=== PATIENT | male | born 1990 | race Caucasian/White ===

== ENCOUNTER 2023-03-29 09:07 | Emergency (ER) | payer BC, SELFPAY ==
[2023-03-29] VITALS (15 sets, daily range): BP systolic 94–138; BP diastolic 51–78; PULSE 68–121; RESP 14–16; TEMP 36.3–36.8; O2SAT 97–100
[2023-03-29] MEDS: SODIUM CHLORIDE 0.9% IV 1,000 ML 999 ML IV CONT ×2 (09:20→11:14)
[2023-03-29] MEDS: levETIRAcetam 1000MG/NACL100ML 1,000 MG/100 ML BAG 400 MG IVPB (09:21)
--- NOTE | 2023-03-29 09:23 | ED.SEIZURE ---
HPI - Seizure General Chief Complaint: Seizure Stated Complaint: seizure Source: patient Mode of arrival: EMS Limitations: no limitations History of Present Illness HPI Narrative: Patient is a 32-year-old male who presents to the ED via EMS with report of seizure. 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 Patient states last thing he remembers was talking to one of his coworkers and the next thing he remembers is having a coworker lowered him to the ground. He was caught by a coworker. He did not fall or hit his head. He did not have incontinence or bite his tongue. EMS was called. Patient was initially postictal for EMS and was unsure of the year so they brought him here for evaluation. Patient A&O x4 upon my evaluation. He has history of seizures and takes Keppra 500 mg once daily. He has not missed any doses. He did not take his dose yet today. He is prescribed this to his primary care doctor, but does see a neurologist annually with [facility]. Patient denies any complaints at this time. Denies headache, dizziness, lightheadedness, vision changes, myalgias, chest pain, difficulty breathing, nausea, vomiting, focal weakness, numbness, or any recent illness. Patient notes it was hot in the auto shop today and he only had about 1 hour of sleep last night as he was binge-watching TV. Related Data Allergies Allergy/AdvReac Type Severity Reaction Status Date / Time No Known Allergies Allergy Verified 03/29/23 09:20 Review of Systems Review of Systems: CONSTITUTIONAL: Denies fever, chills, or sweats. EYES: Denies visual changes. CARDIOVASCULAR: Denies chest pain. RESPIRATORY: Denies dyspnea. GASTROINTESTINAL: Denies abdominal pain, nausea, vomiting. MUSCULOSKELETAL: Denies back pain, joint pain, or myalgia. NEUROLOGIC: See HPI. All systems reviewed & are unremarkable except as noted in HPI and below PMFSH Past Medical History Medical History (Updated 03/29/23 @ 15:05 by Anai Carter PA-C) Seizure disorder Surgical History Surgical History (Updated 03/29/23 @ 09:26 by Anai Carter PA-C) No pertinent past surgical history Social History Social History (Updated 03/29/23 @ 09:26 by Anai Carter PA-C) Smoking status: Never smoker Exam Narrative: GENERAL: Well appearing, thin, non-toxic, in no acute distress. HEAD: Normocephalic, atraumatic. EYES: PERRL/EOMI, conjunctivae clear bilaterally. No nystagmus. THROAT: Pharynx clear, no exudate. MMs moist. No bite davis/wounds to tongue/lips. NECK: Supple. No adenopathy, no masses. RESPIRATORY: Airway patent, respirations nonlabored. Clear to auscultation bilaterally, no rales, rhonchi, wheezing. CARDIOVASCULAR: Borderline tachycardic with regular rhythm without murmurs, rubs, or gallops. Radial pulses 2+ and equal bilaterally. ABDOMINAL: Soft, nontender, nondistended, no hepatosplenomegaly. Normoactive BS. MUSCULOSKELETAL: Moves all extremities. Strength/ROM intact without gross deformities. SKIN: Warm, dry, normal color. No rashes. NEURO: A&O X4. Speech clear. Follows commands. CN II-XII intact. Sensation grossly intact. Steady gait. Mildly tremulous throughout extremities, no ataxic movements. Strength 5/5 in upper and lower extremities bilaterally. Qhgo-xe-ljjn and wddxjo-pp-npru testing intact bilaterally. No pronator drift. Equal group care worker strength bilaterally. PSYCHIATRIC: Appropriate mood and affect. Normal interaction. Course Vital Signs Vital signs: Vital Signs Pulse Rate 121 H 03/29/23 09:30 Pulse Oximetry 100 03/29/23 09:30 Temperature 97.3 F L 03/29/23 15:10 Pulse Rate 68 03/29/23 14:46 Respiratory Rate 16 03/29/23 14:46 Blood Pressure 117/71 03/29/23 14:46 Pulse Oximetry 100 03/29/23 14:46 Oxygen Delivery Room Air 03/29/23 09:34 MDM - Seizure MDM Narrative Medical decision making narrative: Patient presented to ED sta
[2023-03-29 09:55] LABS: Basophils Absolute Auto 0.1 K/mm3 (0.0-0.1); Basophils Percent Auto 0.9 % (0.2-1.2); Eosinophils Percent Auto 0.6 % (0-4.4); Hematocrit 43.2 % (42.0-52.0); Immature Granulocyte Absolute 0.02 K/mm3 (0.00-0.031); Immature Granulocyte Percent A 0.3 % (0-0.5); Lymphocytes Absolute Auto 1.44 K/mm3 (0.9-3.2); Lymphocytes Percent Auto 22.1 % (18.3-44.2); Mean Corpuscular HGB Conc 34.7 g/dl (32-36); Mean Corpuscular Hemoglobin 31.7 pg (26-34); Mean Corpuscular Volume 91.3 fl (80-100); Mean Platelet Volume 10.1 fl (7.4-10.4); Monocytes Absolute Auto 0.5 K/mm3 (0.1-0.6); Monocytes Percent Auto 7.2 % (2.6-8.5); Neutrophils Absolute Auto 4.5 K/mm3 (1.3-6.7); Neutrophils Percent Auto 68.9 % (45.5-73.1); Platelet Count Result 246 k/mm3 (150-375); Red Blood Count 4.73 M/mm3 (4.6-6.20); Red Cell Distribution Width 12.2 % (11.5-14.5); White Blood Count 6.5 K/mm3 (4.5-10.0)
[2023-03-29 10:10] LABS: Alanine Aminotransferase 29 U/L (6-50); Albumin Level 4.8 g/dL (3.5-5.1); Alkaline Phosphatase 78 U/L (38-126); Anion Gap 5 mmol/L (8-16); Aspartate Amino Transferase 36 U/L (17-59); Bilirubin,Total 0.7 mg/dL (0.2-1.3); Blood Urea Nitrogen 22 mg/dL (9-20); Carbon Dioxide 30 mmol/L (22-30); Chloride 103 mmol/L (98-107); Estimated CRCL calculation 128 ml/min; Estimated Glomerular Filt Rate > 60; Glucose 129 mg/dL (65-110); Magnesium 1.9 mg/dL (1.6-2.3); Potassium 4.3 mmol/L (3.4-5.0); Sodium 138 mmol/L (137-145)
[2023-03-29 10:53] LABS: Add Urine Microscopic? YES; Appearance Urine Cloudy (Clear); Bacteria Urine None Seen /hpf; Bilirubin Urine Negative (Negative); Blood Urine Negative (Negative); Color Urine Dark Yellow (Yellow); Glucose Urine UA Negative (Negative); Ketones Urine Trace mg/dL (Negative); Leukocyte Esterase Ur Negative LEU/UL (Negative); Need Manual Microscopic Reviewed; Nitrate Urine Negative (Negative); Protein Urine 2+ mg/dL (Negative); RBC Urine 0-2 /hpf (0-2); Specific Grav Ur 1.032 (1.001-1.035); Spermatozoa Urine Present; Squamous Epithelial Cell Urine None seen /hpf (Few); Urobilinogen Urine 0.2 mg/dL (<2.0); WBC Urine 0-5 /hpf
--- NOTE | 2023-03-29 17:48 | ECG_ITS ---
Measurements Intervals [place] Rate: 107 P: 78 OK: 138 QRS: 83 QRSD: 98 T: 26 QT: 305 QTc: 407 Interpretive Statements SINUS TACHYCARDIA OTHERWISE WITHIN NORMAL LIMITS NO PREVIOUS ECG AVAILABLE FOR COMPARISON Electronically Signed On 04-02-2023 15:24:55 CDT by Miguel Royal M.D.
== END 2023-03-29 15:12 | disposition home or self-care (01) ==
PROVIDERS: Emergency Provider Physician Assistant
DX: G40.909 Epilepsy, unspecified, not intractable, without status epilepticus (principal)
CPT/HCPCS: 36415; 80053; 81001; 83735; 85025; 93005; 96361; 96374; 99284; J1953; J7030

== ENCOUNTER 2023-07-10 10:09 | Emergency (ER) | payer OTHER, SELFPAY ==
--- NOTE | ~2023-07-10 | XR_ITS ---
EXAMINATION: XR forearm LT 2V DATE: 07/10/2023 10:43 INDICATION: Left forearm foreign body. TECHNIQUE: 2 views of left forearm were obtained. COMPARISON: None. FINDINGS: Bone alignment is normal. No fracture. Joint spaces are normal. No elbow joint effusion. Th ere is a 12 mm subcutaneous foreign body anterolateral to the distal humerus. IMPRESSION: 1. 12 mm subcutaneous foreign body anterolateral to the distal humerus. Reviewed, dictated and finalized at location A.
[2023-07-10 10:15] VITALS: BP 139/94; PULSE 90; RESP 16; TEMP 36.6; O2SAT 98
--- NOTE | 2023-07-10 10:45 | ED.GENADULT ---
HPI - General Adult General Chief complaint: Wound/Laceration Stated complaint: laceration Time Seen by Provider: 07/10/23 10:16 History of Present Illness HPI narrative: 39-year-old male presented to the emergency department for evaluation of an injury to his left arm. Patient was hammering metal when a shard broke off and hit him in the left forearm. Patient reports his tetanus is up-to-date. Patient denies any other pain or injury Related Data Allergies Allergy/AdvReac Type Severity Reaction Status Date / Time No Known Allergies Allergy Verified 07/10/23 10:18 Review of Systems Review of Systems: All systems reviewed & are unremarkable except as noted in HPI and below PMFSH Past Medical History Medical History (Updated 07/10/23 @ 11:53 by Bryant Augustine MD) Seizure disorder Surgical History Surgical History (Updated 03/29/23 @ 09:26 by Anai Carter PA-C) No pertinent past surgical history Social History Social History (Updated 03/29/23 @ 09:26 by Anai Carter PA-C) Smoking status: Never smoker Exam Narrative: APPEARANCE: Well appearing, no pain, no distress, well-nourished. HEAD: normocephalic, atraumatic. EYES: PERRLA/EOMI, conjunctivae clear. NOSE: Normal no drainage NECK: Supple. No adenopathy, no masses. RESPIRATORY: Airway patent, respirations nonlabored. Clear to auscultation bilaterally, no rales, rhonchi, wheezing. CARDIOVASCULAR: Regular rate and rhythm without murmurs rubs or gallops. ABDOMINAL: Soft, nontender, nondistended, normal bowel sounds MUSCULOSKELETAL: Moves all extremities. Strength/ROM intact, No edema, No calf tenderness. NEURO: Alert. Cranial nerves II through XII intact. Grossly intact SKIN: 3.5 cm laceration to left forearm Course Course Emergency Course: 33-year-old male presented to ED for evaluation of laceration to the left forearm. Foreign body was removed and laceration was repaired. Patient's tetanus up-to-date. Patient was started on Augmentin in the ED and discharged home with Augmentin. Vital Signs Vital signs: Vital Signs Temperature 97.8 F 07/10/23 10:15 Pulse Rate 90 07/10/23 10:15 Respiratory Rate 16 07/10/23 10:15 Blood Pressure 139/94 H 07/10/23 10:15 Pulse Oximetry 98 07/10/23 10:15 Temperature 98.0 F 07/10/23 12:20 Pulse Rate 64 07/10/23 12:20 Respiratory Rate 15 07/10/23 12:20 Blood Pressure 131/89 07/10/23 12:20 Pulse Oximetry 100 07/10/23 12:20 Procedures Foreign Body Removal Foreign Body #1: Time Out Performed: yes Site: left and upper extremity Description of foreign body: other (piece of steel) Technique: manual removal, removal with forceps, irrigation and bedside ultrasound guidance Confirmed by:: direct visualization Complications: none Neurovascular: normal distal pulse Laceration Laceration 1: Time: 11:46 Site: upper extremity Side (If applicable): left Size (cm): 3.5 Description: linear and flap Depth: simple, single layer Local Anesthetic: lidocaine 1% and with epi Amount of anesthesia used (mL): 5 Pre-repair: wound explored, irrigated and irrigated extensively ====== Skin Level ====== Skin layer closed with: prolene Size (cm): 3-0 Number of sutures: 4 Technique: simple, interrupted ====== Subcutaneous Layer ====== ====== Muscle Layer ====== ====== Tendon Layer ====== Medical Decision Making Differential Diagnosis Differential Diagnosis: Laceration, foreign body Vital Signs Vital Signs: Vital Signs Temperature 97.8 F 07/10/23 10:15 Pulse Rate 90 07/10/23 10:15 Respiratory Rate 16 07/10/23 10:15 Blood Pressure 139/94 H 07/10/23 10:15 Pulse Oximetry 98 07/10/23 10:15 Temperature 98.0 F 07/10/23 12:20 Pulse Rate 64 07/10/23 12:20 Respiratory Rate 15 07/10/23 12:20 Blo
[2023-07-10] MEDS: AMOXICILLIN/CLAVULANATE K 875-125 MG TAB 1 TABLET PO (12:14)
[2023-07-10 12:20] VITALS: BP 131/89; PULSE 64; RESP 15; TEMP 36.7; O2SAT 100
== END 2023-07-10 12:22 | disposition home or self-care (01) ==
PROVIDERS: Emergency Provider Emergency Medicine
DX: S51.821A Laceration with foreign body of right forearm, initial encounter (principal); W26.8XXA Contact with other sharp object(s), not elsewhere classified, initial encounter
CPT/HCPCS: 12002; 73090; 99283; A9270

== ENCOUNTER 2024-03-02 18:02 | Emergency (ER) | payer OTHER, SELFPAY ==
--- NOTE | 2024-03-02 18:05 | ED.EAR ---
HPI - Ear Problem General Chief complaint: Ear Stated complaint: Lt Ear Irritation Time Seen by Provider: 03/02/24 18:05 Source: patient Mode of arrival: ambulatory Limitations: no limitations History of Present Illness HPI Narrative: Patient is a 33-year-old male that presents with left ear irritation after having ear wax push further in trying to get it out with a Q-tip. Patient has tried vcjr-bxi-[id number] drops with no relief and scooping it out MD Complaint: ear pain Related Data Home Medications Medication Instructions Recorded Confirmed alprazolam 0.5 mg tablet 0.5 mg PO BID PRN Anxiety 03/02/24 03/02/24 buprenorphine 4 mg-naloxone 1 mg 1 film sublingual BID 03/02/24 03/02/24 sublingual film dextroamphetamine-amphetamine 30 30 mg PO BID 03/02/24 03/02/24 mg tablet Allergies Allergy/AdvReac Type Severity Reaction Status Date / Time No Known Allergies Allergy Verified 03/02/24 18:04 Review of Systems Review of Systems: All systems reviewed & are unremarkable except as noted in HPI and below Constitutional: Constitutional: Denies body ache(s), Denies chills, Denies fever(s), Denies headache(s) and Denies malaise Eyes: Eyes: Denies blurry vision, Denies eye discharge and Denies irritation ENT: Reports otalgia, Denies headache(s), Denies nasal congestion, Denies nasal discharge and Denies sore throat Cardiovascular: Cardiovascular: Denies chest pain, Denies edema, Denies palpitations and Denies dyspnea on exertion Respiratory: Respiratory: Denies cough and Denies dyspnea on exertion Gastrointestinal: Gastrointestinal: Denies abdominal pain, Denies diarrhea, Denies nausea and Denies vomiting Musculoskeletal: Musculoskeletal: Denies back pain, Denies arthralgias and Denies muscle weakness Integumentary/Breasts: Skin/Breast: Denies pruritus and Denies rash Neurologic: Denies headache(s) Psychiatric: Psychiatric: Reports no additional psychiatric complaints Endocrine: Endocrine: Denies palpitations PMFSH Past Medical History Medical History Seizure disorder Surgical History Surgical History No pertinent past surgical history Social History Social History Smoking status: Never smoker Comments At time of signature, agree with nursing past medical, surgical, social and family history. There is no relevant family history pertinent to the presenting complaint? Exam Const: General: cooperative, healthy appearing, no acute distress and well nourished Nutritional Appearance: well nourished Orientation/consciousness: patient oriented x3 Limitations: no limitations HENMT: Head: normal to inspection, normocephalic and atraumatic Ears: hearing grossly normal bilaterally, TM normal on the right, no periauricular adenopathy, Abnormal EAC present cerumen impaction on the left, erythema on the left and other (abrasions from attempting to get wax out at home) and TM abnormal obstructed by cerumen on the left Face/Nose/Sinus: Normal external nose present, Normal nares present, Normal nasal mucous membranes and turbinates present, No nasal discharge present, normal facial exam and sinuses nontender Face and sinus: normal facial exam and sinuses nontender Mouth: Yes Normal oral and palatal mucosa present, Yes lip normal, Yes tongue normal and Yes moist mucous membranes Throat: posterior oropharynx normal, tonsils normal and uvula midline Eyes: General: appearance normal, both eyes and all related structures Alignment and Position: alignment normal and position normal Eyelids: eyelids normal Pupils: Equal, round and reactive pupils present EOM: EOMs intact bilaterally Neck: Neck: normal visual inspection, full ROM, no lymphadenopathy and supple Chest: Chest palpation & inspection: normal inspection of the chest Resp: Effort & Inspection: n
[2024-03-02 18:27] VITALS: BP 116/71; PULSE 83; RESP 16; TEMP 36.6; O2SAT 98
== END 2024-03-02 18:28 | disposition home or self-care (01) ==
PROVIDERS: Emergency Provider Nurse Practitioner Family; PCP Emergency Medicine
DX: H60.92 Unspecified otitis externa, left ear (principal); H61.22 Impacted cerumen, left ear
CPT/HCPCS: 69209; 99213; G0463

== ENCOUNTER 2024-05-27 16:38 | Outpatient (CLI) | payer OTHER, SELFPAY ==
[2024-05-27 17:47] LABS: Basophils Absolute Auto 0.1 K/mm3 (0.0-0.1); Basophils Percent Auto 0.6 % (0.2-1.2); Eosinophils Absolute Auto 0.1 K/mm3 (0-0.3); Eosinophils Percent Auto 1.2 % (0-4.4); Hematocrit 38.9 % (42.0-52.0); Hemoglobin 13.8 g/dL (14.0-18.0); Immature Granulocyte Absolute 0.01 K/mm3 (0.00-0.031); Immature Granulocyte Percent A 0.1 % (0-0.5); Lymphocytes Absolute Auto 1.98 K/mm3 (0.9-3.2); Lymphocytes Percent Auto 25.4 % (18.3-44.2); Mean Corpuscular HGB Conc 35.5 g/dl (32-36); Mean Corpuscular Hemoglobin 32.5 pg (26-34); Mean Corpuscular Volume 91.7 fl (80-100); Mean Platelet Volume 10.6 fl (7.4-10.4); Monocytes Absolute Auto 0.5 K/mm3 (0.1-0.6); Monocytes Percent Auto 6.6 % (2.6-8.5); Neutrophils Absolute Auto 5.1 K/mm3 (1.3-6.7); Neutrophils Percent Auto 66.1 % (45.5-73.1); Platelet Count Result 249 k/mm3 (150-375); Red Blood Count 4.24 M/mm3 (4.6-6.20); White Blood Count 7.8 K/mm3 (4.5-10.0)
[2024-05-27 17:55] LABS: Alanine Aminotransferase 26 U/L (6-50); Albumin Level 4.7 g/dL (3.5-5.1); Alkaline Phosphatase 71 U/L (38-126); Anion Gap 6 mmol/L (4-12); Aspartate Amino Transferase 32 U/L (17-59); Bilirubin,Total 0.6 mg/dL (0.2-1.3); Blood Urea Nitrogen 15 mg/dL (9-20); Calcium 9.6 mg/dL (8.4-10.2); Carbon Dioxide 34 mmol/L (22-30); Chloride 97 mmol/L (98-107); Cholesterol 154 mg/dL (0-200); Estimated Glomerular Filt Rate > 60; Glucose 80 mg/dL (65-110); HDL Direct 84 mg/dL; Phosphorus 3.4 mg/dL (2.5-4.5); Potassium 3.5 mmol/L (3.4-5.0); Sodium 137 mmol/L (137-145); Triglycerides 102 mg/dL (<150)
[2024-05-27 18:00] LABS: LDL Cholesterol Direct 42 mg/dL
[2024-05-27 18:17] LABS: Free T4 Free Thyroxine 1.12 ng/mL (0.78-2.19)
[2024-05-27 18:29] LABS: Thyroid Stimulating Hormone 0.723 uIU/mL (0.465-4.680)
== END 2024-05-27 16:39 | disposition home or self-care (01) ==
PROVIDERS: PCP Emergency Medicine; Visit Provider Emergency Medicine
DX: Z00.01 Encounter for general adult medical examination with abnormal findings (principal); F41.1 Generalized anxiety disorder; G89.4 Chronic pain syndrome; R41.840 Attention and concentration deficit; Z79.899 Other long term (current) drug therapy
CPT/HCPCS: 36415; 80061; 80069; 80076; 82607; 82746; 84439; 84443; 85025

== ENCOUNTER 2024-10-18 10:15 | Emergency (ER) | payer OTHER, SELFPAY ==
[2024-10-18 10:23] VITALS: BP 132/73; PULSE 93; RESP 20; TEMP 36.5; O2SAT 100
--- NOTE | 2024-10-18 11:50 | ED_ITS ---
HPI - Eye Problem General Chief complaint: Eye Problems Stated complaint: metal in eye Time Seen by Provider: 10/18/24 11:36 History of Present Illness HPI Narrative: 34-year-old male with a past medical history of seizure disorder presenting to the emergency room with chief complaint of foreign body sensation in his left eye. 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 He was wearing safety glasses that time. Patient went home did not thinking anything of it this started having some tearing and blurriness to his left eye. Tried retrieving foreign body which he can visualize in the mirror. States that the piece of metal. Was not able to retrieve it and presents the emergency room today for evaluation. He states his last tetanus was within the last year. Denies any fever, chills, headache, vision loss, nausea vomiting. He states he was otherwise in his normal state of health. Is not allergic to any kind antibiotics. Related Data Home Medications ?Medication ?Instructions ?Recorded ?Confirmed ?Last Taken ?Type alprazolam 0.5 mg tablet 0.5 mg PO BID PRN Anxiety 03/02/24 03/02/24 Unknown History buprenorphine 4 mg-naloxone 1 mg 1 film sublingual BID 03/02/24 03/02/24 Unknown History sublingual film dextroamphetamine-amphetamine 30 30 mg PO BID 03/02/24 03/02/24 Unknown History mg tablet Allergies Allergy/AdvReac Type Severity Reaction Status Date / Time No Known Allergies Allergy Verified 10/18/24 11:51 Review of Systems Review of Systems: As reviewed above in HPI PMFSH Past Medical History Medical History Seizure disorder Surgical History Surgical History No pertinent past surgical history Social History Social History Smoking status: Never smoker Exam Narrative: GENERAL: [Well-appearing, well-nourished, and in no acute distress.] HEAD: [Normocephalic, atraumatic.] EYES: Pupils are equal reactive to light, extraocular movements are full, pupils are 3 mm. Left eye is conjunctival injected with some tearing but no obvious laceration, no hypopyon or hyphema. Under slit-lamp examination there is a small area of a rust ring in the inferior medial aspect of his left eye that is not in the visual axis. No overlying abrasions. Appears very superficial, negative Rian sign, no corneal abrasions under fluorescein dye and examination with with lamp. ENT: Nares clear, no rhinorrhea or epistaxis. Mucous membranes moist. NECK: Supple. CHEST: [Clear to auscultation. No respiratory distress.] HEART: [Regular rate and rhythm]. No murmur heard. [Normal peripheral pulses.] ABDOMEN: [Soft, nondistended], [nontender], [No rigidity or guarding] EXTREMITIES: Normal range of motion. [No edema.] SKIN: Warm, dry, no rash. NEURO: [No focal deficits]. Alert and oriented [x3.] PSYCH: [Normal mood and affect.] Course Vital Signs Vital signs: Vital Signs Temperature 36.5 C 10/18/24 10:23 Pulse Rate 93 10/18/24 10:23 Respiratory Rate 20 10/18/24 10:23 Blood Pressure 132/73 10/18/24 10:23 Pulse Oximetry 100 10/18/24 10:23 Temperature 36.5 C 10/18/24 10:23 Pulse Rate 93 10/18/24 10:23 Respiratory Rate 20 10/18/24 10:23 Blood Pressure 132/73 10/18/24 10:23 Pulse Oximetry 100 10/18/24 10:23 Procedures FB Removal Eye Foreign Body #1: Foreign Body Removal Date: 10/18/24 Foreign Body Removal Time: 13:00 Time Out performed: Yes Location: eye (L) Topical anesthetic used: tetracaine Foreign body: metal Evidence of corneal penetration: No Technique: irrigation, cotton tip swab and needle Procedure performed under: slit-lamp Post-procedure medication: ophthalmic antibiotic and topical anesthetic Patient tolerated procedure: well and no complications Complications: residual rust ring Foreign Body Removal Narrative: Slit lamp examination was conducted, there is a small rust ring located in the inferior medial left eye off the visual axis. Removed after several attempts with 27 gauge needle burring. Extensive irrigation with saline conducted afterwards, repeat examination under slit lamp and fluorescein dye shows no penetration or positive Rian sign. Patient tolerated procedure well and had improvement his foreign body sensation. Visual acuity remained normal. Given topical moxifloxacin. MDM - Eye Problem MDM Narrative Medical decision making narrative: 34-year-old male presenting for foreign body sensation is left eye. Patient was grinding metal 2 days ago at work and felt a piece of metal going to his left eye. He states he tried treating it as he is able to visualize it but was not able to. This occurred 2 days ago and presents today for evaluation. He is h aving some tearing and does have some conjunctival injection in his left eye. His tetanus is already up-to-date. Considerations presently are for foreign body retained in left eye, corneal abrasion, less likely corneal ulceration or penetrating globe injury. Visual cue to be checked, patient will be given tetracaine for pain control and fluorescein dye will be used to stain. Under slit-lamp examination there is a small area of a rust ring in the inferior medial aspect of his left eye that is not in the visual axis. No overlying abrasions. Appears very superficial, negative Rian sign, no corneal abrasions under fluorescein dye and examination with with lamp. Foreign body was successfully removed under slit-lamp examination with a needle. Patient tolerated the procedure well. Please see the procedure note above for further details. I contacted the [facility] ophthalmology group and spoke to the on- call doctor Dr. Nascimento to obtain recommendations and appropriate follow-up for the patient. Patient has been made an appointment on Sunday the at 10:00 a.m. at the clinic. Patient will be sent home with moxifloxacin eyedrops and instructions that if he has any worsening or new symptoms or any visual changes or deficits that he should call their clinic line for an emergency visit or return to the ER at that time. Patient verbalized understanding was safe for discharge home at this time with prescription medications. Medical Records Attestation: I reviewed the patient's medical records. Discharge Plan Discharge Clinical Impression: Corneal rust ring of left eye, Rust ring of left cornea due to metallic foreign body Patient Disposition: Home, Self-Care Condition: Stable Instructions: Antibiotic Form Additional Instructions: Follow up in clinic on Sunday 10/22 at 10am. Location: [address] [place] [address]. Call clinic at [phone] for scheduling changes or if any new or worsening symptoms and they will refer you to the [facility] ED to be seen emergently at that time. Continue taking her moxifloxacin eyedrops as directed as well as oral ibuprofen or Tylenol for pain control. Follow-up with the clinic as described above, return with any new or worsening concerns at any time. Patient Language: Nepali Prescriptions: New moxifloxacin 0.5 % drops 1 drp LEFT EYE TID 7 Days Qty: 3 0RF No Action buprenorphine-naloxone 4-1 mg film 1 film sublingual BID dextroamphetamine-amphetamine 30 mg tablet 30 mg PO BID alprazolam 0.5 mg Tablet 0.5 mg PO BID PRN (Reason: Anxiety) ofloxacin 0.3 % drops 5 drp LEFT EAR Q12H 7 Days Qty: 10 0RF Follow-up/Referrals: Hai Edwards MD [Primary Care Provider] - Time of Disposition: 13:35
[2024-10-18] MEDS: MOXIFLOXACIN HCL 0.5% 3 ML OPHTH SOLN 1 DROP LEFT EYE (14:01)
--- OUTSIDE RECORDS SUMMARY | 2024-10-25 13:01 | XMS_ITS | Encounter Summary ---
Author Organization [facility] Address [address] [place] [address]. 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 ([facility]) Procedures MRI BRAIN WWO CON Julián Matthews MD [address] [place] [address] Phone: tel: fax: Referral ID Status Reason Start Date Expiration Date Visits Re quested Visits Authorized [id number] Closed 07/15/2021 08/15/2022 1 1 * Imaging (Routine) - Closed Specialty Diagnoses / Procedures Referred By Alicja bassett Referred To Contact RADIOLOGY Diagnoses 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 ([facility]) Procedures USE ECHOCARDIOGRAM Julián Matthews MD [address] [place] [address] Phone: tel: fax: Referral ID Status Reason Start Date Expiration Date Visits Re quested Visits Authorized [id number] Closed 07/15/2021 08/15/2022 1 1 Reason for Visit * Imaging (Routine) - Closed Specialty Diagnoses / Procedures Referred By Alicja bassett Referred To Contact RADIOLOGY Diagnoses 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 ([facility]/HCC [facility]) Procedures USE ECHOCARDIOGRAM Julián Matthews MD [address] [place] [address] Phone: tel: fax: Referral ID Status Reason Start Date Expiration Date Visits Re quested Visits Authorized [id number] Closed 07/15/2021 08/15/2022 1 1 Encounter Details Date Type Department Care Team (Latest Contact Info) Description 08/19/2021 7:30 AM CDT - 08/19/2021 11:59 PM CDT Hospital Encounter [facility] Non Invasive Cardiology [place], [place] [id number] Julián Matthews MD [address] [place], [place] [id number] Discharge Disposition: Home or Self Care (Routine Discharge) Social History Tobacco Use Types Packs/Day Years Used Date Smoking Tobacco: Never Smokeless Tobacco: Never Alcohol Use Standard Drinks/Week Comments No 0 (1 standard drink = 0.6 oz pur e alcohol) AUDIT-C Answer Date Recorded Frequency of Alcohol Consumption Never 04/14/2019 Average Number of Drinks Not on file 019 Frequency of Binge Drinking Not on file 10/2018 Sex and Gender Information Value Date Recorded Sex Assigned at Not on file Legal Sex Male 9:06 PM CDT Gender Identity Not on file Sexual Orientation Not on file 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 No / Unsure 08/19/2021 7:35 AM CDT documented as of this encounter Medications at Time of Discharge buprenorphine-nalox one 8-2 MG FILM 07/23/2020 amphetamine-dextroa mphetamine 30 MG tabletIndications:A DHD (attention deficit hyperactivity disorder), inattentive type Take 1 tablet (30 mg total) by mouth 2 (two) times daily. 60 tablet 07/26/2021 1 levETIRAcetam (KEPPRA) 500 MG tabletIndications:L ocalization-related focal epilepsy with complex partial seizures (CMS/HCC HHS/HCC) Take 1 tablet (500 mg total) by mouth 2 (two) times daily. 60 tablet 5 07/15/2021 2 levETIRAcetam 500 MG tablet Take 1 tablet (500 mg total) by mouth 2 (two) times daily. 60 tablet 03/07/2021 2 documented as of this encounter Plan of Treatment Not on file documented as of this encounter Procedures Procedure Name Priority Date/Time Associated Diagnosis Comments MRI BRAIN WWO CON Routine 08/19/2021 3:3 0 PM CDT Localization-relate d focal epilepsy with complex partial seizures (CMS/HCC HHS/HCC) USE ECHOCARDIOGRAM Routine 08/19/2021 8: 34 AM CDT Localization-relate d focal epilepsy with complex partial seizures (CMS/HCC HHS/HCC) documented in this encounter Results * MRI BRAIN WWO CON (08/19/2021 3:30 PM CDT) Anatomical Region Laterality Modality Head Magnetic Resonan ce 08/21/2021 9:02 AM MOLD INJECTOR Impressions 08/21/2021 9:12 AM MOLD INJECTOR IMPRESSION:===== ?? 1. ??Unremarkable MRI of the brain; no potential seizure focus identified, or any other acute or significant intracranial MRI finding. Referred By: JULIÁN MATTHEWS Interpreted By: Vini Graves MD, 08/21/2021 9:02 AM Narrative 08/21/2021 9:12 AM MOLD INJECTOR EXAMINATION: MRI brain with/without contrast. EXAM DATE/TIME: 08/19/2021 2:45 PM REASON FOR EXAM: 31-year-old male. ??History of epilepsy. ??2 seizures 5 months prior. ?? COMPARISON: None TECHNIQUE: Planar multisequence MR imaging of the brain performed before and following uneventful intravenous administration of 15 cc Dotarem contrast. ??Coronal of imaging through the of the upper lobes also performed per seizure protocol. FINDINGS: Normal ventricles and sulci. ??No intracranial hemorrhage, mass effect or midline shift. ??No focus of restricted diffusion suggestive of acute ischemia. ??No chronic infarct. ??No other abnormal parenchymal signal in the brain. ??Weiss-white differentiation is normal. There is no imaging through the temporal lobes shows symmetry without any findings of mesial temporal sclerosis. No focus of abnormal gradient susceptibility seen. Patent basilar cisterns. ??Posterior fossa including the brainstem and cerebellum are unremarkable. Sellar and suprasellar region is normal. Orbits and orbital structures are within normal limits. Major intracranial vascular flow voids are present. ??Other major intracranial structures including dural venous sinuses enhance normally within study limits. ??No abnormal or unexpected intracranial enhancement Orbits and orbital structures are within normal limits. Bilateral maxillary sinus minimal inferior mucosal thickening otherwise the sinuses and mastoid air cells are clear. ===== Procedure Note Vini Graves MD - 08/21/2021 EXAMINATION: MRI brain with/without contrast. EXAM DATE/TIME: 08/19/2021 2:45 PM REASON FOR EXAM: 31-year-old male. History of epilepsy. 2 seizures 5months prior. COMPARISON: None TECHNIQUE: Planar multisequence MR imaging of the brain performed beforeand following uneventful intravenous administration of 15 cc Dotaremcontrast. Coronal of imaging through the of the upper lobes alsoperformed per seizure protocol. FINDINGS: Normal ventricles and sulci. No intracranial hemorrhage, mass effect ormidline shift. No focus of restricted diffusion suggestive of acuteischemia. No chronic infarct. No other abnormal parenchymal signal inthe brain. Weiss-white differentiation is normal. There is no imaging through the temporal lobes shows symmetry without anyfindings of mesial temporal sclerosis. No focus of abnormal gradient susceptibility seen. Patent basilar cisterns. Posterior fossa including the brainstem andcerebellum are unremarkable. Sellar and suprasellar region is normal. Orbits and orbital structures are within normal limits. Major intracranial vascular flow voids are present. Other majorintracranial structures including dural venous sinuses enhance normallywithin study limits. No abnormal or unexpected intracranial enhancement Orbits and orbital structures are within normal limits. Bilateral maxillary sinus minimal inferior mucosal thickening otherwisethe sinuses and mastoid air cells are clear. ===== IMPRESSION:===== 1. Unremarkable MRI of the brain; no potential seizure focus identified,or any other acute or significant intracranial MRI finding. Referred By: JULIÁN MATTHEWS Interpreted By: Vini Graves MD, 08/21/2021 9:02 AM us Julián Matthews MD MRI Final Res ult * USE ECHOCARDIOGRAM (08/19/2021 8:34 AM CDT) Anatomical Region Laterality Modality Cardiac Echocardiogram 08/19/2021 7:45 AM CDT Narrative 08/19/2021 9:08 AM CDT ?Echocardiography Report Pat.Name: ??FREDERICK MCDONALD ?Pat.ID: ?[id number] ? St.Date: ?? 08/19/2021 ? Refer.: ??[id number], JULIÁN MATTHEWS Exam Time: 7:45:00 AM ? Study Type:ECHO WITH CARDIAC DOPPLER COMP Height: ?71in ?Weight: ?155.68lb ? BSA: ? 1.9 m2 ?Age: ??1990,31Y ? Sex: ? MALE ?BP: ?124/76 ? HR: ?66 bpm ?Sonogrphr: Kiran Donnelly RDCS ?? Pat. Stat.:Outpatient ? Reason for Study: Seizure ? Procedures: ??2D, M-mode, Doppler, Color Flow, The study quality is technically adequate. Race: ?W ? ++++++++++++++++++++++++++++++++++++ SUMMARY: ++++++++++++++++++++++++++++++++++++ Estimated left ventricular ejection fraction is 60-65%. Left ventricular diastolic function is normal. Normal valves. Inferior vena cava shows >50% collapse with respiration consistent with normal right atrial pressure. ++++++++++++++++++++++++++++++++++++ FINDINGS: ++++++++++++++++++++++++++++++++++++ LV: ? The left ventricular size is normal. The left ventricular ?systolic ??function is normal. Estimated left ventricular ?ejection ??fraction is 60-65%. There is no left ventricular ?hypertrophy. ??Left ventricular diastolic function is normal. RV: ? The right ventricular size is normal. Right ventricular ?systolic ??function is normal. IVS: ?No evidence of ventricular septal defect. IAS: ?Atrial septum appears intact. CHADWICK: ? No evidence of pericardial effusion. AO: ? Normal aortic root. SVn: ?Inferior vena cava shows >50% collapse with respiration ?consistent ??with normal right atrial pressure. AV: ? The aortic valve is trileaflet. No evidence of aortic valve ?stenosis. ??Trace aortic regurgitation. MV: ? Structurally normal mitral valve. No evidence of mitral ?regurgitation. ??No evidence of mitral valve stenosis. PV: ? No evidence of pulmonic valve stenosis. A trace of pulmonic ?regurgitation. TV: ? A trace of tricuspid regurgitation. No evidence of tricuspid ?valve ??stenosis. ++++++++++++++++++++++++++++++++++++ MEASUREMENTS: ++++++++++++++++++++++++++++++++++++ ?DOPPLER LVOT ?? LVOTpkPG ? 3 mmHg ?LVOTmnPG ? 2 mmHg LVOTpkVel ? 91 cm/s (70-110) LVOT SV ? 56 ml ?? LVOT TVI ?17.7 cm ? Pulmonary Veins ?? PVnpkVeld ? 30.7 cm/s ?PVnVs/Vd ? 1.3 ? PVnpkVels ? 38.9 cm/s ? AV Forward Flow AV TVI ?21.3 cm ?AV pkPG ?4 mmHg AV pkVel ? 106 cm/s (100-170) Area (TVI) ?2.61 cm2 ??(3-5)* AV mnPG ?3 mmHg ?Area (Mak) ? 2.7 cm2 ??(3- 5)* MV Forward Flow MV DeTm ?209 ms ?MV pkE ?69.1 cm/s (60-130) MV E/A ? 1.2 ? MV pkA ?58.6 cm/s PV Forward Flow PV pkVel ?70 cm/s (60-90)+ PV AC ?118 ms ?? PV pkPG ?2 mmHg ? TV Regurg Flow TV pkPG ? 14 mmHg ?TV pkVel ? 189 cm/s (30- 70)* TV Forward Flow TV pkE ?55.5 cm/s ? Lat E' ?? Lat e ? 15.9 cm/s ? Lat E/E' ?? Lat E/e ?4.3 ? Med E' ?? Med e ? 14.2 cm/s ? Med E/E' ?? Med E/e ?4.9 ? PV Antegrade Flow Acceleration Sl ?? 505 cm/s2 ? RA VOLUME ?? Atrial Gupta ? 45 mm ? Atrial Gupta ?? 11.8 cm2 Atrial Gupta ? 26 ml ? RV DIM BASAL ?? Distance ?34 mm ? RV DIM LENGTH ?? Distance ?73 mm ? RV DIM MID ?? Distance ?43 mm ? TAPSE ?? Distance ?22 mm ?2D Left Ventricle ?? LVIDd ? 4.59 cm ?? (3.6-5.2) LngAxs ?6.97 cm ?? LVIDs ? 2.97 cm ?? (2.3-3.9) LV ESV ?14 ml ?? LngAxd ?6.18 cm ?LV ESV ?34 ml ?? LngAxd ?7.87 cm ?LV EF ? 67 % ?? LV EDV ?42 ml ?LV EF ? 63 % ?? LV EDV ?92 ml ?LV SV ? 28 ml ?? LngAxs ?5.36 cm ?LV SV ? 58 ml ?? LVPW ?? LVPWd ?0.915 cm ? Right Ventricle ?? RVIDd ? 2.54 cm ?? (2.6-4.3)* Ventricular Septum ?? IVSd ? 0.893 cm ? Left Atrium ?? LA a-p ? 2 cm ?? (2.8-3.4)* LA VOLBP ?31 ml ?? Aorta ?? Ao Rtd ? 3.2 cm ? LVOT ?? LVOT ? 2 cm ?LVOTArea ?3.14 cm2 Ratios ?? IVS LA Biplane LAVol I BP ?16.3 ml/m2 ?MMODE Ratios ?? LA/Ao ?0.688 ?(0.87-1.1)* Aorta ?? Ao Rt ?3.2 cm ?? (zsc 1.1)+ Left Atrium ?? LAIDs ?2.2 cm ? Signed 08/19/2021 09:08 AM Lucretia Tobin M.D. Procedure Note Lucretia Tobin MD - 08/19/2021 Echocardiography Report Pat.Name: FREDERICK MCDONALD Pat.ID: [id number] St.Date: 08/19/2021 Refer.MD: [id number], JULIÁN MATTHEWS Exam Time: 7:45:00 AM Study Type:ECHO WITH CARDIAC DOPPLER COMP Height: 71in Weight: 155.68lb BSA: 1.9 m2 Age: 7 1990,31Y Sex: MALE BP: 124/76 HR: 66 bpm Sonogrphr: Kiran Donnelly [facility] Pat. Stat.:Outpatient Reason for Study: Seizure Procedures: 2D, M-mode, Doppler, Color Flow, The study quality is technically adequate. Race: W ++++++++++++++++++++++++++++++++++++ SUMMARY: ++++++++++++++++++++++++++++++++++++ Estimated left ventricular ejection fraction is 60-65%. Left ventricular diastolic function is normal. Normal valves. Inferior vena cava shows >50% collapse with respiration consistent with normal right atrial pressure. ++++++++++++++++++++++++++++++++++++ FINDINGS: ++++++++++++++++++++++++++++++++++++ LV: The left ventricular size is normal. The left ventricular systolic function is normal. Estimated left ventricular ejection fraction is 60-65%. There is no left ventricular hypertrophy. Left ventricular diastolic function is normal. RV: The right ventricular size is normal. Right ventricular systolic function is normal. IVS: No evidence of ventricular septal defect. IAS: Atrial septum appears intact. CHADWICK: No evidence of pericardial effusion. AO: Normal aortic root. SVn: Inferior vena cava shows >50% collapse with respiration consistent with normal right atrial pressure. AV: The aortic valve is trileaflet. No evidence of aortic valve stenosis. Trace aortic regurgitation. MV: Structurally normal mitral valve. No evidence of mitral regurgitation. No evidence of mitral valve stenosis. PV: No evidence of pulmonic valve stenosis. A trace of pulmonic regurgitation. TV: A trace of tricuspid regurgitation. No evidence of tricuspid valve stenosis. ++++++++++++++++++++++++++++++++++++ MEASUREMENTS: ++++++++++++++++++++++++++++++++++++ DOPPLER LVOT LVOTpkPG 3 mmHg LVOTmnPG 2 mmHg LVOTpkVel 91 cm/s (70-110) LVOT SV 56 ml LVOT TVI 17.7 cm Pulmonary Veins PVnpkVeld 30.7 cm/s PVnVs/Vd 1.3 PVnpkVels 38.9 cm/s AV Forward Flow AV TVI 21.3 cm AV pkPG 4 mmHg AV pkVel 106 cm/s (100-170) Area (TVI) 2.61 cm2 (3-5)* AV mnPG 3 mmHg Area (Mak) 2.7 cm2 (3-5)* MV Forward Flow MV DeTm 209 ms MV pkE 69.1 cm/s (60-130) MV E/A 1.2 MV pkA 58.6 cm/s PV Forward Flow PV pkVel 70 cm/s (60-90)+ PV AC 118 ms PV pkPG 2 mmHg TV Regurg Flow TV pkPG 14 mmHg TV pkVel 189 cm/s (30-70)* TV Forward Flow TV pkE 55.5 cm/s Lat E' Lat e 15.9 cm/s Lat E/E' Lat E/e 4.3 Med E' Med e 14.2 cm/s Med E/E' Med E/e 4.9 PV Antegrade Flow Acceleration Sl 505 cm/s2 RA VOLUME Atrial Gupta 45 mm Atrial Gupta 11.8 cm2 Atrial Gupta 26 ml RV DIM BASAL Distance 34 mm RV DIM LENGTH Distance 73 mm RV DIM MID Distance 43 mm TAPSE Distance 22 mm 2D Left Ventricle LVIDd 4.59 cm (3.6-5.2) LngAxs 6.97 cm LVIDs 2.97 cm (2.3-3.9) LV ESV 14 ml LngAxd 6.18 cm LV ESV 34 ml LngAxd 7.87 cm LV EF 67 % LV EDV 42 ml LV EF 63 % LV EDV 92 ml LV SV 28 ml LngAxs 5.36 cm LV SV 58 ml LVPW LVPWd 0.915 cm Right Ventricle RVIDd 2.54 cm (2.6-4.3)* Ventricular Septum IVSd 0.893 cm Left Atrium LA a-p 2 cm (2.8-3.4)* LA VOLBP 31 ml Aorta Ao Rtd 3.2 cm LVOT LVOT 2 cm LVOTArea 3.14 cm2 Ratios IVS LA Biplane LAVol I BP 16.3 ml/m2 MMODE Ratios LA/Ao 0.688 (0.87-1.1)* Aorta Ao Rt 3.2 cm (zsc 1.1)+ Left Atrium LAIDs 2.2 cm Signed 08/19/2021 09:08 AM Lucretia Tobin M.D. 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 (CMS/HCC HHS/HCC) Localization-related (focal) (partial) epilepsy and epileptic syndromes with complex partial seizures, without mention of intractable epilepsy documented in this encounter Administered Medications Inactive Administered Medications - up to 3 most recent administrations Medication Order MAR Action Action Date Dose Rate Site gadoterate meglumine (DOTAREM) 7.5 MMOL/15ML injection 15 mL 15 mL, Intravenous, IMG once as needed, Contrast, 1 dose, Starting on Sun08/19/21 at 1537, Until Sun08/19/21 at 1518 Given 08/19/2021 3:18 PM CDT 15 mLs Right Arm documented in this encounter Care Teams Knitting Machine Fixer Head Relationship Specialty Start Date End Date Rahul Ledesma MD [address] [id number] PCP - General 02/17/15 Julián Matthews MD [address] [place], [place] [id number] Physician NEUROMUSCULOSKELETAL MEDICINE 07/27/21 documented as of this encounter
--- OUTSIDE RECORDS SUMMARY | 2024-10-25 13:01 | XMS_ITS | Encounter Summary ---
Author Organization [facility] Address [address] [place] [address]. [place], [place] [phone] [place] [address] Care Team Providers Care Program Scheduler Name Role Phone Rahul Villa MD Primary Care Provider [phone] Julián Matthews MD Unavailable [phone] Reason for Visit * Reason Onset Date Comments Medication Problem 03/23/2023 Encounter Details Date Type Department Care Team (Late st Contact Info) Description 03/23/2023 Telephone [facility] [address] [facility] [address] [place] [address] Rahul Villa MD [address] [facility] [address] [place] [address] Medication Problem Social History Tobacco Use Types Packs/Day Years Used Date Smoking Tobacco: Every Day Cigarettes Smokeless Tobacco: Never Alcohol Use Standard Drinks/Week [...] 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 Villa * Kellie Cordon - 03/23/2023 9:15 AM CDT Patient called stating that there is a nationwide shortage of adderall 30 mg. Patient has called multiple places and nobody has it. Pt is asking if we can send in adderall 20 mg for a total of 60 mg?Patient currently take adderall 30 mg bid. [facility] (has Adderall 20 mg) documented in this encounter Plan of Treatment Not on file documented as of this encounter Visit Diagnoses Not on filedocumented in this encounter Care Teams Program Scheduler Relationship Specialty Start Date End Date Rahul Villa MD [address] [address] PCP - General 02/17/15 Julián Matthews MD [address] [place] [address] Physician NEUROMUSCULOSKELETAL MEDICINE 07/27/21 documented as of this encounter
--- OUTSIDE RECORDS SUMMARY | 2024-10-25 13:01 | XMS_ITS | Encounter Summary ---
Author Organization [facility] Address [address] [place] [address]. [place], [place] [phone] [place] [address] Care Team Providers Care Mathematics Professor Name Role Phone Rahul Ledesma MD Primary Care Provider [phone] Reason for Referral * Consultation/Treatment (Routine) - Closed Specialty Diagnoses / Procedures Referred By Alicja t Referred To Contact NEUROLOGY Diagnoses Seizure disorder ([facility]) Rahul Ledesma MD [address] [facility] [address] [place] [address] Phone: tel: fax: [facility] Multispecialty Care - [facility] [address] [facility] [place] [address] Phone: tel: Referral ID Status Reason Start Date Expiration Date V isits Requested Visits Authorized [id number] Closed Specialty Services 03/17/2021 04/17/2022 100 100 Reason for Visit * Reason Onset Date Comments Referral 03/17/2021 Encounter Details Date Type Department Care Team ([facility] Contact Info) Description 03/17/2021 Telephone [facility] [address] 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 No / Unsure 03/17/2021 10:33 AM CDT documented as of this encounter Progress Notes * Kellie Holland - 03/17/2021 2:40 PM CDT Order in [facility] and faxed * Rahul Ledesma MD - 03/17/2021 2:26 PM CDT Please refer to neurologist at [place]. Diagnosis seizure disorder. I will defer the decision for the need of an EEG to the neurologist. * Kellie Holland - 03/17/2021 1:09 PM CDT Pt called about a referral to neurology. Pt states that he was here today and was told to call neurology over in [place]. He called [facility]. Pt also stated he needs an EEG. Ok for referral and EEG? FAX:[phone] documented in this encounter Plan of Treatment Scheduled Referrals Name Type Priority Associated Diagnoses Orde r Schedule Ambulatory referral to Neurology Referral Routine Seizure disorder ([facility]) Ordered: 03/17/2021 documented as of this encounter Visit Diagnoses Diagnosis Seizure disorder (CMS/HCC [facility]/HCC)- Primary Unspecified epilepsy without mention of intractable epilepsy documented in this encounter Care Teams Mathematics Professor Relationship Specialty Start Date End Date Rahul Ledesma MD [address] [phone] PCP - General 02/17/15 documented as of this encounter
--- OUTSIDE RECORDS SUMMARY | 2024-10-25 13:01 | XMS_ITS | Encounter Summary ---
Author Organization [facility] Address [address] [place] [address]. [place] [address] [place] [address] Care Team Providers Care Home Therapy Teacher Name Role Phone Rahul Ledesma MD Primary Care Provider [phone] Julián Matthews MD Unavailable [phone] Reason for Visit * Reason Onset Date Comments Appointment Request 08/26/2021 Encounter Details Date Type Department Care Team (Late st Contact Info) Description 08/26/2021 Telephone [facility] Medical Group Multispecialty Care - 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 No / Unsure 08/26/2021 9:35 AM STAGE HAND documented as of this encounter Progress Notes * Pratibha Hurtado Poultryman - 08/26/2021 2:40 PM CST Contacting patient about follow up appt for Sep.02. No answer and voicemail full, unable to leave message E HAND documented in this encounter Plan of Treatment Not on file documented as of this encounter Visit Diagnoses Not on filedocumented in this encounter Care Teams Home Therapy Teacher Relationship Specialty Start Date End Date Rahul Ledesma MD [address] [address] PCP - General 02/17/15 Julián Matthews MD [address] [place] [address] Physician NEUROMUSCULOSKELETAL MEDICINE 07/27/21 documented as of this encounter
--- OUTSIDE RECORDS SUMMARY | 2024-10-25 13:01 | XMS_ITS | Encounter Summary ---
Author Organization [facility] Address [address] [place] [address]. [place], [place] [address] [place] [address] Care Team Providers Care Team Guide Name Role Phone Rahul Ledesma MD Primary Care Provider [phone] Julián Matthews MD Unavailable [phone] Reason for Visit * Reason Onset Date Comments Question 03/29/2023 Encounter Details Date Type Department Care Team (Late st Contact Info) Description 03/29/[address] [facility] [address] [facility] [address] [place] [address] Rahul Ledesma MD [address] 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 She is asking for you to call her at your convenience regarding this patient. documented in this encounter Plan of Treatment Not on file documented as of this encounter Visit Diagnoses Not on filedocumented in this encounter Care Teams Team Guide Relationship Specialty Start Date End Date Rahul Ledesma MD [address] [address] PCP - General 02/17/15 Julián Matthews MD 3 [place] [address] Physician NEUROMUSCULOSKELETAL MEDICINE 07/27/21 documented as of this encounter
--- OUTSIDE RECORDS SUMMARY | 2024-10-25 13:01 | XMS_ITS | Encounter Summary ---
Author Organization [facility] Address [address] [place] [address]. 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 No / Unsure 08/30/2021 7:51 AM FLIGHT TOWER DISPATCHER documented as of this encounter Plan of Treatment Not on file documented as of this encounter Visit Diagnoses Not on filedocumented in this encounter Care Teams Heel Emery Buffer Relationship Specialty Start Date End Date Rahul Ledesma MD [address] [address] PCP - General 02/17/15 Julián Matthews MD 3 [place] [address] Physician NEUROMUSCULOSKELETAL MEDICINE 07/27/21 documented as of this encounter
--- OUTSIDE RECORDS SUMMARY | 2024-10-25 13:01 | XMS_ITS | Encounter Summary ---
Author Organization [facility] Address [address] [place] [address]. 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 No / Unsure 08/30/2021 7:51 AM PREASSEMBLER AND INSPECTOR documented as of this encounter Plan of Treatment Not on file documented as of this encounter Visit Diagnoses Not on filedocumented in this encounter Care Teams Fighting Vehicle Systems Maintainer Relationship Specialty Start Date End Date Rahul Ledesma MD [address] [address] PCP - General 02/17/15 Julián Matthews MD 3 [place], [place] [id number] Physician NEUROMUSCULOSKELETAL MEDICINE 07/27/21 documented as of this encounter
--- OUTSIDE RECORDS SUMMARY | 2024-10-25 13:01 | XMS_ITS | Encounter Summary ---
Author Organization [facility] Address [address] [place] [address]. [place] [address] [place] [address] Care Team Providers Care Air Compressor Operator Name Role Phone Rahul Ledesma MD Primary Care Provider [phone] Julián Matthews MD Unavailable [phone] Reason for Visit * Reason Onset Date Comments Results 08/29/2021 Encounter Details Date Type Department Care Team (Late st Contact Info) Description 08/29/2021 Telephone 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 No / Unsure 08/26/2021 9:35 AM MUD MIXER HELPER documented as of this encounter Progress Notes * Marcie Ventura RN - 08/29/2021 9:10 AM CST Spoke with patient to discuss EEG results. Patient verbalized understanding and will be in for a follow up tomorrow morning and to sign neurotech papers as well. MIXER HELPER * Marcie Ventura RN - 08/29/2021 9:10 AM CST ----- Message from Julián Matthews MD sent at 08/26/2021 7:45 PM MUD MIXER HELPER ----- Plz let him know his eeg was normal, I would like to do a 72 hour ambulatory eeg monitoring MIXER HELPER documented in this encounter Plan of Treatment Not on file documented as of this encounter Visit Diagnoses Not on filedocumented in this encounter Care Teams Air Compressor Operator Relationship Specialty Start Date End Date Rahul Ledesma MD [address] [address] PCP - General 02/17/15 Julián Matthews MD 3 [place] [address] Physician NEUROMUSCULOSKELETAL MEDICINE 07/27/21 documented as of this encounter
--- OUTSIDE RECORDS SUMMARY | 2024-10-25 13:01 | XMS_ITS | Encounter Summary ---
Author Organization [facility] Address [address] [place] [address]. [place], [place] [address] [place] [address] Care Team Providers Care Control Clerk Food And Beverage Name Role Phone Rhaul Ledesma MD Primary Care Provider [phone] Julián Matthews MD Unavailable [phone] Reason for Visit * Reason Onset Date Comments Follow Up Call 11/21/2021 Encounter Details Date Type Department Care Team (Late st Contact Info) Description 11/21/2021 Telephone [facility] - [address], [address] [place] [address] Julián Matthews MD 3 [place], [place] [phone] Follow Up Call Social History Tobacco Use Types Packs/Day Years [...] 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 No / Unsure 10/25/2021 7:41 AM WATER/WASTEWATER PROJECT MANAGER documented as of this encounter Progress Notes * Marcie Rice MA - 11/21/2021 12:11 PM CST Driving letter was scanned into media. I spoke with patient about 3 weeks ago about getting this picked up. Printed for director of front office and given to patients . R/WASTEWATER PROJECT MANAGER * Meron Diggs - 11/21/2021 10:31 AM CST Pt is asking to speak someone re: some paperwork that he needs He said he left this with us already, needs to pick it up Is It ready R/WASTEWATER PROJECT MANAGER documented in this encounter Plan of Treatment Not on file documented as of this encounter Visit Diagnoses Not on filedocumented in this encounter Care Teams Control Clerk Food And Beverage Relationship Specialty Start Date End Date Rahul Ledesma MD [address] [phone] PCP - General 02/17/15 Julián Matthews MD 3 [place] [address] Physician NEUROMUSCULOSKELETAL MEDICINE 07/27/21 documented as of this encounter
--- OUTSIDE RECORDS SUMMARY | 2024-10-25 13:01 | XMS_ITS | Encounter Summary ---
Author Organization [facility] Address [address] [place] [address]. 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 No / Unsure 07/15/2021 7:45 AM CDT documented as of this encounter Progress Notes * WENDY Padron - 07/25/2021 3:41 PM CDT MB full, unable to leave message on vm for patient to schedule echocardiogram per Dr Matthews. Will send letter to patient to contact our office for appointment. documented in this encounter Plan of Treatment Not on file documented as of this encounter Visit Diagnoses Not on filedocumented in this encounter Care Teams Telephone Quotation Clerk Relationship Specialty Start Date End Date Rahul Ledesma MD [address] [address] PCP - General 02/17/15 documented as of this encounter
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
--- OUTSIDE RECORDS SUMMARY | 2024-10-25 13:01 | XMS_ITS | Encounter Summary ---
Author Organization [facility] Address [address] [place] [address]. 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
--- OUTSIDE RECORDS SUMMARY | 2024-10-25 13:01 | XMS_ITS | Encounter Summary ---
Author Organization [facility] - [facility] Address [address] [place] [address]. [place] [address] [place] [address] Care Team Providers Care Global Coordinator Name Role Phone Rahul Ledesma MD Primary Care Provider [phone] Julián Matthews MD Unavailable [phone] Reason for Visit * Reason Onset Date Comments Results 08/19/2021 Encounter Details Date Type Department Care Team (Late st Contact Info) Description 08/19/2021 Telephone [facility] Medical Group Multispecialty Care - [facility] [address] [facility], [address] [place] [phone] Julián Matthews MD 3 [place] [address] Results Social History Tobacco Use Types Packs/Day [...] 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 No / Unsure 08/19/2021 7:35 AM CDT documented as of this encounter Progress Notes * Ellen Acosta MA - 08/19/2021 1:57 PM CDT Spoke to pt and let him know of results. He voiced understanding and stated that he still needed scheduled for EEG. Pt has been scheduled. * Ellen Acosta MA - 08/19/2021 1:57 PM CDT ----- Message from Lev Schuler MD sent at 08/19/2021 9:10 AM CDT ----- Please let him know that his echo was normal. Dr. Vigil will discuss further in follow-up. documented in this encounter Plan of Treatment Not on file documented as of this encounter Visit Diagnoses Not on filedocumented in this encounter Care Teams Global Coordinator Relationship Specialty Start Date End Date Rahul Ledesma MD [address] [address] PCP - General 02/17/15 Julián Matthews MD 3 [place] [address] Physician NEUROMUSCULOSKELETAL MEDICINE 07/27/21 documented as of this encounter
--- OUTSIDE RECORDS SUMMARY | 2024-10-25 13:01 | XMS_ITS | Encounter Summary ---
Author Organization [facility] Address [address] [place] [address]. [place], [place] [address] [place] [address] Care Team Providers Care French Lecturer Name Role Phone Rahul Hickman MD Primary Care Provider [phone] Julián Matthews MD Unavailable [phone] Reason for Visit * Reason Comments Follow Up 1 month Encounter Details Date Type Department Care Team ([facility] st Contact Info) Description 03/21/2022 4:00 PM CDT [facility] Visit [facility] [address] [facility] [address] [place] [address] Rahul Hickman MD [address] [facility] [place] [address] Follow Up (1 month) Social History Tobacco Use Types Packs/Day Years [...] 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 HENT: Negative for ear pain. Eyes: Negative for pain. Respiratory: Negative for cough and shortness of breath. Cardiovascular: Negative for chest pain, palpitations and leg swelling. Gastrointestinal: Negative for diarrhea, nausea and vomiting. Genitourinary: Negative for dysuria. Musculoskeletal: Negative for myalgias. Neurological: Negative for dizziness. Psychiatric/Behavioral: Negative for depression. Medications: Current Outpatient Medications: ??? amphetamine-dextroamphetamine 30 MG tablet, Take 1 tablet (30 mg total) by mouth 2 (two) times daily., Disp: 60 tablet, Rfl: 0 ??? buprenorphine-naloxone 8-2 MG FILM, , Disp: , Rfl: ??? busPIRone 10 MG tablet, Take 1 tablet (10 mg total) by mouth 2 (two) times daily., Disp: 60 tablet, Rfl: 1 ??? levETIRAcetam (KEPPRA) 500 MG tablet, Take 1 tablet (500 mg total) by mouth 2 (two) times daily., Disp: 180 tablet, Rfl: 4 Immunization History Administered Date(s) Administered ??? Dtp 1991, 1991, 01/13/1992, 02/28/1994, 06/06/1995 ??? Flublok (Quadrivalent) 07/06/2020 ??? Hib 1991, 1991, 01/13/1992, 02/28/1994 ??? Influenza 09/07/2014 ??? Influenza Adult (Generic) 09/19/2018 ??? MMR 02/28/1994, 06/06/1995 ??? Opv 1991, 1991, 02/28/1994, 06/06/1995 ??? Tdap (Generic) 05/12/2012, 10/15/2012 No Known Allergies Past Medical History: Diagnosis Date ??? Back [...] Laterality Date ??? WRIST FRACTURE SURGERY left-orif Social History Tobacco Use ??? Smoking status: Current Every Day Smoker Packs/day: 0.50 Types: Cigarettes ??? Smokeless tobacco: Never Used Substance Use Topics ??? Alcohol use: No Social History Socioeconomic History ??? Marital status: ??? Number of children: 1 Occupational History ??? 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 HENT: Head: Atraumatic. Eyes: Conjunctivae are normal. Neck: Neck supple. Cardiovascular: Normal rate and regular rhythm. Pulmonary/Chest: Breath sounds normal. Abdominal: Soft. There is no tenderness. Neurological: He is alert. Skin: No erythema. Filed Vitals: 03/21/22 1559 BP: 138/74 Weight: 70.3 kg (155 lb) Body mass index is 21.62 kg/m??. Assessment: 1. Anxiety busPIRone 10 MG tablet 2. Insomnia, unspecified type busPIRone 10 MG tablet 3. ADHD, predominantly inattentive type 4. ADHD (attention deficit hyperactivity disorder), inattentive type amphetamine-dextroamphetamine 30 MG tablet Plan: - Comply with suggestions for healthy lifestyle Diagnoses and all orders for this visit: Anxiety - busPIRone 10 MG tablet; Take 1 tablet (10 mg total) by mouth 2 (two) times daily. Insomnia, unspecified type - busPIRone 10 MG tablet; Take 1 tablet (10 mg total) by mouth 2 (two) times daily. 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 He states he is doing pretty well. He believes the BuSpar has helped him decrease the anxiety. He would like to continue his current treatment plan. He was asked to eat properly and exercise daily. Reviewed and updated this visit by provider: No follow-ups on file. RAHUL HICKMAN MD Referring Provider: No ref. provider found PCP: RAHUL HICKMAN MD documented in this encounter Plan of Treatment Not on file documented as of this encounter Visit Diagnoses Diagnosis Anxiety- Primary Anxiety state, unspecified Insomnia, unspecified type ADHD, predominantly inattentive type Attention deficit disorder without mention of hyperactivity ADHD (attention deficit hyperactivity disorder), inattentive type Attention deficit disorder without mention of hyperactivity documented in this encounter Care Teams French Lecturer Relationship Specialty Start Date End Date Rahul Hickman MD [address] [address] PCP - General 02/17/15 Julián Matthews MD 3 [place] [address] Physician NEUROMUSCULOSKELETAL MEDICINE 07/27/21 documented as of this encounter
--- OUTSIDE RECORDS SUMMARY | 2024-10-25 13:01 | XMS_ITS | Encounter Summary ---
Author Organization [facility] - [facility] Address [address] [place] [address]. 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 No / Unsure 08/19/2021 7:35 AM CDT documented as of this encounter Plan of Treatment Not on file documented as of this encounter Visit Diagnoses Not on filedocumented in this encounter Care Teams Operator Engineer Relationship Specialty Start Date End Date Rahul Ledesma MD [address] [address] PCP - General 02/17/15 Julián Matthews MD 3 [place] [address] Physician NEUROMUSCULOSKELETAL MEDICINE 07/27/21 documented as of this encounter
--- OUTSIDE RECORDS SUMMARY | 2024-10-25 13:01 | XMS_ITS | Encounter Summary ---
Author Organization [facility] Address [address] [place] [address]. [place], [place] [address] [place] [address] Care Team Providers Care Liquefied Natural Gas Plant Operator Name Role Phone Rahul Ledesma MD Primary Care Provider [phone] Reason for Visit * Reason Onset Date Comments Information 04/11/2021 Encounter Details Date Type Department Care Team (Late st Contact Info) Description 04/11/2021 Telephone [facility] [address] [facility] [address] [place] [address] Rahul Ledesma MD [address] [facility] [address] [place] [address] Information Social History Tobacco Use Types Packs/Day Years [...] 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 No / Unsure 03/17/2021 10:33 AM CDT documented as of this encounter Progress Notes * Rosanadoroteo Singh RN - 04/11/2021 3:27 PM CDT Pt aware. * Rahul Ledesma MD - 04/11/2021 3:22 PM CDT His neurologist should order the EEG. * Rosana Singh RN - 04/11/2021 2:54 PM CDT Pt calling stating a lady in the epilepsy department at [facility] called him and said that in order toget his drivers license back he has to have an EEG done. Pt is asking if you will order it? Will come in for appt if necessary ncb pt documented in this encounter Plan of Treatment Not on file documented as of this encounter Visit Diagnoses Not on filedocumented in this encounter Care Teams Liquefied Natural Gas Plant Operator Relationship Specialty Start Date End Date Rahul Ledesma MD [address] [address] PCP - General 02/17/15 documented as of this encounter
--- OUTSIDE RECORDS SUMMARY | 2024-10-25 13:01 | XMS_ITS | Encounter Summary ---
Author Organization [facility] Address [address] [place] [address]. [place], [place] [address] [place] [address] Care Team Providers Care Assistant Kitchen Manager Name Role Phone Rahul Ledesma MD Primary Care Provider [phone] Julián Jeffery MD Unavailable [phone] Reason for Referral * Procedure (Routine) - Closed Specialty Diagnoses / Procedures Referred By Contac t Referred To Contact Diagnoses Partial symptomatic epilepsy with complex partial seizures, not intractable, without status epilepticus ([facility]) Procedures Ambulatory EEG Julián Jeffery MD [address] [place] [address] Phone: tel: fax: Julián Jeffrey MD [address] [place] [address] Phone: tel: fax: Referral ID Status Reason Start Date Expiration Date Visits Re quested Visits Authorized [id number] Closed 10/07/2021 11/17/2022 100 100 ING MACHINE OPERATOR Reason for Visit * Reason Comments Follow Up Encounter Details Date Type Department Care Team (Late st Contact Info) Description 08/30/2021 7:40 AM VALVING MACHINE OPERATOR Office Visit 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 No / Unsure 08/30/2021 7:51 AM VALVING MACHINE OPERATOR documented as of this encounter Last Filed Vital Signs Vital Sign Reading Time Taken Comments Blood Pressure 131/90 08/30/2021 8:03 AM VALVING MACHINE OPERATOR Pulse 107 08/30/2021 7:59 AM VALVING MACHINE OPERATOR Temperature - - Respiratory Rate - - Oxygen Saturation - - Inhaled Oxygen Concentration - - Weight 68.3 kg (150 lb 8 oz) 08/30/2021 7:59 AM VALVING MACHINE OPERATOR Height 180.3 cm (5' 11 ) 08/30/2021 7:59 AM VALVING MACHINE OPERATOR Body Mass Index 20.99 08/30/2021 7:59 AM VALVING MACHINE OPERATOR documented in this encounter Progress Notes * Julián Jeffery MD - 08/30/2021 7:40 AM CSTAddended by: JULIÁN JEFFERY on: 10/17/2021 01:29 PM Modules accepted: Orders ING MACHINE OPERATOR * Julián Jeffery MD - 08/30/2021 7:40 AM CST Chief Complaint: seizures HPI: We had the pleasure of seeing Mr. Spivey in the clinic. He is accompanied by his . History isobtained from both of them and from review of records. Since I last saw him, he is continue Keppra 500 mg twice daily. He has not had any seizure-like activity. His notes that when he takes the medication he becomes drowsy and has slurred speech. This especially happens when he does not eat well. So she is making sure that he eats well and on time. Overall he has been doing well. We did MRIof the brain. It did not show any structural lesion to explain the seizure-like activity. Echo was normal. We did extend EEG and that was normal. I plan to do a 48-hour ambulatory EEG [without a video as per patient and his request] to see if there are any epileptiform discharges while on treatment. Current Outpatient Medications Medication Sig Dispense Refill ??? amphetamine-dextroamphetamine 30 MG tablet Take 1 tablet (30 mg total) by mouth 2 (two) times daily. 60 tablet 0 ??? buprenorphine-naloxone 8-2 MG FILM ??? levETIRAcetam 500 MG tablet Take 1 tablet (500 mg total) by mouth 2 (two) times daily. 60 tablet 0 ??? levETIRAcetam (KEPPRA) 500 MG tablet Take 1 tablet (500 mg total) by mouth 2 (two) times daily.60 tablet 5 No current facility-administered medications for this visit. Filed Vitals: 08/30/21 0759 08/30/21 0803 BP: (!) 123/95 (!) 131/90 Pulse: 107 Weight: 68.3 kg (150 lb 8 oz) Height: 5' 11 (1.803 m) PainSc: 3 Mild Pain (0-10 Scale) Past Medical History: Diagnosis Date ??? Back [...] Types: Cigarettes ??? Smokeless tobacco: Never Used Vaping Use ??? Vaping Use: Never used Substance Use Topics ??? Alcohol use: No ??? Drug use: Not Currently Impression and Plan: In summary Mr. Spivey has history of seizures. I will continue Keppra 500 mg twice daily. I have again discussed seizure precautions including driving precautions, fall precautions, fire, sharp instrument precautions and fall precautions. In addition I have discussed compliance with medication. Inoted to him, stress, fatigue, lack of sleep and noncompliance with medication can trigger seizures. I will do 48-hour ambulatory EEG through [facility] without video to look for any epileptiform discharges while on therapy. If he has none, I will continue treatment for another 3 to 5 years after which I will repeat an EEG and if there are no discharges then stop the medication. Time spent: 30 total minutes reviewing records, history that was separately obtained, performing the exam, providing education to the patient/caregiver, ordering medicine and documenting in the medical record. JULIÁN JEFFERY MD ING MACHINE OPERATOR documented in this encounter Plan of Treatment Scheduled Orders Name Type Priority Associated Diagnoses Orde r Schedule Ambulatory EEG Neurology Routine Partial symptomatic epilepsy with complex partial seizures, not intractable, without status epilepticus ([facility]) Expected: 10/17/2021, Expires: 01/15/2022 documented as of this encounter Visit Diagnoses Diagnosis Partial symptomatic epilepsy with complex partial seizures, not intractable, without status epilepticus ([facility])- Primary documented in this encounter Care Teams Assistant Kitchen Manager Relationship Specialty Start Date End Date Rahul Ledesma MD [address] [phone] PCP - General 02/17/15 Julián Jeffery MD [address] [place] [address] Physician NEUROMUSCULOSKELETAL MEDICINE 07/27/21 documented as of this encounter
--- OUTSIDE RECORDS SUMMARY | 2024-10-25 13:01 | XMS_ITS | Encounter Summary ---
Author Organization [facility] - [facility] Address [address] [place] [address]. [place], [place] [address] [place] [address] Care Team Providers Care Tire Spotter Name Role Phone Rahul Ledesma MD Primary Care Provider [phone] Julián Matthews MD Unavailable [phone] Reason for Visit * Reason Onset Date Comments Appointment Request 08/25/2021 Encounter Details Date Type Department Care Team (Late st Contact Info) Description 08/25/2021 Telephone [facility] Medical Group Multispecialty Care - [facility] [address] [facility], [address] [place] [phone] Julián Matthews MD 3 [place], [place] [phone] Appointment Request Social History Tobacco Use Types [...] 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 No / Unsure 08/19/2021 7:35 AM CDT documented as of this encounter Progress Notes * Pratibha Hurtado Tape Deck Installer - 08/25/2021 3:26 PM CST Spoke with patient to reschedule from 09/30/21 to 08/26/21. Patient verbalized understanding GEMENT ENGINEER documented in this encounter Plan of Treatment Not on file documented as of this encounter Visit Diagnoses Not on filedocumented in this encounter Care Teams Tire Spotter Relationship Specialty Start Date End Date Rahul Ledesma MD [address] [address] PCP - General 02/17/15 Julián Matthews MD 3 [place] [address] Physician NEUROMUSCULOSKELETAL MEDICINE 07/27/21 documented as of this encounter
--- OUTSIDE RECORDS SUMMARY | 2024-10-25 13:01 | XMS_ITS | Encounter Summary ---
Author Organization [facility] Address [address] [place] [address]. [place], [place] [address] [place] [address] Care Team Providers Care Balloon Maker Name Role Phone Rahul Ledesma MD Primary Care Provider [phone] Reason for Visit * Reason Onset Date Comments Note From Provider Request 07/06/2021 Encounter Details Date Type Department Care Team (Late st Contact Info) Description 07/06/2021 Telephone [facility] [address] [facility] [address] [place] [address] Rahul Ledesma MD [address] [facility] [place] [address] Note From Provider Request Social History Tobacco Use Types Packs/Day [...] 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 He needs to see neurology. Neurology to decide when he can drive. 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 He would like a note stating he can drive, even if it just says to and from work. Is currently not currently employed because he hasno ride and his family is falling into debt. States he has had no signs of seizure since starting keppra and that you two discussed what the probably cause of the seizures was. He can't get to neurologist for like 6 months per pt. Ncb: pt Will picker tender helper documented in this encounter Plan of Treatment Not on file documented as of this encounter Visit Diagnoses Not on filedocumented in this encounter Care Teams Balloon Maker Relationship Specialty Start Date End Date Rahul Ledesma MD [address] [address] PCP - General 02/17/15 documented as of this encounter
--- OUTSIDE RECORDS SUMMARY | 2024-10-25 13:01 | XMS_ITS | Encounter Summary ---
Author Organization [facility] - [facility] Address [address] [place] [address]. [place], [place] [phone] [place] [address] Care Team Providers Care Settlement Agent Name Role Phone Rahul Ledesma MD Primary Care Provider [phone] Julián Matthews MD Unavailable [phone] Reason for Visit * Reason Onset Date Comments Results 10/17/2021 Encounter Details Date Type Department Care Team (Late st Contact Info) Description 10/17/2021 Telephone [facility] Medical Group Multispecialty Care - [facility] [address] [facility], [address] [place] [address] Julián Matthews MD 3 [place], [place] [phone] Results Social History Tobacco Use Types Packs/Day [...] 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 Will send a letter CAL RESEARCH ASSISTANT * Marcie [place] MA - 10/17/2021 4:22 PM CST Tried to call patient again, no answer CAL RESEARCH ASSISTANT * Marcie [place] MA - 10/17/2021 1:58 PM CST vm is full, will try again later CAL RESEARCH ASSISTANT * Marcie [place] MA - 10/17/2021 1:57 PM CST ----- Message from Julián Matthews MD sent at 10/17/2021 1:27 PM MEDICAL RESEARCH ASSISTANT ----- Plz let him know his ambulatory EEG was normal. Plz ask him to stay on his meds for now. CAL RESEARCH ASSISTANT documented in this encounter Plan of Treatment Not on file documented as of this encounter Visit Diagnoses Not on filedocumented in this encounter Care Teams Settlement Agent Relationship Specialty Start Date End Date Rahul Ledesma MD [address] [address] PCP - General 02/17/15 Julián Matthews MD [address] [place] [address] Physician NEUROMUSCULOSKELETAL MEDICINE 07/27/21 documented as of this encounter
--- OUTSIDE RECORDS SUMMARY | 2024-10-25 13:01 | XMS_ITS | Encounter Summary ---
Author Organization [facility] Address [address] [place] [address]. [place], [place] [address] [place] [address] Care Team Providers Care Bulk Picker Name Role Phone Rahul Hickman MD Primary Care Provider [phone] Julián Matthews MD Unavailable [phone] Reason for Visit * Reason Comments Acute Note discuss meds Encounter Details Date Type Department Care Team ([facility] st Contact Info) Description 01/31/2022 4:30 PM CDT Office Visit [facility] [address] [facility] [address] [place] [address] Rahul Hickman MD [address] [facility] [address] [place] [address] Acute Note (discuss meds) Social History Tobacco Use Types Packs/Day Years [...] 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 HENT: Negative for ear pain. Eyes: Negative for pain. Respiratory: Negative for cough and shortness of breath. Cardiovascular: Negative for chest pain, palpitations and leg swelling. Gastrointestinal: Negative for diarrhea, nausea and vomiting. Genitourinary: Negative for dysuria. Musculoskeletal: Negative for myalgias. Neurological: Negative for dizziness. Psychiatric/Behavioral: Negative for depression. The patient is nervous/anxious and has insomnia. Medications: Current Outpatient Medications: ??? amphetamine-dextroamphetamine 30 MG tablet, Take 1 tablet (30 mg total) by mouth 2 (two) times daily., Disp: 60 tablet, Rfl: 0 ??? buprenorphine-naloxone 8-2 MG FILM, , Disp: , Rfl: ??? levETIRAcetam (KEPPRA) 500 MG tablet, Take [...] Social History Socioeconomic History ??? Marital status: Spouse name: Not on file ??? Number of children: 1 ??? Years of education: Not on file ??? Highest education level: Not on file Occupational History ??? 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 HENT: Head: Atraumatic. Eyes: Conjunctivae are normal. Neck: Neck supple. Cardiovascular: Normal rate and regular rhythm. Pulmonary/Chest: Breath sounds normal. Abdominal: Soft. There is no tenderness. Neurological: He is alert. Skin: No erythema. Filed Vitals: 01/31/22 1639 BP: 128/84 Weight: 71.7 kg (158 lb) Body mass index is 22.04 kg/m??. Assessment: 1. ADHD, predominantly inattentive type 2. ADHD (attention deficit hyperactivity disorder), inattentive type 3. Anxiety 4. 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 After discussion we decided totry BuSpar. I think 10 mg at bedtime would be helpful. He was asked to follow-up in about a month. Reviewed and updated this visit by provider: Return in about 1 month (around 03/02/2022). RAHUL HICKMAN MD Referring Provider: No ref. provider found PCP: RAHUL HICKMAN MD documented in this encounter Plan of Treatment Not on file documented as of this encounter Visit Diagnoses Diagnosis ADHD, predominantly inattentive type- Primary Attention deficit disorder without mention of hyperactivity ADHD (attention deficit hyperactivity disorder), inattentive type Attention deficit disorder without mention of hyperactivity Anxiety Anxiety state, unspecified Insomnia, unspecified type documented in this encounter Care Teams Bulk Picker Relationship Specialty Start Date End Date Rahul Hickman MD [address] [address] PCP - General 02/17/15 Julián Matthews MD 3 [place] [address] Physician NEUROMUSCULOSKELETAL MEDICINE 07/27/21 documented as of this encounter
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
--- OUTSIDE RECORDS SUMMARY | 2024-10-25 13:01 | XMS_ITS | Encounter Summary ---
Author Organization [facility] Address [address] [place] [address]. [place], [place] [address] [place] [address] Care Team Providers Care Manager Integration Name Role Phone Vipul Hickman MD Primary Care Provider [phone] Reason for Visit * Reason Comments Follow Up 2 mo f/u Encounter Details Date Type Department Care Team ([facility] st Contact Info) Description 06/27/2021 1:00 PM CDT Office Visit [facility] [address] [facility] [facility] [address] [place] [address] Vipul Hickman MD [address] [facility] [address] [place] [address] Follow Up (2 mo f/u) Social History Tobacco Use Types Packs/Day Years [...] 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 levETIRAcetam 500 MG tablet, Take 1 tablet (500 mg total) by mouth 2 (two) times daily., Disp: 60 tablet, Rfl: 0 Immunization History Administered Date(s) Administered ??? Dtp [...] Not on file Occupational History ??? 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 HENT: Head: Atraumatic. Eyes: Conjunctivae are normal. Neck: Neck supple. Cardiovascular: Normal rate and regular rhythm. Pulmonary/Chest: Breath sounds normal. Abdominal: Soft. There is no tenderness. Neurological: He is alert. Skin: No erythema. Filed Vitals: 06/27/21 1310 BP: 122/84 Weight: 71.7 kg (158 lb) Body mass index is 22.04 kg/m??. Assessment: 1. ADHD, predominantly inattentive type Plan: - Comply with suggestions for healthy lifestyle Diagnoses and all orders for this visit: ADHD, predominantly inattentive type He states he is doing relatively well. He would like a refill of the stimulant for his ADHD. He wasencouraged to eat properly and exercise. Reviewed and updated this visit by provider: No follow-ups on file. VIPUL HICKMAN MD Referring Provider: No ref. provider found PCP: VIPUL HICKMAN MD documented in this encounter Plan of Treatment Not on file documented as of this encounter Visit Diagnoses Diagnosis ADHD, predominantly inattentive type- Primary Attention deficit disorder without mention of hyperactivity ADHD (attention deficit hyperactivity disorder), inattentive type Attention deficit disorder without mention of hyperactivity documented in this encounter Care Teams Manager Integration Relationship Specialty Start Date End Date Vipul Hickman MD [address] [id number] PCP - General 02/17/15 documented as of this encounter
--- OUTSIDE RECORDS SUMMARY | 2024-10-25 13:01 | XMS_ITS | Encounter Summary ---
Author Organization [facility] Address [address] [place] [address]. 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 ([facility]) Procedures EEG AWAKE OR DROWSY ROUTINE EEG Julián Matthews MD [address] [place] [address] Phone: tel:[phone] fax:[phone] Julián Matthews MD [address] [place] [address] Phone: tel:[phone] fax:[phone] Referral ID Status Reason Start Date Expiration Date Visits Re quested Visits Authorized [id number] Closed 09/30/2021 10/01/2022 1 1 Encounter Details Date Type Department Care Team (Late st Contact Info) Description 08/26/2021 10:00 AM CAREER DEVELOPMENT COORDINATOR Office Visit [facility] Multispecialty Care - [address], [address] [place] [address] Julián Matthews MD [address] [place], [place] [id number] Seizures Social History Tobacco Use Types Packs/Day [...] 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 No / Unsure 08/26/2021 9:35 AM CAREER DEVELOPMENT COORDINATOR documented as of this encounter Progress Notes * Julián Matthews MD - 08/26/2021 10:00 AM CST This is an eeg visit ER DEVELOPMENT COORDINATOR documented in this encounter Procedure Notes * Julián Matthews MD - 08/26/2021 10:00 AM CSTAssociated Order(s): EEG AWAKE OR DROWSY ROUTINE EEG REPORT Type of EEG study: Extended EEG with video (>60min). Requesting Provider: Dr Matthews Date of Study: 08/26/2021 Reason for EEG: seizures Technical Description and EEG Findings This is a 21-channel EEG recording utilizing the standard international 10-20 electrode placement along with additional electrodes to monitor eye movements; a single ECG channel was also utilized to record ECG. Bipolar and referential montages were utilized for analysis. EEG description: Awake: In the waking state, a continuous generalized medium-amplitude mixed- frequency background was noted; a symmetric posterior dominant rhythm of 10-12 Hz was recorded in the occipital regions bilaterally. The posterior dominant rhythm attenuated with eye opening and enhanced with eye closure. Drowsiness: There was waxing and waning of posterior dominant [...] normal EEG does not rule out seizure/epilepsy. ER DEVELOPMENT COORDINATOR documented in this encounter Plan of Treatment Not on file documented as of this encounter Procedures Procedure Name Priority Date/Time Associated Diagnosis Comments EEG SLEEP DEPRIVED Routine 08/26/2021 10 :00 AM CAREER DEVELOPMENT COORDINATOR Localization-relate d focal epilepsy with complex partial seizures (CMS/HCC HHS/HCC) documented in this encounter Results * EEG awake or drowsy routine (08/26/2021 10:00 AM CAREER DEVELOPMENT COORDINATOR) Narrative [facility] - 08/26/2021 10:00 AM CAREER DEVELOPMENT COORDINATOR Julián Matthews MD ? 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
--- OUTSIDE RECORDS SUMMARY | 2024-10-25 13:01 | XMS_ITS | Encounter Summary ---
Author Organization [facility] Address [address] [place] [address]. 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 No / Unsure 08/26/2021 9:35 AM PAINT LINE OPERATOR documented as of this encounter Plan of Treatment Not on file documented as of this encounter Visit Diagnoses Not on filedocumented in this encounter Care Teams Search Advertising Strategist Relationship Specialty Start Date End Date Rahul Ledesma MD [address] [address] PCP - General 5/6/15 Julián Matthews MD 3 [place] [address] Physician NEUROMUSCULOSKELETAL MEDICINE 07/27/21 documented as of this encounter
--- OUTSIDE RECORDS SUMMARY | 2024-10-25 13:01 | XMS_ITS | Encounter Summary ---
Author Organization [facility] Address [address] [place] [address]. 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 No / Unsure 10/25/2021 7:41 AM ARCHITECTURAL MANAGER documented as of this encounter Plan of Treatment Not on file documented as of this encounter Visit Diagnoses Not on filedocumented in this encounter Care Teams Price Checker Relationship Specialty Start Date End Date Rahul Ledesma MD [address] [address] PCP - General 02/17/15 Julián Matthews MD 3 [place] [address] Physician NEUROMUSCULOSKELETAL MEDICINE 07/27/21 documented as of this encounter
--- OUTSIDE RECORDS SUMMARY | 2024-10-25 13:01 | XMS_ITS | Encounter Summary ---
Author Organization [facility] Address [address] [place] [address]. [place], [place] [address] [place] [address] Care Team Providers Care Range Technician Name Role Phone Rahul Ledesma MD Primary Care Provider [phone] Julián Matthews MD Unavailable [phone] Reason for Visit * Reason Onset Date Comments Letter 01/20/2022 Encounter Details Date Type Department Care Team (Late st Contact Info) Description 01/20/2022 Telephone [facility] Multispecialty Care - [facility] [address] [facility], [address] [place] [address] Julián Matthews MD 3 [place], [place] [phone] Letter Social History Tobacco Use Types Packs/Day Years [...] 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 Vigil to put on a letter that the patient had tests done and cleared from . Call patient to discuss further instructions [phone]. documented in this encounter Plan of Treatment Not on file documented as of this encounter Visit Diagnoses Not on filedocumented in this encounter Care Teams Range Technician Relationship Specialty Start Date End Date Rahul Ledesma MD [address] [phone] PCP - General 02/17/15 Julián Matthews MD 3 [place] [address] Physician NEUROMUSCULOSKELETAL MEDICINE 07/27/21 documented as of this encounter
--- OUTSIDE RECORDS SUMMARY | 2024-10-25 13:01 | XMS_ITS | Encounter Summary ---
Author Organization [facility] Address [address] [place] [address]. 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
--- OUTSIDE RECORDS SUMMARY | 2024-10-25 13:01 | XMS_ITS | Encounter Summary ---
Author Organization [facility] Address [address] [place] [address]. 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 No / Unsure 10/25/2021 7:41 AM CARETAKER RESORT documented as of this encounter Plan of Treatment Not on file documented as of this encounter Visit Diagnoses Not on filedocumented in this encounter Care Teams Curtain Supervisor Relationship Specialty Start Date End Date Rahul Ledesma MD [address] [address] PCP - General 02/17/15 Julián Matthews MD 3 [place], [place] [phone] Physician NEUROMUSCULOSKELETAL MEDICINE 07/27/21 documented as of this encounter
--- OUTSIDE RECORDS SUMMARY | 2024-10-25 13:01 | XMS_ITS | Encounter Summary ---
Author Organization [facility] - [facility] Address [address] [place] [address]. 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 Please call to discuss. documented in this encounter Plan of Treatment Not on file documented as of this encounter Visit Diagnoses Not on filedocumented in this encounter Care Teams Sales Professional Relationship Specialty Start Date End Date Rahul Ledesma MD [address] [address] PCP - General 02/17/15 Julián Matthews MD 3 [place] [address] Physician NEUROMUSCULOSKELETAL MEDICINE 07/27/21 documented as of this encounter
--- OUTSIDE RECORDS SUMMARY | 2024-10-25 13:01 | XMS_ITS | Encounter Summary ---
Author Organization [facility] Address [address] [place] [address]. [place], [place] [address] [place] [address] Care Team Providers Care Transportation Equipment Painter Name Role Phone Rahul Ledesma MD Primary Care Provider [phone] Reason for Visit * Reason Onset Date Comments TCM 05/07/2021 Encounter Details Date Type Department Care Team (Late st Contact Info) Description 05/07/2021 Telephone [facility] [address] [facility] [address] [place] [address] Rahul Ledesma MD [address] [facility] [address] [place] [address] TCM Social History Tobacco Use Types Packs/Day Years [...] 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 Did not have much to say. No medication changes while admitted. discharge med list reconciled with our med list. No f/u appts with any other doctors. F/u appt made with Dr Ledesma 05/17. * Rosana Singh RN - 05/09/2021 10:43 AM CDT Per pts , he is currently staying at his mothers house and she does not have contact with him * Krunal Dorsey RN - 05/09/2021 9:28 AM CDT Left message for pt's * Krunal Dorsey RN - 05/09/2021 9:15 AM CDT NO ANSWER, MAILBOX FULL * Krunal Dorsey RN - 05/07/2021 8:49 AM CDT NO ANSWER, MAILBOX FULL Will need TCM and appt DC: 05/06 [facility] DX: accidental overdose documented in this encounter Plan of Treatment Not on file documented as of this encounter Visit Diagnoses Not on filedocumented in this encounter Care Teams Transportation Equipment Painter Relationship Specialty Start Date End Date Rahul Ledesma MD [address] [address] PCP - General 02/17/15 documented as of this encounter
--- OUTSIDE RECORDS SUMMARY | 2024-10-25 13:01 | XMS_ITS | Encounter Summary ---
Author Organization [facility] - [facility] Address [address] [place] [address]. [place] [address] [place] [address] Care Team Providers Care Hedge Fund Manager Name Role Phone Rahul Ledesma MD Primary Care Provider [phone] Julián Matthews MD Unavailable [phone] Reason for Visit * Reason Onset Date Comments Schedule Test 08/01/2021 Encounter Details Date Type Department Care Team (Late st Contact Info) Description 08/01/2021 Telephone [facility] Multispecialty Care - [facility] [address] [facility], [address] [place] [phone] Julián Matthews MD 3 [place] [address] Schedule Test Social History Tobacco Use Types Packs/Day Years [...] 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 No / Unsure 07/15/2021 7:45 AM CDT documented as of this encounter Progress Notes * Marcie Ventura RN - 08/01/2021 12:13 PM CDT Please schedule * Va Morton - 08/01/2021 11:56 AM CDT Patient is calling to get scheduled for his EEG. Have Regional Sales Executive call him with date and time. Patient call back number [phone]. documented in this encounter Plan of Treatment Not on file documented as of this encounter Visit Diagnoses Not on filedocumented in this encounter Care Teams Hedge Fund Manager Relationship Specialty Start Date End Date Rahul Ledesma MD [address] [address] PCP - General 02/17/15 Julián Matthews MD 3 [place] [address] Physician NEUROMUSCULOSKELETAL MEDICINE 07/27/21 documented as of this encounter
--- OUTSIDE RECORDS SUMMARY | 2024-10-25 13:01 | XMS_ITS | Encounter Summary ---
Author Organization [facility] Address [address] [place] [address]. 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
--- OUTSIDE RECORDS SUMMARY | 2024-10-25 13:01 | XMS_ITS | Encounter Summary ---
Author Organization [facility] Address [address] [place] [address]. 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
--- OUTSIDE RECORDS SUMMARY | 2024-10-25 13:01 | XMS_ITS | Encounter Summary ---
Author Organization [facility] Address [address] [place] [address]. [place] [address] [place] [address] Care Team Providers Care Donor Services Team Leader Name Role Phone Rahul Ledesma MD Primary Care Provider [phone] Julián Matthews MD Unavailable [phone] Reason for Visit * Reason Onset Date Comments FYI 07/19/2023 Adderall Encounter Details Date Type Department Care Team (Late st Contact Info) Description 07/19/2023 Telephone [facility] [address] [facility] [address] [place] [address] Rahul Ledesma MD [address] [facility] [address] [place] [address] FYI (Adderall ) Social History Tobacco Use Types Packs/Day Years [...] 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 * Kellie Cordon - 07/19/2023 11:58 AM CDT Patient called wanting his adderall prescription. [facility] [place] [place] Tried to call pt back twice and vm box ful documented in this encounter Plan of Treatment Not on file documented as of this encounter Visit Diagnoses Not on filedocumented in this encounter Care Teams Donor Services Team Leader Relationship Specialty Start Date End Date Rahul Ledesma MD [address] [address] PCP - General 02/17/15 Julián Matthews MD 3 [place] [address] Physician NEUROMUSCULOSKELETAL MEDICINE 07/27/21 documented as of this encounter
--- OUTSIDE RECORDS SUMMARY | 2024-10-25 13:01 | XMS_ITS | Encounter Summary ---
Author Organization [facility] - [facility] Address [address] [place] [address]. [place], [place] [address] [place] [address] Care Team Providers Care Test Worker Name Role Phone Rahul Ledesma MD Primary Care Provider [phone] Julián Matthews MD Unavailable [phone] Reason for Visit * Reason Onset Date Comments Question 01/25/2022 Encounter Details Date Type Department Care Team (Late st Contact Info) Description 01/25/2022 Telephone [facility] Multispecialty Care - [facility] [address] [facility], [address] [place] [address] Julián Matthews MD 3 [place], [place] [id number] Question Social History Tobacco Use Types Packs/Day [...] 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 Pt was very happy and verbalized understanding. Call or visit our??Health??Information??Department??at [phone], ext. [phone]. We are open from 8 a.m. to 4:30 p.m., Sunday through Sunday. LKD * Giuliana Alvarez MA - 01/25/2022 9:57 AM CDT ----- Message from Julián Matthews MD sent at 01/25/2022 9:50 AM CDT ----- He can get all the records from medical records ----- Message ----- From: Giuliana Alvarez MA Sent: 01/25/2022 9:33 AM CDT To: Julián aMtthews MD documented in this encounter Plan of Treatment Not on file documented as of this encounter Visit Diagnoses Not on filedocumented in this encounter Care Teams Test Worker Relationship Specialty Start Date End Date Rahul Ledesma MD [address] [address] PCP - General 02/17/15 Julián Matthews MD 3 [place] [address] Physician NEUROMUSCULOSKELETAL MEDICINE 07/27/21 documented as of this encounter
--- OUTSIDE RECORDS SUMMARY | 2024-10-25 13:01 | XMS_ITS | Encounter Summary ---
Author Organization [facility] - [facility] Address [address] [place] [address]. [place] [address] [place] [address] Care Team Providers Care Quality Audit Representative Name Role Phone Rahul Ledesma MD Primary Care Provider [phone] Julián Matthews MD Unavailable [phone] Reason for Visit * Reason Onset Date Comments Results 08/22/2021 Encounter Details Date Type Department Care Team (Late st Contact Info) Description 08/22/2021 Telephone [facility] Medical Group Multispecialty Care - [facility] [address] [facility], [address] [place] [phone] Julián Matthews MD [address] [place] [address] Results Social History Tobacco Use Types Packs/Day [...] 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 No / Unsure 08/19/2021 7:35 AM CDT documented as of this encounter Progress Notes * Marcie Ventura RN - 08/22/2021 9:59 AM CST Spoke with patient to discuss echo and MRI results. Patient verbalized understanding. TIONSHIP COUNSELOR * Marcie Ventura RN - 08/22/2021 9:59 AM CST ----- Message from Julián Matthews MD sent at 08/21/2021 3:03 PM RELATIONSHIP COUNSELOR ----- Plz let him know the MRI and echo was normal. We will discuss more at the clinic visit. TIONSHIP COUNSELOR documented in this encounter Plan of Treatment Not on file documented as of this encounter Visit Diagnoses Not on filedocumented in this encounter Care Teams Quality Audit Representative Relationship Specialty Start Date End Date Rahul Ledesma MD [address] [address] PCP - General 02/17/15 Julián Matthews MD [address] [place] [address] Physician NEUROMUSCULOSKELETAL MEDICINE 07/27/21 documented as of this encounter
--- OUTSIDE RECORDS SUMMARY | 2024-10-25 13:01 | XMS_ITS | Encounter Summary ---
Author Organization [facility] Address [address] [place] [address]. [place], [place] [address] [place] [address] Care Team Providers Care Cardiovascular Specialist Name Role Phone Rahul Hickman MD Primary Care Provider [phone] Julián Matthews MD Unavailable [phone] Reason for Visit * Reason Comments Physical annual Encounter Details Date Type Department Care Team (Late st Contact Info) Description 12/20/2022 3:30 PM CENTRAL LAB TECHNICIAN Office Visit [facility] [address] [facility] [address] [place] [phone] Rahul Hickman MD [address] [facility] [address] [place] [address] Physical (annual) Social History Tobacco Use Types Packs/Day Years [...] 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 Not on file Not on file documented as of this encounter Last Filed Vital Signs Vital Sign Reading Time Taken Comments Blood Pressure 126/76 12/20/2022 3:25 PM CENTRAL LAB TECHNICIAN Pulse 84 12/20/2022 3:25 PM CENTRAL LAB TECHNICIAN Temperature - - Respiratory Rate - - Oxygen Saturation - - Inhaled Oxygen Concentration - - Weight 68.9 kg (152 lb) 12/20/2022 3:25 PM CENTRAL LAB TECHNICIAN Height 179.1 cm (5' 10.5 ) 12/20/2022 3:25 PM CS T Body Mass Index 21.5 12/20/2022 3:25 PM CENTRAL LAB TECHNICIAN documented in this encounter Progress Notes * Rahul Hickman MD - 12/20/2022 3:30 PM CST Reason for Visit: Physical (annual) History of Present Illness: HEALTH MAINTENANCE The patient is being seen for a health maintenance evaluation. GENERAL HEALTH The patient's health since the last visit is described as good. HPI ROS: Review of Systems Constitutional: Negative [...] depression. Medications: Current Outpatient Medications: ??? amphetamine-dextroamphetamine (ADDERALL) 30 MG tablet, Take 1 tablet (30 mg total) by mouth 2 (two) times daily., Disp: 60 tablet, Rfl: 0 ??? buprenorphine-naloxone 8-2 MG FILM, , Disp: , Rfl: ??? levETIRAcetam (KEPPRA) 500 MG tablet, Take 1 tablet (500 mg total) by mouth 2 (two) times daily., Disp: 180 tablet, Rfl: 4 ??? busPIRone (BUSPAR) 10 MG tablet, Take 1 tablet (10 mg total) by mouth 2 (two) times daily. (Patient not taking: Reported on 12/20/2022), Disp: 60 tablet, Rfl: 0 Immunization History [...] ??? WRIST FRACTURE SURGERY left-orif Social History Socioeconomic History ??? Marital status: ??? Number of children: 1 Occupational History ??? 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 Smoking status: Every Day Packs/day: 0.50 Types: Cigarettes ??? Smokeless tobacco: Never Vaping Use ??? Vaping Use: Never used Substance and Sexual Activity ??? Alcohol use: No ??? Drug use: Not Currently Family History Problem Relation Name Age of Onset ??? Alcohol Abuse Father Family Status Relation Name Status ??? Father (Not Specified) Physical Exam: Physical Exam Constitutional: He appears well-developed. HENT: Head: Atraumatic. Eyes: Conjunctivae are normal. Neck: Neck supple. Cardiovascular: Normal rate and regular rhythm. Pulmonary/Chest: Breath sounds normal. Abdominal: Soft. There is no tenderness. Neurological: He is alert. Skin: No erythema. Filed Vitals: 12/20/22 1525 BP: 126/76 Pulse: 84 Weight: 68.9 kg (152 lb) Height: 5' 10.5 (1.791 m) Body mass index is 21.5 kg/m??. Assessment: 1. History of opioid abuse (CMS/HCC) 2. ADHD, predominantly inattentive type 3. Anxiety 4. Seizure disorder (CMS/HCC) 5. Need for prophylactic vaccination with combined nibjskokfv-tvqqctm-agxktjhup (DTP) vaccine [06434] Tdap, Tetanus, diphtheria toxoids and acellular pertussis vaccine, >7yrs, IM Use 6. ADHD (attention deficit hyperactivity disorder), inattentive type amphetamine-dextroamphetamine (ADDERALL) 30 MG tablet Plan: The primary encounter diagnosis was History of opioid abuse ([facility] Diagnoses of ADHD, predominantly inattentive type, Anxiety, Seizure disorder ([facility]/HCC), Need for prophylactic vaccination with combined audnqliubw-wsespyo-hzsfqckck (DTP) vaccine, and ADHD (attention deficit hyperactivity disorder), inattentive type were also pertinent to this visit. - Comply with suggestions for healthy lifestyle The primary encounter diagnosis was History of opioid abuse ([facility]). Diagnoses of ADHD, predominantly inattentive type, Anxiety, Seizure disorder ([facility]/HCC), Need for prophylactic vaccination with combined orndesrfug-qjiztsj-eemrrvszd (DTP) vaccine, and ADHD (attention deficit hyperactivity disorder), inattentive type were also pertinent to this visit. - All conditions are stable and compensated (except those noted above) Diagnoses and all orders for this visit: History of opioid abuse ([facility]) ADHD, predominantly inattentive type Anxiety Seizure disorder ([facility]) Need for prophylactic vaccination with combined iuanqafstf-qfgppci-xvouvaodq (DTP) vaccine - [60827] Tdap, Tetanus, diphtheria toxoids and acellular pertussis vaccine, >7yrs, IM Use ADHD (attention deficit hyperactivity disorder), inattentive type - amphetamine-dextroamphetamine (ADDERALL) 30 MG tablet; Take 1 tablet (30 mg total) by mouth 2 (two) times daily. He states he is doing relatively well. He believes the Adderall continues to help him. He tells me he rarely uses BuSpar. He was encouraged to eat properly and exercise daily. He continues to see neurology. Reviewed and updated this visit by provider: Return if symptoms worsen or fail to improve. RAHUL HICKMAN MD Referring Provider: No ref. provider found PCP: RAHUL HICKMAN MD RAL LAB TECHNICIAN documented in this encounter Plan of Treatment Not on file documented as of this encounter Visit Diagnoses Diagnosis History of opioid abuse ([facility])- Primary Opioid abuse, in remission ADHD, predominantly inattentive type Attention deficit disorder without mention of hyperactivity Anxiety Anxiety state, unspecified Seizure disorder ([facility]) Unspecified epilepsy without mention of intractable epilepsy Need for prophylactic vaccination with combined pdlmqkibic-yeexlua-mkoooemqu (DTP) vaccine ADHD (attention deficit hyperactivity disorder), inattentive type Attention deficit disorder without mention of hyperactivity documented in this encounter Care Teams Cardiovascular Specialist Relationship Specialty Start Date End Date Rahul Hickman MD [address] [address] PCP - General 02/17/15 Julián Matthews MD 3 [place] [address] Physician NEUROMUSCULOSKELETAL MEDICINE 07/27/21 documented as of this encounter
--- OUTSIDE RECORDS SUMMARY | 2024-10-25 13:01 | XMS_ITS | Encounter Summary ---
Author Organization [facility] Address [facility] [place], [place] [address] [place] [address] Care Team Providers Care Storage Center Manager Name Role Phone Rahul Ledesma MD Primary Care Provider [phone] Julián Matthews MD Unavailable [phone] Reason for Visit * Reason Comments Follow Up * Consultation/Treatment (Routine) - Closed Specialty Diagnoses / Procedures Referred By Contkaur t Referred To Contact NEUROLOGY Diagnoses Seizure disorder ([facility]) Rahul Ledesma MD [address] [address] Phone: tel: fax: [facility] - [address], [address] [place] [address] Phone: tel: Referral ID Status Reason Start Date Expiration Date V isits Requested Visits Authorized [id number] Closed Specialty Services 03/17/2021 04/17/2022 100 100 Encounter Details Date Type Department Care Team (Late st Contact Info) Description 10/25/2021 7:40 AM STROKE PROGRAM COORDINATOR [facility] - [address], [address] [place] [address] Julián Matthews MD [address] [place] [address] Follow Up Social History Tobacco Use Types [...] 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 No / Unsure 10/25/2021 7:41 AM STROKE PROGRAM COORDINATOR documented as of this encounter Last Filed Vital Signs Vital Sign Reading Time Taken Comments Blood Pressure 130/76 10/25/2021 7:48 AM STROKE PROGRAM COORDINATOR Pulse 87 10/25/2021 7:48 AM STROKE PROGRAM COORDINATOR Temperature - - Respiratory Rate - - Oxygen Saturation - - Inhaled Oxygen Concentration - - Weight 70.9 kg (156 lb 6.4 oz) 10/25/2021 7:48 A M STROKE PROGRAM COORDINATOR Height 180.3 cm (5' 11 ) 10/25/2021 7:48 AM STROKE PROGRAM COORDINATOR Body Mass Index 21.81 10/25/2021 7:48 AM STROKE PROGRAM COORDINATOR documented in this encounter Progress Notes * Julián Matthews MD - 10/25/2021 7:40 AM CST Chief Complaint: Seizures HPI: We had the patient of seeing Mr. Spivey in the clinic. Since I last saw him, he has not had any more episodes of seizure. He notes his last major episode of seizure was 10 months ago. He is on Keppra 500 mg twice a day. He has not had any significant side effects with it. He denies any falls or near falls. We did ambulatory 48-hour EEG without video. This was normal. He notes that he has a new job and has been doing well. He is anxious to go back to driving because of his job. I noted to him that since he has had seizures more than 6 months ago, he would be able to go back for driving. I did fill out the paperwork for him to go back to driving. Review of Systems Gen:?denies??recent fever Eyes:?denies?double vision ENT:?denies?epistaxis Pulm:?denies??shortness of breath Cardiac:??denies??Chest pain Musc:??denies?back pain Heme:??denies??easy bruising Neuro: ??See HPI Current Outpatient Medications Medication Sig Dispense Refill ??? amphetamine-dextroamphetamine 30 MG tablet Take 1 tablet (30 mg total) by mouth 2 (two) times daily. 60 tablet 0 ??? buprenorphine-naloxone 8-2 MG FILM ??? levETIRAcetam (KEPPRA) 500 MG tablet Take 1 tablet (500 mg total) by mouth 2 (two) times daily.60 tablet 5 ??? levETIRAcetam (KEPPRA) 500 MG tablet Take 1 tablet (500 mg total) by mouth 2 (two) times daily.180 tablet 4 ??? levETIRAcetam 500 MG tablet Take 1 tablet (500 mg total) by mouth 2 (two) times daily. 60 tablet 0 No current facility-administered medications for this visit. Filed Vitals: 10/25/21 0748 BP: 130/76 Pulse: 87 Weight: 70.9 kg (156 lb 6.4 oz) Height: 5' 11 (1.803 m) PainSc: [...] were equal, round and reactive to light III, IV, : normal extraocular movements, no nystagmus. No eyelid ptosis. V: Normal jaw closure and opening. VII: face was symmetric. IX-X: palate elevates at midline. XI: normal symmetric shoulder shrug. Normal 5/5 sternocleidomastoid strength. XII: tongue was midline and strong. No fasciculations. MOTOR: Normal strength 5/5 on MRC scale in the upper and lower extremities. Normal muscle tone. Fine finger movements were normal bilaterally. No pronator drift GAIT: Normal stride and base. Normal heel, toe and could not do tandem gait. REFLEXES: Normal 2+/4 in upper and lower extremities. Babinski sign was absent. Keller's negative. Impression and Plan: In summary Mr. Spviey has history of seizures. He is stable on Keppra 500 mg twice a day. I have asked him to stay on the medication, remain compliant, avoid any seizure triggers including lack of sleep or medication noncompliance. I discussed seizure precautions including fall precautions, sharpinstrument and fire precautions. Since its been more than 6 months since his last episode, I have okayed him for to drive. I will see him back in 4 months. Time spent: 30 total minutes reviewing records, history that was separately obtained, performing the exam, providing education to the patient/caregiver, ordering medicine and documenting in the medical record. 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
--- OUTSIDE RECORDS SUMMARY | 2024-10-25 13:01 | XMS_ITS | Encounter Summary ---
Author Organization [facility] Address [address] [place] [address]. [place], [place] [address] [place] [address] Care Team Providers Care Director Of Sports Medicine Name Role Phone Rahul Hickman MD Primary Care Provider [phone] Julián Matthews MD Unavailable [phone] Reason for Visit * Reason Comments Physical Annual Encounter Details Date Type Department Care Team (Late st Contact Info) Description 12/05/2021 4:00 PM EXPANDED FUNCTION DENTAL ASSISTANT Office Visit [facility] [address] [facility] [address] [place] [address] Rahul Hickman MD [address] [facility] [address] [place] [address] Physical (Annual) Social History Tobacco Use Types Packs/Day Years [...] 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 Not on file Not on file documented as of this encounter Last Filed Vital Signs Vital Sign Reading Time Taken Comments Blood Pressure 136/80 12/05/2021 4:11 PM EXPANDED FUNCTION DENTAL ASSISTANT Pulse - - Temperature - - Respiratory Rate - - Oxygen Saturation - - Inhaled Oxygen Concentration - - Weight 71.7 kg (158 lb) 12/05/2021 4:02 PM EXPANDED FUNCTION DENTAL ASSISTANT Height 180.3 cm (5' 11 ) 12/05/2021 4:02 PM EXPANDED FUNCTION DENTAL ASSISTANT Body Mass Index 22.04 12/05/2021 4:02 PM EXPANDED FUNCTION DENTAL ASSISTANT documented in this encounter Progress Notes * Rahlu Hickman MD - 12/05/2021 4:00 PM CST Reason for Visit: Physical (Annual) History of Present Illness: HEALTH MAINTENANCE The [...] Not on file Occupational History ??? 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 Smoking status: Current Every Day Smoker Packs/day: 0.50 Types: Cigarettes ??? Smokeless tobacco: Never Used Vaping Use ??? Vaping Use: Never used Substance and Sexual Activity ??? Alcohol use: No ??? Drug use: Not Currently ??? Sexual activity: Not on file Other Topics Concern ??? Not on file Social History Narrative ??? Not on file Social Determinants of Health Financial Resource Strain: Not on file Food Insecurity: Not on file Transportation Needs: Not on file Physical Activity: Not on file Stress: Not on file Social Connections: Not on file Intimate Partner Violence: Not on file Family History Problem Relation Name Age of [...] is alert. Skin: No erythema. Filed Vitals: 12/05/21 1602 12/05/21 1611 BP: (!) 150/84 136/80 Weight: 71.7 kg (158 lb) Height: 5' 11 (1.803 m) Body mass index is 22.04 kg/m??. Assessment: 1. Seizure disorder (CMS/HCC) 2. ADHD, predominantly inattentive type 3. History of opioid abuse ([facility]) 4. Routine general medical examination at a health care facility Plan: The primary encounter diagnosis was Seizure disorder ([facility]). Diagnoses of ADHD, predominantly inattentive type, History of opioid abuse ([facility]), and Routine general medical examination at a health care facility were also pertinent to this visit. - Comply with suggestions for healthy lifestyle The primary encounter diagnosis was Seizure disorder ([facility]). Diagnoses of ADHD, predominantly inattentive type, History of opioid abuse ([facility]), and Routine general medical examination at a health care facility were also pertinent to this visit. - All conditions are stable and compensated (except those noted above) Diagnoses and all orders for this visit: Seizure disorder ([facility]) ADHD, predominantly inattentive type History of opioid abuse ([facility]) Routine general medical examination at a health care facility He states he is doing relatively well. His mood is stable. He has had no seizures. He is in the process of trying to get back to his driving privileges. He was encouraged to eat properly and exercise. As far as his ADHD, he seems to doing well on his current regimen and he would like to continue his medications. Reviewed and updated this visit by provider: No follow-ups on file. RAHUL HICKMAN MD Referring Provider: No ref. provider found PCP: RAHUL HICKMAN MD NDED FUNCTION DENTAL ASSISTANT documented in this encounter Plan of Treatment Not on file documented as of this encounter Visit Diagnoses Diagnosis Seizure disorder ([facility])- Primary Unspecified epilepsy without mention of intractable epilepsy ADHD, predominantly inattentive type Attention deficit disorder without mention of hyperactivity History of opioid abuse ([facility]) Opioid abuse, in remission Routine general medical examination at a health care facility documented in this encounter Care Teams Director Of Sports Medicine Relationship Specialty Start Date End Date Rahul Hickman MD [facility] [address] [id number] PCP - General 02/17/15 Julián Matthews MD [address] [place] [address] Physician NEUROMUSCULOSKELETAL MEDICINE 07/27/21 documented as of this encounter
--- OUTSIDE RECORDS SUMMARY | 2024-10-25 13:01 | XMS_ITS | Encounter Summary ---
Author Organization [facility] Address [address] [place] [address]. [place] [address] [place] [address] Care Team Providers Care Front Desk Specialist Name Role Phone Rahul Ledesma MD Primary Care Provider [phone] Julián Matthews MD Unavailable [phone] Reason for Visit * Reason Onset Date Comments Error 09/23/2021 Encounter Details Date Type Department Care Team (Late st Contact Info) Description 09/23/2021 Telephone [facility] [address] [facility] [address] [place] [address] Rahul Ledesma MD [address] [facility] [address] [place] [address] Error Social History Tobacco Use Types Packs/Day Years [...] 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
--- OUTSIDE RECORDS SUMMARY | 2024-10-25 13:02 | XMS_ITS | Encounter Summary ---
Author Organization [facility] Address [address] [place] [address]. 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
--- OUTSIDE RECORDS SUMMARY | 2024-10-25 13:02 | XMS_ITS | Encounter Summary ---
Author Organization [facility] Address [address] [place] [address]. [place], [place] [address] [place] [address] Care Team Providers Care Food Service Manager Name Role Phone Rahul Ledesma MD Primary Care Provider [phone] Encounter Details Date Type Department Care Team (Latest Contact Info) Description 01/27/2020 Travel Social History Tobacco Use Types Packs/Day Years Used Date Smoking Tobacco: Never Alcohol Use Standard Drinks/Week Comments No 0 (1 standard drink = 0.6 oz pur e alcohol) AUDIT-C Answer Date Recorded Frequency of Alcohol Consumption Never 04/14/2019 Average Number of Drinks Not on file 019 Frequency of Binge Drinking Not on file 0710/2018 Sex and Gender Information Value Date Recorded Sex Assigned at Not on file Legal Sex Male 9:06 PM CDT Gender Identity Not on file Sexual Orientation Not on file 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 No / Unsure 01/27/2020 12:46 PM CDT documented as of this encounter Plan of Treatment Not on file documented as of this encounter Visit Diagnoses Not on filedocumented in this encounter Care Teams Food Service Manager Relationship Specialty Start Date End Date Rahul Ledesma MD [address] [address] PCP - General 02/17/15 documented as of this encounter
--- OUTSIDE RECORDS SUMMARY | 2024-10-25 13:02 | XMS_ITS | Encounter Summary ---
Author Organization [facility] Address [address] [place] [address]. [place], [place] [address] [place] [address] Care Team Providers Care Railway Signal Technician Name Role Phone Rahul Ledesma MD Primary Care Provider [phone] Reason for Visit * Reason Onset Date Comments Medication 02/20/2019 Encounter Details Date Type Department Care Team (Late st Contact Info) Description 02/20/2019 Telephone [facility] [address] [facility] [address] [place] [address] Rahul Ledesma MD [address] [facility] [address] [place] [address] Medication Social History Tobacco Use Types Packs/Day Years Used Date Smoking Tobacco: Never Assessed Sex and Gender Information Value Date Recorded Sex Assigned at Not on file Legal Sex Male 9:06 PM CDT Gender Identity Not on file Sexual Orientation Not on file documented as of this encounter Progress Notes * Ellie Huff RN - 02/20/2019 4:22 PM CDT Pt aware rx ready, will moss picker senior front end developer documented in this encounter Plan of Treatment Not on file documented as of this encounter Visit Diagnoses Not on filedocumented in this encounter Care Teams Railway Signal Technician Relationship Specialty Start Date End Date Rahul Ledesma MD [address] [facility] [address] [place] [address] PCP - General 02/17/15 documented as of this encounter
--- OUTSIDE RECORDS SUMMARY | 2024-10-25 13:02 | XMS_ITS | Encounter Summary ---
Author Organization [facility] Address [address] [place] [address]. [place], [place] [address] [place] [address] Care Team Providers Care Eye Care Professional Name Role Phone Rahul Ledesma MD Primary Care Provider [phone] Encounter Details Date Type Department Care Team (Late st Contact Info) Description 07/06/[address] 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 No / Unsure 07/06/2020 11:11 AM CDT documented as of this encounter Plan of Treatment Not on file documented as of this encounter Visit Diagnoses Not on filedocumented in this encounter Care Teams Eye Care Professional Relationship Specialty Start Date End Date Rahul Ledesma MD [address] [address] PCP - General 02/17/15 documented as of this encounter
--- OUTSIDE RECORDS SUMMARY | 2024-10-25 13:02 | XMS_ITS | Encounter Summary ---
Author Organization [facility] Address [address] [place] [address]. [place], [place] [address] [place] [address] Care Team Providers Care Air Carrier Inspector Name Role Phone Rahul Ledesma MD Primary Care Provider [phone] Reason for Visit * Reason Onset Date Comments Refill Request 02/20/2019 Encounter Details Date Type Department Care Team (Late st Contact Info) Description 02/20/2019 Telephone [facility] [address] [facility] [address] [place] [address] Rahul Ledesma MD [address] [facility] [address] [place] [address] Refill Request Social History Tobacco Use Types Packs/Day Years Used Date Smoking Tobacco: Never Assessed Sex and Gender Information Value Date Recorded Sex Assigned at Not on file Legal Sex Male 9:06 PM CDT Gender Identity Not on file Sexual Orientation Not on file documented as of this encounter Progress Notes * Phyllis Camacho RN - 02/20/2019 3:41 PM CDT Call pt. When rx is ready [phone] documented in this encounter Plan of Treatment Not on file documented as of this encounter Visit Diagnoses Diagnosis ADHD (attention deficit hyperactivity disorder), inattentive type- Primary Attention deficit disorder without mention of hyperactivity documented in this encounter Care Teams Air Carrier Inspector Relationship Specialty Start Date End Date Rahul Ledesma MD [address] [address] PCP - General 02/17/15 documented as of this encounter
--- OUTSIDE RECORDS SUMMARY | 2024-10-25 13:02 | XMS_ITS | Encounter Summary ---
Author Organization [facility] Address [address] [place] [address]. [place], [place] [address] [place] [address] Care Team Providers Care Incinerator Attendant Name Role Phone Rahul Ledesma MD Primary Care Provider [phone] Reason for Visit * Reason Onset Date Comments Medication 05/17/2020 alprazolam Encounter Details Date Type Department Care Team (Late st Contact Info) Description 05/17/2020 Telephone [facility] [address] [facility] [address] [place] [address] Rahul Ledesma MD [address] [facility] [address] [place] [address] Medication (alprazolam ) Social History Tobacco Use Types Packs/Day [...] 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 Only able to fill 2 days early which is tomorrow, and patient is requesting it today. He is out of med, said some times he had to take an extra 0.5 tablet during the day due to anxiety [facility] [phone] [facility] documented in this encounter Plan of Treatment Not on file documented as of this encounter Visit Diagnoses Not on filedocumented in this encounter Care Teams Incinerator Attendant Relationship Specialty Start Date End Date Rahul Ledesma MD [address] [address] PCP - General 02/17/15 documented as of this encounter
--- OUTSIDE RECORDS SUMMARY | 2024-10-25 13:02 | XMS_ITS | Encounter Summary ---
Author Organization [facility] Address [address] [place] [address]. [place], [place] [address] [place] [address] Care Team Providers Care Purification Supervisor Name Role Phone Vipul Hickman MD Primary Care Provider [phone] Reason for Visit * Reason Comments Follow [facility] seizure Encounter Details Date Type Department Care Team (Late st Contact Info) Description 03/17/2021 10:30 AM CDT Office Visit [facility] [address] [facility] [address] [place] [address] Vipul Hickman MD [address] [facility] [address] [place] [address] Follow Up (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 No / Unsure 03/17/2021 10:33 AM CDT documented as of this encounter Last Filed Vital Signs Vital Sign Reading Time Taken Comments Blood Pressure 114/78 03/17/2021 10:40 AM CDT Pulse - - Temperature - - Respiratory Rate - - Oxygen Saturation - - Inhaled Oxygen Concentration - - Weight 72.6 kg (160 lb) 03/17/2021 10:40 AM CDT Height - - Body Mass Index 22.32 03/06/2021 11:09 PM CDT documented in this encounter Progress Notes * Vipul Hickman MD - 03/17/2021 10:30 AM CDT Reason for Visit: Follow Up (. [facility] seizure) HPI ROS: Review of Systems Constitutional: Negative for fever. HENT: Negative for ear pain. Eyes: Negative for pain. Respiratory: Negative for cough and shortness of breath. Cardiovascular: Negative for chest pain, palpitations and leg swelling. Gastrointestinal: Negative for diarrhea, nausea and vomiting. Genitourinary: Negative for dysuria. Musculoskeletal: Negative for myalgias. Neurological: Positive for seizures. Negative for dizziness. Psychiatric/Behavioral: Negative for depression. [...] daily., Disp: 60 tablet, Rfl: 0 ??? QUEtiapine 50 MG tablet, Take 1 tablet by mouth daily., Disp: , Rfl: Immunization History Administered Date(s) Administered ??? Dtp [...] Not on file Occupational History ??? 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 HENT: Head: Atraumatic. Eyes: Conjunctivae are normal. Neck: Neck supple. Cardiovascular: Normal rate and regular rhythm. Pulmonary/Chest: Breath sounds normal. Abdominal: Soft. There is no tenderness. Neurological: He is alert. Skin: No erythema. Filed Vitals: 03/17/21 1040 BP: 114/78 Weight: 72.6 kg (160 lb) Body mass index is 22.32 kg/m??. Assessment: 1. Seizure disorder (CMS/HCC) Plan: - Comply with suggestions for healthy lifestyle Diagnoses and all orders for this visit: Seizure disorder (CMS/HCC) Apparently, he recently had a [place] seizure. He states he has been taking his medicines. Afterdiscussion, I recommend referral to neurology. I told him as far as I am concerned, he should not drive for at least 6 months. Reviewed and updated this visit by provider: No follow-ups on file. VIPUL HICKMAN MD Referring Provider: No ref. provider found PCP: VIPUL HICKMAN MD documented in this encounter Plan of Treatment Not on file documented as of this encounter Visit Diagnoses Diagnosis Seizure disorder ([facility])- Primary Unspecified epilepsy without mention of intractable epilepsy documented in this encounter Care Teams Purification Supervisor Relationship Specialty Start Date End Date Vipul Hickman MD [address] [phone] PCP - General 02/17/15 documented as of this encounter
--- OUTSIDE RECORDS SUMMARY | 2024-10-25 13:02 | XMS_ITS | Encounter Summary ---
Author Organization [facility] Address [address] [place] [address]. [place], [place] [address] [place] [address] Care Team Providers Care Seat Joiner Chainstitch Name Role Phone Rahul Ledesma MD Primary Care Provider [phone] Reason for Visit * Reason Onset Date Comments Medication Question 09/06/2020 adderall Encounter Details Date Type Department Care Team ([facility] st Contact Info) Description 09/06/2020 Telephone [facility] [address] [facility] [address] [place] [address] Rahul Ledesma MD [address] [facility] [address] [place] [address] Medication Question (adderall) Social History Tobacco Use Types Packs/Day Years [...] 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 AL NEEDS SALESPERSON * Rahul Ledesma MD - 09/06/2020 9:24 AM CST yes AL NEEDS SALESPERSON * Marcella Santo, RN - 09/06/2020 9:14 AM CST Pt states he had been on Adderall 60mg for years. He recently decided on his own to decrease to 30mg. Now having difficulty concentrating, and is more tired. Asking if he can go back to 60mg? Will be due for refill next week. [facility] [place] NEEDS SALESPERSON documented in this encounter Plan of Treatment Not on file documented as of this encounter Visit Diagnoses Not on filedocumented in this encounter Care Teams Seat Joiner Chainstitch Relationship Specialty Start Date End Date Rahul Ledesma MD [address] [phone] PCP - General 02/17/15 documented as of this encounter
--- OUTSIDE RECORDS SUMMARY | 2024-10-25 13:02 | XMS_ITS | Encounter Summary ---
Author Organization [facility] Address [address] [place] [address]. 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 No / Unsure 11/18/2020 7:44 AM RISK ASSESSOR documented as of this encounter Plan of Treatment Not on file documented as of this encounter Visit Diagnoses Not on filedocumented in this encounter Care Teams Chemical Laboratory Technician Relationship Specialty Start Date End Date Rahul Ledesma MD [address] [phone] PCP - General 02/17/15 documented as of this encounter
--- OUTSIDE RECORDS SUMMARY | 2024-10-25 13:02 | XMS_ITS | Encounter Summary ---
Author Organization [facility] Address [facility]. [place], [place] [address] [place] [address] Care Team Providers Care Hop Farmer Name Role Phone Rahul Villa MD Primary Care Provider [phone] Encounter Details Date Type Department Care Team (Latest Contact Info) Description 11/04/2018 Abstract [facility] , Generic ConversionMD Social History Tobacco Use Types Packs/Day Years Used Date Smoking Tobacco: Never Assessed Sex and Gender Information Value Date Recorded Sex Assigned at Not on file Legal Sex Male 9:06 PM CDT Gender Identity Not on file Sexual Orientation Not on file documented as of this encounter Progress Notes * Generic Conversion MD Eleazar - 11/04/2018 9:02 AM CST Message Recorded as Task Date: 11/01/2018 01:26 PM, Created By: Marixa Pepper Task Name: [facility] Regarding Patient: Dat Spivey, Status: Complete Comment: Marixa Pepper - 01 Nov 2018 1:26 PM TASK CREATED PATIENT D/C FROM [facility] 10/31 WAITING ON D/C PAPERWORK NEEDS TCM CALL Olya Smalls - 01 Nov 2018 2:00 PM TASK EDITED per patient he was illegally purchasing opioids- did not have prescriptions. no new medication changes patient to begin out patient program at [facility] 3 nights per week, has found an NA meeting near himhe's going to attend 11/02 also Eating well-good appetite, sleep okay-could be better apt for follow up 11/07/18 *please reassign task to the nurses so we can save as tcm call* Rahul Villa - 03 Nov 2018 7:49 PM TASK EDITED noted Olya Smalls - 04 Nov 2018 9:02 AM TASK COMPLETED Signatures Electronically signed by : Olya Smalls, ; Nov 04 2018 9:02AM POLITICAL SCIENCE PROFESSOR (Author) documented in this encounter Plan of Treatment Not on file documented as of this encounter Visit Diagnoses Not on filedocumented in this encounter Care Teams Hop Farmer Relationship Specialty Start Date End Date Rahul Villa MD [address] [phone] PCP - General 02/17/15 documented as of this encounter
--- OUTSIDE RECORDS SUMMARY | 2024-10-25 13:02 | XMS_ITS | Encounter Summary ---
Author Organization [facility] Address [address] [place] [address]. [place], [place] [address] [place] [address] Care Team Providers Care Bar Examiner Name Role Phone Vipul Hickman MD Primary Care Provider [phone] Reason for Visit * Reason Comments Acute Note release for work pt not acting normal sunday Encounter Details Date Type Department Care Team (Late st Contact Info) Description 01/25/2021 1:30 PM CDT Office Visit [facility] [address] [facility] [address] [place] [address] Vipul Hickman MD [address] [facility] [address] [place] [address] Acute Note (release for work pt not acting normal sunday) Social History Tobacco Use Types Packs/Day Years [...] 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 No / Unsure 01/25/2021 11:01 AM CDT documented as of this encounter Last Filed Vital Signs Vital Sign Reading Time Taken Comments Blood Pressure 126/62 01/25/2021 11:06 AM CDT Pulse - - Temperature - - Respiratory Rate - - Oxygen Saturation - - Inhaled Oxygen Concentration - - Weight 70.3 kg (155 lb) 01/25/2021 11:06 AM CDT Height - - Body Mass Index 21.62 11/18/2020 7:58 AM SCHOOL JANITOR documented in this encounter Progress Notes * Vipul Hickman MD - 01/25/2021 1:30 PM CDT Reason for Visit: Acute Note (release for work pt not acting normal sunday) HPI ROS: Review of Systems Constitutional: Negative [...] MG FILM, , Disp: , Rfl: ??? cloNIDine 0.1 MG tablet, , Disp: , Rfl: ??? levETIRAcetam 500 MG tablet, TK 1 T PO Q 12 H FOR 30 DAYS, Disp: , Rfl: Immunization History Administered Date(s) [...] of fracture of the scaphoid bone ??? Wrist fracture closed fracture of navicular bone of right wrist Past Surgical History: Procedure Laterality Date ??? WRIST FRACTURE SURGERY left-orif Social History Tobacco Use ??? Smoking status: Never Smoker Substance Use Topics ??? Alcohol use: No Frequency: Never Social History Socioeconomic History ??? Marital status: Spouse name: Not on file ??? Number of children: 1 ??? Years of education: Not on file ??? Highest education level: Not on file Occupational History ??? 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 HENT: Head: Atraumatic. Eyes: Conjunctivae are normal. Neck: Neck supple. Cardiovascular: Normal rate and regular rhythm. Pulmonary/Chest: Breath sounds normal. Abdominal: Soft. There is no tenderness. Neurological: He is alert. Skin: No erythema. Filed Vitals: 01/25/21 1106 BP: 126/62 Weight: 70.3 kg (155 lb) Body mass index is 21.62 kg/m??. Assessment: 1. Anxiety Plan: - Comply with suggestions for healthy lifestyle Diagnoses and all orders for this visit: Anxiety Patient states he needs a release to return to work tomorrow. Apparently, on Sunday while working his fellow employees and his supervisor cutting department were concerned about his behavior. The patient states that hedoes not know why they had such concern over him. Apparently the night before, he had little sleepbecause of his sons lack of sleep. He tells me he stumbled while at work. The employees and his boss question if he was okay. Apparently they questioned if he had a seizure in the past. He states he has been following up with [facility] and his addiction issue is going quite well. He is rather anxious about this entire affair. After the discussion, I believe he is safe to return to work. I do not think this represents a seizure. Reviewed and updated this visit by provider: No follow-ups on file. VIPUL HICKMAN MD Referring Provider: No ref. provider found PCP: VIPUL HICKMAN MD documented in this encounter Plan of Treatment Not on file documented as of this encounter Visit Diagnoses Diagnosis Anxiety- Primary Anxiety state, unspecified documented in this encounter Care Teams Bar Examiner Relationship Specialty Start Date End Date Vipul Hickman MD [address] [phone] PCP - General 02/17/15 documented as of this encounter
--- OUTSIDE RECORDS SUMMARY | 2024-10-25 13:02 | XMS_ITS | Encounter Summary ---
Author Organization [facility] Address [address] [place] [address]. 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 No / Unsure 04/07/2020 1:46 PM CDT documented as of this encounter Progress Notes * Olya Smalls RN - 04/12/2020 8:48 AM CDT Received, see report * Olya Smalls RN - 04/09/2020 3:40 PM CDT Per patient had done at [facility]. I told him if we do not have by 04/12 then I would call. Office closed tomorrow * Olya Smalls RN - 04/09/2020 3:12 PM CDT Requesting x ray result, I do not see in chart or on dr chan stack [phone] documented in this encounter Plan of Treatment Not on file documented as of this encounter Visit Diagnoses Not on filedocumented in this encounter Care Teams Job Press Feeder Relationship Specialty Start Date End Date Rahul Ledesma MD [address] [phone] PCP - General 02/17/15 documented as of this encounter
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
--- OUTSIDE RECORDS SUMMARY | 2024-10-25 13:02 | XMS_ITS | Encounter Summary ---
Author Organization [facility] Address [address] [place] [address]. 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 No / Unsure 02/25/2020 9:34 AM CDT documented as of this encounter Plan of Treatment Not on file documented as of this encounter Visit Diagnoses Not on filedocumented in this encounter Care Teams Button Facing Machine Operator Relationship Specialty Start Date End Date Rahul Ledesma MD [address] [phone] PCP - General 02/17/15 documented as of this encounter
--- OUTSIDE RECORDS SUMMARY | 2024-10-25 13:02 | XMS_ITS | Encounter Summary ---
Author Organization [facility] Address [address] [place] [address]. [place], [place] [id number] [place] [address] Care Team Providers Care Sanitation Engineer Name Role Phone Rahul Ledesma MD Primary Care Provider [phone] Encounter Details Date Type Department Care Team (Latest Contact Info) Description 08/25/2018 Abstract [facility] Rahul Ledesma MD [address] [phone] Social History Tobacco Use Types Packs/Day Years [...] on filedocumented in this encounter Care Teams Sanitation Engineer Relationship Specialty Start Date End Date Rahul Ledesma MD [address] [phone] PCP - General 02/17/15 documented as of this encounter
--- OUTSIDE RECORDS SUMMARY | 2024-10-25 13:02 | XMS_ITS | Encounter Summary ---
Author Organization [facility] Address [address] [place] [address]. 

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
--- OUTSIDE RECORDS SUMMARY | 2024-10-25 13:02 | XMS_ITS | Encounter Summary ---
Author Organization [facility] Address [address] [place] [address]. [place], [place] [address] [place] [address] Care Team Providers Care Hat Marker Name Role Phone Rahul Ledesma MD Primary Care Provider [phone] Encounter Details Date Type Department Care Team (Latest Contact Info) Description 01/01/2018 Abstract [facility] Rahul Ledesma MD [address] [address] Social History Tobacco Use Types Packs/Day Years Used Date Smoking Tobacco: Never Assessed Sex and Gender Information Value Date Recorded Sex Assigned at Not on file Legal Sex Male 9:06 PM CDT Gender Identity Not on file Sexual Orientation Not on file documented as of this encounter Miscellaneous Notes * Letter - Libby Kirk Md, MD - 01/01/2018 2:00 PM CDT Message Appointment Status: The patient no showed for his/her appointment... Patient Communication: The patient was called regarding the missed appointment.. today. Patients voicemail box was full, unable to leave a message for patient Signatures Electronically signed by : Marixa Pepper, ; Jan 01 2018 2:20PM PREVENTION SPECIALIST (Author) documented in this encounter Plan of Treatment Not on file documented as of this encounter Visit Diagnoses Not on filedocumented in this encounter Care Teams Hat Marker Relationship Specialty Start Date End Date Rahul Ledesma MD [address] [address] PCP - General 02/17/15 documented as of this encounter
--- OUTSIDE RECORDS SUMMARY | 2024-10-25 13:02 | XMS_ITS | Encounter Summary ---
Author Organization [facility] Address [address] [place] [address]. [place], [place] [address] [place] [address] Care Team Providers Care Creative Developer Name Role Phone Rahul Villa MD Primary Care Provider [phone] Encounter Details Date Type Department Care Team (Latest Contact Info) Description 06/05/2018 Abstract [facility] Rahul Villa MD [address] [address] Social History Tobacco Use Types Packs/Day Years Used Date Smoking Tobacco: Never Assessed Sex and Gender Information Value Date Recorded Sex Assigned at Not on file Legal Sex Male 9:06 PM CDT Gender Identity Not on file Sexual Orientation Not on file documented as of this encounter Last Filed Vital Signs Vital Sign Reading Time Taken Comments Blood Pressure 104/82 06/05/2018 8:07 AM CDT Pulse 64 06/05/2018 8:07 AM CDT Temperature - - Respiratory Rate - - Oxygen Saturation - - Inhaled Oxygen Concentration - - Weight 73 kg (161 lb) 06/05/2018 8:07 AM CDT Height 180.3 cm (5' 11 ) 06/05/2018 8:07 AM CDT Body Mass Index 22.45 06/05/2018 8:07 AM CDT documented in this encounter Progress Notes * Rahul Villa MD - 06/05/2018 8:15 AM CDT Reason For Visit Health Dairy Technician Complaint ANNUAL History of Present Illness HM, Adult Male: The patient is being seen for a health maintenance evaluation. General Health: The patient's health since the last visit is described as good. Screening: ADHD (Follow-Up): Target Symptoms: 1. Hyperactive behavior has improved. 2. Impulsive behavior has improved. 3. Difficulty concentrating has improved. Review of Systems Constitutional: no fever. Eyes: no blurred vision. ENT: no white patches in the mouth. Cardiovascular: no chest pain. Respiratory: no shortness of breath. Gastrointestinal: no abdominal pain. Genitourinary: no dysuria. Psychiatric: no depression. Active Problems 1. 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 Anxiety (300.00) (F41.9) Past Medical History ?? History of Closed fracture of navicular bone of right wrist (814.01) (S62.001A) ?? History of Concussion (V15.52) ?? x 2-3 ?? History of Delayed Union Of Fracture Of The Scaphoid Bone (733.81) ?? History of acute pharyngitis (V12.69) (Z87.09) ?? History of back pain (V13.59) (Z87.39) ?? History of chest pain (V13.89) (Z87.898) ?? History of Laceration of finger (883.0) (S61.219A) ?? History of Leg pain (729.5) (M79.606) Surgical History ?? History of Treatment Of Wrist Fracture ?? ORIF, left Family History Father ?? Family history of Recovering Alcoholic Social History ?? Never a smoker ?? Never Drank Alcohol Current Meds 1. Amphetamine-Dextroamphetamine 30 MG Oral Tablet; Take 1 tablet twice daily; Therapy: 59Uka1092 to (Evaluate:60Tee8616); Last Rx:[id number] Ordered Rx By: Rahul Villa; Dispense: 30 Days ; #:60 Tablet; Refill: 0; For: ADHD, predominantly inattentive type; ZEKE = N; Print Rx Allergies 1. No Known Drug Allergies Recorded By: Kiara Elizondo; 06/05/2012 12:38:50 PM Immunizations 1 Influenza 07-Sep-2014 Tdap 2012 Vitals Recorded: 22Ith4307 08:07AM Heart Rate 64 Systolic 104 Diastolic 82 Height 5 ft 11 in Weight 161 lb BMI Calculated 22.46 BSA Calculated 1.92 Physical Exam Constitutional General appearance: No acute distress, well appearing and well nourished. Eyes Conjunctiva and lids: No swelling, erythema, or discharge. Ears, Nose, Mouth, and Throat Oropharynx: Normal with no erythema, edema, exudate or lesions. Pulmonary Auscultation of lungs: Clear to auscultation. Cardiovascular Auscultation of heart: Normal rate and rhythm, normal S1 and S2, without murmurs. Abdomen Abdomen: Non-tender, no masses. Musculoskeletal Gait and station: Normal. Skin Skin and subcutaneous tissue: Normal without rashes or lesions. Psychiatric Mood and affect: Normal. Assessment 1. Encounter for preventive health examination (V70.0) (Z00.00) 2. 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 Amphetamine-Dextroamphetamine 30 MG Oral Tablet; Take 1 tablet twice daily Rx By: Rahul Villa; Dispense: 30 Days ; #:60 Tablet; Refill: 0; For: ADHD, predominantly inattentive type; ZEKE = N; Print Rx ADHD, predominantly inattentive type, Health Maintenance ?? Comply with suggestions for healthy lifestyle; Status:Complete; Done: 15Ybq0454 09:44AM Ordered; For:ADHD, predominantly inattentive type, Health Maintenance; Ordered By:Rahul Villa; ?? Follow-up PRN Outpatient Follow-up Status: Complete Done: 51Mdy3142 09:44AM Ordered; For: ADHD, predominantly inattentive type, Health Maintenance; Ordered By: Rahul Villa Performed: Due: 80Huc1149 Signatures Electronically signed by : Rahul Villa M.D.; Jun 05 2018 9:44AM AXLE TURNER (Author) documented in this encounter Plan of Treatment Not on file documented as of this encounter Visit Diagnoses Not on filedocumented in this encounter Care Teams Creative Developer Relationship Specialty Start Date End Date Rahul Villa MD [address] [address] PCP - General 02/17/15 documented as of this encounter
--- OUTSIDE RECORDS SUMMARY | 2024-10-25 13:02 | XMS_ITS | Encounter Summary ---
Author Organization [facility] Address [address] [place] [address]. [place] [address] [place] [address] Care Team Providers Care Syrup Mixer Assistant Name Role Phone Rahul Ledesma MD Primary Care Provider [phone] Reason for Visit * Reason Onset Date Comments Refill Request 04/13/2020 Encounter Details Date Type Department Care Team (Late st Contact Info) Description 04/13/2020 Telephone [facility] [address] 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
--- OUTSIDE RECORDS SUMMARY | 2024-10-25 13:02 | XMS_ITS | Encounter Summary ---
Author Organization [facility] Address [address] [place] [address]. 

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
--- OUTSIDE RECORDS SUMMARY | 2024-10-25 13:02 | XMS_ITS | Encounter Summary ---
Author Organization [facility] Address [address] [place] [address]. [place], [place] [address] [place] [address] Care Team Providers Care Liaison Engineer Name Role Phone Vipul Ledesma MD Primary Care Provider [phone] Reason for Visit * Reason Comments Acute Note multiple issues Encounter Details Date Type Department Care Team ([facility] st Contact Info) Description 01/27/2020 1:00 PM CDT Office Visit [facility] [address] [facility] [address] [place] [address] Vipul Ledesma MD [address] [facility] [address] [place] [address] Acute Note (multiple issues) Social History Tobacco Use Types Packs/Day Years [...] 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 No / Unsure 01/27/2020 12:46 PM CDT documented as of this encounter Last Filed Vital Signs Vital Sign Reading Time Taken Comments Blood Pressure 134/82 01/27/2020 12:58 PM CDT Pulse - - Temperature - - Respiratory Rate - - Oxygen Saturation - - Inhaled Oxygen Concentration - - Weight 79.8 kg (176 lb) 01/27/2020 12:58 PM CDT Height - - Body Mass Index 24.55 10/09/2019 2:43 PM ADVERTISING DISPATCH CLERKS SUPERVISOR documented in this encounter Progress Notes * Vipul Ledesma MD - 01/27/2020 1:00 PM CDT Reason for Visit: Acute Note (multiple issues) HPI ROS: Review of Systems Constitutional: Negative for fever. HENT: Negative for ear pain. Eyes: Negative for pain. Respiratory: Negative for cough and shortness of breath. Cardiovascular: Negative for chest pain, palpitations and leg swelling. Gastrointestinal: Negative for diarrhea, nausea and vomiting. Genitourinary: Negative for dysuria. Musculoskeletal: Negative for myalgias. Neurological: Negative for dizziness. Psychiatric/Behavioral: Negative for depression. The patient is nervous/anxious. Medications: Current Outpatient Medications: ??? amphetamine-dextroamphetamine 30 [...] Not on file Occupational History ??? 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 HENT: Head: Atraumatic. Eyes: Conjunctivae are normal. Neck: Neck supple. Cardiovascular: Normal rate and regular rhythm. Pulmonary/Chest: Breath sounds normal. Abdominal: Soft. There is no tenderness. Musculoskeletal: He exhibits no edema. Neurological: He is alert. Skin: No erythema. Psychiatric: Anxious and occasionally tearful when talking about his condition Filed Vitals: 01/27/20 1258 BP: 134/82 Weight: 79.8 kg (176 lb) Body mass index is 24.55 kg/m??. Assessment: 1. Anxiety 2. ADHD, predominantly inattentive type 3. Opioid abuse ([facility]) Plan: - Comply with suggestions for healthy lifestyle Diagnoses and all orders for this visit: Anxiety ADHD, predominantly inattentive type Opioid abuse ([facility]) We had a 30-minute conversation regarding his situation. He is newly . He has a child on theway later in the fall. He is still abusing opioids off the street. He has been in numerous addiction clinics. He believes the Adderall is still very helpful. He is fully aware of the potential disaster effects of continuing opioids. We discussed a weaning schedule. He will consider going back to addiction clinic. In the meantime he is finding it very difficult to sleep he would like to try Xanax.Apparently he has bought some Xanax off the street and has been very helpful for him. He tells me that he is very confident that he will be clean when he sees me in a month or so. Return in about 1 month (around 02/26/2020). VIPUL LEDESMA MD Referring Provider: No ref. provider found PCP: VIPUL LEDESMA MD documented in this encounter Plan of Treatment Not on file documented as of this encounter Visit Diagnoses Diagnosis Anxiety- Primary Anxiety state, unspecified ADHD, predominantly inattentive type Attention deficit disorder without mention of hyperactivity Opioid abuse (CMS/HCC [facility]) Opioid abuse, unspecified documented in this encounter Care Teams Liaison Engineer Relationship Specialty Start Date End Date Vipul Ledesma MD [address] [address] PCP - General 02/17/15 documented as of this encounter
--- OUTSIDE RECORDS SUMMARY | 2024-10-25 13:02 | XMS_ITS | Encounter Summary ---
Author Organization [facility] Address [address] [place] [address]. 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 No / Unsure 03/06/2021 11:07 PM CDT documented as of this encounter Plan of Treatment Not on file documented as of this encounter Visit Diagnoses Not on filedocumented in this encounter Care Teams Submarine Cable Equipment Technician Relationship Specialty Start Date End Date Rahul Ledesma MD [address] [phone] PCP - General 02/17/15 documented as of this encounter
--- OUTSIDE RECORDS SUMMARY | 2024-10-25 13:02 | XMS_ITS | Encounter Summary ---
Author Organization [facility] Address [address] [place] [address]. [place], [place] [address] [place] [address] Care Team Providers Care Humidifier Maintenance Worker Name Role Phone Rahul Villa MD Primary Care Provider [phone] Encounter Details Date Type Department Care Team (Latest Contact Info) Description 09/19/2018 Abstract [facility] Rahul Villa MD [address] [address] Social History Tobacco Use Types Packs/Day Years Used Date Smoking Tobacco: Never Assessed Sex and Gender Information Value Date Recorded Sex Assigned at Not on file Legal Sex Male 9:06 PM CDT Gender Identity Not on file Sexual Orientation Not on file documented as of this encounter Last Filed Vital Signs Vital Sign Reading Time Taken Comments Blood Pressure 122/84 09/19/2018 1:06 PM CRM SPECIALIST Pulse - - Temperature - - Respiratory Rate - - Oxygen Saturation - - Inhaled Oxygen Concentration - - Weight 75.8 kg (167 lb) 09/19/2018 1:06 PM CRM SPECIALIST Height 180.3 cm (5' 11 ) 09/19/2018 1:06 PM CRM SPECIALIST Body Mass Index 23.29 09/19/2018 1:06 PM CRM SPECIALIST documented in this encounter Progress Notes * Rahul Villa MD - 09/19/2018 1:15 PM CST Reason For Visit Hospital Follow-Up Chief Complaint [facility] follow-up History of Present Illness Interval symptoms: improved anxiety. Interval symptoms: worsened difficulty falling asleep. Review of Systems Constitutional: no fever. Eyes: no blurred vision. ENT: no white patches in the mouth. Cardiovascular: no chest pain. Respiratory: no shortness of breath. Gastrointestinal: no abdominal pain. Psychiatric: not suicidal. Active Problems 1. 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 Anxiety (300.00) (F41.9) Past Medical History 1. History of Closed fracture of navicular bone of right wrist (814.01) (S62.001A) 2. History of Concussion (V15.52) ?? x 2-3 3. History of Delayed Union Of Fracture Of The Scaphoid Bone (733.81) 4. History of acute pharyngitis (V12.69) (Z87.09) 5. History of back pain (V13.59) (Z87.39) 6. History of chest pain (V13.89) (Z87.898) 7. History of Laceration of finger (883.0) (S61.219A) 8. History of Leg pain (729.5) (M79.606) Surgical History 1. History of Treatment Of Wrist Fracture ?? ORIF, left Family History Father 1. Family history of Recovering Alcoholic Social History ?? Never a smoker ?? Never Drank Alcohol Current Meds 1. Amphetamine-Dextroamphetamine 30 MG Oral Tablet; Take 1 tablet twice daily; Therapy: 22Btv0275 to (Evaluate:54Dni7396); Last Rx:02Sep2018 Ordered Allergies 1. No Known Drug Allergies Vitals Recorded: 19Sep2018 01:06PM Systolic 122 Diastolic 84 Height 5 ft 11 in Weight 167 lb BMI Calculated 23.29 BSA Calculated 1.95 Physical Exam Constitutional General appearance: No acute distress, well appearing and well nourished. Eyes Conjunctiva and lids: No swelling, erythema, or discharge. Ears, Nose, Mouth, and Throat Oropharynx: Normal with no erythema, edema, exudate or lesions. Pulmonary Auscultation of lungs: Clear to auscultation. Cardiovascular Auscultation of heart: Normal rate and rhythm, normal S1 and S2, without murmurs. Abdomen Abdomen: Non-tender, no masses. Psychiatric Mood and affect: Normal. Assessment 1. Anxiety (300.00) (F41.9) 2. Insomnia (780.52) (G47.00) Plan Anxiety, Insomnia 1. Follow-up visit in 1 month Outpatient Follow-up Status: Hold For - Scheduling Requested for: 19Sep2018 Ordered; For: Anxiety, Insomnia; Ordered By: Rahul Villa Performed: Due: 40Smd1610 Health Maintenance, Insomnia 2. Fluzone Quadrivalent 0.5 ML Intramuscular Suspension For: Health Maintenance, Insomnia; Ordered By:Rahul Villa; Effective Date:19Sep2018; Administered by: Linda Lee: 09/19/2018 1:37:00 PM; Last Updated By: Linda Lee; 09/19/2018 1:38:34 PM Insomnia 3. Mirtazapine 15 MG Oral Tablet; TAKE 1 TABLET AT BEDTIME Rx By: Rahul Villa; Dispense: 30 Days ; #:30 Tablet; Refill: 3; For: Insomnia; ZEKE = N; Verified Transmission to [facility] [address]; Last Updated By: [employer]; 09/19/2018 1:38:23 PM Discussion/Summary detailed disc about his recent rehab for opiod abuse. he says he will cont counseling Signatures Electronically signed by : Rahul Villa M.D.; Sep 19 2018 8:40PM CRM SPECIALIST (Author) documented in this encounter Plan of Treatment Not on file documented as of this encounter Visit Diagnoses Not on filedocumented in this encounter Care Teams Humidifier Maintenance Worker Relationship Specialty Start Date End Date Rahul Villa MD [address] [address] PCP - General 02/17/15 documented as of this encounter
--- OUTSIDE RECORDS SUMMARY | 2024-10-25 13:02 | XMS_ITS | Encounter Summary ---
Author Organization [facility] Address [address] [place] [address]. [place], [place] [address] [place] [address] Care Team Providers Care Enrollment Management Manager Name Role Phone Vipul Hickman MD Primary Care Provider [phone] Reason for Visit * Reason Comments Follow Up 3 week f/u: anxiety Encounter Details Date Type Department Care Team (Late st Contact Info) Description 02/17/2020 8:00 AM CDT Office Visit [facility] [address] [facility] [address] [place] [address] Vipul Hickman MD [address] 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 No / Unsure 02/17/2020 8:19 AM CDT documented as of this encounter Last Filed Vital Signs Vital Sign Reading Time Taken Comments Blood Pressure 118/78 02/17/2020 8:22 AM CDT Pulse - - Temperature - - Respiratory Rate - - Oxygen Saturation - - Inhaled Oxygen Concentration - - Weight 77.6 kg (171 lb) 02/17/2020 8:22 AM CDT Height - - Body Mass Index 23.85 10/09/2019 2:43 PM JAILKEEPER documented in this encounter Progress Notes * Vipul Hickman MD - 02/17/2020 8:00 AM CDT Reason for Visit: Follow Up (3 week f/u: anxiety) HPI ROS: Review of Systems Constitutional: Negative [...] by mouth nightly as needed for Sleep., Disp:20 tablet, Rfl: 0 ??? 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 HENT: Head: Atraumatic. Eyes: Conjunctivae are normal. Neck: Neck supple. Cardiovascular: Normal rate and regular rhythm. Pulmonary/Chest: Breath sounds normal. Abdominal: Soft. There is no tenderness. Musculoskeletal: He exhibits no edema. Neurological: He is alert. Skin: No erythema. Psychiatric: He has a normal mood and affect. Filed Vitals: 02/17/20 0822 BP: 118/78 Weight: 77.6 kg (171 lb) Body mass index is 23.85 kg/m??. Assessment: 1. Anxiety ALPRAZolam 1 MG tablet 2. Opioid abuse (CMS/HCC) 3. Acute right-sided low back pain without sciatica Plan: - Comply with suggestions for healthy lifestyle Diagnoses and all orders for this visit: Anxiety - ALPRAZolam 1 MG tablet; Take 1 tablet (1 mg total) by mouth nightly as needed for Sleep. Opioid abuse (CMS/HCC) Acute right-sided low back pain without sciatica He states he is tapering his narcotic dose. He believes the alprazolam has been quite helpful. His and father are pleased with his success. He wishes to try to continue to wean. He believes he is safely taking the alprazolam at night to help him sleep. He states by the next visit in 2 weeks heis hoping to take just 1 narcotic pill daily. He also states he had some right flank pain and grosshematuria yesterday it is completely resolved. He believes it was a kidney stone. He declines any further evaluation or work-up at this time. He would like to just drink plenty of fluids. He realizeshe has a risk of recurrence if in fact this was a kidney stone. He would like to observe and we candiscuss on the with her Return in about 2 weeks (around 03/02/2020). VIPUL HICKMAN MD Referring Provider: No ref. provider found PCP: VIPUL HICKMAN MD documented in this encounter Plan of Treatment Not on file documented as of this encounter Visit Diagnoses Diagnosis Anxiety- Primary Anxiety state, unspecified Opioid abuse ([facility]) Opioid abuse, unspecified Acute right-sided low back pain without sciatica documented in this encounter Care Teams Enrollment Management Manager Relationship Specialty Start Date End Date Vipul Hickman MD [address] [phone] PCP - General 02/17/15 documented as of this encounter
--- OUTSIDE RECORDS SUMMARY | 2024-10-25 13:02 | XMS_ITS | Encounter Summary ---
Author Organization [facility] Address [address] [place] [address]. 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 Not on file Not [...] Procedure Name Priority Date/Time Associated Diagnosis Comments XR SHOULDER LT 3V Routine 04/09/2020 Acute pain of left shoulder documented in this encounter Results * XR SHOULDER LT 3V (04/09/2020) Anatomical Region Laterality Modality Shoulder Radiographic Nadege ging us Rahul Ledesma MD GENERAL IMAGING Final Resul t documented in this encounter Visit Diagnoses Diagnosis Acute pain of left shoulder documented in this encounter Care Teams Top Installer Relationship Specialty Start Date End Date Rahul Ledesma MD [address] [phone] PCP - General 02/17/15 documented as of this encounter
--- OUTSIDE RECORDS SUMMARY | 2024-10-25 13:02 | XMS_ITS | Encounter Summary ---
Author Organization [facility] Address [address] [place] [address]. [place], [place] [address] [place] [address] Care Team Providers Care Construction Contractor Name Role Phone Rahul Ledesma MD Primary Care Provider [phone] Encounter Details Date Type Department Care Team (Latest Contact Info) Description 10/31/2018 Abstract [facility] Rahul Ledesma MD [address] [phone] Social History Tobacco Use Types Packs/Day Years [...] on filedocumented in this encounter Care Teams Construction Contractor Relationship Specialty Start Date End Date Rahul Ledesma MD [address] [phone] PCP - General 02/17/15 documented as of this encounter
--- OUTSIDE RECORDS SUMMARY | 2024-10-25 13:02 | XMS_ITS | Encounter Summary ---
Author Organization [facility] Address [address] [place] [address]. [place], [place] [address] [place] [address] Care Team Providers Care Adjunct Political Science Instructor Name Role Phone Vipul Hickman MD Primary Care Provider [phone] Reason for Visit * Reason Comments Follow Up 1 month check: anxie ty Encounter Details Date Type Department Care Team (Late st Contact Info) Description 03/23/2020 3:00 PM CDT Office Visit [facility] [address] [facility] [address] [place] [address] Vipul Hickman MD [address] [facility] [address] [place] [address] Follow Up (1 month check: anxiety) Social History Tobacco Use Types Packs/Day [...] 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 No / Unsure 03/23/2020 2:41 PM CDT documented as of this encounter Last Filed Vital Signs Vital Sign Reading Time Taken Comments Blood Pressure 120/78 03/23/2020 2:48 PM CDT Pulse - - Temperature - - Respiratory Rate - - Oxygen Saturation - - Inhaled Oxygen Concentration - - Weight 76.7 kg (169 lb) 03/23/2020 2:48 PM CDT Height - - Body Mass Index 23.57 02/25/2020 9:43 AM CDT documented in this encounter Progress Notes * Vipul Hickman MD - 03/23/2020 3:00 PM CDT Reason for Visit: Follow Up (1 month check: anxiety) HPI ROS: Review of Systems Constitutional: [...] Not on file Occupational History ??? 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 HENT: Head: Atraumatic. Eyes: Conjunctivae are normal. Neck: Neck supple. Cardiovascular: Normal rate and regular rhythm. Pulmonary/Chest: Breath sounds normal. Abdominal: Soft. There is no tenderness. Musculoskeletal: He exhibits no edema. Neurological: He is alert. Skin: No erythema. Psychiatric: He has a normal mood and affect. Filed Vitals: 03/23/20 1448 BP: 120/78 Weight: 76.7 kg (169 lb) Body mass index is 23.57 kg/m??. Assessment: 1. Anxiety ALPRAZolam 1 MG tablet 2. Opioid abuse ([facility]) Plan: - Comply with suggestions for healthy lifestyle Diagnoses and all orders for this visit: Anxiety - ALPRAZolam 1 MG tablet; Take 1 tablet (1 mg total) by mouth nightly as needed for Sleep. Opioid abuse ([facility]) Reviewed and updated this visit by provider: He states he is doing well. Unfortunately, he is still using some opioids. He states the dose is much lower than before 4. She strongly wishes to continue to try to wean off of them. He would like tocontinue the alprazolam as needed. And follow-up in 1 month. Return in about 1 month (around 04/22/2020). VIPUL HICKMAN MD Referring Provider: No ref. provider found PCP: VIPUL HICKMAN MD documented in this encounter Plan of Treatment Not on file documented as of this encounter Visit Diagnoses Diagnosis Anxiety- Primary Anxiety state, unspecified Opioid abuse (CMS/[facility]) Opioid abuse, unspecified documented in this encounter Care Teams Adjunct Political Science Instructor Relationship Specialty Start Date End Date Vipul Hickman MD [address] [phone] PCP - General 02/17/15 documented as of this encounter
--- OUTSIDE RECORDS SUMMARY | 2024-10-25 13:02 | XMS_ITS | Encounter Summary ---
Author Organization [facility] Address [address] [place] [address]. [place], [place] [id number] [place] [address] Care Team Providers Care Global Regulatory Lead Name Role Phone Rahul Ledesma MD Primary Care Provider [phone] [phone] Encounter Details Date Type Department Care Team (Late st Contact Info) Description 04/14/2019 Orders Only [facility] [address] [facility] [address] [place] [address] Marixa Pepper, RN Social History Tobacco Use Types Packs/Day Years [...] filedocumented in this encounter Care Teams Global Regulatory Lead Relationship Specialty Start Date End Date Rahul Ledesma MD [address] [facility] [address] [place] [address] PCP - General 02/17/15 documented as of this encounter
--- OUTSIDE RECORDS SUMMARY | 2024-10-25 13:02 | XMS_ITS | Encounter Summary ---
Author Organization [facility] Address [address] [place] [address]. 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
--- OUTSIDE RECORDS SUMMARY | 2024-10-25 13:02 | XMS_ITS | Encounter Summary ---
Author Organization [facility] Address [address] [place] [address]. [place], [place] [address] [place] [address] Care Team Providers Care Roller Mill Tender Name Role Phone Rahul Ledesma MD Primary Care Provider [phone] Reason for Visit * Reason Onset Date Comments Note From Provider Request 10/04/2020 Encounter Details Date Type Department Care Team ([facility] st Contact Info) Description 10/04/2020 Telephone [facility] [address] [facility] [address] [place] [address] Rahul Ledesma MD [address] [facility] [address] [place] [address] Note From Provider Request Social [...] 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 Pt states that it showed amphetamines detected. Pt states he needs a note for work to state that he does take adderall. Ok for note? NCB:pt R WELL DRILLER documented in this encounter Plan of Treatment Not on file documented as of this encounter Visit Diagnoses Not on filedocumented in this encounter Care Teams Roller Mill Tender Relationship Specialty Start Date End Date Rahul Ledesma MD [address] [phone] PCP - General 02/17/15 documented as of this encounter
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
--- OUTSIDE RECORDS SUMMARY | 2024-10-25 13:02 | XMS_ITS | Encounter Summary ---
Author Organization [facility] Address [address] [place] [address]. 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
--- OUTSIDE RECORDS SUMMARY | 2024-10-25 13:02 | XMS_ITS | Encounter Summary ---
Author Organization [facility] Address [address] [place] [address]. [place], [place] [address] [place] [address] Care Team Providers Care Access Liaison Name Role Phone Vipul Ledesma MD Primary Care Provider [phone] Reason for Visit * Reason Comments Follow Up scripts Encounter Details Date Type Department Care Team ([facility] st Contact Info) Description 07/06/2020 11:15 AM CDT Office Visit [facility] [address] [facility] [address] [place] [address] Vipul Ledesma MD [address] [facility] [address] [place] [address] Follow Up (scripts) Social History Tobacco Use Types Packs/Day Years [...] 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 No / Unsure 07/06/2020 11:11 AM CDT documented as of this encounter Last Filed Vital Signs Vital Sign Reading Time Taken Comments Blood Pressure 124/90 07/06/2020 11:21 AM CDT Pulse 72 07/06/2020 11:21 AM CDT Temperature - - Respiratory Rate - - Oxygen Saturation - - Inhaled Oxygen Concentration - - Weight 71.7 kg (158 lb) 07/06/2020 11:21 AM CDT Height - - Body Mass Index 22.04 02/25/2020 9:43 AM CDT documented in this encounter Progress Notes * Vipul Ledesma MD - 07/06/2020 11:15 AM CDT Reason for Visit: Follow Up (scripts) HPI ROS: Review of Systems Constitutional: Negative [...] 1 tablet (30 mg total) by mouth daily for 30 days., Disp: 30 tablet, Rfl: 0 ??? levETIRAcetam 500 MG tablet, TK 1 T PO Q 12 H FOR 30 DAYS, Disp: , Rfl: ??? NARCAN 4 MG/0.1ML nasal spray, , Disp: , Rfl: ??? gabapentin 100 MG capsule, TK 1 C PO QHS, Disp: , Rfl: ??? hydrOXYzine 25 MG tablet, TK 1 T PO QID PRF ANXIETY, Disp: , Rfl: Immunization History Administered Date(s) Administered ??? Dtp 1991, 1991, 01/13/1992, 02/28/1994, 06/06/1995 ??? Hib 1991, 1991, 01/13/1992, 02/28/1994 ??? 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 HENT: Head: Atraumatic. Eyes: Conjunctivae are normal. Neck: Neck supple. Cardiovascular: Normal rate and regular rhythm. Pulmonary/Chest: Breath sounds normal. Abdominal: Soft. There is no tenderness. Musculoskeletal: He exhibits no edema. Neurological: He is alert. Skin: No erythema. Psychiatric: He has a normal mood and affect. Filed Vitals: 07/06/20 1121 BP: 124/90 Pulse: 72 Weight: 71.7 kg (158 lb) Body mass index is 22.04 kg/m??. Assessment: 1. Need for prophylactic vaccination and inoculation against influenza RIV4 VACC RECOMBINANT DNA IM 2. ADHD (attention deficit hyperactivity disorder), inattentive type amphetamine-dextroamphetamine 30 MG tablet 3. ADHD, predominantly inattentive type Plan: - Comply with suggestions for healthy lifestyle Diagnoses and all orders for this visit: Need for prophylactic vaccination and inoculation against influenza - RIV4 VACC RECOMBINANT DNA IM ADHD (attention deficit hyperactivity disorder), inattentive type - amphetamine-dextroamphetamine 30 MG tablet; Take 1 tablet (30 mg total) by mouth daily for 30 days. ADHD, predominantly inattentive type Reviewed and updated this visit by provider: We had a detailed conversation regarding his conditions. We discussed the recent phone call by his . He is now returned to rehab and is on seizure medication. He has a follow-up with his neurologist. I told him I will no longer prescribe any benzodiazepines or narcotics. He would still like to take at least 1 pill of Adderall daily. We had a serious conversation about the risks of his currentlifestyle. Return if symptoms worsen or fail to improve. VIPUL LEDESMA MD Referring Provider: No ref. provider found PCP: VIPUL LEDESMA MD documented in this encounter Plan of Treatment Not on file documented as of this encounter Visit Diagnoses Diagnosis Need for prophylactic vaccination and inoculation against influenza- Primary ADHD (attention deficit hyperactivity disorder), inattentive type Attention deficit disorder without mention of hyperactivity ADHD, predominantly inattentive type Attention deficit disorder without mention of hyperactivity documented in this encounter Care Teams Access Liaison Relationship Specialty Start Date End Date Vipul Ledesma MD [address] [phone] PCP - General 02/17/15 documented as of this encounter
--- OUTSIDE RECORDS SUMMARY | 2024-10-25 13:02 | XMS_ITS | Encounter Summary ---
Author Organization [facility] Address [address] [place] [address]. [place], [place] [address] [place] [address] Care Team Providers Care Ict Managers Name Role Phone Rahul Ledesma MD Primary Care Provider [phone] Julián Matthews MD Unavailable [phone] Encounter Details Date Type Department Care Team (Latest Contact Info) Description 08/20/2018 Abstract [facility] , Libby Kirk MD Social History Tobacco Use Types Packs/Day Years [...] on filedocumented in this encounter Care Teams Ict Managers Relationship Specialty Start Date End Date Rahul Ledesma MD [address] [phone] PCP - General 02/17/15 Julián Matthews MD [address] [place] [address] Physician NEUROMUSCULOSKELETAL MEDICINE 07/27/21 documented as of this encounter
--- OUTSIDE RECORDS SUMMARY | 2024-10-25 13:02 | XMS_ITS | Encounter Summary ---
Author Organization [facility] Address [address] [place] [address]. [place], [place] [address] [place] [address] Care Team Providers Care Arcade Game Technician Name Role Phone Rahul Ledesma MD Primary Care Provider [phone] Encounter Details Date Type Department Care Team (Late st Contact Info) Description 04/14/2019 Orders Only [facility] [address] [facility] [address] [place] [address] Marixa Pepper, RN Social History [...] on filedocumented in this encounter Care Teams Arcade Game Technician Relationship Specialty Start Date End Date Rahul Ledesma MD [address] [facility] [address] [place] [address] PCP - General 02/17/15 documented as of this encounter
--- OUTSIDE RECORDS SUMMARY | 2024-10-25 13:02 | XMS_ITS | Encounter Summary ---
Author Organization [facility] Address [address] [place] [address]. [place], [place] [address] [place] [address] Care Team Providers Care Contact Officer Name Role Phone Vipul Hickman MD Primary Care Provider [phone] Reason for Visit * Reason Comments Anxiety follow up Attention Deficit Hyperactivity Disorder Encounter Details Date Type Department Care Team (Latest Contact Info) Description 02/25/2020 9:15 AM CDT Office Visit 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 No / Unsure 02/25/2020 9:34 AM CDT documented as of this encounter Last Filed Vital Signs Vital Sign Reading Time Taken Comments Blood Pressure 124/72 02/25/2020 9:43 AM CDT Pulse - - Temperature - - Respiratory Rate - - Oxygen Saturation - - Inhaled Oxygen Concentration - - Weight 76.7 kg (169 lb) 02/25/2020 9:43 AM CDT Height 180.3 cm (5' 11 ) 02/25/2020 9:43 AM CDT Body Mass Index 23.57 02/25/2020 9:43 AM CDT documented in this encounter Progress Notes * Vipul Hickman MD - 02/25/2020 9:15 AM CDT Reason for Visit: Anxiety (follow up ) and Attention Deficit Hyperactivity Disorder HPI ROS: Review of Systems Constitutional: Negative for fever. HENT: Negative for ear pain. Eyes: Negative for pain. Respiratory: Negative for cough and shortness of breath. Cardiovascular: Negative for chest pain, palpitations and leg swelling. Gastrointestinal: Negative for diarrhea, nausea and vomiting. Genitourinary: Negative for dysuria. Musculoskeletal: Negative for myalgias. Neurological: Negative for dizziness. Psychiatric/Behavioral: Negative for depression. The patient is nervous/anxious (Improving). Medications: Current Outpatient Medications: ??? ALPRAZolam 1 [...] Not on file Occupational History ??? 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 HENT: Head: Atraumatic. Eyes: Conjunctivae are normal. Neck: Neck supple. Cardiovascular: Normal rate and regular rhythm. Pulmonary/Chest: Breath sounds normal. Abdominal: Soft. There is no tenderness. Musculoskeletal: He exhibits no edema. Neurological: He is alert. Skin: No erythema. Psychiatric: He has a normal mood and affect. Filed Vitals: 02/25/20 0943 BP: 124/72 Weight: 76.7 kg (169 lb) Height: 5' 11 (1.803 m) Body mass index is 23.57 kg/m??. Assessment: 1. Anxiety ALPRAZolam 1 MG tablet Plan: - Comply with suggestions for healthy lifestyle Diagnoses and all orders for this visit: Anxiety - ALPRAZolam 1 MG tablet; Take 1 tablet (1 mg total) by mouth nightly as needed for Sleep. He states he is doing well. He is tapering his opioids. He believes the alprazolam is helping him agreat deal. He would like to continue to be able to take 1 of those daily. He also states that he would like to follow-up in 1 month for reassessment. He states that he believes he will be off all opioids at that visit. Return in about 1 month (around 03/27/2020). VIPUL HICKMAN MD Referring Provider: No ref. provider found PCP: VIPUL HICKMAN MD documented in this encounter Plan of Treatment Not on file documented as of this encounter Visit Diagnoses Diagnosis Anxiety Anxiety state, unspecified documented in this encounter Care Teams Contact Officer Relationship Specialty Start Date End Date Vipul Hickman MD [address] [address] PCP - General 02/17/15 documented as of this encounter
--- OUTSIDE RECORDS SUMMARY | 2024-10-25 13:02 | XMS_ITS | Encounter Summary ---
Author Organization [facility] Address [address] [place] [address]. 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
--- OUTSIDE RECORDS SUMMARY | 2024-10-25 13:02 | XMS_ITS | Encounter Summary ---
Author Organization [facility] Address [address] [place] [address]. 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
--- OUTSIDE RECORDS SUMMARY | 2024-10-25 13:02 | XMS_ITS | Encounter Summary ---
Author Organization [facility] Address [address] [place] [address]. 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
--- OUTSIDE RECORDS SUMMARY | 2024-10-25 13:02 | XMS_ITS | Encounter Summary ---
Author Organization [facility] Address [address] [place] [address]. [place], [place] [address] [place] [address] Care Team Providers Care Spiritual Minister Name Role Phone Rahul Ledesma MD Primary Care Provider [phone] Reason for Visit * Reason Onset Date Comments Refill Request 06/21/2019 Encounter Details Date Type Department Care Team (Late st Contact Info) Description 06/21/2019 Telephone [facility] [address] [facility] [address] [place] [address] Rahul Ledesma MD [address] [facility] [address] [place] [address] Refill Request Social History Tobacco [...] Progress Notes * Phyllis Camacho RN - 06/21/2019 9:56 AM CDT Pt. States that he is completely out of med after today documented in this encounter Plan of Treatment Not on file documented as of this encounter Visit Diagnoses Diagnosis ADHD (attention deficit hyperactivity disorder), inattentive type Attention deficit disorder without mention of hyperactivity documented in this encounter Care Teams Spiritual Minister Relationship Specialty Start Date End Date Rahul Ledesma MD [address] [phone] PCP - General 02/17/15 documented as of this encounter
--- OUTSIDE RECORDS SUMMARY | 2024-10-25 13:02 | XMS_ITS | Encounter Summary ---
Author Organization [facility] Address [address] [place] [address]. [place], [place] [address] [place] [address] Care Team Providers Care Nutritionist Name Role Phone Vipul Hickman MD Primary Care Provider [phone] Reason for Visit * Reason Comments Acute Note SORE THROAT X 4 DAYS Encounter Details Date Type Department Care Team (Late st Contact Info) Description 04/14/2019 2:15 PM CDT Office Visit [facility] [address] [facility] [address] [place] [id number] Louis Mireles, RADAR SIGNAL PROCESSING ENGINEER [address] [place] [address] Acute Note (SORE THROAT X 4 DAYS) Social History Tobacco Use Types Packs/Day Years [...] Sign Reading Time Taken Comments Blood Pressure - - Pulse - - Temperature 36.7 ??C (98.1 ??F) 04/14/2019 2:08 PM CD T Respiratory Rate - - Oxygen Saturation - - Inhaled Oxygen Concentration - - Weight 74.4 kg (164 lb) 04/14/2019 2:08 PM CDT Height 180.3 cm (5' 11 ) 04/14/2019 2:08 PM CDT Body Mass Index 22.87 04/14/2019 2:08 PM CDT documented in this encounter Progress Notes * Reynaldo Pepper RN - 04/14/2019 2:15 PM CDTAddended by: REYNALDO PEPPER on: 04/14/2019 02:40 PM Modules accepted: Orders * Louis Mireles NP - 04/14/2019 2:15 PM CDT Reason for Visit: Acute Note (SORE THROAT X 4 DAYS) History of Present Illness: 4 days sore throat Sore Throat This is a new problem. The current episode started in the past 7 days. The problem has been gradually worsening. There has been no fever. Associated symptoms include trouble swallowing. Pertinent negatives include no abdominal pain, congestion, coughing, ear pain, shortness of breath, swollen glands or vomiting. He has tried cool liquids for the symptoms. The treatment provided no relief. ROS: Review of Systems Constitutional: Negative for chills and fever. HENT: Positive for sore throat and trouble swallowing. Negative for congestion and ear pain. Respiratory: Negative for cough and shortness of breath. Cardiovascular: Negative for chest pain and palpitations. Gastrointestinal: Negative for abdominal pain and vomiting. Neurological: Negative for dizziness. Medications: Current Outpatient Medications: ??? amphetamine-dextroamphetamine 30 MG tablet, Take 1 tablet (30 mg total) by mouth 2 (two) times daily., Disp: 60 tablet, Rfl: 0 ??? MIRTAZAPINE 30 MG tablet, TAKE 1 TABLET BY MOUTH EVERY NIGHT AT BEDTIME, Disp: 90 tablet, Rfl: 0 Not on File Past Medical History: Diagnosis Date ??? Back [...] Social History Socioeconomic History ??? Marital status: Unknown Spouse name: Not on file ??? Number of children: Not on file ??? Years of education: Not on file ??? Highest education level: Not on file Occupational History ??? Not on file Social Needs ??? Financial resource strain: Not on file ??? Food insecurity: Worry: Not on file Inability: Not on file ??? Transportation needs: Medical: Not on file Non-medical: Not on file Tobacco Use ??? Smoking status: Never Smoker Substance and Sexual Activity ??? Alcohol use: No Frequency: Never ??? Drug use: Not on file ??? Sexual activity: Not on file Lifestyle ??? Physical activity: Days per week: Not on file Minutes per session: Not on file ??? Stress: Not on file Relationships ??? Social connections: Talks on phone: Not on file Gets together: Not on file Attends mormonism service: Not on file Active member of club or organization: Not on file Attends meetings of clubs or organizations: Not on file Relationship status: Not on file ??? Intimate partner violence: Fear of current or ex partner: Not on file Emotionally abused: Not on file Physically abused: Not on file Forced sexual activity: Not on file Other Topics Concern ??? Not on file Social History Narrative ??? Not on file Family History Problem Relation Name Age of Onset ??? Alcohol Abuse Father Family Status Relation Name Status ??? Father (Not Specified) Physical Exam Constitutional: He is oriented to person, place, and time. He appears well- developed and well-nourished. HENT: Head: Normocephalic and atraumatic. Right Ear: External ear normal. Left Ear: External ear normal. Mouth/Throat: Mucous membranes are normal. Posterior oropharyngeal erythema present. Eyes: Conjunctivae are normal. Cardiovascular: Normal rate and regular rhythm. Pulmonary/Chest: Effort normal and breath sounds normal. Musculoskeletal: He exhibits no edema. Lymphadenopathy: He has no cervical adenopathy. Neurological: He is alert and oriented to person, place, and time. Skin: Skin is warm and dry. Psychiatric: He has a normal mood and affect. His behavior is normal. Filed Vitals: 04/14/19 1408 Temp: 98.1 ??F (36.7 ??C) Weight: 74.4 kg (164 lb) Height: 5' 11 (1.803 m) Diagnoses/Impression: 1. Acute pharyngitis, unspecified etiology Strep negative Recommendations and Plan: Gargling with warm water will clean and soothe your throat. Tilt your head back to gargle. Spit outthe water. Do not swallow it. Drinking cool liquids or sucking on frozen Popsicles may help ease your pain. Sucking on hard candy lozenges can help moisten your throat and make it easier to swallow. Drink plenty of fluids You need to stop smoking Good hand washing prevents the spread of germs Instructed on how to use a nasal spray Call if symptoms not improved Call if symptoms worse No orders of the defined types were placed in this encounter. LOUIS MIRELES NP Referring Provider: No ref. provider found PCP: VIPUL HICKMAN MD Cosigned by Vipul Hickman MD at 04/14/2019 3:32 PM CDT documented in this encounter Plan of Treatment Not on file documented as of this encounter Procedures Procedure Name Priority Date/Time Associated Diagnosis Comments RAPID STREP A Routine 04/14/2019 Acute pharyngitis, unspecified etiology documented in this encounter Results * RAPID STREP A (04/14/2019) RAPID STREP TEST NEGATIVE NEGATIVE [facility] Internal Control: VALID VALID [facility] STRUCTURE OF ANTERIOR PORTION OF NECK / Unknown 04/14/2019 us Louis Mireles RADAR SIGNAL PROCESSING ENGINEER MICROBIOLOGY - GENERAL ORDERABL ES Final Result [facility] [address] [facility] [address] [place] [address], documented in this encounter Visit Diagnoses Diagnosis Acute pharyngitis, unspecified etiology- Primary documented in this encounter Care Teams Nutritionist Relationship Specialty Start Date End Date Vipul Hickman MD [address] [address] PCP - General 02/17/15 documented as of this encounter
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
--- OUTSIDE RECORDS SUMMARY | 2024-10-25 13:02 | XMS_ITS | Encounter Summary ---
Author Organization [facility] Address [address] [place] [address]. [place], [place] [address] [place] [address] Care Team Providers Care Ticket Seller Name Role Phone Vipul Ledesma MD Primary Care Provider [phone] Reason for Visit * Reason Comments Physical annual Encounter Details Date Type Department Care Team (Late st Contact Info) Description 10/09/2019 2:30 PM RUG INSPECTOR Office Visit [facility] [address] [facility] [address] [place] [address] Vipul Ledesma MD [address] [facility] [place] [address] Physical (annual) Social History Tobacco [...] Sign Reading Time Taken Comments Blood Pressure 116/64 10/09/2019 2:43 PM RUG INSPECTOR Pulse - - Temperature - - Respiratory Rate - - Oxygen Saturation - - Inhaled Oxygen Concentration - - Weight 73.5 kg (162 lb) 10/09/2019 2:43 PM RUG INSPECTOR Height 180.3 cm (5' 11 ) 10/09/2019 2:43 PM RUG INSPECTOR Body Mass Index 22.59 10/09/2019 2:43 PM RUG INSPECTOR documented in this encounter Progress Notes * Vipul Ledesma MD - 10/09/2019 2:30 PM CST Reason for Visit: Physical (annual) HPI ROS: Review of Systems Constitutional: Negative [...] ??? Highest education level: Not on file Physical Exam: Physical Exam Constitutional: He appears well-developed. HENT: Head: Atraumatic. Eyes: Conjunctivae are normal. Neck: Neck supple. Cardiovascular: Normal rate and regular rhythm. Pulmonary/Chest: Breath sounds normal. Abdominal: Soft. There is no tenderness. Musculoskeletal: He exhibits no edema. Neurological: He is alert. Skin: No erythema. Psychiatric: He has a normal mood and affect. Filed Vitals: 10/09/19 1443 BP: 116/64 Weight: 73.5 kg (162 lb) Height: 5' 11 (1.803 m) Body mass index is 22.59 kg/m??. Assessment: 1. ADHD, predominantly inattentive type 2. Anxiety 3. Encounter for preventive health examination 4. Insomnia, unspecified type 5. Chronic pain of left ankle XR ANKLE LT M3V Plan: - Comply with suggestions for healthy lifestyle Diagnoses and all orders for this visit: ADHD, predominantly inattentive type Anxiety Encounter for preventive health examination Insomnia, unspecified type Chronic pain of left ankle - XR ANKLE LT M3V; Future Complains of chronic worsening left ankle pain. He has hardware in his left ankle. He would like anx-ray. He was encouraged to eat properly and exercise. Return in about 6 months (around 04/09/2020). VIPUL LEDESMA MD Referring Provider: No ref. provider found PCP: VIPUL LEDESMA MD INSPECTOR documented in this encounter Plan of Treatment Not on file documented as of this encounter Visit Diagnoses Diagnosis ADHD, predominantly inattentive type- Primary Attention deficit disorder without mention of hyperactivity Anxiety Anxiety state, unspecified Encounter for preventive health examination Routine general medical examination at a health care facility Insomnia, unspecified type Chronic pain of left ankle documented in this encounter Care Teams Ticket Seller Relationship Specialty Start Date End Date Vipul Ledesma MD [address] [phone] PCP - General 02/17/15 documented as of this encounter
--- OUTSIDE RECORDS SUMMARY | 2024-10-25 13:02 | XMS_ITS | Encounter Summary ---
Author Organization [facility] Address [address] [place] [address]. [place], [place] [address] [place] [address] Care Team Providers Care Nodulizer Name Role Phone Vipul Hickman MD Primary Care Provider [phone] Reason for Visit * Reason Comments Physical Annual Encounter Details Date Type Department Care Team (Late st Contact Info) Description 11/18/2020 8:15 AM COVER MAT MACHINE OPERATOR Office Visit [facility] [address] [facility] [address] [place] [address] Vipul Hickman MD [address] [facility] [address] [place] [address] Physical (Annual) Social History Tobacco [...] 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 No / Unsure 11/18/2020 7:44 AM COVER MAT MACHINE OPERATOR documented as of this encounter Last Filed Vital Signs Vital Sign Reading Time Taken Comments Blood Pressure 138/72 11/18/2020 7:58 AM COVER MAT MACHINE OPERATOR Pulse - - Temperature - - Respiratory Rate - - Oxygen Saturation - - Inhaled Oxygen Concentration - - Weight 71.7 kg (158 lb) 11/18/2020 7:58 AM COVER MAT MACHINE OPERATOR Height 180.3 cm (5' 11 ) 11/18/2020 7:58 AM COVER MAT MACHINE OPERATOR Body Mass Index 22.04 11/18/2020 7:58 AM COVER MAT MACHINE OPERATOR documented in this encounter Progress Notes * Vipul Hickman MD - 11/18/2020 8:15 AM CST Reason for Visit: Physical (Annual) History [...] dizziness. Psychiatric/Behavioral: Negative for depression. The patient has insomnia. Medications: Current Outpatient Medications: ??? 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 Financial resource strain: Not on file ??? Food insecurity Worry: Not on file Inability: Not on file ??? Transportation needs Medical: Not on file Non-medical: Not on file Tobacco Use ??? Smoking status: Never Smoker Substance and Sexual Activity ??? Alcohol use: No Frequency: Never ??? Drug use: Not on file ??? Sexual activity: Not on file Lifestyle ??? Physical activity Days per week: Not on file Minutes per session: Not on file ??? Stress: Not on file Relationships ??? Social connections Talks on phone: Not on file Gets together: Not on file Attends shinto service: Not on file Active member of club or organization: Not on file Attends meetings of clubs or organizations: Not on file Relationship status: Not on file ??? Intimate partner violence Fear of current or ex partner: Not [...] is alert. Skin: No erythema. Filed Vitals: 11/18/20 0758 BP: 138/72 Weight: 71.7 kg (158 lb) Height: 5' 11 (1.803 m) Body mass index is 22.04 kg/m??. Assessment: 1. ADHD, predominantly inattentive type 2. Anxiety 3. Routine general medical examination at a health care facility 4. History of opioid abuse ([facility]) Plan: The primary encounter diagnosis was ADHD, predominantly inattentive type. Diagnoses of Anxiety, Routine general medical examination at a health care facility, and History of opioid abuse ([facility]) were also pertinent to this visit. - Comply with suggestions for healthy lifestyle The primary encounter diagnosis was ADHD, predominantly inattentive type. Diagnoses of Anxiety, Routine general medical examination at a health care facility, and History of opioid abuse ([facility]) were also pertinent to this visit. - All conditions are stable and compensated (except those noted above) Diagnoses and all orders for this visit: ADHD, predominantly inattentive type Anxiety Routine general medical examination at a health care facility History of opioid abuse ([facility]) He states he is doing relatively well. He is doing well at [facility] on Suboxone. He complains of insomnia. I declined to give him any medications for that. I believe it is very important for him to discuss that at [facility] and get appropriate medicine through the. He is encouraged to eat properly and exercise. Reviewed and updated this visit by provider: No follow-ups on file. VIPUL HICKMAN MD Referring Provider: No ref. provider found PCP: VIPUL HICKMAN MD R MAT MACHINE OPERATOR documented in this encounter Plan of Treatment Not on file documented as of this encounter Visit Diagnoses Diagnosis ADHD, predominantly inattentive type- Primary Attention deficit disorder without mention of hyperactivity Anxiety Anxiety state, unspecified Routine general medical examination at a health care facility History of opioid abuse ([facility]) Opioid abuse, in remission documented in this encounter Care Teams Nodulizer Relationship Specialty Start Date End Date Vipul Hickman MD [address] [address] PCP - General 02/17/15 documented as of this encounter
--- OUTSIDE RECORDS SUMMARY | 2024-10-25 13:02 | XMS_ITS | Encounter Summary ---
Author Organization [facility] Address [address] [place] [address]. [place], [place] [address] [place] [address] Care Team Providers Care Rn Relief Charge Name Role Phone Rahul Villa MD Primary Care Provider [phone] Encounter Details Date Type Department Care Team (Latest Contact Info) Description 10/21/2018 Abstract [facility] Medical Group Rahul Villa MD [address] [address] Social History Tobacco Use Types Packs/Day Years Used Date Smoking Tobacco: Never Assessed Sex and Gender Information Value Date Recorded Sex Assigned at Not on file Legal Sex Male 9:06 PM CDT Gender Identity Not on file Sexual Orientation Not on file documented as of this encounter Last Filed Vital Signs Vital Sign Reading Time Taken Comments Blood Pressure 124/76 10/21/2018 8:41 AM BLUE LEATHER SORTER Pulse - - Temperature - - Respiratory Rate - - Oxygen Saturation - - Inhaled Oxygen Concentration - - Weight 78.5 kg (173 lb) 10/21/2018 8:41 AM BLUE LEATHER SORTER Height 180.3 cm (5' 11 ) 10/21/2018 8:41 AM BLUE LEATHER SORTER Body Mass Index 24.13 10/21/2018 8:41 AM BLUE LEATHER SORTER documented in this encounter Progress Notes * Rahul Villa MD - 10/21/2018 8:30 AM CST Reason For Visit Med Check, Chronic Recheck Visit Chief Complaint 1 month follow-up History of Present Illness Anxiety Disorder (Follow-Up): Interval symptoms: improved anxiety. Insomnia (Follow-Up): Interval symptoms: improved difficulty falling asleep and improved difficulty staying asleep. Review of Systems Constitutional: no fever. Cardiovascular: no chest pain. Respiratory: no shortness of breath. Gastrointestinal: no abdominal pain. Active Problems 1. 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 Anxiety (300.00) (F41.9) 3. Insomnia (780.52) (G47.00) Past Medical History 1. History of Closed [...] Tablet; Take 1 tablet twice daily; Therapy: 95Mai9676 to (Evaluate:03Nov2018); Last Rx:[id number] Ordered 2. Mirtazapine 30 MG Oral Tablet; TAKE 1 TABLET BY MOUTH EVERY NIGHT AT BEDTIME; Therapy: 45Nss3906 to (Evaluate:07Feb2019) Requested for: 96Yxc7955; Last Rx:[id number] Ordered Allergies 1. No Known Drug Allergies Immunizations Influenza --- Series1: 07-Sep-2014; Series2: 19-Sep-2018 Tdap --- Series1: 2012 Vitals Recorded: 21Oct2018 08:41AM Systolic 124 Diastolic 76 Height 5 ft 11 in Weight 173 lb BMI Calculated 24.13 BSA Calculated 1.98 Physical Exam Constitutional General appearance: No acute [...] Psychiatric Mood and affect: Normal. Assessment 1. Insomnia (780.52) (G47.00) 2. Anxiety (300.00) (F41.9) Plan Anxiety 1. Comply with suggestions for healthy lifestyle; Status:Complete; Done: 21Oct2018 09:51AM Ordered; For:Anxiety; Ordered By:Rahul Villa; Anxiety, Insomnia 2. Follow-up PRN Outpatient Follow-up Status: Complete Done: 21Oct2018 09:51AM Ordered; For: Anxiety, Insomnia; Ordered By: Rahul Villa Performed: Due: 04Nov2018 Signatures Electronically signed by : Rahul Villa M.D.; Oct 21 2018 9:51AM BLUE LEATHER SORTER (Author) documented in this encounter Plan of Treatment Not on file documented as of this encounter Visit Diagnoses Not on filedocumented in this encounter Care Teams Rn Relief Charge Relationship Specialty Start Date End Date Rahul Villa MD [address] [address] PCP - General 02/17/15 documented as of this encounter
--- OUTSIDE RECORDS SUMMARY | 2024-10-25 13:02 | XMS_ITS | Encounter Summary ---
Author Organization [facility] Address [address] [place] [address]. 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
--- OUTSIDE RECORDS SUMMARY | 2024-10-25 13:02 | XMS_ITS | Encounter Summary ---
Author Organization [facility] Address [address] [place] [address]. [place], [place] [address] [place] [address] Care Team Providers Care Controls Design Engineer Name Role Phone Rahul Villa MD Primary Care Provider [phone] [phone] Encounter Details Date Type Department Care Team (Latest Contact Info) Description 04/11/2018 Abstract [facility] Medical Group Rahul Villa MD [address] [address] Social History Tobacco Use Types Packs/Day Years Used Date Smoking Tobacco: Never Assessed Sex and Gender Information Value Date Recorded Sex Assigned at Not on file Legal Sex Male 9:06 PM CDT Gender Identity Not on file Sexual Orientation Not on file documented as of this encounter Last Filed Vital Signs Vital Sign Reading Time Taken Comments Blood Pressure 132/74 04/11/2018 8:05 AM CDT Pulse - - Temperature - - Respiratory Rate - - Oxygen Saturation - - Inhaled Oxygen Concentration - - Weight 73.9 kg (163 lb) 04/11/2018 8:05 AM CDT Height 180.3 cm (5' 11 ) 04/11/2018 8:05 AM CDT Body Mass Index 22.73 04/11/2018 8:05 AM CDT documented in this encounter Progress Notes * Rahul Villa MD - 04/11/2018 8:15 AM CDT Reason For Visit Hospital Follow-Up Chief Complaint [facility] ER follow up suture removal Review of Systems Constitutional: no fever. ENT: no white patches in the mouth. Cardiovascular: no chest pain. Respiratory: no shortness of breath. Gastrointestinal: no abdominal pain. Integumentary and Breasts: healing laceration.r 5 finger. Active Problems 1. Acute pharyngitis (462) (J02.9) 2. 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 Anxiety (300.00) (F41.9) 4. Back pain (724.5) (M54.9) 5. Chest pain (786.50) (R07.9) 6. Closed fracture of navicular bone of right wrist (814.01) (S62.001A) 7. 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 Leg pain (729.5) (M79.606) Past Medical History 1. History of Concussion (V15.52) ?? x 2-3 Surgical History 1. History of Treatment Of Wrist Fracture ?? ORIF, left Family History Father 1. Family history of Recovering Alcoholic Social History ?? Never a smoker ?? Never Drank Alcohol Current Meds 1. Amphetamine-Dextroamphetamine 30 MG Oral Tablet; Take 1 tablet twice daily; Therapy: 72Bom8436 to (Evaluate:75Txa3950); Last Rx:[id number] Ordered 2. DULoxetine HCl - 30 MG Oral Capsule Delayed Release Particles; TAKE 1 CAPSULE BY MOUTH AT BEDTIME; Therapy: 76Zkc9400 to (Evaluate:75Gtv7957) Requested for: 97Rkq1577; Last Rx:[id number] Ordered Allergies 1. No Known Drug Allergies Vitals Recorded: 11Apr2018 08:05AM Systolic 132 Diastolic 74 Height 5 ft 11 in Weight 163 lb BMI Calculated 22.73 BSA Calculated 1.93 Procedure Procedure: suture removal. The wound was located on the right 5 finger(s). Wound Exam: well healed with no sign of infection. Procedure Note: sutures were removed. Dressing: a sterile dressing was placed. Patient Status:. the patient tolerated the procedure well.. Complications:. there were no complications.. Assessment 1. Laceration of finger (883.0) (S61.219A) Plan Anxiety 1. DULoxetine HCl - 30 MG Oral Capsule Delayed Release Particles Rx By: Rahul Villa; Dispense: 0 Days ; #:30 Capsule; Refill: 1; For: Anxiety; ZEKE = N; Sent To: [facility] [id number] 2. QUEtiapine Fumarate ER 150 MG Oral Tablet Extended Release 24 Hour (SEROquel XR); TAKE 1 TABLET DAILY Rx By: Rahul Villa; Dispense: 30 Days ; #:30 Tablet; Refill: 0; For: Anxiety; ZEKE = N; Record Laceration of finger 3. Gently wash the area with soap and warm water. Dry completely.; Status:Complete; Done: 11Apr2018 10:16AM Ordered; For:Laceration of finger; Ordered By:Rahul Villa; 4. Follow-up PRN Outpatient Follow-up Status: Complete Done: 11Apr2018 10:16AM Ordered; For: Laceration of finger; Ordered By: Rahul Villa Performed: Due: 63Mqs1932 Signatures Electronically signed by : Rahul Villa M.D.; Apr 11 2018 10:17AM TOUR LEADER (Author) documented in this encounter Plan of Treatment Not on file documented as of this encounter Visit Diagnoses Not on filedocumented in this encounter Care Teams Controls Design Engineer Relationship Specialty Start Date End Date Rahul Villa MD [address] [phone] PCP - General 02/17/15 documented as of this encounter
--- OUTSIDE RECORDS SUMMARY | 2024-10-25 13:02 | XMS_ITS | Encounter Summary ---
Author Organization [facility] Address [address] [place] [address]. 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
--- OUTSIDE RECORDS SUMMARY | 2024-10-25 13:02 | XMS_ITS | Encounter Summary ---
Author Organization [facility] Address [address] [place] [address]. [place], [place] [address] [place] [address] Care Team Providers Care Extension Worker Name Role Phone Rahul Ledesma MD Primary Care Provider [phone] [phone] Encounter Details Date Type Department Care Team (Latest Contact Info) Description 12/25/2018 Abstract [facility] Medical Group Rahul Ledesma MD [address] [address] Social History Tobacco Use Types Packs/Day Years Used Date Smoking Tobacco: Never Assessed Sex and Gender Information Value Date Recorded Sex Assigned at Not on file Legal Sex Male 9:06 PM CDT Gender Identity Not on file Sexual Orientation Not on file documented as of this encounter Miscellaneous Notes * Letter - Generic Conversion MD Eleazar - 12/25/2018 8:30 AM CDT This legacy [employer] note was not finalized in Allscripts. It had a status of Auto Frozen, Unsigned on 12/30/2018 Message Appointment Status: The patient no showed for his/her appointment... Patient Communication: The patient was called regarding the missed appointment.. today. Reason For Missed Appointment: . Result: The patient will call back to reschedule the appointment. voice mail full unable to leave message documented in this encounter Plan of Treatment Not on file documented as of this encounter Visit Diagnoses Not on filedocumented in this encounter Care Teams Extension Worker Relationship Specialty Start Date End Date Rahul Ledesma MD [address] [phone] PCP - General 02/17/15 documented as of this encounter
--- OUTSIDE RECORDS SUMMARY | 2024-10-25 13:03 | XMS_ITS | Encounter Summary ---
Author Organization [facility] Address [facility]. [place], [place] [address] [place] [address] Care Team Providers Care Clinical Medical Assistant Name Role Phone Rahul Villa MD Primary Care Provider [phone] [phone] Encounter Details Date Type Department Care Team (Latest Contact Info) Description 06/05/2016 Abstract [facility] Medical [facility] Rahul Villa MD [address] [phone] Social History Tobacco Use Types Packs/Day Years Used Date Smoking Tobacco: Never Assessed Sex and Gender Information Value Date Recorded Sex Assigned at Not on file Legal Sex Male 9:06 PM CDT Gender Identity Not on file Sexual Orientation Not on file documented as of this encounter Last Filed Vital Signs Vital Sign Reading Time Taken Comments Blood Pressure 130/80 06/05/2016 8:15 AM CDT Pulse 76 06/05/2016 8:15 AM CDT Temperature - - Respiratory Rate - - Oxygen Saturation - - Inhaled Oxygen Concentration - - Weight 78.5 kg (173 lb) 06/05/2016 8:15 AM CDT Height 180.3 cm (5' 11 ) 06/05/2016 8:15 AM CDT Body Mass Index 24.13 06/05/2016 8:15 AM CDT documented in this encounter Progress Notes * Rahul Villa MD - 06/05/2016 8:30 AM CDT Reason For Visit Acute Follow-Up Visit Chief Complaint SOME BETTER BUT PAIN IS BAD EVERY STEP HE TAKES. History of Present Illness Leg Pain/Limping: The patient presents with complaints of leg pain. Symptoms are improving. Review of Systems Constitutional: no fever. ENT: no hoarseness. Cardiovascular: no chest pain. Respiratory: no shortness of breath. Gastrointestinal: no abdominal pain. Genitourinary: no dysuria. Musculoskeletal: no arthralgias. Neurological: no confusion. Active Problems 1. Acute pharyngitis (462) (J02.9) 2. 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 Back pain (724.5) (M54.9) 4. Chest pain (786.50) (R07.9) 5. Closed fracture of navicular bone of right wrist (814.01) (S62.001A) 6. 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 Leg pain (729.5) (M79.606) Past Medical History 1. History of Concussion (V15.52) ?? x 2-3 Surgical History 1. History of Treatment Of Wrist Fracture ?? ORIF, left Family History Father 1. Family history of Recovering Alcoholic Social History ?? Never a smoker ?? Never Drank Alcohol Current Meds 1. Amphetamine-Dextroamphetamine 30 MG Oral Tablet; Take 1 tablet twice daily; Therapy: 31Kel9937 to (Evaluate:92Ybk0998); Last Rx:[id number] Ordered 2. Fluticasone Propionate 50 MCG/ACT Nasal Suspension; USE 1 TO 2 SPRAYS IN EACH NOSTRIL ONCE DAILY; Therapy: 21Qap0799 to (Last Rx:[id number]) Requested for: 07Atf7344 Ordered 3. Meloxicam 15 MG Oral Tablet; TAKE 1 TABLET DAILY NEEDED; Therapy: 26Qkw1273 to (Evaluate:59Fff4524) Requested for: 82Xbk6706; Last Rx:[id number] Ordered 4. Oxycodone-Acetaminophen 5-325 MG Oral Tablet; TAKE 1 TO 2 TABLETS EVERY 4 HOURS NEEDED FOR PAIN; Therapy: 68Mti4541 to (Evaluate:55Sjf3726); Last Rx:[id number] Ordered Allergies 1. No Known Drug Allergies Immunizations Influenza --- Series1: 07Sep2014 Tdap --- Series1: 2012 Vitals Recorded: 39Rca9669 08:15AM Heart Rate 76 Respiration 16 Systolic 130 Diastolic 80 Height 5 ft 11 in Weight 173 lb BMI Calculated 24.13 BSA Calculated 1.98 Physical Exam Constitutional General appearance: No acute distress, well appearing and well nourished. Eyes Conjunctiva and lids: No swelling, erythema, or discharge. Ears, Nose, Mouth, and Throat Oropharynx: Normal with no erythema, edema, exudate or lesions. Pulmonary Auscultation of lungs: Clear to auscultation. Cardiovascular Palpation of heart: Normal PMI, no thrills. Abdomen Abdomen: Non-tender, no masses. Musculoskeletal Gait and station: Abnormal. Gait evaluation demonstrated limping on the left. enlarged mass bruise l inner thigh, resolving softerneg kim's. Psychiatric Mood and affect: Normal. Results/Data LC-CBC With Differential/Platelet [id number] 10Pfp3872 04:25PM Rahul Villa Test Name Result Flag Reference WBC 9.8 x10E3/uL 3.4-10.8 RBC 4.35 x10E6/uL 4.14-5.80 Hemoglobin 14.0 g/dL 12.6-17.7 Hematocrit 40.0 % 37.5-51.0 MCV 92 fL 79-97 MCH 32.2 pg 26.6-33.0 MCHC 35.0 g/dL 31.5-35.7 RDW 13.1 % 12.3-15.4 Platelets 267 x10E3/uL 150-379 Neutrophils 68 % Lymphs 22 % Monocytes 9 % Eos 1 % Basos 0 % Immature Cells Neutrophils (Absolute) 6.6 x10E3/uL 1.4-7.0 Lymphs (Absolute) 2.1 x10E3/uL 0.7-3.1 Monocytes(Absolute) 0.9 x10E3/uL 0.1-0.9 Eos (Absolute) 0.1 x10E3/uL 0.0-0.4 Baso (Absolute) 0.0 x10E3/uL 0.0-0.2 Immature Granulocytes 0 % Immature Grans (Abs) 0.0 x10E3/uL 0.0-0.1 NRBC Hematology Comments: Assessment 1. Leg pain (729.5) (M79.606) Plan Leg pain 1. Hydrocodone-Acetaminophen 5-300 MG Oral Tablet; TAKE 1 TABLET EVERY 4 TO 6 HOURS NEEDED Rx By: Rahul Villa; Dispense: 5 Days ; #:30 Tablet; Refill: 0; For: Leg pain; ZEKE = N; Print Rx 2. Follow-up PRN Outpatient Follow-up Status: Complete Done: 05Jun2016 08:30AM Ordered; For: Leg pain; Ordered By: Rahul Villa Performed: Due: 12Vfi4033 3. Avoid overuse of area; Status:Complete; Done: 50Act5883 08:31AM Ordered; For:Leg pain; Ordered By:Rahul Villa; 4. Comply with exercise; Status:Complete; Done: 88Qgb3344 08:31AM Ordered; For:Leg pain; Ordered By:Rahul Villa; Signatures Electronically signed by : Rahul Villa M.D.; Jun 05 2016 8:31AM ECOMM[employer] MERCHANDISING MANAGER (Author) documented in this encounter Plan of Treatment Not on file documented as of this encounter Visit Diagnoses Not on filedocumented in this encounter Care Teams Clinical Medical Assistant Relationship Specialty Start Date End Date Rahul Villa MD [address] [phone] PCP - General 02/17/15 documented as of this encounter
--- OUTSIDE RECORDS SUMMARY | 2024-10-25 13:03 | XMS_ITS | Encounter Summary ---
Author Organization [facility] Address [address] [place] [address]. [place], [place] [address] [place] [address] Care Team Providers Care Export Traffic Department Manager Name Role Phone Rahul Ledesma MD Primary Care Provider [phone] Encounter Details Date Type Department Care Team (Latest Contact Info) Description 10/28/2017 Abstract [facility] Medical Group Rahul Ledesma MD [address] [id number] Social History Tobacco Use Types Packs/Day Years [...] on filedocumented in this encounter Care Teams Export Traffic Department Manager Relationship Specialty Start Date End Date Rahul Ledesma MD [address] [phone] PCP - General 02/17/15 documented as of this encounter
--- OUTSIDE RECORDS SUMMARY | 2024-10-25 13:03 | XMS_ITS | Encounter Summary ---
Author Organization [facility] Address [address] [place] [address]. [place], [place] [address] [place] [address] Care Team Providers Care Processor Solid Propellant Name Role Phone Rahul Villa MD Primary Care Provider +10-20 [phone] Encounter Details Date Type Department Care Team (Latest Contact Info) Description 06/25/2017 Abstract [facility] Medical Group Rahul Villa MD [address] [phone] Social History Tobacco Use Types Packs/Day Years Used Date Smoking Tobacco: Never Assessed Sex and Gender Information Value Date Recorded Sex Assigned at Not on file Legal Sex Male 9:06 PM CDT Gender Identity Not on file Sexual Orientation Not on file documented as of this encounter Last Filed Vital Signs Vital Sign Reading Time Taken Comments Blood Pressure 118/64 06/25/2017 10:50 AM CDT Pulse 80 06/25/2017 10:50 AM CDT Temperature - - Respiratory Rate - - Oxygen Saturation - - Inhaled Oxygen Concentration - - Weight - - Height 180.3 cm (5' 11 ) 06/25/2017 10:50 AM CDT Body Mass Index - - documented in this encounter Progress Notes * Rahul Villa MD - 06/25/2017 10:15 AM CDT Reason For Visit Hospital Follow-Up Chief Complaint HOSP FU, BILAT FX ANKLES History of Present Illness The patient is being seen for fx both ankles. cannot wrk. anxiety disorder. Symptoms: racing thoughts, excessive worrying and sleep disturbance. Review of Systems Constitutional: no fever. Eyes: no blurred vision. ENT: no hoarseness. Cardiovascular: no chest pain. Respiratory: no shortness of breath. Gastrointestinal: no abdominal pain. Neurological: no confusion. Psychiatric: irritability. Active Problems 1. Acute pharyngitis (462) (J02.9) [...] Tablet; Take 1 tablet twice daily; Therapy: 70Buc8379 to (Evaluate:34Gex4699); Last Rx:[id number] Ordered 2. Cyclobenzaprine HCl - 10 MG Oral Tablet; 0.5-1 TAB EVERY 8 HOURS PRN; Therapy: 66Ozm7487 to Recorded 3. Hydrocodone-Acetaminophen 7.5-325 MG Oral Tablet; TAKE 1 TABLET Every 4 hours PRN; Therapy: 55Nfs3911 to Recorded 4. HydrOXYzine HCl - 25 MG Oral Tablet; TAKE 1 TABLET Every 8 hours; Therapy: 57Gww7839 to Recorded 5. HydrOXYzine Pamoate 25 MG Oral Capsule; Therapy: 78Vsx4946 to Recorded 6. Lovenox 40 MG/0.4ML Subcutaneous Solution; 40 MG SQ QD; Therapy: 00Cjl3488 to Recorded Allergies 1. No Known Drug Allergies Vitals Recorded: 25Jun2017 10:50AM Heart Rate 80 Respiration 14 Systolic 118 Diastolic 64 Height 5 ft 11 in Unable to obtain weight Patient in wheelchair Patient in wheelchair Physical Exam Constitutional General appearance: No acute distress, well appearing and well nourished. Eyes Conjunctiva and lids: No swelling, erythema, or discharge. Ears, Nose, Mouth, and Throat Oropharynx: Normal with no erythema, edema, exudate or lesions. Pulmonary Auscultation of lungs: Clear to auscultation. Cardiovascular Auscultation of heart: Normal rate and rhythm, normal S1 and S2, without murmurs. Abdomen Abdomen: Non-tender, no masses. Musculoskeletal bilat ankle casts. in wc. Skin Skin and subcutaneous tissue: Normal without rashes or lesions. Neurologic Sensation: No sensory loss. Psychiatric Mood and affect: Normal. Mood and Affect: concerned and irritable. Assessment 1. Anxiety (300.00) (F41.9) Plan Anxiety 1. LORazepam 1 MG Oral Tablet; TAKE 1 TABLET TWICE DAILY NEEDED Rx By: Rahul Villa; Dispense: 10 Days ; #:20 Tablet; Refill: 0; For: Anxiety; ZEKE = N; Print Rx 2. Follow-up if no improvement or if condition worsens; Status:Complete; Done: 95Rmw8945 03:00PM Ordered; For:Anxiety; Ordered By:Rahul Villa; Discussion/Summary he will call ortho for fu. Signatures Electronically signed by : Rahul Villa M.D.; Jun 25 2017 3:01PM DIRECTOR PHYSICAL THERAPY (Author) documented in this encounter Plan of Treatment Not on file documented as of this encounter Visit Diagnoses Not on filedocumented in this encounter Care Teams Processor Solid Propellant Relationship Specialty Start Date End Date Rahul Villa MD [address] [phone] PCP - General 02/17/15 documented as of this encounter
--- OUTSIDE RECORDS SUMMARY | 2024-10-25 13:03 | XMS_ITS | Encounter Summary ---
Author Organization [facility] Address [address] [place] [address]. [place], [place] [address] [place] [address] Care Team Providers Care Ladder Operator Name Role Phone Rahul Villa MD Primary Care Provider [phone] Encounter Details Date Type Department Care Team (Latest Contact Info) Description 11/29/2017 Abstract [facility] Medical Group Rahul Villa MD [address] [phone] Social History Tobacco Use Types Packs/Day Years Used Date Smoking Tobacco: Never Assessed Sex and Gender Information Value Date Recorded Sex Assigned at Not on file Legal Sex Male 9:06 PM CDT Gender Identity Not on file Sexual Orientation Not on file documented as of this encounter Last Filed Vital Signs Vital Sign Reading Time Taken Comments Blood Pressure 150/70 11/29/2017 9:11 AM MANAGEMENT ACCOUNTANT Pulse - - Temperature - - Respiratory Rate - - Oxygen Saturation - - Inhaled Oxygen Concentration - - Weight 76.2 kg (168 lb) 11/29/2017 9:11 AM MANAGEMENT ACCOUNTANT Height 180.3 cm (5' 11 ) 11/29/2017 9:11 AM MANAGEMENT ACCOUNTANT Body Mass Index 23.43 11/29/2017 9:11 AM MANAGEMENT ACCOUNTANT documented in this encounter Progress Notes * Rahul Villa MD - 11/29/2017 9:30 AM CST Reason For Visit Acute Follow-Up Visit Chief Complaint 1 MO FOLLOW UP, REFILL History of Present Illness Anxiety Disorder (Follow-Up): Interval symptoms: stable anxiety. ADHD (Follow-Up): Target Symptoms: 1. Hyperactive behavior has improved. 2. Impulsive behavior has improved. 3. Difficulty concentrating has improved. Leg Pain/Limping: The patient presents with complaints of leg pain. Symptoms are improving... Review of Systems Constitutional: no fever. Cardiovascular: no chest pain. Respiratory: no shortness of breath. Gastrointestinal: no abdominal pain. Genitourinary: no dysuria. Neurological: no confusion. no depression Active Problems 1. Acute pharyngitis (462) (J02.9) [...] Tablet; Take 1 tablet twice daily; Therapy: 28Apr2015 to (Evaluate:02Ybc0115); Last Rx:01Nov2017 Ordered 2. ClonazePAM 0.25 MG Oral Tablet Disintegrating; PLACE 1 TABLET ON TONGUE AND ALLOW TO DISSOLVE TWICE DAILY NEEDED; Therapy: 28Oct2017 to Recorded Allergies 1. No Known Drug Allergies Immunizations Influenza --- Series1: -Aug-2014 Tdap --- Series1: 2012 Vitals Recorded: 95Qih4235 09:11AM Systolic 150 Diastolic 70 Height 5 ft 11 in Weight 168 lb BMI Calculated 23.43 BSA Calculated 1.96 Physical Exam Constitutional General appearance: No acute [...] Gait evaluation demonstrated limping on the left. Psychiatric Mood and affect: Normal. Mood and Affect: concerned. Assessment 1. Anxiety (300.00) (F41.9) 2. 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 Leg pain (729.5) (M79.606) Plan ADHD, predominantly inattentive type 1. Amphetamine-Dextroamphetamine 30 MG Oral Tablet; Take 1 tablet twice daily Rx By: Rahul Villa; Dispense: 30 Days ; #:60 Tablet; Refill: 0; For: ADHD, predominantly inattentive type; ZEKE = N; Print Rx Anxiety 2. DULoxetine HCl - 30 MG Oral Capsule Delayed Release Particles; TAKE 1 CAPSULE BY MOUTH AT BEDTIME Rx By: Rahul Villa; Dispense: 0 Days ; #:30 Capsule; Refill: 1; For: Anxiety; ZEKE = N; Verified Transmission to [facility] [address]21; Last Updated By: Tristar; 11/29/2017 9:47:50 AM Leg pain 3. Follow-up visit in 1 month Outpatient Follow-up Status: Hold For - Scheduling Requested for: [id number] Ordered; For: Leg pain; Ordered By: Rahul Villa Performed: Due: 13Dec2017 Unlinked 4. ClonazePAM 0.25 MG Oral Tablet Disintegrating Rx By: CHAPMAN; Dispense: 0 Days ; #: Sufficient Tablet; Refill: 0; ZEKE = N; Record; Last Updated By: Rahul Villa; 11/29/2017 9:43:27 AM Discussion/Summary long disc. he will cont rehab. advised to wean off all narcotics. Signatures Electronically signed by : Rahul Villa M.D.; Nov 29 2017 12:55PM MANAGEMENT ACCOUNTANT (Author) documented in this encounter Plan of Treatment Not on file documented as of this encounter Visit Diagnoses Not on filedocumented in this encounter Care Teams Ladder Operator Relationship Specialty Start Date End Date Rahul Villa MD [address] [address] PCP - General 02/17/15 documented as of this encounter
--- OUTSIDE RECORDS SUMMARY | 2024-10-25 13:03 | XMS_ITS | Encounter Summary ---
Author Organization [facility] Address [address] [place] [address]. [place], [place] [address] [place] [address] Care Team Providers Care Social Insurance Analyst Name Role Phone Rahul Ledesma MD Primary Care Provider [phone] Encounter Details Date Type Department Care Team (Latest Contact Info) Description 09/14/2017 Abstract [facility] Medical Group Rahul Ledesma MD [address] [phone] Social History Tobacco Use Types Packs/Day Years [...] on filedocumented in this encounter Care Teams Social Insurance Analyst Relationship Specialty Start Date End Date Rahul Ledesma MD [address] [phone] PCP - General 02/17/15 documented as of this encounter
--- OUTSIDE RECORDS SUMMARY | 2024-10-25 13:03 | XMS_ITS | Encounter Summary ---
Author Organization [facility] Address [address] [place] [address]. [place], [place] [address] [place] [address] Care Team Providers Care Physician General Practice Name Role Phone Rahul Ledesma MD Primary Care Provider [phone] Encounter Details Date Type Department Care Team (Latest Contact Info) Description 06/20/2017 Abstract [facility] Rahul Ledesma MD [address] [phone] Social History Tobacco Use Types Packs/Day Years [...] on filedocumented in this encounter Care Teams Physician General Practice Relationship Specialty Start Date End Date Rahul Ledesma MD [address] [phone] PCP - General 02/17/15 documented as of this encounter
--- OUTSIDE RECORDS SUMMARY | 2024-10-25 13:03 | XMS_ITS | Encounter Summary ---
Author Organization [facility] Address [address] [place] [address]. [place], [place] [address] [place] [address] Care Team Providers Care Rn Neonatal Name Role Phone Rahul Villa MD Primary Care Provider [phone] Encounter Details Date Type Department Care Team (Latest Contact Info) Description 05/31/2017 Abstract [facility] Medical Group Rahul Villa MD [address] [phone] Social History Tobacco Use Types Packs/Day Years Used Date Smoking Tobacco: Never Assessed Sex and Gender Information Value Date Recorded Sex Assigned at Not on file Legal Sex Male 9:06 PM CDT Gender Identity Not on file Sexual Orientation Not on file documented as of this encounter Last Filed Vital Signs Vital Sign Reading Time Taken Comments Blood Pressure 120/64 05/31/2017 3:55 PM CDT Pulse - - Temperature - - Respiratory Rate - - Oxygen Saturation - - Inhaled Oxygen Concentration - - Weight 76.2 kg (168 lb) 05/31/2017 3:55 PM CDT Height 180.3 cm (5' 11 ) 05/31/2017 3:55 PM CDT Body Mass Index 23.43 05/31/2017 3:55 PM CDT documented in this encounter Progress Notes * Rahul Villa MD - 05/31/2017 4:15 PM CDT Reason For Visit Health Vibrator Operator Complaint annual exam History of Present Illness HM, Adult Male: The patient is being seen for a health maintenance evaluation. General Health: The patient's health since the last visit is described as good. Screening: ADHD (Follow-Up): Target Symptoms: 1. Hyperactive behavior has improved. 2. Impulsive behavior has improved. 3. Difficulty concentrating has improved. Review of Systems Constitutional: no fever. Eyes: no blurred vision. ENT: no nasal congestion. Cardiovascular: no chest pain. Respiratory: no shortness of breath. Gastrointestinal: no abdominal pain. Genitourinary: no dysuria. Musculoskeletal: no joint swelling. Neurological: no confusion. Psychiatric: no depression. Active Problems 1. Acute pharyngitis (462) (J02.9) 2. 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 Back pain (724.5) (M54.9) 4. Chest pain (786.50) (R07.9) 5. Closed fracture of navicular bone of right wrist (814.01) (S62.001A) 6. 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 Leg pain (729.5) (M79.606) Past Medical History ?? History of Concussion (V15.52) ?? x 2-3 Surgical History ?? History of Treatment Of Wrist Fracture ?? ORIF, left Family History Father ?? Family history of Recovering Alcoholic Social History ?? Never a smoker ?? Never Drank Alcohol Current Meds 1. Amphetamine-Dextroamphetamine 30 MG Oral Tablet; Take 1 tablet twice daily; Therapy: 31Iue8201 to (Evaluate:96Npd2601); Last Rx:[id number] Ordered Rx By: Rahul Villa; Dispense: 30 Days ; #:60 Tablet; Refill: 0; For: ADHD, predominantly inattentive type; ZEKE = N; Print Rx Allergies 1. No Known Drug Allergies Recorded By: Kiara Elizondo; 06/05/2012 12:38:50 PM Immunizations 1 Influenza 07Sep2014 Tdap 2012 Vitals Recorded: 31May2017 03:55PM Systolic 120 Diastolic 64 Height 5 ft 11 in Weight 168 [...] the left. Psychiatric Mood and affect: Normal. Assessment 1. [...] with suggestions for healthy lifestyle; Status:Complete; Done: 31May2017 04:17PM Ordered; For:ADHD, predominantly inattentive type, Health Maintenance; Ordered By:Rahul Villa; ?? Follow-up visit in 6 months Outpatient Follow-up Status: Hold For - Scheduling Requested for: 31May2017 Ordered; For: ADHD, predominantly inattentive type, Health Maintenance; Ordered By: Rahul Villa Performed: Due: [id number] Signatures Electronically signed by : Rahul Villa M.D.; May 31 2017 4:18PM MATCHER OPERATOR (Author) documented in this encounter Plan of Treatment Not on file documented as of this encounter Visit Diagnoses Not on filedocumented in this encounter Care Teams Rn Neonatal Relationship Specialty Start Date End Date Rahul Villa MD [address] [phone] PCP - General 02/17/15 documented as of this encounter
--- OUTSIDE RECORDS SUMMARY | 2024-10-25 13:03 | XMS_ITS | Encounter Summary ---
Author Organization [facility] Address [address] [place] [address]. [place], [place] [address] [place] [address] Care Team Providers Care Glycerine Plant Operator Name Role Phone Rahul Ledesma MD Primary Care Provider [phone] Encounter Details Date Type Department Care Team (Latest Contact Info) Description 05/28/2017 Abstract [facility] Medical Group Rahul Ledesma MD [address] [phone] Social History Tobacco Use Types Packs/Day Years Used Date Smoking Tobacco: Never Assessed Sex and Gender Information Value Date Recorded Sex Assigned at Not on file Legal Sex Male 9:06 PM CDT Gender Identity Not on file Sexual Orientation Not on file documented as of this encounter Miscellaneous Notes * Letter - Rahul Ledesma MD - 05/28/2017 10:30 AM CDT Message Appointment Status: The patient no showed for his/her appointment. Patient Communication: The patient was called regarding the missed appointment. today. Voice mail full Signatures Electronically signed by : Claudia Huff, ; May 28 2017 11:15AM BUSINESS RULES DEVELOPER (Author) documented in this encounter Plan of Treatment Not on file documented as of this encounter Visit Diagnoses Not on filedocumented in this encounter Care Teams Glycerine Plant Operator Relationship Specialty Start Date End Date Rahul Ledesma MD [address] [facility] [address] [place] [address] PCP - General 02/17/15 documented as of this encounter
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
--- OUTSIDE RECORDS SUMMARY | 2024-10-25 13:03 | XMS_ITS | Encounter Summary ---
Author Organization [facility] Address [address] [place] [address]. [place], [place] [address] [place] [address] Care Team Providers Care Seasonal Sales Associate Name Role Phone Rahul Ledesma MD Primary Care Provider [phone] Encounter Details Date Type Department Care Team (Latest Contact Info) Description 08/13/2017 Abstract [facility] Medical Group Rahul Ledesma MD [address] [phone] Social History Tobacco Use Types Packs/Day Years [...] on filedocumented in this encounter Care Teams Seasonal Sales Associate Relationship Specialty Start Date End Date Rahul Ledesma MD [address] [phone] PCP - General 02/17/15 documented as of this encounter
--- OUTSIDE RECORDS SUMMARY | 2024-10-25 13:04 | XMS_ITS | Encounter Summary ---
Author Organization [facility] Address [address] [place] [address]. [place], [place] [address] [place] [address] Care Team Providers Care Staff Submarine Warfare Officer Name Role Phone Rahul Ledesma MD Primary Care Provider [phone] Rahul Ledesma MD Primary Care Provider Rahul Ledesma MD Primary Care Provider Encounter Details Date Type Department Care Team (Late st Contact Info) Description 07/22/2013 Abstract [facility] Medical Group Multispecialty Care - [facility] [address] [facility] [address] [place] [phone] Praful Gutierrez MD [address] [facility] [address] [place] [address] Social History Tobacco Use Types Packs/Day Years Used Date Smoking Tobacco: Never Assessed Sex and Gender Information Value Date Recorded Sex Assigned at Not on file Legal Sex Male 9:06 PM CDT Gender Identity Not on file Sexual Orientation Not on file documented as of this encounter Last Filed Vital Signs Vital Sign Reading Time Taken Comments Blood Pressure 124/80 07/22/2013 10:40 AM CDT Pulse 76 07/22/2013 10:40 AM CDT Temperature - - Respiratory Rate - - Oxygen Saturation - - Inhaled Oxygen Concentration - - Weight 76.7 kg (169 lb) 07/22/2013 10:40 AM CDT Height 181.6 cm (5' 11.5 ) 07/22/2013 10:40 AM C DT Body Mass Index 23.24 07/22/2013 10:40 AM CDT documented in this encounter Progress Notes * Praful Gutierrez MD - 07/22/2013 10:30 AM CDT Reason For Visit Post-Op Visit History of Present Illness He is now postoperative day 6 from 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 He has been henry splint up until now. The pain is controlled with his Vicodin. PHYSICAL EXAMINATION: Splint was removed today. The incision dorsally on the wrist is clean and dry. He has very limited active extension of the fingers due to this discomfort, but his extensor pollicis longus tendon moves pretty well. TREATMENT: He is placed in a short-arm thumb spica cast of fiberglass, wrist in neutral position and the IP joint of the thumb mobile. A prescription was sent for Vicodin tablets 5/500 mg #30. Returnin four weeks for reexam and probable cast change. ELFEGO/YASH/belkis Job [id number] Active Problems 1. Closed Fracture Of The Middle Of The Right Scaphoid Bone 814.01 2. 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 History of Concussion V15.52 Surgical History 1. History of Treatment Of Wrist Fracture Family History 1. Paternal history of Recovering Alcoholic Social History ?? Never A Smoker ?? Never Drank Alcohol Current Meds 1. Meloxicam 15 MG Oral Tablet; TAKE 1 TABLET DAILY NEEDED; Therapy: 19Vca5745 to (Evaluate:24Oct2013) Requested for: 95Pgk0315; Last Rx:[id number] 2. Methylphenidate HCl ER 54 MG Oral Tablet Extended Release; TAKE 1 TABLET ONCE DAILY; Therapy: 38Qrk1041 to (Evaluate:17Aug2013); Last Rx:19Jul2013 Allergies 1. No Known Drug Allergies Vitals 22Jul2013 10:40AM Heart Rate 76 Respiration 16 Systolic 124 Diastolic 80 BMI Calculated 23.14 BSA Calculated 1.98 Height 5 ft 11.5 in Weight 169 lb Assessment 1. Closed Fracture Of The Middle Of The Right Scaphoid Bone 814.01 2. 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 Hydrocodone-Acetaminophen 5-500 MG Oral Tablet; TAKE 1 TO 2 TABLETS EVERY 4 TO 6 HOURS NEEDED FOR PAIN; Therapy: 22Jul2013 to (Evaluate:25Jul2013); Last Rx:22Jul2013 2. Schedule Follow up 4 weeks Outpatient Follow-up Requested for: 22Jul2013 Signatures Electronically signed by : Prfaul Gutierrez M.D.; Jul 22 2013 4:05PM (Author) Electronically signed by : Praful Gutierrez M.D.; Jul 27 2013 10:56PM (Author) T SERVICE MECHANIC documented in this encounter Plan of Treatment Not on file documented as of this encounter Visit Diagnoses Not on filedocumented in this encounter Care Teams Staff Submarine Warfare Officer Relationship Specialty Start Date End Date Rahul Ledesma MD [address] [phone] PCP - General 02/17/15 Rahul Ledesma MD [address] [phone] PCP - General 07/06/14 02/16/15 Rahul Ledesma MD [address] [phone] PCP - General 07/16/13 07/05/14 documented as of this encounter
--- OUTSIDE RECORDS SUMMARY | 2024-10-25 13:04 | XMS_ITS | Encounter Summary ---
Author Organization [facility] Address [address] [place] [address]. [place], [place] [address] [place] [address] Care Team Providers Care Salesperson Handbags Name Role Phone Vipul Hickman MD Primary Care Provider [phone] Vipul Hickman MD Primary Care Provider [phone] Encounter Details Date Type Department Care Team (Latest Contact Info) Description 07/06/2014 Abstract [facility] Vipul Hickman MD [address] [id number] Social History Tobacco Use Types Packs/Day Years Used Date Smoking Tobacco: Never Assessed Sex and Gender Information Value Date Recorded Sex Assigned at Not on file Legal Sex Male 9:06 PM CDT Gender Identity Not on file Sexual Orientation Not on file documented as of this encounter Last Filed Vital Signs Vital Sign Reading Time Taken Comments Blood Pressure 114/62 07/06/2014 1:22 PM CDT Pulse - - Temperature - - Respiratory Rate - - Oxygen Saturation - - Inhaled Oxygen Concentration - - Weight 78.9 kg (174 lb) 07/06/2014 1:22 PM CDT Height - - Body Mass Index 23.93 07/22/2013 10:40 AM CDT documented in this encounter Progress Notes * Vipul Hickman MD - 07/06/2014 1:15 PM CDT Reason For Visit Reason For Visit: Acute Visit Chief Complaint 1. Back Pain History of Present Illness Frederick Mcdonald presents with complaints of sudden onset of constant episodes of moderate right lowerback pain, described as aching, non-radiating. The symptoms resulted from a twisting and deceleration. The injury occurred while playing sports. Episodes started about 2 days ago. Associated symptoms include spasm and stiffness, but no fever, no night sweats, no abdominal pain, no general malaise and no weight loss. Review of Systems Constitutional: Normal. ENT: normal. Cardiovascular: Normal. Respiratory: Normal. Gastrointestinal: Normal. Genitourinary: Normal. Integumentary: Normal. Neurological: Normal. Active Problems 1. 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 Chest pain (786.50) (R07.9) 3. Closed fracture of navicular bone of right wrist (814.01) (S62.001A) 4. 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 History of Concussion (V15.52) ?? x 2-3 Surgical History 1. History of Treatment Of Wrist Fracture ?? ORIF, left Family History Father 1. Family history of Recovering Alcoholic Social History ?? Never a smoker ?? Never Drank Alcohol Current Meds 1. Methylphenidate HCl ER 54 MG Oral Tablet Extended Release ([place]a); TAKE 1 TABLET ONCE DAILY; Therapy: [id number] to (Evaluate:26Jul2014); Last Rx:26Jun2014 Ordered Rx By: Faustino Anders; Dispense: 30 Days ; #:30 Tablet Extended Release; Refill: 0; For: Health Maintenance; ZEKE = N; Print Rx Allergies 1. No Known Drug Allergies Recorded By: Kiara Elizondo; 06/05/2012 12:38:50 PM Vitals Vital Signs [Data Includes: Current Encounter] Recorded by : Bryanna Correa at [id number] 01:22PM Temperature 98 F, Oral Systolic 114, RUE, Sitting Diastolic 62, RUE, Sitting Weight 174 lb Physical Exam Constitutional General appearance: No acute distress, well appearing and well nourished. Eyes Conjunctiva and lids: No swelling, erythema, or discharge. Ears, Nose, Mouth, and Throat Oropharynx: Normal with no erythema, edema, exudate or lesions. Pulmonary Auscultation of lungs: Clear to auscultation. Cardiovascular Auscultation of heart: Normal rate and rhythm, normal S1 and S2, without murmurs. Abdomen Abdomen: Non-tender, no masses. Musculoskeletal Lumbosacral Spine: Appearance: Normal . Palpation/Tenderness: right paraspinal at level (L1, L2 and L3 ). Flexion was restricted. Extensionwas restricted. Left lateral flexion was restricted. Right lateral flexion was restricted. Rotationto the left was restricted. Rotation to the right was restricted. Strength Testing: Normal . Assessment 1. Back pain (724.5) (M54.9) Plan Back pain 1. Start: Cyclobenzaprine HCl - 10 MG Oral Tablet; TAKE 1 TABLET 3 TIMES DAILY Rx By: Vipul Hickman; Dispense: 7 Days ; #:20 Tablet; Refill: 0; For: Back pain; ZEKE = N; Record 2. Start: Hydrocodone-Acetaminophen 5-325 MG Oral Tablet ([place]); TAKE 1 TABLET EVERY 4 TO 6 HOURS NEEDED Rx By: Vipul Hickman; Dispense: 5 Days ; #:30 Tablet; Refill: 0; For: Back pain; ZEKE = N; Record 3. Comply with exercise Status: Complete Done: 06Jul2014 02:41PM Ordered; For: Back pain; Ordered By: Vipul Hickman 4. Follow-up if no improvement or if condition worsens Status: Complete Done: 06Jul2014 02:41PM Ordered; For: Back pain; Ordered By: Vipul Hickman 5. XR L-SPINE 2-3 VIEW ( Routine ) Status: Active Requested for: 06Jul2014 Perform: Other Radiology Due: 05Aug2014; Last Updated By: Bryanna Correa; 07/06/2014 1:44:23 PM; Ordered; For: Back pain; Ordered By: Vipul Hickman Signatures Electronically signed by : Vipul Hickman M.D.; Jul 06 2014 2:44PM AREA DIRECTOR OF HOME HEALTH SALES (Author) documented in this encounter Plan of Treatment Not on file documented as of this encounter Procedures Procedure Name Priority Date/Time Associated Diagnosis Comments IMAGE GENERIC Routine 07/06/2014 2:13 PM CDT documented in this encounter Results * IMAGE GENERIC (07/06/2014 2:13 PM CDT) Anatomical Region Laterality Modality Other 07/06/2014 2:13 PM CDT 07/06/2014 2:13 PM CDT Narrative 07/06/2014 3:22 PM CDT FREDERICK MCDONALD MD: VIPUL HICKMAN MD ?? ACCT: [id number] ?? ADMIT/SERVICE DATE: 07/06/14 DISCHARGE DATE: ?? : 1990 PT TYPE: REG CLI ?? SEX: M ORD SITE: [facility] ? STUDY DATE REPORT # PROCEDURE CODE PROCEDURE ?? 07/06/14 [id number] LSPN2-3V XR LUMBAR SPINE 2 TO 3 VIEWS ? EXTORDERID ? [id number] ? ACCESSION NUMBER ?? [id number] ?CHART DOCUMENT ? IMPRESSION: ? NEGATIVE. ? HISTORY: ??LOW BACK PAIN. ? RADIOGRAPHS LUMBAR SPINE ? FINDINGS: ??AP, LATERAL AND CONED-DOWN DETAILED LATERAL RADIOGRAPHS OF THE ?? LUMBAR SPINE WERE OBTAINED AND DEMONSTRATE NORMAL HEIGHT AND ALIGNMENT TO ?? THE VERTEBRAL BODIES. ??THERE IS NO FRACTURE. ??THERE IS NO INTERVERTEBRAL ?? DISC SPACE NARROWING. ? ELECTRONICALLY SIGNED BY: ?? WALDO THOMPSON M.D. 07/06/2014 03:20 P ?? WALDO THOMPSON M.D. ? D: ??07/06/2014 02:13 P ??#[id number] ?? T: ??07/06/2014 02:43 P/MA ? CC: ?VIPUL HICKMAN M.D. ? Procedure Note Libby Bush MD - 08/07/2018 FREDERICK MCDONALD ORDERING MD: VIPUL HICKMAN MD ACCT: [id number] ADMIT/SERVICE DATE: 07/06/14 DISCHARGE DATE: : 1990 PT TYPE: REG CLI SEX: M ORD SITE: [facility] OUTPATIENT IMAGING STUDY DATE REPORT # PROCEDURE CODE PROCEDURE 07/06/14 [id number] LSPN2-3V XR LUMBAR SPINE 2 TO 3 VIEWS EXTORDERID [id number] ACCESSION NUMBER [id number] CHART DOCUMENT IMPRESSION: NEGATIVE. HISTORY: LOW BACK PAIN. RADIOGRAPHS LUMBAR SPINE FINDINGS: AP, LATERAL AND CONED-DOWN DETAILED LATERAL RADIOGRAPHS OF THE LUMBAR SPINE WERE OBTAINED AND DEMONSTRATE NORMAL HEIGHT AND ALIGNMENT TO THE VERTEBRAL BODIES. THERE IS NO FRACTURE. THERE IS NO INTERVERTEBRAL DISC SPACE NARROWING. ELECTRONICALLY SIGNED BY: WALDO THOMPSON M.D. 07/06/2014 03:20 P WALDO THOMPSON M.D. P #[id number] P/MA CC: VIPUL HICKMAN M.D. Vipul Hickman MD SCANNING Final Resul t documented in this encounter Visit Diagnoses Not on filedocumented in this encounter Care Teams Salesperson Handbags Relationship Specialty Start Date End Date Vipul Hickman MD [address] [facility] [address] [place] [address] PCP - General 02/17/15 Vipul Hickman MD [address] [facility] [address] [place] [address] PCP - General 07/06/14 02/16/15 documented as of this encounter
--- OUTSIDE RECORDS SUMMARY | 2024-10-25 13:04 | XMS_ITS | Encounter Summary ---
Author Organization [facility] Address [address] [place] [address]. [place], [place] [address] [place] [address] Care Team Providers Care Fashion Buying Internship Name Role Phone Rahul Hickman MD Primary Care Provider [phone] Rahul Hickman MD Primary Care Provider Rahul Hickman MD Primary Care Provider Rahul Hickman MD Primary Care Provider Encounter Details Date Type Department Care Team (Latest Contact Info) Description 07/15/2013 Abstract [facility] Praful Gutierrez MD [address] [place], [place] [address] Social History Tobacco Use Types Packs/Day Years Used Date Smoking Tobacco: Never Assessed Sex and Gender Information Value Date Recorded Sex Assigned at Not on file Legal Sex Male 9:06 PM CDT Gender Identity Not on file Sexual Orientation Not on file documented as of this encounter H&P Notes * Praful Gutierrez MD - 07/15/2013 3:17 PM CDT [place] [address] Patient: FREDERICK MCDONALD Med Rec#: [id number] Birthdate: 1990 Admit/Svce Date: Disch Date: CHART DOCUMENT PRIMARY CARE PROVIDER: RAHUL HICKMAN M.D. ATTENDING PROVIDER: PRAFUL GUTIERREZ, M.D. 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 CHIEF COMPLAINT: Right scaphoid nonunion. HISTORY OF PRESENT ILLNESS: This 23-year-old male injured his right wrist around the beginning of October 2012 when he landed on his outstretched arm. This was diagnosed as a nondisplaced scaphoid fracture, and after about 6 weeks from the injury I saw him and he was placed in a short-arm thumb spica cast. He had this in place for about 11 weeks total and was taken out of it. He had some pain afterwards at has persisted, and more recent evaluation showed he had a nonunion of the scaphoid by MRI scan and he is brought at this time for internal fixation of it. ALLERGIES: None. PAST HOSPITALIZATIONS AND SURGERIES: He had his left wrist operated on when he had a fracture of the radius and ulna on that side. He did have a pneumothorax in his right lung and had endoscopic thoracic surgery to scar up the pleura, and he was hospitalized over this period of time for about a month at [facility] last year for that, but that is all resolved now. MEDICATIONS: Meloxicam 15 mg daily. OTHER CHRONIC ILLNESSES: None. FAMILY HISTORY: Negative. SOCIAL HISTORY: He is a nonsmoker, nondrinker. REVIEW OF SYSTEMS: He gives a negative review of systems. Good general health. PHYSICAL EXAMINATION: Pleasant 23-year-old in no distress. Vital signs: Pulse 58 and regular. HEENT: Pupils equally round and reactive to light. Extraocular movements intact. Oropharynx is clear. Neck: Negative. Chest: Clear to auscultation bilaterally. Heart: Regular rate and rhythm without murmurs. Abdomen: Soft without masses, tenderness, organomegaly. : Normal male. Rectal: Deferred, not indicated. Extremity exam: There is no obvious swelling about his right wrist. Dorsiflexion to 60 degrees, palmar flexion 80. He has full pronation and supination. There is tenderness over the snuffbox area. Neurologic: Cranial nerves II through XII intact. Motor and sensory exams are intact. DIAGNOSTIC STUDIES: MRI scan of the right wrist from [facility] done on June 18, 2013, shows an unhealed scaphoid waist fracture with mild displacement. 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 They did raise the possibility of early avascular necrosis of the proximal fragment, but the shading of that proximal distal fragment appears the same to me. DIAGNOSIS: Nonunion right scaphoid fracture. PLAN: He is brought at this time for internal fixation of his scaphoid on the right. The risks and possible complications including any anesthetic risk, infection, stiffness of the wrist, incomplete healing of the bone, prolonged casting, and possible further surgery being needed were discussed with him and he wishes to proceed. He understands the expected benefits and the alternatives. Electronically Signed By: PRAFUL GUTIERREZ M.D. 07/16/2013 10:45 PRAFUL GUTIERREZ M.D. P #[id number] P/ma cc: Mague CANTRELL M.D. ENSATION/BENEFITS SPECIALIST documented in this encounter Plan of Treatment Not on file documented as of this encounter Visit Diagnoses Not on filedocumented in this encounter Care Teams Fashion Buying Internship Relationship Specialty Start Date End Date Rhaul Hickman MD [address] [place] [phone] PCP - General 02/17/15 Rahul Hickman MD [address] [place] [phone] PCP - General 07/06/14 02/16/15 Rahul Hickman MD [address] [place] [phone] PCP - General 07/16/13 07/05/14 Rahul Hickman MD [address] [place] [phone] PCP - General 01/09/13 07/15/13 documented as of this encounter
--- OUTSIDE RECORDS SUMMARY | 2024-10-25 13:04 | XMS_ITS | Encounter Summary ---
Author Organization [facility] Address [address] [place] [address]. [place], [place] [address] [place] [address] Care Team Providers Care Family And Consumer Sciences Professor Name Role Phone Rahul Villa MD Primary Care Provider [phone] Rahul Villa MD Primary Care Provider Rahul Villa MD Primary Care Provider Encounter Details Date Type Department Care Team (Latest Contact Info) Description 06/08/[address] [facility] , Generic ConversionMD Social History Tobacco Use Types Packs/Day Years Used Date Smoking Tobacco: Never Assessed Sex and Gender Information Value Date Recorded Sex Assigned at Not on file Legal Sex Male 9:06 PM CDT Gender Identity Not on file Sexual Orientation Not on file documented as of this encounter Progress Notes * Generic Reagan Bush MD - 06/08/2014 2:35 PM CDT Message Recorded as Task Date: 06/08/2014 01:47 PM, Created By: Salomon Rivera Task Name: Results Inquiry Assigned [facility]: [facility] Regarding Patient: Dat Spivey, Status: Active Comment: Salomon Rivera - 08 Jun 2014 1:47 PM TASK CREATED YOU ORDERED CHEST XRAY FOR CHEST PAIN ON 03/19 SPOKE WITH PT TODAY HE HAS NOT HAD TEST DONE. STATES THAT CP COMPLETELY RESOLVED WITHIN A FEW DAYS AFTER BEING SEEN. WANTS TO KNOW IF YOU STILL WANT HIM TO HAVE XRAY GIVEN HISTORY OR JUST FOLLOW UP IF PAIN RETURNS? Rahul Villa - 08 Jun 2014 1:48 PM TASK EDITED Gretta Power - 08 Jun 2014 2:35 PM TASK EDITED pt informed Signatures Electronically signed by : Gretta Samson, ; Jun 08 2014 2:35PM NAVAL ARCHITECT (Author) documented in this encounter Plan of Treatment Not on file documented as of this encounter Visit Diagnoses Not on filedocumented in this encounter Care Teams Family And Consumer Sciences Professor Relationship Specialty Start Date End Date Rahul Villa MD [address] [phone] PCP - General 02/17/15 Rahul Villa MD [address] [phone] PCP - General 07/06/14 02/16/15 Rahul Villa MD [address] [phone] PCP - General 07/16/13 07/05/14 documented as of this encounter
--- OUTSIDE RECORDS SUMMARY | 2024-10-25 13:04 | XMS_ITS | Encounter Summary ---
Author Organization [facility] Address [address] [place] [address]. [place], [place] [address] [place] [address] Care Team Providers Care Custom Shoemaker Name Role Phone Rahul Villa MD Primary Care Provider [phone] Encounter Details Date Type Department Care Team (Latest Contact Info) Description 03/25/2015 Abstract [facility] Medical Group Rahul Villa MD [address] [phone] Social History Tobacco Use Types Packs/Day Years Used Date Smoking Tobacco: Never Assessed Sex and Gender Information Value Date Recorded Sex Assigned at Not on file Legal Sex Male 9:06 PM CDT Gender Identity Not on file Sexual Orientation Not on file documented as of this encounter Last Filed Vital Signs Vital Sign Reading Time Taken Comments Blood Pressure 136/90 03/25/2015 2:22 PM CDT Pulse - - Temperature - - Respiratory Rate - - Oxygen Saturation - - Inhaled Oxygen Concentration - - Weight 76.7 kg (169 lb) 03/25/2015 2:22 PM CDT Height - - Body Mass Index 23.24 07/22/2013 10:40 AM CDT documented in this encounter Progress Notes * Rahul Villa MD - 03/25/2015 2:30 PM CDT Reason For Visit Reason For Visit: Acute Follow-Up Visit Chief Complaint follow up meds History of Present Illness His ADHD has been stable since the last visit. Target Symptoms: 1. Hyperactive behavior has improved. 2. Impulsive behavior has improved. 3. Difficulty concentrating has improved. Interval symptoms: improved lower back pain, improved back stiffness, improved buttock pain and denies lower extremity pain. Review of Systems Constitutional: no fever. Cardiovascular: no chest pain. Respiratory: no shortness of breath. Gastrointestinal: no abdominal pain, no constipation, no heartburn, no vomiting and no diarrhea. Genitourinary: no dysuria and no urinary hesitancy. Neurological: difficulty walking, but no confusion, no dizziness, no convulsions and no fainting. Psychiatric: no anxiety. Active Problems 1. 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 Back pain (724.5) (M54.9) 3. Chest pain (786.50) (R07.9) 4. Closed fracture of navicular bone of right wrist (814.01) (S62.001A) 5. 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 Open wound (879.8) (T14.8) 7. Pelvic pain (R10.2) Past Medical History 1. History of Concussion (V15.52) ?? x 2-3 Surgical History 1. History of Treatment Of Wrist Fracture ?? ORIF, left Family History Father 1. Family history of Recovering Alcoholic Social History ?? Never a smoker ?? Never Drank Alcohol Immunizations Influenza --- Series1: 07Sep2014 Tdap --- Series1: 2013 Current Meds 1. Methylphenidate HCl ER 54 MG Oral Tablet Extended Release; TAKE 1 TABLET DAILY; Therapy: 34Tcw2565 to (Evaluate:19Mar2015); Last Rx:17Feb2015 Ordered Rx By: Rahul Villa; Dispense: 30 Days ; #:30 Tablet Extended Release; Refill: 0; For: ADHD, predominantly inattentive type; ZEKE = N; Print Rx Allergies 1. No Known Drug Allergies Recorded By: Kiara Elizondo; 06/05/2012 12:38:50 PM Vitals Recorded: 25Mar2015 02:22PM Systolic 136 Diastolic 90 Weight 169 lb Physical Exam Constitutional General appearance: No acute distress, well appearing and well nourished. Eyes Conjunctiva and lids: No swelling, erythema, or discharge. Ears, Nose, Mouth, and Throat Oropharynx: Normal with no erythema, edema, exudate or lesions. Cardiovascular Auscultation of heart: Normal rate and rhythm, normal S1 and S2, without murmurs. Abdomen Abdomen: Non-tender, no masses. Musculoskeletal Gait and station: Normal. Psychiatric Mood and affect: Normal. Assessment 1. 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 Back pain (724.5) (M54.9) Plan ADHD, predominantly inattentive type 1. From Methylphenidate HCl ER 54 MG Oral Tablet Extended Release TAKE 1 TABLET DAILY To Methylphenidate HCl ER (CD) 60 MG Oral Capsule Extended Release TAKE 1 TABLET DAILY Rx By: Rahul Vlila; Dispense: 30 Days ; #:30 Capsule Extended Release; Refill: 0; For: ADHD, predominantly inattentive type; ZEKE = N; Print Rx Formulary Override Reason: Drug is unfamiliar, will consider in future Back pain 2. Comply with exercise; Status:Active; Requested for:25Mar2015; Ordered; For:Back pain; Ordered By:Rahul Villa; 3. Follow-up PRN Outpatient Follow-up Status: Complete Done: 25Mar2015 02:51PM Ordered; For: Back pain; Ordered By: Rahul Villa Performed: Due: 08Apr2015 Signatures Electronically signed by : Rahul Villa M.D.; Mar 25 2015 2:51PM LINE RUNNER (Author) documented in this encounter Plan of Treatment Not on file documented as of this encounter Visit Diagnoses Not on filedocumented in this encounter Care Teams Custom Shoemaker Relationship Specialty Start Date End Date Rahul Villa MD [address] [phone] PCP - General 02/17/15 documented as of this encounter
--- OUTSIDE RECORDS SUMMARY | 2024-10-25 13:04 | XMS_ITS | Encounter Summary ---
Author Organization [facility] Address [address] [place] [address]. [place], [place] [address] [place] [address] Care Team Providers Care Buncher Operator Name Role Phone Rahul Ledesma MD Primary Care Provider Rahul Ledesma MD Primary Care Provider [phone] Rahul Ledesma MD Primary Care Provider Encounter Details Date Type Department Care Team (Late st Contact Info) Description 07/16/2013 Abstract [facility] [place] [address] Libby Bush MD Social History Tobacco Use Types Packs/Day Years Used Date Smoking Tobacco: Never Assessed Sex and Gender Information Value Date Recorded Sex Assigned at Not on file Legal Sex Male 9:06 PM CDT Gender Identity Not on file Sexual Orientation Not on file documented as of this encounter Plan of Treatment Not on file documented as of this encounter Visit Diagnoses Diagnosis Nonunion of fracture documented in this encounter Care Teams Buncher Operator Relationship Specialty Start Date End Date Rahul Ledesma MD [address] [phone] PCP - General 02/17/15 Rahul Ledesma MD [address] [phone] PCP - General 07/06/14 02/16/15 Rahul Ledesma MD [address] [phone] PCP - General 07/16/13 07/05/14 documented as of this encounter
--- OUTSIDE RECORDS SUMMARY | 2024-10-25 13:04 | XMS_ITS | Encounter Summary ---
Author Organization [facility] Address [address] [place] [address]. [place], [place] [address] [place] [address] Care Team Providers Care Pattern Ruler Name Role Phone Rahul Villa MD Primary Care Provider [phone] Encounter Details Date Type Department Care Team (Latest Contact Info) Description 01/20/2016 Abstract [facility] Rahul Villa MD [address] [address] Social History Tobacco Use Types Packs/Day Years Used Date Smoking Tobacco: Never Assessed Sex and Gender Information Value Date Recorded Sex Assigned at Not on file Legal Sex Male 9:06 PM CDT Gender Identity Not on file Sexual Orientation Not on file documented as of this encounter Last Filed Vital Signs Vital Sign Reading Time Taken Comments Blood Pressure 132/74 01/20/2016 1:55 PM CDT Pulse - - Temperature - - Respiratory Rate - - Oxygen Saturation - - Inhaled Oxygen Concentration - - Weight 75.3 kg (166 lb) 01/20/2016 1:55 PM CDT Height 181.6 cm (5' 11.5 ) 01/20/2016 1:55 PM CD T Body Mass Index 22.83 01/20/2016 1:55 PM CDT documented in this encounter Progress Notes * Rahul Villa MD - 01/20/2016 2:00 PM CDT Reason For Visit Chronic Recheck Visit Chief Complaint discuss joint pain History of Present Illness ADHD (Follow-Up): Target Symptoms: 1. Hyperactive behavior has improved. 2. Impulsive behavior has improved. 3. Difficulty concentrating has improved. Back Pain (Follow-Up): Interval symptoms: improved lower back pain, improved back stiffness, improved buttock pain and denies lower extremity pain. Review of Systems Constitutional: no fever. ENT: no nosebleeds. Cardiovascular: no chest pain. Respiratory: no shortness of breath. Gastrointestinal: no abdominal pain. Genitourinary: no dysuria. Musculoskeletal: joint pain. Neurological: no confusion. Active Problems 1. Acute [...] Tablet; Take 1 tablet twice daily; Therapy: 30Fmk8630 to (Evaluate:10Wzb2818); Last Rx:[id number] Ordered 2. Fluticasone Propionate 50 MCG/ACT Nasal Suspension; USE 1 TO 2 SPRAYS IN EACH NOSTRIL ONCE DAILY; Therapy: 76Qak1648 to (Last Rx:[id number]) Requested for: 95Ftd4266 Ordered Allergies 1. No Known Drug Allergies Immunizations Influenza --- Series1: 07Sep2014 Tdap --- Series1: 2012 Vitals Recorded: 20Jan2016 01:55PM Systolic 132 Diastolic 74 Height 5 ft 11.5 in Weight 166 lb BMI Calculated 22.83 BSA Calculated 1.96 Physical Exam Constitutional General [...] no masses. Musculoskeletal Gait and station: Normal. nml rom diffuse tender both wrists and bilat lumbar area. Psychiatric Mood and affect: Normal. Assessment 1. Back pain (724.5) (M54.9) 2. 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 Avoid overuse of area; Status:Complete; Done: 23Yep0908 02:58PM Ordered; For:ADHD, predominantly inattentive type; Ordered By:Rahul Villa; 2. Comply with suggestions for healthy lifestyle; Status:Complete; Done: 84Net6926 02:58PM Ordered; For:ADHD, predominantly inattentive type; Ordered By:Rahul Villa; 3. Follow-up if no improvement or if condition worsens; Status:Complete; Done: 46Pjg5234 02:58PM Ordered; For:ADHD, predominantly inattentive type; Ordered By:Rahul Villa; Back pain 4. Meloxicam 15 MG Oral Tablet; TAKE 1 TABLET DAILY NEEDED Rx By: Rahul Villa; Dispense: 30 Days ; #:30 Tablet; Refill: 3; For: Back pain; ZEKE = N; Verified Transmission to [facility]; Last Updated By: Josephine Knight; 01/20/2016 2:22:25 PM Signatures Electronically signed by : Rahul Villa M.D.; Jan 20 2016 2:58PM CELL OPERATOR (Author) documented in this encounter Plan of Treatment Not on file documented as of this encounter Visit Diagnoses Not on filedocumented in this encounter Care Teams Pattern Ruler Relationship Specialty Start Date End Date Rahul Villa MD [address] [phone] PCP - General 02/17/15 documented as of this encounter
--- OUTSIDE RECORDS SUMMARY | 2024-10-25 13:04 | XMS_ITS | Encounter Summary ---
Author Organization [facility] Address [address] [place] [address]. [place], [place] [address] [place] [address] Care Team Providers Care Continuity Writer Name Role Phone Rahul Ledesma MD Primary Care Provider [phone] Rahul Ledesma MD Primary Care Provider [phone] Rahul Ledesma MD Primary Care Provider Rahul Ledesma MD Primary Care Provider Encounter Details Date Type Department Care Team (Latest Contact Info) Description 06/18/2013 Abstract [facility] Rahul Ledesma MD [address] [address] Social History Tobacco Use Types [...] on filedocumented in this encounter Care Teams Continuity Writer Relationship Specialty Start Date End Date Rahul Ledesma MD [address] [phone] PCP - General 02/17/15 Rahul Ledesma MD [address] [phone] PCP - General 07/06/14 02/16/15 Rahul Ledesma MD [address] [address] PCP - General 07/16/13 07/05/14 Rahul Ledesma MD [address] [address] PCP - General 01/09/13 07/15/13 documented as of this encounter
--- OUTSIDE RECORDS SUMMARY | 2024-10-25 13:04 | XMS_ITS | Encounter Summary ---
Author Organization [facility] Address [address] [place] [address]. [place], [place] [address] [place] [address] Care Team Providers Care Building Consultant Name Role Phone Rahul Ledesma MD Primary Care Provider [phone] Encounter Details Date Type Department Care Team (Late st Contact Info) Description 02/17/2015 Abstract [facility] [address] [place] [address] Rahul Ledesma MD [address] [phone] Social History Tobacco Use Types Packs/Day Years Used Date Smoking Tobacco: Never Assessed Sex and Gender Information Value Date Recorded Sex Assigned at Not on file Legal Sex Male 9:06 PM CDT Gender Identity Not on file Sexual Orientation Not on file documented as of this encounter Plan of Treatment Not on file documented as of this encounter Visit Diagnoses Diagnosis Backache Backache, unspecified documented in this encounter Care Teams Building Consultant Relationship Specialty Start Date End Date Rahul Ledesma MD [address] [phone] PCP - General 02/17/15 documented as of this encounter
--- OUTSIDE RECORDS SUMMARY | 2024-10-25 13:04 | XMS_ITS | Encounter Summary ---
Author Organization [facility] Address [address] [place] [address]. [place], [place] [address] [place] [address] Care Team Providers Care Relay Associate Name Role Phone Rahul Ledesma MD Primary Care Provider [phone] Rahul Ledesma MD Primary Care Provider [phone]- [phone] Encounter Details Date Type Department Care Team (Latest Contact Info) Description 07/22/2014 Abstract [facility] Social History Tobacco Use Types Packs/Day Years [...] on filedocumented in this encounter Care Teams Relay Associate Relationship Specialty Start Date End Date Rahul Ledesma MD [address] [address] PCP - General 02/17/15 Rahul Ledesma MD [address] [phone] PCP - General 07/06/14 02/16/15 documented as of this encounter
--- OUTSIDE RECORDS SUMMARY | 2024-10-25 13:04 | XMS_ITS | Encounter Summary ---
Author Organization [facility] Address [address] [place] [address]. [place], [place] [address] [place] [address] Care Team Providers Care Account Retention Representative Name Role Phone Rahul Ledesma MD Primary Care Provider [phone] Rahul Ledesma MD Primary Care Provider Rahul Ledesma MD Primary Care Provider [phone]- [phone] Encounter Details Date Type Department Care Team (Latest Contact Info) Description 07/23/2013 Abstract [facility] Social History Tobacco Use Types [...] on filedocumented in this encounter Care Teams Account Retention Representative Relationship Specialty Start Date End Date Rahul Ledesma MD [address] [address] PCP - General 02/17/15 Rahul Ledesma MD [address] [phone] PCP - General 07/06/14 02/16/15 Rahul Ledesma MD [address] [phone] PCP - General 07/16/13 07/05/14 documented as of this encounter
--- OUTSIDE RECORDS SUMMARY | 2024-10-25 13:04 | XMS_ITS | Encounter Summary ---
Author Organization [facility] Address [facility]. [place], [place] [address] [place] [address] Care Team Providers Care Bricklayer'S Assistant Name Role Phone Rahul Villa MD Primary Care Provider [phone] Rahul Villa MD Primary Care Provider [phone] Encounter Details Date Type Department Care Team (Latest Contact Info) Description 07/13/2014 Abstract [facility] Social History Tobacco Use Types Packs/Day Years Used Date Smoking Tobacco: Never Assessed Sex and Gender Information Value Date Recorded Sex Assigned at Not on file Legal Sex Male 9:06 PM CDT Gender Identity Not on file Sexual Orientation Not on file documented as of this encounter Progress Notes * Generic Conversion MD Eleazar - 07/13/2014 3:15 PM CDT Message Recorded as Task Date: 07/13/2014 12:13 PM, Created By: Catrina Beltran Task Name: Call Back Assigned To: [facility] Team Regarding Patient: Dat Spivey, Status: Complete Comment: Catrina Beltran - 13 Jul 2014 12:13 PM TASK CREATED Caller: Self; Pt calls-states he was seen last week for back injury. States still having a lot of lower back pain. Was rx'd Hydrocodone 5/325 1 po q6h prn. States that did not touch the pain. States he had to take2 tabls every 6 hours to get any relief and to be able to make it through the work day. Almost out of meds. Asking if needs to be seen again or if needs different rx or referral to pain management? Please Advise. NCB Rahul Villa 13 Jul 2014 1:47 PM TASK EDITED needs reeval Divya Goodwin 13 Jul 2014 2:11 PM TASK EDITED LMOM Zarina13 Jul 2014 2:22 PM TASK EDITED pt aware Zarina13 Jul 2014 2:28 PM TASK EDITED appt scheduled for 07/20/14 wanting to know if he can have refill on Atkins until OV he would like a stronger rx or for more tabs, he was taking 2 tabs Q6hrs PRN. please advise Rahul Villa 13 Jul 2014 3:00 PM TASK EDITED #60 Divya Goodwin 13 Jul 2014 3:15 PM TASK EDITED pt informed, rx called in Divya Goodwin 13 Jul 2014 3:15 PM TASK COMPLETED Signatures Electronically signed by : Divya Goodwin, ; Jul 13 2014 3:16PM TURN SUPERVISOR (Author) documented in this encounter Plan of Treatment Not on file documented as of this encounter Visit Diagnoses Not on filedocumented in this encounter Care Teams Bricklayer'S Assistant Relationship Specialty Start Date End Date Rahul Villa MD [address] [phone] PCP - General 02/17/15 aRhul Villa MD [address] [phone] PCP - General 07/06/14 02/16/15 documented as of this encounter
--- OUTSIDE RECORDS SUMMARY | 2024-10-25 13:04 | XMS_ITS | Encounter Summary ---
Author Organization [facility] Address [address] [place] [address]. [place], [place] [address] [place] [address] Care Team Providers Care Radio Control Crane Operator Name Role Phone Rahul Villa MD Primary Care Provider [phone] Encounter Details Date Type Department Care Team (Latest Contact Info) Description 06/01/2016 Abstract [facility] Rahul Villa MD [address] [phone] Social History Tobacco Use Types Packs/Day Years Used Date Smoking Tobacco: Never Assessed Sex and Gender Information Value Date Recorded Sex Assigned at Not on file Legal Sex Male 9:06 PM CDT Gender Identity Not on file Sexual Orientation Not on file documented as of this encounter Last Filed Vital Signs Vital Sign Reading Time Taken Comments Blood Pressure 150/94 06/01/2016 3:56 PM CDT Pulse - - Temperature - - Respiratory Rate - - Oxygen Saturation - - Inhaled Oxygen Concentration - - Weight 78 kg (172 lb) 06/01/2016 3:56 PM CDT Height 156.2 cm (5' 1.5 ) 06/01/2016 3:56 PM CDT Body Mass Index 31.97 06/01/2016 3:56 PM CDT documented in this encounter Progress Notes * Rahul Villa MD - 06/01/2016 4:00 PM CDT Reason For Visit Reason For Visit: Acute Visit Chief Complaint left thigh pain after falling on saw horse History of Present Illness Leg Pain/Limping: Symptoms: limping, leg pain, localized swelling, localized redness, localized bruising, leg stiffness and fell on saw horse end last night, but no back pain, no leg deformity, no difficulty bearing weight and no difficulty ambulating. Review of Systems Constitutional: no fever. ENT: [...] Never Drank Alcohol Immunizations Influenza --- Series1: [id number] Tdap --- Series1: 2013 Current Meds 1. Amphetamine-Dextroamphetamine 30 MG Oral Tablet; Take 1 tablet twice daily; Therapy: 71Odh2070 to (Evaluate:48Qpk0154); Last Rx:[id number] Ordered Rx By: Rahul Villa; Dispense: 30 Days ; #:60 Tablet; Refill: 0; For: ADHD, predominantly inattentive type; ZEKE = N; Print Rx 2. Fluticasone Propionate 50 MCG/ACT Nasal Suspension; USE 1 TO 2 SPRAYS IN EACH NOSTRIL ONCE DAILY; Therapy: 67Rdx5294 to (Last Rx:48Mci5919) Requested for: 20Xzl5778 Ordered Rx By: Rahul Villa; Dispense: 0 Days ; #:1 X 16 GM Bottle; Refill: 6; For: Acute pharyngitis; ZEKE = N; Verified Transmission to [facility] Last Updated By: Josephine Knight; 10/13/2015 11:55:35 AM 3. Meloxicam 15 MG Oral Tablet; TAKE 1 TABLET DAILY NEEDED; Therapy: 20Jan2016 to (Evaluate:44Ihl1368) Requested for: 20Jan2016; Last Rx:20Jan2016 Ordered Rx By: Rahul Villa; Dispense: 30 Days ; #:30 Tablet; Refill: 3; For: Back pain; ZEKE = N; Verified Transmission to [facility] Last Updated By: Josephine Knight; 01/20/2016 2:22:25 PM Allergies 1. No Known Drug Allergies Recorded By: Kiara Elizondo; 06/05/2012 12:38:50 PM Vitals Recorded: 01Jun2016 03:56PM Systolic 150 Diastolic 94 Height 5 ft 1.5 in Weight 172 lb BMI Calculated 31.97 BSA Calculated 1.78 Physical Exam Constitutional General appearance: No acute [...] left. enlarged mass bruise l inner thigh, neg kim's. Psychiatric Mood and affect: Normal. Assessment 1. Leg pain (729.5) (M79.606) Plan Leg pain 1. Oxycodone-Acetaminophen 5-325 MG Oral Tablet; TAKE 1 TO 2 TABLETS EVERY 4 HOURS NEEDED FOR PAIN Rx By: Rahul Villa; Dispense: 3 Days ; #:20 Tablet; Refill: 0; For: Leg pain; ZEKE = N; Print Rx 2. Follow-up visit in 3 days Outpatient Follow-up Status: Hold For - Scheduling Requested for: 01Jun2016 Ordered; For: Leg pain; Ordered By: Rahul Villa Performed: Due: 15Jun2016 3. Avoid overuse of area; Status:Complete; Done: 60Prk3073 04:53PM Ordered; For:Leg pain; Ordered By:Rahul Villa; 4. Keep your leg elevated whenever you can to decrease swelling and increase circulation.; Status:Complete; Done: 25Bjj1628 04:53PM Ordered; For:Leg pain; Ordered By:Rahul Villa; 5. LC-CBC With Differential/Platelet [id number]; Status:In Progress - Specimen/Data Collected; Done: 84Tiy5339 Perform:[facility] Ronald; Due:20Lqh7657; Last Updated By:Gretta Samson; 06/01/2016 4:25:12 PM;Ordered; For:Leg pain; Ordered By:Rahul Villa; Discussion/Summary disc poss of dvt, doubt cont bleeding, check baseline cbc. Signatures Electronically signed by : Rahul Villa M.D.; Jun 01 2016 4:57PM OPEN HEARTH STOCKYARD SUPERVISOR (Author) documented in this encounter Plan of Treatment Not on file documented as of this encounter Procedures Procedure Name Priority Date/Time Associated Diagnosis Comments CBC W/DIFF AUTOMATED Routine 06/01/2016 4:25 PM CDT documented in this encounter Results * CBC W/DIFF AUTOMATED (06/01/2016 4:25 PM CDT) WBC 9.8 3.4 - 10.8 x10E3/uL [facility] CONVERSION RBC 4.35 4.14 - 5.80 x10E6/uL [facility] TO EPIC CONVERSION HEMOGLOBIN MIXED VENOUS 14.0 12.6 - 17.7 g/dL [facility] TO EPIC CONVERSION HCT 40.0 37.5 - 51.0 % [facility] TO [facility] CONVERSION MCV 92 79 - 97 fL [facility] TO EPIC CONVERSION MCH 32.2 26.6 - 33.0 pg [facility] TO EPIC CONVERSION MCHC 35.0 31.5 - 35.7 g/dL [facility] TO EPIC CONVERSION RDW 13.1 12.3 - 15.4 % [facility] TO EPIC CONVERSION PLT 267 150 - 379 x10E3/uL [facility] TO EPIC CONVERSION SEG NEUTROPHILS 68 % [facility] ROUP TO EPIC CONVERSION LYMPHOCYTES 22 % [facility] TO EPIC CONVERSION MONOCYTES 9 % [facility] T O EPIC CONVERSION EOSINOPHILS 1 % [facility] TO EPIC CONVERSION BASOPHILS % 0 % [facility] TO EPIC CONVERSION IMMATURE CELLS [facility] OUP TO EPIC CONVERSION ABS. NEUTROPHILS 6.6 1.4 - 7.0 x10E3/uL [facility] TO EPIC CONVERSION ABS. LYMPHOCYTES 2.1 0.7 - 3.1 x10E3/uL [facility] TO EPIC CONVERSION ABS. MONOCYTES 0.9 0.1 - 0.9 x10E3/uL [facility] TO EPIC CONVERSION ABS. EOSINOPHILS 0.1 0.0 - 0.4 x10E3/uL [facility] TO EPIC CONVERSION ABS. BASOPHILS 0.0 0.0 - 0.2 x10E3/uL [facility] TO EPIC CONVERSION IMMATURE CELLS 0 % [facility] OUP TO EPIC CONVERSION ABS. IMMATURE GRANULOCYTES 0.0 0.0 - 0.1 x10E3/uL [facility] TO EPIC CONVERSION NRBC [facility] T O EPIC CONVERSION CBC COMMENT [facility] TO EPIC CONVERSION 06/01/2016 4:25 PM CDT 06/01/2016 4:25 PM CDT Narrative [facility] TO EPIC CONVERSION - 06/02/2016 4:10 AM CDT Result Communication: No patient communication needed at this time us Rahul Villa MD LABORATORY Final Resul t [facility] TO EPIC CONVERSION documented in this encounter Visit Diagnoses Not on filedocumented in this encounter Care Teams Radio Control Crane Operator Relationship Specialty Start Date End Date Rahul Villa MD [address] [phone] PCP - General 02/17/15 documented as of this encounter
--- OUTSIDE RECORDS SUMMARY | 2024-10-25 13:04 | XMS_ITS | Encounter Summary ---
Author Organization [facility] Address [address] [place] [address]. [place], [place] [address] [place] [address] Care Team Providers Care Propulsion Motor And Generator Repairer Name Role Phone Rahul Ledesma MD Primary Care Provider [phone] Rahul Ledesma MD Primary Care Provider [phone]- [phone] Encounter Details Date Type Department Care Team (Latest Contact Info) Description 07/27/2014 Abstract [facility] Social History Tobacco Use [...] on filedocumented in this encounter Care Teams Propulsion Motor And Generator Repairer Relationship Specialty Start Date End Date Rahul Ledesma MD [address] [address] PCP - General 02/17/15 Rahul Ledesma MD [address] [phone] PCP - General 07/06/14 02/16/15 documented as of this encounter
--- OUTSIDE RECORDS SUMMARY | 2024-10-25 13:04 | XMS_ITS | Encounter Summary ---
Author Organization [facility] Address [address] [place] [address]. [place], [place] [address] [place] [address] Care Team Providers Care Wrap Yarn Sorter Name Role Phone Rahul Villa MD Primary Care Provider [phone] Encounter Details Date Type Department Care Team (Latest Contact Info) Description 04/28/2015 Abstract [facility] Rahul Villa MD [address] [address] Social History Tobacco Use Types Packs/Day Years Used Date Smoking Tobacco: Never Assessed Sex and Gender Information Value Date Recorded Sex Assigned at Not on file Legal Sex Male 9:06 PM CDT Gender Identity Not on file Sexual Orientation Not on file documented as of this encounter Last Filed Vital Signs Vital Sign Reading Time Taken Comments Blood Pressure 122/70 04/28/2015 7:55 AM CDT Pulse - - Temperature - - Respiratory Rate - - Oxygen Saturation - - Inhaled Oxygen Concentration - - Weight 79.4 kg (175 lb) 04/28/2015 7:55 AM CDT Height - - Body Mass Index 24.07 07/22/2013 10:40 AM CDT documented in this encounter Progress Notes * Rahlu Villa MD - 04/28/2015 8:00 AM CDT Reason For Visit Acute Follow-Up Visit Chief Complaint DISCUSS MED FOR ADHD, STATES HE DOES NOT LIKE THE WAY NEW DOSE MAKES HIM FEEL History of Present Illness ADHD (Follow-Up): Target Symptoms: 2. Impulsive behavior is worse. 3. Difficulty concentrating is worse. Review of Systems Constitutional: no fever. Cardiovascular: [...] Alcohol Current Meds 1. Methylphenidate HCl ER (CD) 60 MG Oral Capsule Extended Release; TAKE 1 TABLET DAILY; Therapy: 98Qyk8190 to (Evaluate:24Apr2015); Last Rx:25Mar2015 Ordered Allergies 1. No Known Drug Allergies Immunizations Influenza --- Series1: 07Sep2014 Tdap --- Series1: 2012 Vitals Recorded: 48Dwc2695 07:55AM Systolic 122 Diastolic 70 Weight 175 lb Physical Exam Constitutional General appearance: No [...] 1. 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 Methylphenidate HCl ER (CD) 60 MG Oral Capsule Extended Release Rx By: Rahul Villa; Dispense: 30 Days ; #:30 Capsule Extended Release; Refill: 0; For: ADHD, predominantly inattentive type; ZEKE = N; Print Rx Formulary Override Reason: Drug is unfamiliar, will consider in future 2. Amphetamine-Dextroamphetamine 20 MG Oral Tablet; TAKE 1 TABLET TWICE DAILY Rx By: Rahul Villa; Dispense: 30 Days ; #:60 Tablet; Refill: 0; For: ADHD, predominantly inattentive type; ZEKE = N; Print Rx 3. Follow-up visit in 1 month Outpatient Follow-up Status: Hold For - Scheduling Requested for: 68Ypn3406 Ordered; For: ADHD, predominantly inattentive type; Ordered By: Rahul Villa Performed: Due: 62Trp4720 Signatures Electronically signed by : Rahul Villa M.D.; Apr 28 2015 8:19AM RIFFLER TENDER (Author) documented in this encounter Plan of Treatment Not on file documented as of this encounter Visit Diagnoses Not on filedocumented in this encounter Care Teams Wrap Yarn Sorter Relationship Specialty Start Date End Date Rahul Villa MD [address] [phone] PCP - General 02/17/15 documented as of this encounter
--- OUTSIDE RECORDS SUMMARY | 2024-10-25 13:04 | XMS_ITS | Encounter Summary ---
Author Organization [facility] Address [facility] [place], [place] [address] [place] [address] Care Team Providers Care Fire Protection Specialist Name Role Phone Rahul Ledesma MD Primary Care Provider Rahul Ledesma MD Primary Care Provider Rahul Ledesma MD Primary Care Provider Encounter Details Date Type Department Care Team (Latest Contact Info) Description 03/03/2014 Abstract [facility] Group Rahul Ledesma MD [address] [phone] Social History Tobacco Use Types Packs/Day Years Used Date Smoking Tobacco: Never Assessed Sex and Gender Information Value Date Recorded Sex Assigned at Not on file Legal Sex Male 9:06 PM CDT Gender Identity Not on file Sexual Orientation Not on file documented as of this encounter Miscellaneous Notes * Letter - Rahul Ledesma MD - 03/03/2014 2:31 PM CDT Message No Show/Cancellation Note: Appointment Status: The patient no showed for his/her appointment. Patient Communication: The patient was called regarding the missed appointment. Result: Patient could not be reached. Message left to return call. Signatures Electronically signed by : Shanti Gay, ; Mar 03 2014 2:31PM ASPHALT PATCHER (Author) documented in this encounter Plan of Treatment Not on file documented as of this encounter Visit Diagnoses Not on filedocumented in this encounter Care Teams Fire Protection Specialist Relationship Specialty Start Date End Date Rahul Ledesma MD [address] [phone] PCP - General 02/17/15 Rahul Ledesma MD [address] [phone] PCP - General 07/06/14 02/16/15 Rahul Ledesma MD [address] [address] PCP - General 07/16/13 07/05/14 documented as of this encounter
--- OUTSIDE RECORDS SUMMARY | 2024-10-25 13:04 | XMS_ITS | Encounter Summary ---
Author Organization [facility] - [facility] Address [address] [place] [address]. [place], [place] [address] [place] [address] Care Team Providers Care Watershed Program Manager Name Role Phone Rahul Ledesma MD Primary Care Provider [phone] Encounter Details Date Type Department Care Team (Latest Contact Info) Description 02/24/2015 Abstract [facility] Medical Group Rahul Ledesma MD [address] [address] Social History Tobacco Use Types Packs/Day Years Used Date Smoking Tobacco: Never Assessed Sex and Gender Information Value Date Recorded Sex Assigned at Not on file Legal Sex Male 9:06 PM CDT Gender Identity Not on file Sexual Orientation Not on file documented as of this encounter Miscellaneous Notes * Letter - Libby Kirk Md, MD - 02/24/2015 9:48 AM CDT Message Appointment Status: The patient no showed for his/her appointment. Patient Communication: The patient was called regarding the missed appointment. today. Result: Patient could not be reached. Message left to return call. Signatures Electronically signed by : Bryanna Correa, ; Feb 24 2015 9:48AM WHEEL WORKER (Author) documented in this encounter Plan of Treatment Not on file documented as of this encounter Visit Diagnoses Not on filedocumented in this encounter Care Teams Watershed Program Manager Relationship Specialty Start Date End Date Rahul Ledesma MD [address] [address] PCP - General 02/17/15 documented as of this encounter
--- OUTSIDE RECORDS SUMMARY | 2024-10-25 13:04 | XMS_ITS | Encounter Summary ---
Author Organization [facility] Address [address] [place] [address]. [place], [place] [address] [place] [address] Care Team Providers Care Ore Washer Name Role Phone Rahul Villa MD Primary Care Provider [phone] Encounter Details Date Type Department Care Team (Latest Contact Info) Description 08/10/2015 Abstract [facility] Medical [facility] Faith Mire[address]REFUG[address] [place] [address] Social History Tobacco Use Types Packs/Day Years Used Date Smoking Tobacco: Never Assessed Sex and Gender Information Value Date Recorded Sex Assigned at Not on file Legal Sex Male 9:06 PM CDT Gender Identity Not on file Sexual Orientation Not on file documented as of this encounter Last Filed Vital Signs Vital Sign Reading Time Taken Comments Blood Pressure 140/90 08/10/2015 3:23 PM CDT Pulse - - Temperature - - Respiratory Rate - - Oxygen Saturation - - Inhaled Oxygen Concentration - - Weight 76.7 kg (169 lb) 08/10/2015 3:23 PM CDT Height - - Body Mass Index 23.24 07/22/2013 10:40 AM CDT documented in this encounter Progress Notes * Error Aline - 08/10/2015 3:30 PM CDT Reason For Visit Acute Visit Chief Complaint Sore throat, fevers, night sweats History of Present Illness Pharyngitis (Brief): The patient is being seen for an initial evaluation of pharyngitis. Symptoms: fever The patient presents with complaints of sore throat starting 1 day ago. The patient is currently experiencing symptoms. Review of Systems See HPI for pertinent positives. Constitutional: fever, feeling poorly and feeling tired. Cardiovascular: no chest pain and no palpitations. Respiratory: Normal and no shortness of breath. Neurological: no dizziness. Active Problems 1. ADHD, predominantly inattentive type [...] Tablet; Take 1 tablet twice daily; Therapy: [id number] to (Evaluate:21Aug2015); Last Rx:24Jul2015; Status: ACTIVE - Renewal Voided Ordered Rx By: Rahul Villa; Dispense: 30 Days ; #:60 Tablet; Refill: 0; For: ADHD, predominantly inattentive type; ZEKE = N; Print Rx; Last Updated By: Divya Goodwin; 07/26/2015 9:19:27 AM Allergies 1. No Known Drug Allergies Recorded By: Kiara Elizondo; 06/05/2012 12:38:50 PM Vitals Signs [Data Includes: Current Encounter] Temperature: 100 F Systolic: 140 Diastolic: 90 Weight: 169 lb Physical Exam Constitutional General appearance: No acute distress, well appearing and well nourished. Eyes Conjunctiva and lids: No swelling, erythema, or discharge. Pupils and irises: Equal, round and reactive to light. Ears, Nose, Mouth, and Throat External inspection of ears and nose: Normal. Otoscopic examination: Tympanic membrane translucent with normal light reflex. Canals patent without erythema. Oropharynx: Abnormal. There was 3+ enlargement and erythema of both tonsils exudate. The posterior pharynx was erythematous and had an exudate. Pulmonary Respiratory effort: No increased work of breathing or signs of respiratory distress. Auscultation of lungs: Clear to auscultation. Cardiovascular Auscultation of heart: Normal rate and rhythm, normal S1 and S2, without murmurs. Lymphatic Palpation of lymph nodes in neck: Abnormal. Bilateral anterior cervical node enlargement. Musculoskeletal Gait and station: Normal. Digits and nails: Normal without clubbing or cyanosis. Psychiatric Orientation to person, place and time: Normal. Mood and affect: Normal. Assessment 1. Acute pharyngitis (462) (J02.9) Plan Acute pharyngitis 1. Amoxicillin 500 MG Oral Capsule; TAKE 1 CAPSULE 3 TIMES DAILY UNTIL GONE 2. Follow-up PRN Outpatient Follow-up Status: Complete Done: 10Aug2015 3. Drink plenty of fluids.; Status:Active; Requested for:10Aug2015; 4. Follow-up if no improvement or if condition worsens; Status:Active; Requested for:10Aug2015; 5. Gargle with warm salt water for 5 minutes every 4 hours.; Status:Active; Requested for:10Aug2015; 6. Good hand washing is one of the best ways to control the spread of germs.; Status:Active; Requested for:10Aug2015; 7. Take steps to prevent passing germs to others.; Status:Active; Requested for:10Aug2015; 8. Call if: The symptoms are not better in 7 days.; Status:Active; Requested for:10Aug2015; Signatures Electronically signed by : KIERAN Sutton; Aug 10 2015 3:44PM SAP BPC ARCHITECT (Author) Electronically signed by : Rahul Villa M.D.; Aug 10 2015 9:32PM SAP BPC ARCHITECT documented in this encounter Plan of Treatment Not on file documented as of this encounter Visit Diagnoses Not on filedocumented in this encounter Care Teams Ore Washer Relationship Specialty Start Date End Date Rahul Villa MD [address] [address] PCP - General 02/17/15 documented as of this encounter
--- OUTSIDE RECORDS SUMMARY | 2024-10-25 13:04 | XMS_ITS | Encounter Summary ---
Author Organization [facility] Address [address] [place] [address]. [place], [place] [address] [place] [address] Care Team Providers Care Ice Cream Server Name Role Phone Rahul Ledesma MD Primary Care Provider Rahul Ledesma MD Primary Care Provider [phone] Rahul Ledesma MD Primary Care Provider [phone] Rahul Ledesma MD Primary Care Provider [phone] Rahul Ledesma MD Primary Care Provider Encounter Details Date Type Department Care Team (Late st Contact Info) Description 11/25/2012 Abstract [facility] [facility] Diagnostic Imaging [address] [address] Rahul Ledesma MD [address] [address] Social History Tobacco Use Types Packs/Day Years Used Date Smoking Tobacco: Never Assessed Sex and Gender Information Value Date Recorded Sex Assigned at Not on file Legal Sex Male 9:06 PM CDT Gender Identity Not on file Sexual Orientation Not on file documented as of this encounter Plan of Treatment Not on file documented as of this encounter Visit Diagnoses Diagnosis Closed fracture of navicular (scaphoid) bone of wrist documented in this encounter Care Teams Ice Cream Server Relationship Specialty Start Date End Date Rahul Ledesma MD [address] [facility] [address] [place] [address] PCP - General 02/17/15 Rahul Ledesma MD [address] [address] PCP - General 07/06/14 02/16/15 Rahul Ledesma MD [address] [address] PCP - General 07/16/13 07/05/14 Rahul Ledesma MD [address] [address] PCP - General 01/09/13 07/15/13 Rahul Ledesma MD [facility] [address] [phone] PCP - General 11/25/12 01/08/13 documented as of this encounter
--- OUTSIDE RECORDS SUMMARY | 2024-10-25 13:04 | XMS_ITS | Encounter Summary ---
Author Organization [facility] - [facility] Address [address] [place] [address]. [place], [place] [address] [place] [address] Care Team Providers Care Health Services Rn Name Role Phone Rahul Ledesma MD Primary Care Provider Rahul Ledesma MD Primary Care Provider Rahul Ledesma MD Primary Care Provider Rahul Ledesma MD Primary Care Provider Encounter Details Date Type Department Care Team (Late st Contact Info) Description 01/09/2013 Abstract [facility] Medical Group Multispecialty Care - [facility] [address] [facility], [address] [place] [phone] Praful Gutierrez MD [address] [facility] [address] [place] [phone] Social History Tobacco Use Types Packs/Day Years Used Date Smoking Tobacco: Never Assessed Sex and Gender Information Value Date Recorded Sex Assigned at Not on file Legal Sex Male 9:06 PM CDT Gender Identity Not on file Sexual Orientation Not on file documented as of this encounter Last Filed Vital Signs Vital Sign Reading Time Taken Comments Blood Pressure 110/76 01/09/2013 8:16 AM CDT Pulse 84 01/09/2013 8:16 AM CDT Temperature - - Respiratory Rate - - Oxygen Saturation - - Inhaled Oxygen Concentration - - Weight 74.8 kg (165 lb) 01/09/2013 8:16 AM CDT Height 182.9 cm (6') 01/09/2013 8:16 AM CDT Body Mass Index 22.38 01/09/2013 8:16 AM CDT documented in this encounter Progress Notes * Praful Gutierrez MD - 01/09/2013 8:15 AM CDT Chief Complaint 1. Wrist Pain Chief Complaint: The patient presents to the office today with wrist pain. He was seen initially six weeks ago with diagnosis of a nondisplaced fracture of the right scaphoidthat was six weeks old at that time. He was placed in a short arm thumb spica cast, which he had onuntil about one week ago. He cut this off on his own since it was full of metal shavings from his occupation. He has gone to a thumb spica brace. He is still having some moderate pain about the wriston the right. On the same fall, he struck his left wrist supporting himself. He is complaining of some swelling and a little discomfort around the volar side of the distal ulna on the left. He states that in the past, he has had a distal radial fracture that required some operative intervention. PHYSICAL EXAMINATION: There is tenderness over the snuff box on the right wrist. Dorsiflexion is 30degrees, palmar flexion 20. He has full pronation and supination. On the opposite left wrist, thereis some swelling around the distal ulnar. It is more ulnarly and volarly. On the distal portion of the flexor carpi ulnaris tendon, there is a little tenderness. By clinical palpation, he has some shortening of the radius on the left with slight ulnar plus variant now. IMAGING: Films of the right wrist taken today with scaphoid views show the scaphoid fracture appears healed. There is no loose line that could be traced through it now. TREATMENT: I think some of the problems and tenderness in the left wrist are from his ulnar plus variant that is post traumatic. On the right wrist, he no longer needs a cast. He can start working onrange of motion. He may want to use his wrist brace during the day at work just for comfort sake, but he should have it off to work on motion at other times. Return in 2-3 weeks for re-exam. KASHIF/YASH/rosalio Job [id number] . Active Problems 1. Closed Fracture Of The Middle Of The Right Scaphoid Bone 814.01 Social History ?? Never A Smoker ?? Never Drank Alcohol Current Meds 1. Hydrocodone-Acetaminophen 5-500 MG Oral Tablet; TAKE 1 TO 2 TABLETS EVERY 4 TO 6 HOURS NEEDED FOR PAIN; Last Rx:[id number] Allergies 1. No Known Drug Allergies Vitals 09Jan2013 08:16AM Heart Rate 84 Respiration 20 Systolic 110 Diastolic 76 BMI Calculated 22.35 BSA Calculated 1.96 Height 6 ft Weight 165 lb Assessment 1. Closed Fracture Of The Middle Of The Right Scaphoid Bone 814.01 Plan 1. Follow-up visit in 3 weeks Outpatient Follow-up Requested for: 09Jan2013 Signatures Electronically signed by : Praful Gutierrez M.D.; Jan 09 2013 5:06PM (Author) Electronically signed by : Praful Gutierrez M.D.; Jan 15 2013 7:21PM (Author) DATION CONSULTANT documented in this encounter Plan of Treatment Not on file documented as of this encounter Visit Diagnoses Not on filedocumented in this encounter Care Teams Health Services Rn Relationship Specialty Start Date End Date Rahul Ledesma MD [address] [phone] PCP - General 02/17/15 Rahul Ledesma MD [facility] [address] [address] PCP - General 07/06/14 02/16/15 Rahul Ledesma MD [address] [address] PCP - General 07/16/13 07/05/14 Rahul Ledesma MD [facility] [address] [phone] PCP - General 01/09/13 07/15/13 documented as of this encounter
--- OUTSIDE RECORDS SUMMARY | 2024-10-25 13:04 | XMS_ITS | Encounter Summary ---
Author Organization [facility] Address [facility]. [place], [place] [address] [place] [address] Care Team Providers Care Statistical Clerk Advertising Name Role Phone Rahul Villa MD Primary Care Provider [phone] Rahul Villa MD Primary Care Provider [phone] Encounter Details Date Type Department Care Team (Latest Contact Info) Description 07/20/2014 Abstract [facility] Medical Group Rahul Villa MD [address] [phone] Social History Tobacco Use Types Packs/Day Years Used Date Smoking Tobacco: Never Assessed Sex and Gender Information Value Date Recorded Sex Assigned at Not on file Legal Sex Male 9:06 PM CDT Gender Identity Not on file Sexual Orientation Not on file documented as of this encounter Last Filed Vital Signs Vital Sign Reading Time Taken Comments Blood Pressure 124/82 07/20/2014 1:59 PM CDT Pulse - - Temperature - - Respiratory Rate - - Oxygen Saturation - - Inhaled Oxygen Concentration - - Weight - - Height - - Body Mass Index - - documented in this encounter Progress Notes * Rahul Villa MD - 07/20/2014 2:00 PM CDT Reason For Visit Reason For Visit: Acute Visit Chief Complaint still c/o back pain also c/o laceration on forehead History of Present Illness Symptoms: localized pain and butterfly x 2 , but no wound bleeding, no bruising, no localized numbness, no wound redness, no wound drainage and no wound dehiscence. The patient is currently experiencing symptoms. The patient is being seen for follow-up of back pain and a lumbar strain. Interval symptoms: denies upper back pain, denies mid back pain, stable lower back pain, improved back stiffness, stable lower extremity pain, denies lower extremity paresthesias and denies lower extremity weakness. Associated symptoms: no incontinence and no urinary retention. Review of Systems Constitutional: Normal. ENT: normal. Cardiovascular: Normal. Respiratory: Normal. Gastrointestinal: Normal. Genitourinary: Normal. Active Problems 1. 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 Back pain (724.5) (M54.9) 3. [...] ?? Never Drank Alcohol Current Meds 1. Cyclobenzaprine HCl - 10 MG Oral Tablet; TAKE 1 TABLET 3 TIMES DAILY; Therapy: 98Vrr1054 to (Evaluate:30Bgg8490); Last Rx:[id number] Ordered Rx By: Rahul Villa; Dispense: 7 Days ; #:20 Tablet; Refill: 0; For: Back pain; ZEKE = N; Record 2. Hydrocodone-Acetaminophen 5-325 MG Oral Tablet ([place]); TAKE 1 TABLET EVERY 4 TO 6 HOURS NEEDED; Therapy: 97Czh7944 to (Evaluate:29Aos6710); Last Rx:[id number] Ordered Rx By: Rahul Villa; Dispense: 5 Days ; #:30 Tablet; Refill: 0; For: Back pain; ZEKE = N; Record 3. Methylphenidate HCl ER 54 MG Oral Tablet Extended Release ([place]); TAKE 1 TABLET ONCE DAILY; Therapy: 04Scd6627 to (Evaluate:26Jul2014); Last Rx:[id number] Ordered Rx By: Faustino Anders; Dispense: 30 Days ; #:30 Tablet Extended Release; Refill: 0; For: Health Maintenance; ZEKE = N; Print Rx Allergies 1. No Known Drug Allergies Recorded By: Kiara Elizondo; 06/05/2012 12:38:50 PM Vitals Vital Signs [Data Includes: Current Encounter] Recorded by : Linda Lee at 20Jul2014 01:59PM Systolic 124 Diastolic 82 Physical Exam Constitutional General appearance: No acute [...] Gait and station: Abnormal. Gait evaluation demonstrated a normal gait. Inspection/palpation of joints, bones, and muscles: Abnormal. Appearance - normal. Palpation - lower mid-lumbar, right lower lumbar and left lower lumbar tenderness. Skin Skin and subcutaneous tissue: Abnormal. Clinical impression:. 3 cm lacl forehead. Assessment 1. Back pain (724.5) (M54.9) 2. Open wound (879.8) (T14.8) Plan Back pain 1. Renew: Cyclobenzaprine HCl - 10 MG Oral Tablet; TAKE 1 TABLET 3 TIMES DAILY Rx By: Rahul Villa; Dispense: 7 Days ; #:20 Tablet; Refill: 0; For: Back pain; ZEKE = N; Verified Transmission to [facility] Last Updated By: Josephine Knight; 07/20/2014 2:19:25 PM Open wound 2. Comply with exercise Status: Complete Done: 20Jul2014 03:08PM Ordered; For: Open wound; Ordered By: Rahul Villa 3. Follow-up if no improvement or if condition worsens Status: Complete Done: 20Jul2014 03:10PM Ordered; For: Open wound; Ordered By: Rahul Villa 4. Gently wash the area with soap and warm water. Dry completely. Status: Complete Done: 20Jul2014 03:08PM Ordered; For: Open wound; Ordered By: Rahul Villa 5. Follow-up visit in 2 weeks Outpatient Follow-up Status: Hold For - Scheduling Requested for: 20Jul2014 Ordered; For: Open wound; Ordered By: Rahul Villa Performed: Due: 03Aug2014 Discussion/Summary facial lac well approx no bleeding. p disc pt wishes to defer suturres. Signatures Electronically signed by : Rahul Villa M.D.; Jul 20 2014 3:10PM AUTO TUNE UP MECHANIC (Author) documented in this encounter Plan of Treatment Not on file documented as of this encounter Visit Diagnoses Not on filedocumented in this encounter Care Teams Statistical Clerk Advertising Relationship Specialty Start Date End Date Rahul Villa MD [address] [phone] PCP - General 02/17/15 Rahul Villa MD [address] [address] PCP - General 07/06/14 02/16/15 documented as of this encounter
--- OUTSIDE RECORDS SUMMARY | 2024-10-25 13:04 | XMS_ITS | Encounter Summary ---
Author Organization [facility] - [facility] Address [address] [place] [address]. [place], [place] [address] [place] [address] Care Team Providers Care Correctional Guard Name Role Phone Rahul Ledesma MD Primary Care Provider [phone] Rahul Ledesma MD Primary Care Provider [phone] Rahul eLdesma MD Primary Care Provider [phone] Encounter Details Date Type Department Care Team (Late st Contact [facility]) Description 07/16/2013 Abstract [facility] Medical Group Multispecialty Care - [address], [address] [place] [phone] Praful Gutierrez MD [address] [place] [phone] Social History Tobacco Use Types Packs/Day Years Used Date Smoking Tobacco: Never Assessed Sex and Gender Information Value Date Recorded Sex Assigned at Not on file Legal Sex Male 9:06 PM CDT Gender Identity Not on file Sexual Orientation Not on file documented as of this encounter Procedure Notes * Praful Gutierrez MD - 07/16/2013 9:50 AM CDT [facility] [address] [id number] Patient: FREDERICK MCDONALD Med Rec#: [id number] Birthdate: 1990 Admit/Svce Date: Disch Date: CHART DOCUMENT PREOPERATIVE DIAGNOSIS: Nonunion, right scaphoid fracture. POSTOPERATIVE DIAGNOSIS: Nonunion, right scaphoid fracture. SURGERY PERFORMED: Internal fixation of right scaphoid nonunion. DATE: 07/16/2013 SURGEON: PRAFUL GUTIERREZ M.D. FOOD PRODUCTS SALES REPRESENTATIVE: LORENZO RODRIGUEZ ANESTHESIOLOGIST: ELTON MEDEIROS MD ANESTHETIC: Tom block and MAC. INDICATIONS: A 23-year-old male who injured his right wrist around the beginning of October 2012 when he landed on his outstretched arm. He had a nondisplaced scaphoid fracture and he was casted from about 6 through 11 weeks after injury. X-rays at that time looked good and the casting was discontinued. He has had continued pain and trouble with the wrist. Recent checkup with MRI was interpreted as nonunion of the fracture and he is brought at this time for internal fixation. The overall position was good. PROCEDURE: A [place] block was placed in the right upper extremity with tourniquet control, and then the right upper extremity was prepared with ChloraPrep from the fingertips up to the tourniquet area and draped with the arm free. When satisfactory anesthesia was obtained, the transverse incision was made over the middle of the right wrist and this was about 2 cm long. This was dissected down between the 3rd and 4th dorsal compartment tendons and the wrist capsule was opened and went down to the scaphoid, and the wrist was then acutely plantar-flexed over a prop and then a small guidewire pin was introduced from the Acumed headless compression set. This was checked with the FluoroScan and found to be a little bit dorsal and a little bit ulnar to where I wanted it so another pin actually was put in using the parallel pin guide and that was more in line with where I wanted it to be. This was measured to the distal cortex and that was about 26 mm and then we drove it through the dorsal cortex and more toward the trapezium and decided to use a 22 mm screw. The long drill was drilled a little past 22 mm, maybe 24 mm, and then the Acumed-2 mini-compression screw was put in. This was checked on C-arm after it had been just put below the proximal cortex and it looked like we could advance it distally so that was put in several more turns. Then it was centered better in the bone. Fracture line was not really visible after this. It had compressed well. At this point, all the guide pins were removed. Irrigation was done. Closure was done of the synovium and wrist capsule with a running 2-0 Vicryl suture. The retinaculum was closed with 2-0 Vicryl suture and the subcutaneous with the same. Skin was closed with a running 3-0 Vicryl subcuticular stitch and then Steri-Strips. About 10 mL of 0.25% Marcaine with epinephrine was injected in the operative area. Xeroform gauze and 4 x 4's were placed. He was then put in a short-arm thumb spica splint with the thumb apposed to the index finger. Tourniquet had been released just as the splint was being put on. He was then transferred to the recovery area. COMPLICATIONS: None. Condition at the end of the operation good. Electronically Signed By: PRAFUL GUTIERREZ M.D. 07/27/2013 08:40 PRAFUL GUTIERREZ M.D. A #[id number] P/ma cc: Mague CANTRELL M.D. A CLERK documented in this encounter Plan of Treatment Not on file documented as of this encounter Visit Diagnoses Not on filedocumented in this encounter Care Teams Correctional Guard Relationship Specialty Start Date End Date Rahul Ledesma MD [address] [address] PCP - General 02/17/15 Rahul Ledesma MD [address] [phone] PCP - General 07/06/14 02/16/15 Rahul Ledesma MD [address] [phone] PCP - General 07/16/13 07/05/14 documented as of this encounter
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
--- OUTSIDE RECORDS SUMMARY | 2024-10-25 13:04 | XMS_ITS | Encounter Summary ---
Author Organization [facility] Address [address] [place] [address]. [place], [place] [address] [place] [address] Care Team Providers Care Police Officer Name Role Phone Rahul Ledesma MD Primary Care Provider Rahul Ledesma MD Primary Care Provider Rahul Ledesma MD Primary Care Provider Rahul Ledesma MD Primary Care Provider Rahul Ledesma MD Primary Care Provider Rahul Ledesma MD Primary Care Provider Encounter Details Date Type Department Care Team (Late st Contact Info) Description 10/19/[address] [facility] [address] [place] [address] Tamara Grady, PLAYGROUND OFFICIAL [address] [facility] [address] [place] [address] Social History Tobacco Use Types Packs/Day Years Used Date Smoking Tobacco: Never Assessed Sex and Gender Information Value Date Recorded Sex Assigned at Not on file Legal Sex Male 9:06 PM CDT Gender Identity Not on file Sexual Orientation Not on file documented as of this encounter Plan of Treatment Not on file documented as of this encounter Visit Diagnoses Diagnosis Sprain of wrist Sprain of wrist, unspecified site documented in this encounter Care Teams Police Officer Relationship Specialty Start Date End Date Rahul Ledesma MD [address] [phone] PCP - General 02/17/15 Rahul Ledesma MD [address] [address] PCP - General 07/06/14 02/16/15 Rahul Ledesma MD [address] [phone] PCP - General 07/16/13 07/05/14 Rahul Ledesma MD [address] [phone] PCP - General 01/09/13 07/15/13 Rahul Ledesma MD [address] [phone] PCP - General 11/25/12 01/08/13 Rahul Ledesma MD [address] [address] PCP - General 10/19/12 11/24/12 documented as of this encounter
--- OUTSIDE RECORDS SUMMARY | 2024-10-25 13:04 | XMS_ITS | Encounter Summary ---
Author Organization [facility] Address [facility]. [place], [place] [address] [place] [address] Care Team Providers Care Pin Ball Machine Mechanic Name Role Phone Rahul Villa MD Primary Care Provider [phone] Encounter Details Date Type Department Care Team (Latest Contact Info) Description 10/13/2015 Abstract [facility] Medical Group Rahul Villa MD [address] [phone] Social History Tobacco Use Types Packs/Day Years Used Date Smoking Tobacco: Never Assessed Sex and Gender Information Value Date Recorded Sex Assigned at Not on file Legal Sex Male 9:06 PM CDT Gender Identity Not on file Sexual Orientation Not on file documented as of this encounter Last Filed Vital Signs Vital Sign Reading Time Taken Comments Blood Pressure 128/82 10/13/2015 11:18 AM DYNAMICS AX TECHNICAL ARCHITECT Pulse - - Temperature - - Respiratory Rate - - Oxygen Saturation - - Inhaled Oxygen Concentration - - Weight 76.7 kg (169 lb) 10/13/2015 11:18 AM DYNAMICS AX TECHNICAL ARCHITECT Height - - Body Mass Index 23.24 07/22/2013 10:40 AM CDT documented in this encounter Progress Notes * Rahul Villa MD - 10/13/2015 11:15 AM CST Reason For Visit Reason For Visit: Acute Visit Chief Complaint Recurring sore throat History of Present Illness Pharyngitis: Dat Spivey is being seen for pharyngitis Current symptoms: sore throat and dysphagia, no headache, no myalgias, no nausea and no vomiting. Exacerbating factors: not exacerbated by swallowing liquids. Review of Systems Constitutional: no chills. Cardiovascular: no chest pain. Respiratory: no shortness of breath. Gastrointestinal: no abdominal pain. Genitourinary: no dysuria. Integumentary: no skin lesions. Musculoskeletal: no arthralgias. Neurological: no confusion. Psychiatric: no anxiety. Active Problems 1. Acute pharyngitis (462) (J02.9) [...] Never Drank Alcohol Immunizations Influenza --- Series1: [id number] Tdap --- Series1: 2013 Current Meds 1. Amphetamine-Dextroamphetamine 30 MG Oral Tablet; Take 1 tablet twice daily; Therapy: 27Hwn2286 to (Evaluate:52Csn0705); Last Rx:[id number] Ordered Rx By: Rahul Villa; Dispense: 30 Days ; #:60 Tablet; Refill: 0; For: ADHD, predominantly inattentive type; ZEKE = N; Print Rx Allergies 1. No Known Drug Allergies Recorded By: Kiara Elizondo; 06/05/2012 12:38:50 PM Vitals Recorded: 26Cvf2319 11:18AM Temperature 98 F Systolic 128 Diastolic 82 Weight 169 lb Physical Exam Constitutional General appearance: No acute distress, well appearing and well nourished. Eyes Conjunctiva and lids: No swelling, erythema, or discharge. Ears, Nose, Mouth, and Throat Otoscopic examination: Tympanic membrane translucent with normal light reflex. Canals patent without erythema. Oropharynx: Abnormal. There was enlargement of both tonsils. The posterior pharynx was erythematousand had an exudate. Pulmonary Auscultation of lungs: Clear to auscultation. Cardiovascular Auscultation of heart: Normal rate and rhythm, normal S1 and S2, without murmurs. Abdomen Abdomen: Non-tender, no masses. Musculoskeletal Gait and station: Normal. Psychiatric Mood and affect: Normal. Results/Data *BFMA - Rapid Strep In Office 32Sts7179 11:47AM Rahul Villa Test Name Result Flag Reference *BFMA - Rapid Strees In Office Negative Assessment 1. Acute pharyngitis (462) (J02.9) Plan Acute pharyngitis 1. Fluticasone Propionate 50 MCG/ACT Nasal Suspension; USE 1 TO 2 SPRAYS IN EACH NOSTRIL ONCE DAILY Rx By: Rahul Villa; Dispense: 0 Days ; #:1 X 16 GM Bottle; Refill: 6; For: Acute pharyngitis; ZEKE = N; Sent To: [facility] 2. Comply with suggestions for healthy lifestyle; Status:Complete; Done: 28Wcm0862 11:54AM Ordered; For:Acute pharyngitis; Ordered By:Rahul Villa; 3. Over the Counter Symptomatic Relief Medications; Status:Complete; Done: 68Yxc5979 11:54AM Ordered; For:Acute pharyngitis; Ordered By:Rahul Villa; 4. Follow-up visit in 1 month Outpatient Follow-up Status: Hold For - Scheduling Requested for: [id number] Ordered; For: Acute pharyngitis; Ordered By: Rahul Villa Performed: Due: 27Oct2015 5. *BFMA - Rapid Strep In Office; Status:Resulted - Requires Verification; Done: 59Mmq9086 11:47AM Performed:In Office; Due:12Nov2015; Last Updated By:Marixa Pepper; 10/13/2015 11:47:46 AM;Ordered; For:Acute pharyngitis; Ordered By:Rahul Villa; Signatures Electronically signed by : Rahul Villa M.D.; Oct 13 2015 11:54AM DYNAMICS AX TECHNICAL ARCHITECT (Author) documented in this encounter Plan of Treatment Not on file documented as of this encounter Procedures Procedure Name Priority Date/Time Associated Diagnosis Comments STREP A RAPID Routine 10/13/2015 11:47 AM DYNAMICS AX TECHNICAL ARCHITECT documented in this encounter Results * STREP A RAPID (10/13/2015 11:47 AM DYNAMICS AX TECHNICAL ARCHITECT) RAPID STREP TEST Negative [facility] TO EPIC CONVERSION 10/13/2015 11:4 7 AM DYNAMICS AX TECHNICAL ARCHITECT 10/13/2015 11:47 AM DYNAMICS AX TECHNICAL ARCHITECT Narrative [facility] TO EPIC CONVERSION - 10/13/2015 11:47 AM DYNAMICS AX TECHNICAL ARCHITECT Result Communication: No patient communication needed at this time us Rahul Villa MD MICROBIOLOGY - GENERAL RONAN EM Final Result [facility] TO EPIC CONVERSION documented in this encounter Visit Diagnoses Not on filedocumented in this encounter Care Teams Pin Ball Machine Mechanic Relationship Specialty Start Date End Date Rahul Villa MD [address] [facility] [address] [place] [address] PCP - General 02/17/15 documented as of this encounter
--- OUTSIDE RECORDS SUMMARY | 2024-10-25 13:04 | XMS_ITS | Encounter Summary ---
Author Organization [facility] Address [address] [place] [address]. [place], [place] [address] [place] [address] Care Team Providers Care Panelbeater Name Role Phone Rahul Ledesma MD Primary Care Provider Rahul Ledesma MD Primary Care Provider Rahul Ledesma MD Primary Care Provider Rahul Ledesma MD Primary Care Provider [phone] Encounter Details Date Type Department Care Team (Late st Contact Info) Description 01/09/2013 Abstract [facility] Diagnostic Imaging [address] [address] Libby Bush MD Social History Tobacco Use [...] as of this encounter Visit Diagnoses Diagnosis Other orthopedic aftercare(V54.89) Other orthopedic aftercare documented in this encounter Care Teams Panelbeater Relationship Specialty Start Date End Date Rahul Ledesma MD [address] [address] PCP - General 02/17/15 Rahul Ledesma MD [address] [phone] PCP - General 07/06/14 02/16/15 Rahul Ledesma MD [address] [address] PCP - General 07/16/13 07/05/14 Rahul Ledesma MD [address] [address] PCP - General 01/09/13 07/15/13 documented as of this encounter
--- OUTSIDE RECORDS SUMMARY | 2024-10-25 13:04 | XMS_ITS | Encounter Summary ---
Author Organization [facility] Address [address] [place] [address]. [place], [place] [address] [place] [address] Care Team Providers Care Bowl Attendant Name Role Phone Rahul Ledesma MD Primary Care Provider Rahul Ledesma MD Primary Care Provider Rahul Ledesma MD Primary Care Provider Rahul Ledesma MD Primary Care Provider Rahul Ledesma MD Primary Care Provider Rahul Ledesma MD Primary Care Provider Rahul Ledesma MD Primary Care Provider Encounter Details Date Type Department Care Team (Late st Contact Info) Description 09/10/[address] [facility] Bl Diagnostic Imaging [address] [place] [address] Rahul Ledesma MD [address] [phone] Social History Tobacco Use Types Packs/Day Years Used Date Smoking Tobacco: Never Assessed Sex and Gender Information Value Date Recorded Sex Assigned at Not on file Legal Sex Male 9:06 PM CDT Gender Identity Not on file Sexual Orientation Not on file documented as of this encounter Plan of Treatment Not on file documented as of this encounter Visit Diagnoses Diagnosis Chest pain Chest pain, unspecified documented in this encounter Care Teams Bowl Attendant Relationship Specialty Start Date End Date Rahul Ledesma MD [address] [phone] PCP - General 02/17/15 Rahul Ledesma MD [address] [address] PCP - General 07/06/14 02/16/15 Rahul Ledesma MD [address] [address] PCP - General 07/16/13 07/05/14 Rahul Ledesma MD [address] [phone] PCP - General 01/09/13 07/15/13 Rahul Ledesma MD [address] [address] PCP - General 11/25/12 01/08/13 Rahul Ledesma MD [address] [address] PCP - General 10/19/12 11/24/12 Rahul Ledesma MD [address] [address] PCP - General 09/10/12 10/18/12 documented as of this encounter
--- OUTSIDE RECORDS SUMMARY | 2024-10-25 13:04 | XMS_ITS | Encounter Summary ---
Author Organization [facility] Address [address] [place] [address]. [place], [place] [address] [place] [address] Care Team Providers Care Coremaking Supervisor Name Role Phone Rahul Villa MD Primary Care Provider [phone] Rahul Villa MD Primary Care Provider Rahul Villa MD Primary Care Provider Rahul Villa MD Primary Care Provider Encounter Details Date Type Department Care Team (Latest Contact Info) Description 06/11/2013 Abstract [facility] Medical Group Rahul Villa MD [address] [address] Social History Tobacco Use Types Packs/Day Years Used Date Smoking Tobacco: Never Assessed Sex and Gender Information Value Date Recorded Sex Assigned at Not on file Legal Sex Male 9:06 PM CDT Gender Identity Not on file Sexual Orientation Not on file documented as of this encounter Last Filed Vital Signs Vital Sign Reading Time Taken Comments Blood Pressure 118/60 06/11/2013 2:52 PM CDT Pulse - - Temperature - - Respiratory Rate - - Oxygen Saturation - - Inhaled Oxygen Concentration - - Weight 76.7 kg (169 lb) 06/11/2013 2:52 PM CDT Height 181.6 cm (5' 11.5 ) 06/11/2013 2:52 PM CD T Body Mass Index 23.24 06/11/2013 2:52 PM CDT documented in this encounter Progress Notes * Rahul Villa MD - 06/11/2013 2:30 PM CDT Reason For Visit Reason For Visit: Acute Visit, Other: Discuss pain tonhand from past fracture Chief Complaint 1. Hand Problem History of Present Illness Wrist Sprain/Strain (Brief): Symptoms: wrist pain, wrist stiffness, wrist swelling and decreased range of motion at the wrist, but no wrist bruising, no hand numbness and no hand weakness. Pertinent medical history: previous wrist fracture. Review of Systems Focused-Male: Constitutional: Normal. ENT: normal. Cardiovascular: Normal. Respiratory: Normal. Gastrointestinal: Normal. Active Problems 1. Closed Fracture Of The Middle Of The Right Scaphoid Bone 814.01 Past Medical History 1. History of Concussion V15.52 x 2-3 Surgical History 1. History of Treatment Of Wrist Fracture ORIF, left Family History 1. Paternal history of Recovering Alcoholic Social History ?? Never A Smoker ?? Never Drank Alcohol Current Meds 1. Meloxicam 15 MG Oral Tablet; TAKE 1 TABLET DAILY; Therapy: 81Kll0399 to (Evaluate:68Ecm7776) Requested for: [id number]; Last Rx:[id number] Ordered; For: Closed Fracture Of The Middle Of The Right Scaphoid Bone (814.01); Rx By: Rahul Villa; Dispense: 30 Days ; #:30 Tablet; Refill: 0; Verified Transmission to [facility] 2. Methylphenidate HCl ER 54 MG Oral Tablet Extended Release; TAKE 1 TABLET ONCE DAILY; Therapy: 15Igf5939 to (Evaluate:24Ldt1150); Last Rx:[id number] Ordered; For: Health Maintenance (V70.0); Rx By: Rahul Villa; Dispense: 30 Days ; #:30 Tablet Extended Release; Refill: 0; Print Rx Allergies 1. No Known Drug Allergies No Known Drug Allergies Vitals Vital Signs [Data Includes: Current Encounter] 60Crz1433 02:52PM Systolic 118 Diastolic 60 BMI Calculated 23.14 BSA Calculated 1.98 Height 5 ft 11.5 in Weight 169 lb Physical Exam Constitutional General appearance: No acute distress, well appearing and well nourished. Ears, Nose, Mouth, and Throat Oropharynx: Normal with no erythema, edema, exudate or lesions. Pulmonary Auscultation of lungs: Clear to auscultation. Abdomen Abdomen: Non-tender, no masses. Musculoskeletal Gait and station: Normal. Inspection/palpation of joints, bones, and muscles: Abnormal. Appearance - normal. Palpation - right wrist tenderness. Assessment 1. Wrist Sprain 842.00 2. Closed Fracture Of The Middle Of The Right Scaphoid Bone 814.01 Plan 1. MRI Wrist W/O Rt Requested for: [id number] Ordered; For: Closed Fracture Of The Middle Of The Right Scaphoid Bone (814.01); Ordered By: Rahul Villa Perform: Other Radiology Due: [id number] Signatures Electronically signed by : Rahul Villa M.D.; Jun 11 2013 3:12PM (Author) URE ANALYSIS ENGINEER documented in this encounter Plan of Treatment Not on file documented as of this encounter Visit Diagnoses Not on filedocumented in this encounter Care Teams Coremaking Supervisor Relationship Specialty Start Date End Date Rahul Villa MD [address] [place] [phone] PCP - General 02/17/15 Rahul Villa MD [address] [place] [phone] PCP - General 07/06/14 02/16/15 Rahul Villa MD [facility] [address] [address] PCP - General 07/16/13 07/05/14 Rahul Villa MD [facility] [address] [phone] PCP - General 01/09/13 07/15/13 documented as of this encounter
--- OUTSIDE RECORDS SUMMARY | 2024-10-25 13:04 | XMS_ITS | Encounter Summary ---
Author Organization [facility] Address [address] [place] [address]. [place], [place] [address] [place] [address] Care Team Providers Care Basting Puller Name Role Phone Rahul Ledesma MD Primary Care Provider [phone] Rahul Ledesma MD Primary Care Provider [phone] Encounter Details Date Type Department Care Team (Late st Contact Info) Description 07/06/2014 Abstract [facility] [employer] [facility] Bl Diagnostic Imaging [address] [place] [address] Rahul Ledesma MD [address] [address] Social History Tobacco Use Types [...] unspecified documented in this encounter Care Teams Basting Puller Relationship Specialty Start Date End Date Rhaul Ledesma MD [address] [address] PCP - General 02/17/15 Rahul Ledesma MD [address] [phone] PCP - General 07/06/14 02/16/15 documented as of this encounter
--- OUTSIDE RECORDS SUMMARY | 2024-10-25 13:04 | XMS_ITS | Encounter Summary ---
Author Organization [facility] Address [address] [place] [address]. [place], [place] [address] [place] [address] Care Team Providers Care Veneer Slicing Machine Operator Name Role Phone Rahul Villa MD Primary Care Provider [phone] Rahul Villa MD Primary Care Provider [phone] Encounter Details Date Type Department Care Team (Latest Contact Info) Description 09/07/2014 Abstract [facility] Medical Group Rahul Villa MD [address] [phone] Social History Tobacco Use Types Packs/Day Years Used Date Smoking Tobacco: Never Assessed Sex and Gender Information Value Date Recorded Sex Assigned at Not on file Legal Sex Male 9:06 PM CDT Gender Identity Not on file Sexual Orientation Not on file documented as of this encounter Last Filed Vital Signs Vital Sign Reading Time Taken Comments Blood Pressure 116/78 09/07/2014 11:10 AM MARKETING PROGRAM MANAGER Pulse - - Temperature - - Respiratory Rate - - Oxygen Saturation - - Inhaled Oxygen Concentration - - Weight 77.1 kg (170 lb) 09/07/2014 11:10 AM MARKETING PROGRAM MANAGER Height - - Body Mass Index 23.38 07/22/2013 10:40 AM CDT documented in this encounter Progress Notes * Rahul Villa MD - 09/07/2014 11:30 AM CST Reason For Visit Acute Follow-Up Visit Chief Complaint 1. Back Pain MRI RESULTS, STILL HAVING LBP History of Present Illness The patient is being seen for follow-up of back pain and a lumbar strain. Interval symptoms: denies upper back pain, denies mid back pain, improved lower back pain, improvedback stiffness, denies buttock pain, denies lower extremity pain, denies lower extremity paresthesias and denies lower extremity weakness. Associated symptoms: no incontinence and no urinary retention. Review of Systems Constitutional: Normal. Cardiovascular: Normal. Respiratory: Normal. Gastrointestinal: Normal. Genitourinary: Normal. Integumentary: Normal. Active Problems 1. ADHD, predominantly inattentive [...] (Concerta); TAKE 1 TABLET ONCE DAILY; Therapy: 05Gae1338 to (Evaluate:71Bvo1964); Last Rx:24Aug2014 Ordered Allergies 1. No Known Drug Allergies Immunizations Tdap --- Series1: 2012 Vitals Recorded by : Le Santo at 07Sep2014 11:10AM Systolic 116 Diastolic 78 Weight 170 lb Physical Exam Constitutional General appearance: No [...] Musculoskeletal Lumbosacral Spine: Appearance: Normal . Palpation/Tenderness: left paraspinal at level and right paraspinal at level all lumbar. Palpatory Findings include no bilateral muscle spasms. Flexion was restricted. Extension was not restricted. Left lateral flexion was not restricted. Right lateral flexion was not restricted. Rotation to the left was restricted. Rotation to the right was restricted. Strength Testing: Normal . Neurologic Sensation: No sensory loss. Psychiatric Mood and affect: Normal. Assessment 1. Back pain (724.5) (M54.9) Plan Back pain 1. Comply with exercise Status: Complete Done: 07Sep2014 11:51AM Ordered; For: Back pain; Ordered By: Rahul Villa 2. Follow-up if no improvement or if condition worsens Status: Complete Done: 07Sep2014 11:51AM Ordered; For: Back pain; Ordered By: Rahul Villa 3. Over the Counter Symptomatic Relief Medications Status: Complete Done: 07Sep2014 11:51AM Ordered; For: Back pain; Ordered By: Rahul Villa 4. Administered: Fluzone Intramuscular Injectable For: Back pain; Ordered By:Rahul Villa; Effective Date:07Sep2014; Administered by: Le Santo: 09/07/2014 11:33:00 AM; Last Updated By: Le Santo; 09/07/2014 11:33:12 AM defers pt. Signatures Electronically signed by : Rahul Villa M.D.; Sep 07 2014 11:51AM MARKETING PROGRAM MANAGER (Author) documented in this encounter Plan of Treatment Not on file documented as of this encounter Visit Diagnoses Not on filedocumented in this encounter Care Teams Veneer Slicing Machine Operator Relationship Specialty Start Date End Date Rahul Villa MD [address] [address] PCP - General 02/17/15 Rahul Villa MD [address] [address] PCP - General 07/06/14 02/16/15 documented as of this encounter
--- OUTSIDE RECORDS SUMMARY | 2024-10-25 13:04 | XMS_ITS | Encounter Summary ---
Author Organization [facility] - [facility] Address [facility]. [place], [place] [address] [place] [address] Care Team Providers Care Hydroelectric Plant Operator Name Role Phone Rahul Ledesma MD Primary Care Provider Rahul Ledesma MD Primary Care Provider [phone] Rahul Ledesma MD Primary Care Provider Rahul Ledesma MD Primary Care Provider Encounter Details Date Type Department Care Team (Late st Contact Info) Description 07/11/2013 Abstract [facility] Medical Group Multispecialty Care - [facility], [address] [place] [phone] Praful Gutierrez MD [address] [facility] [address] [place] [phone] Social History Tobacco Use Types Packs/Day Years Used Date Smoking Tobacco: Never Assessed Sex and Gender Information Value Date Recorded Sex Assigned at Not on file Legal Sex Male 9:06 PM CDT Gender Identity Not on file Sexual Orientation Not on file documented as of this encounter H&P Notes * Praful Gutierrez MD - 07/11/2013 8:00 AM CDT Chief Complaint 1. Wrist Pain History of Present Illness Pre-Op Visit (Brief): The patient is being seen for He is seen today for preoperative exam for internal fixation of his right scaphoid delayed union. The risks and possible complications including any anesthetic risk, infection, incomplete healing of this fracture, need for prolonged cast were discussed and he wished to proceed. Surgery is scheduled for July 16, 2013 in the morning. He will return the week of July 21, for postoperative visit. ELFEGO/YASH/belkis Job [id number] . Surgical Risk Assessment: Past Medical History 1. History of Concussion V15.52 x 2-3 Surgical History 1. History of Treatment Of Wrist Fracture ORIF, left Family History 1. Paternal history of Recovering Alcoholic Social History ?? Never A Smoker ?? Never Drank Alcohol Allergies 1. No Known Drug Allergies Current Meds 1. Meloxicam 15 MG Oral Tablet; TAKE 1 TABLET DAILY NEEDED; Therapy: 82Xao7890 to (Evaluate:24Oct2013) Requested for: 90Phd6567; Last Rx:[id number] 2. Methylphenidate HCl ER 54 MG Oral Tablet Extended Release; TAKE 1 TABLET ONCE DAILY; Therapy: 48Ajl2246 to (Evaluate:26Jul2013); Last Rx:[id number] Signatures Electronically signed by : Praful Gutierrez M.D.; Jul 24 2013 8:19PM (Author) ROLLER ENGRAVER documented in this encounter Plan of Treatment Not on file documented as of this encounter Visit Diagnoses Not on filedocumented in this encounter Care Teams Hydroelectric Plant Operator Relationship Specialty Start Date End Date Rahul Ledesma MD [address] [address] PCP - General 02/17/15 Rahul Ledesma MD [address] [phone] PCP - General 07/06/14 02/16/15 Rahul Ledesma MD [address] [phone] PCP - General 07/16/13 07/05/14 Rahul Ledesma MD [address] [phone] PCP - General 01/09/13 07/15/13 documented as of this encounter
--- OUTSIDE RECORDS SUMMARY | 2024-10-25 13:04 | XMS_ITS | Encounter Summary ---
Author Organization [facility] - [facility] Address [address] [place] [address]. [place], [place] [address] [place] [address] Care Team Providers Care Global Coordinator Name Role Phone Rahul Ledesma MD Primary Care Provider [phone] Rahul Ledesma MD Primary Care Provider [phone] Rahul Ledesam MD Primary Care Provider [phone] Rahul Ledesma MD Primary Care Provider Encounter Details Date Type Department Care Team (Late st Contact Info) Description 01/30/2013 Abstract [facility] Medical Group Multispecialty Care - [facility] 3 [facility], [address] [place] [phone] Praful Gutierrez MD [address] [facility] [address] [place] [phone] Social History Tobacco Use Types Packs/Day Years Used Date Smoking Tobacco: Never Assessed Sex and Gender Information Value Date Recorded Sex Assigned at Not on file Legal Sex Male 9:06 PM CDT Gender Identity Not on file Sexual Orientation Not on file documented as of this encounter Last Filed Vital Signs Vital Sign Reading Time Taken Comments Blood Pressure 112/64 01/30/2013 8:17 AM CDT Pulse 72 01/30/2013 8:17 AM CDT Temperature - - Respiratory Rate - - Oxygen Saturation - - Inhaled Oxygen Concentration - - Weight 74.8 kg (165 lb) 01/30/2013 8:17 AM CDT Height 182.9 cm (6') 01/30/2013 8:17 AM CDT Body Mass Index 22.38 01/30/2013 8:17 AM CDT documented in this encounter Progress Notes * Praful Gutierrez MD - 01/30/2013 7:45 AM CDT Chief Complaint 1. Wrist Pain Chief Complaint: The patient presents to the office today with wrist pain. He had a nondisplaced scaphoid fracture on the right, and it is about 3-1/2 months old now. He cameout of the cast 3 weeks ago. He is able to use it better but there is definite pain on a daily basis in that wrist. He does not notice much swelling however. Conversely, the tenderness around the distal ulna on the left wrist is decreasing some. PHYSICAL EXAMINATION: There is no swelling about the right wrist. Dorsiflexion is 50 degrees, palmar flexion 65. He has full pronation and supination. There is still some tenderness over the snuffbox, but very little over the volar pole of the scaphoid. He cannot support his weight on his outstretched arms due to right wrist pain. Trailer Mechanic strength is probably about 50% of normal. He was prescribed Mobic 15 mg daily #20 for further motion, will see if the symptoms calm down. Return 3 weeks. ELFEGO/YASH/belkis Job [id number] . Active Problems 1. Closed Fracture Of The Middle Of The Right Scaphoid Bone 814.01 Social History ?? Never A Smoker ?? Never Drank Alcohol Current Meds 1. Hydrocodone-Acetaminophen 5-500 MG Oral Tablet; TAKE 1 TO 2 TABLETS EVERY 4 TO 6 HOURS NEEDED FOR PAIN; Last Rx:[id number] Allergies 1. No Known Drug Allergies Vitals 30Jan2013 08:17AM Heart Rate 72 Respiration 20 Systolic 112 Diastolic 64 BMI Calculated 22.35 BSA Calculated 1.96 Height 6 ft Weight 165 lb Assessment 1. Closed Fracture Of The Middle Of The Right Scaphoid Bone 814.01 Plan 1. Meloxicam 15 MG Oral Tablet; TAKE 1 TABLET DAILY; Therapy: 55Nxz4239 to (Evaluate:54Ddo2659) Requested for: 30Jan2013; Last Rx:30Jan2013; Edited 2. Follow-up visit in 3 weeks Outpatient Follow-up Requested for: 30Jan2013 Signatures Electronically signed by : Praful Gutierrez M.D.; Jan 30 2013 8:33PM (Author) Electronically signed by : Praful Gutierrez M.D.; Feb 04 2013 11:06PM (Author) TENER documented in this encounter Plan of Treatment Not on file documented as of this encounter Visit Diagnoses Not on filedocumented in this encounter Care Teams Global Coordinator Relationship Specialty Start Date End Date Rahul Ledesma MD [address] [phone] PCP - General 02/17/15 Rahul Ledesma MD [address] [phone] PCP - General 07/06/14 02/16/15 Rahul Ledesma MD [address] [phone] PCP - General 07/16/13 07/05/14 Rahul Ledesma MD [address] [phone] PCP - General 01/09/13 07/15/13 documented as of this encounter
--- OUTSIDE RECORDS SUMMARY | 2024-10-25 13:04 | XMS_ITS | Encounter Summary ---
Author Organization [facility] - [facility] Address [address] [place] [address]. [place], [place] [address] [place] [address] Care Team Providers Care Glass Block Bender Name Role Phone Rahul Ledesma MD Primary Care Provider Rahul Ledesma MD Primary Care Provider Rahul Ledesma MD Primary Care Provider Rahul Ledesma MD Primary Care Provider Rahul Ledesma MD Primary Care Provider Encounter Details Date Type Department Care Team (Late st Contact Info) Description 11/28/2012 Abstract [facility] Medical Group Multispecialty Care - [address], [address] [place] [address] Praful Gutierrez MD [address] [facility] [address] [place] [address] Social History Tobacco Use Types Packs/Day Years Used Date Smoking Tobacco: Never Assessed Sex and Gender Information Value Date Recorded Sex Assigned at Not on file Legal Sex Male 9:06 PM CDT Gender Identity Not on file Sexual Orientation Not on file documented as of this encounter Last Filed Vital Signs Vital Sign Reading Time Taken Comments Blood Pressure 112/68 11/28/2012 8:[address] PATROL OFFICER Pulse 68 11/28/2012 8:[address] PATROL OFFICER Temperature - - Respiratory Rate - - Oxygen Saturation - - Inhaled Oxygen Concentration - - Weight 74.8 kg (165 lb) 11/28/2012 8:[address] PATROL OFFICER Height 182.9 cm (6') 11/28/2012 8:[address] PATROL OFFICER Body Mass Index 22.38 11/28/2012 8:[address] PATROL OFFICER documented in this encounter Progress Notes * Praful Gutierrez MD - 11/28/2012 8:00 AM CST Chief Complaint 1. Wrist Pain History of Present Illness This 22-year-old gentleman is sent by about a new problem. About 6 weeks ago he fell landing on his outstretched right arm. He was seen at the urgent care on October 19, 2012. X-rays of theright wrist were negative at that time. He continued to have pain. On reevaluation recently a new x-ray showed a scaphoid fracture on the right through the midportion with no displacement. He is now referred for further care. He is right-hand dominant. This is aching most of the time and does keep him awake sometimes at nighttime. He is using Vicodin. Exam: There is no obvious swelling in the wrist. Dorsiflexion on the right is 25deg. Palmar flexionis 40. He has full pronation and supination. There is tenderness over the anatomic snuffbox. Imaging: X-rays of the right wrist multiple views from [facility] on October 19, 2012 appear normal. Repeat films of the right wrist from the same location on November 25, 2012 show a nondisplaced fracture through the midportion of the right scaphoid. The radiologist suggests a possible aseptic necrosis of the proximal fragment, but this appears normal to my viewing. Diagnosis: Nondisplaced fracture right scaphoid waist, 6 weeks old. Treatment: He is placed in a short arm thumb spica cast. He has Vicodin to use as needed. Return in6 weeks. At that time he'll have cast off, reexam and scaphoid films of the right wrist out of the cast. Active Problems 1. Closed Fracture Of The Middle Of The Right Scaphoid Bone 814.01 Social History ?? Never A Smoker ?? Never Drank Alcohol Current Meds 1. Vicodin 5-500 MG TABS; Therapy: (Recorded:09Pfe0105) to Allergies 1. No Known Drug Allergies Vitals 39Xtc1094 08:10AM Heart Rate 68 Respiration 16 Systolic 112 Diastolic 68 BMI Calculated 22.35 BSA Calculated 1.96 Height 6 ft Weight 165 lb Assessment 1. Closed Fracture Of The Middle Of The Right Scaphoid Bone 814.01 Plan 1. Follow-up visit in 6 weeks Outpatient Follow-up Requested for: [id number] Signatures Electronically signed by : Praful Gutierrez M.D.; Nov 28 2012 9:27AM (Author) WAY PATROL OFFICER documented in this encounter Plan of Treatment Not on file documented as of this encounter Visit Diagnoses Not on filedocumented in this encounter Care Teams Glass Block Bender Relationship Specialty Start Date End Date Rahul Ledesma MD [address] [phone] PCP - General 02/17/15 Rahul Ledesma MD [address] [phone] PCP - General 07/06/14 02/16/15 Rahul Ledesma MD [address] [phone] PCP - General 07/16/13 07/05/14 Rahul Ledesma MD [address] [address] PCP - General 01/09/13 07/15/13 Rahul Ledesma MD [address] [address] PCP - General 11/25/12 01/08/13 documented as of this encounter
--- OUTSIDE RECORDS SUMMARY | 2024-10-25 13:04 | XMS_ITS | Encounter Summary ---
Author Organization [facility] - [facility] Address [address] [place] [address]. [place], [place] [address] [place] [address] Care Team Providers Care Computer Repair Technician Name Role Phone Rahul Ledesma MD Primary Care Provider Rahul Ledesma MD Primary Care Provider Rahul Ledesma MD Primary Care Provider Rahul Ledesma MD Primary Care Provider Encounter Details Date Type Department Care Team (Late st Contact Info) Description 06/20/2013 Abstract [facility] Medical Group Multispecialty Care - [facility] [address] [facility], [address] [place] [phone] Praful Gutierrez MD [address] [facility] [address] [place] [phone] Social History Tobacco Use Types Packs/Day Years Used Date Smoking Tobacco: Never Assessed Sex and Gender Information Value Date Recorded Sex Assigned at Not on file Legal Sex Male 9:06 PM CDT Gender Identity Not on file Sexual Orientation Not on file documented as of this encounter Last Filed Vital Signs Vital Sign Reading Time Taken Comments Blood Pressure 124/80 06/20/2013 12:03 PM CDT Pulse 76 06/20/2013 12:03 PM CDT Temperature - - Respiratory Rate - - Oxygen Saturation - - Inhaled Oxygen Concentration - - Weight - - Height - - Body Mass Index - - documented in this encounter Progress Notes * Praful Gutierrez MD - 06/20/2013 11:30 AM CDT Reason For Visit Acute Follow-Up Visit Chief Complaint 1. Wrist Pain History of Present Illness He was last seen by me in January 2013 about right scaphoid fracture. He came out of the cast at about 11 weeks after injury. Since then, he has had continuous swelling and pain with trying to use it at work for heavy activities. He did see his physician and was placed on prednisone for five days. That settled down some of the swelling. MRI scan was obtained of that wrist, and showed nonunion. He is back here for further evaluation. This does bother him some at nighttime. PHYSICAL EXAMINATION: There is no obvious swelling about the wrist. Dorsiflexion is 60 degrees, palmar flexion 80. He has full pronation and supination. There is tenderness over the snuffbox area. IMAGING: MRI scan of the right wrist from [facility] done on June 18, 2013 shows an unhealed scaphoid waist fracture with mild displacement. Findings suggested delayed healing or chronicnonunion. Raised possibility of early avascular necrosis with proximal pole fragment, but the shading of the proximal and distal fragments on the different scans does not appear to be different to me. DIAGNOSIS: Nonunion right scaphoid fracture. TREATMENT: Discussed the options of electrical or electromagnetic stimulation, versus ultrasound, versus surgical treatment. He seemed to weigh in on going with surgical treatment which would be internal fixation of this. This can be set up. He will continue with his Mobic. He was aware of again a period of prolonged casting. ELFEGO/YASH/belkis Job [id number] Active Problems Closed Fracture Of The Middle Of The Right Scaphoid Bone 814.01 Wrist Sprain 842.00 Past Medical History 1. History of Concussion V15.52 Surgical History 1. History of Treatment Of Wrist Fracture Family History 1. Paternal history of Recovering Alcoholic Social History ?? Never A Smoker ?? Never Drank Alcohol Current Meds 1. Meloxicam 15 MG Oral Tablet; TAKE 1 TABLET DAILY; Therapy: 76Hyy7271 to (Evaluate:41Vju9465) Requested for: 78Fwv6911; Last Rx:[id number] 2. Methylphenidate HCl ER 54 MG Oral Tablet Extended Release; TAKE 1 TABLET ONCE DAILY; Therapy: 46Xvc1034 to (Evaluate:03Was5427); Last Rx:05Mrx0051 3. PredniSONE 20 MG Oral Tablet; TAKE 2 TABLETS DAILY; Therapy: 77Mzi2788 to (Evaluate:17Jun2013) Requested for: 09Pjy4336; Last Rx:96Ovh4200 Allergies 1. No Known Drug Allergies Vitals 20Jun2013 12:03PM Heart Rate 76 Respiration 16 Systolic 124 Diastolic 80 Assessment Closed Fracture Of The Middle Of The Right Scaphoid Bone 814.01 Plan 1. Follow-up visit in 2 weeks Outpatient Follow-up Requested for: 21Jun2013 Closed Fracture Of The Middle Of The Right Scaphoid Bone 814.01 Signatures Electronically signed by : Praful Gutierrez M.D.; Jun 23 2013 10:39PM (Author) Electronically signed by : Praful Gutierrez M.D.; Jun 26 2013 11:24PM (Author) FACTURING SHIFT SUPERVISOR documented in this encounter Plan of Treatment Not on file documented as of this encounter Visit Diagnoses Not on filedocumented in this encounter Care Teams Computer Repair Technician Relationship Specialty Start Date End Date Rahul Ledesma MD [address] [phone] PCP - General 02/17/15 Rahul Ledesma MD [address] [phone] PCP - General 07/06/14 02/16/15 Rahul Ledesma MD [address] [phone] PCP - General 07/16/13 07/05/14 Rahul Ledesma MD [address] [phone] PCP - General 01/09/13 07/15/13 documented as of this encounter
--- OUTSIDE RECORDS SUMMARY | 2024-10-25 13:04 | XMS_ITS | Encounter Summary ---
Author Organization [facility] Address [address] [place] [address]. [place], [place] [address] [place] [address] Care Team Providers Care Ceramic Products Sales Engineer Name Role Phone Rahul Villa MD Primary Care Provider [phone] Encounter Details Date Type Department Care Team (Latest Contact Info) Description 05/25/2015 Abstract [facility] Rahul Villa MD [address] [phone] Social History Tobacco Use Types Packs/Day Years Used Date Smoking Tobacco: Never Assessed Sex and Gender Information Value Date Recorded Sex Assigned at Not on file Legal Sex Male 9:06 PM CDT Gender Identity Not on file Sexual Orientation Not on file documented as of this encounter Last Filed Vital Signs Vital Sign Reading Time Taken Comments Blood Pressure 128/60 05/25/2015 9:38 AM CDT Pulse - - Temperature - - Respiratory Rate - - Oxygen Saturation - - Inhaled Oxygen Concentration - - Weight 77.6 kg (171 lb) 05/25/2015 9:38 AM CDT Height - - Body Mass Index 23.52 07/22/2013 10:40 AM CDT documented in this encounter Progress Notes * Rahul Villa MD - 05/25/2015 9:30 AM CDT Reason For Visit Chronic Recheck Visit Chief Complaint f/u re rect med change History of Present Illness ADHD (Follow-Up): Target Symptoms: 1. Hyperactive behavior has improved. 2. Impulsive behavior has improved. 3. Difficulty concentrating has improved. Review of Systems Constitutional: no fever. ENT: [...] Never Drank Alcohol Current Meds 1. Amphetamine-Dextroamphetamine 20 MG Oral Tablet; TAKE 1 TABLET TWICE DAILY; Therapy: 07Ybk2622 to (Evaluate:52Lok7622); Last Rx:65Blu9140 Ordered Allergies 1. No Known Drug Allergies Immunizations Influenza --- Series1: 07Sep2014 Tdap --- Series1: 2012 Vitals Recorded: 25May2015 09:38AM Systolic 128 Diastolic 60 Weight 171 lb Assessment 1. 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 From Amphetamine-Dextroamphetamine 20 MG Oral Tablet TAKE 1 TABLET TWICE DAILY To Amphetamine-Dextroamphetamine 30 MG Oral Tablet Take 1 tablet twice daily Rx By: Rahul Villa; Dispense: 30 Days ; #:60 Tablet; Refill: 0; For: ADHD, predominantly inattentive type; ZEKE = N; Print Rx 2. Greater than 50% of time (15 min appointment) spent in coordination of care or counseling.; Status:Active; Requested for:25May2015; Ordered; For:ADHD, predominantly inattentive type; Ordered By:Rahul Villa; 3. Follow-up PRN Outpatient Follow-up Status: Complete Done: 25May2015 10:33AM Ordered; For: ADHD, predominantly inattentive type; Ordered By: Rahul Villa Performed: Due: 37Pgz8578 Signatures Electronically signed by : Rahul Villa M.D.; May 25 2015 10:33AM MACHINE CLOTHING REPLACER (Author) documented in this encounter Plan of Treatment Not on file documented as of this encounter Visit Diagnoses Not on filedocumented in this encounter Care Teams Ceramic Products Sales Engineer Relationship Specialty Start Date End Date Rahul Villa MD [address] [phone] PCP - General 02/17/15 documented as of this encounter
--- OUTSIDE RECORDS SUMMARY | 2024-10-25 13:04 | XMS_ITS | Encounter Summary ---
Author Organization [facility] Address [facility] [facility]. [place], [place] [address] [place] [address] Care Team Providers Care Extension Service Agent Name Role Phone Rahul Villa MD Primary Care Provider [phone] Rahul Villa MD Primary Care Provider Rahul Villa MD Primary Care Provider Encounter Details Date Type Department Care Team (Latest Contact Info) Description 03/19/2014 Abstract [facility] Rahul Villa MD [address] [phone] Social History Tobacco Use Types Packs/Day Years Used Date Smoking Tobacco: Never Assessed Sex and Gender Information Value Date Recorded Sex Assigned at Not on file Legal Sex Male 9:06 PM CDT Gender Identity Not on file Sexual Orientation Not on file documented as of this encounter Last Filed Vital Signs Vital Sign Reading Time Taken Comments Blood Pressure 122/68 03/19/2014 3:47 PM CDT Pulse - - Temperature - - Respiratory Rate - - Oxygen Saturation - - Inhaled Oxygen Concentration - - Weight 78.5 kg (173 lb) 03/19/2014 3:47 PM CDT Height - - Body Mass Index 23.79 07/22/2013 10:40 AM CDT documented in this encounter Progress Notes * Rahul Villa MD - 03/19/2014 4:00 PM CDT Reason For Visit Chronic Recheck Visit Chief Complaint follow up ADD, also complains of pain at previous lung surgery site, pain worse with heavy breathing, activity History of Present Illness Symptoms: no shortness of breath, no cough, no fever, no orthopnea, no peripheral edema and no palpitations The patient presents with complaints of gradual onset of constant episodes of mild right lateral chest pain, non-radiating. Episodes started about 2 weeks ago. His ADHD has been stable since the last visit. Target Symptoms: 1. Hyperactive behavior has improved. 2. Impulsive behavior has improved. 3. Difficulty concentrating has improved. Review of Systems Constitutional: Normal. ENT: normal. Cardiovascular: Normal. Respiratory: Normal. Gastrointestinal: Normal. Genitourinary: Normal. Musculoskeletal: Normal. Active Problems 1. Closed fracture of navicular bone of right wrist (814.01) (S62.001A) 2. Delayed Union Of Fracture Of The [...] (Concerta); TAKE 1 TABLET ONCE DAILY; Therapy: 04Mar2013 to (Evaluate:26Mar2014); Last Rx:24Feb2014 Ordered Allergies 1. No Known Drug Allergies Vitals Recorded by : Olivia Cerrato at 19Mar2014 03:47PM Systolic 122 Diastolic 68 Weight 173 lb Physical Exam Constitutional General appearance: No acute distress, well appearing and well nourished. Eyes Conjunctiva and lids: No swelling, erythema, or discharge. Ears, Nose, Mouth, and Throat Oropharynx: Normal with no erythema, edema, exudate or lesions. Pulmonary Auscultation of lungs: Clear to auscultation. Cardiovascular Auscultation of heart: Normal rate and rhythm, normal S1 and S2, without murmurs. Abdomen Abdomen: Non-tender, no masses. Lymphatic Palpation of lymph nodes in neck: No lymphadenopathy. Musculoskeletal Gait and station: Normal. Assessment 1. Chest pain (786.50) (R07.9) 2. 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 XR CHEST 2 VIEW ( Routine ) Status: Active Requested for: 19Mar2014 Perform: Other Radiology Due: 26Mar2014; Ordered; For: Chest pain; Ordered By: Rahul Villa 2. Renew: Methylphenidate HCl ER 54 MG Oral Tablet Extended Release (Concerta 54 MG Oral Tablet Extended Release); TAKE 1 TABLET ONCE DAILY Rx By: Rahul Villa; Dispense: 30 Days ; #:30 Tablet Extended Release; Refill: 0; For: Health Maintenance; ZEKE = N; Print Rx Discussion/Summary prob ms . doubt pnx but get cxr Signatures Electronically signed by : Rahul Villa M.D.; Mar 19 2014 5:34PM MESSAGING ARCHITECT (Author) documented in this encounter Plan of Treatment Not on file documented as of this encounter Visit Diagnoses Not on filedocumented in this encounter Care Teams Extension Service Agent Relationship Specialty Start Date End Date Rahul Villa MD [address] [phone] PCP - General 02/17/15 Rahul Villa MD [address] [address] PCP - General 07/06/14 02/16/15 Rahul Villa MD [address] [address] PCP - General 07/16/13 07/05/14 documented as of this encounter
--- OUTSIDE RECORDS SUMMARY | 2024-10-25 13:04 | XMS_ITS | Encounter Summary ---
Author Organization [facility] - [facility] Address [address] [place] [address]. [place], [place] [address] [place] [address] Care Team Providers Care Supervisor Calibration Name Role Phone Rahul Villa MD Primary Care Provider [phone] Encounter Details Date Type Department Care Team (Latest Contact Info) Description 02/18/2015 Abstract [facility] Medical [facility] Social History Tobacco Use Types Packs/Day Years Used Date Smoking Tobacco: Never Assessed Sex and Gender Information Value Date Recorded Sex Assigned at Not on file Legal Sex Male 9:06 PM CDT Gender Identity Not on file Sexual Orientation Not on file documented as of this encounter Progress Notes * Rahul Villa MD - 02/18/2015 9:22 AM CDT Message Tell Patient that Results are Normal and to follow up next week Verified Results LC-CBC With Differential/Platelet [id number] 10:11AM Rahul Villa Test Name Result Flag Reference WBC 6.2 x10E3/uL 3.4-10.8 RBC 4.26 x10E6/uL 4.14-5.80 Hemoglobin 13.2 g/dL 12.6-17.7 Hematocrit 38.6 % 37.5-51.0 MCV 91 fL 79-97 MCH 31.0 pg 26.6-33.0 MCHC 34.2 g/dL 31.5-35.7 RDW 13.2 % 12.3-15.4 Platelets 224 x10E3/uL 150-379 Neutrophils 71 % Lymphs 18 % Monocytes 8 % Eos 2 % Basos 1 % Immature Cells Neutrophils (Absolute) 4.5 x10E3/uL 1.4-7.0 Lymphs (Absolute) 1.1 x10E3/uL 0.7-3.1 Monocytes(Absolute) 0.5 x10E3/uL 0.1-0.9 Eos (Absolute) 0.1 x10E3/uL 0.0-0.4 Baso (Absolute) 0.0 x10E3/uL 0.0-0.2 Immature Granulocytes 0 % Immature Grans (Abs) 0.0 x10E3/uL 0.0-0.1 NRBC Hematology Comments: LC-Comp. Metabolic Panel ( CMP ) [id number] 10:11AM Rahul Villa Test Name Result Flag Reference Glucose, Serum 93 mg/dL 65-99 BUN 12 mg/dL 6-20 Creatinine, Serum 0.85 mg/dL 0.76-1.27 eGFR If NonAfricn Am 123 mL/min/1.73 >59 eGFR If Africn Am 142 mL/min/1.73 >59 BUN/Creatinine Ratio 14 8-19 Sodium, Serum 140 mmol/L 134-144 Potassium, Serum 4.9 mmol/L 3.5-5.2 Chloride, Serum 99 mmol/L 97-108 Carbon Dioxide, Total 27 mmol/L 18-29 Calcium, Serum 10.0 mg/dL 8.7-10.2 Protein, Total, Serum 6.7 g/dL 6.0-8.5 Albumin, Serum 4.5 g/dL 3.5-5.5 Globulin, Total 2.2 g/dL 1.5-4.5 A/G Ratio 2.0 1.1-2.5 Bilirubin, Total 0.4 mg/dL 0.0-1.2 Alkaline Phosphatase, S 67 IU/L 39-117 AST (SGOT) 37 IU/L 0-40 ALT (SGPT) 32 IU/L 0-44 documented in this encounter Plan of Treatment Not on file documented as of this encounter Visit Diagnoses Not on filedocumented in this encounter Care Teams Supervisor Calibration Relationship Specialty Start Date End Date Rahul Villa MD [address] [phone] PCP - General 02/17/15 documented as of this encounter
--- OUTSIDE RECORDS SUMMARY | 2024-10-25 13:04 | XMS_ITS | Encounter Summary ---
Author Organization [facility] Address [address] [place] [address]. [place], [place] [address] [place] [address] Care Team Providers Care Loft Worker Head Name Role Phone Rahul Hickman MD Primary Care Provider [phone] Rahul Hickman MD Primary Care Provider Rahul Hickman MD Primary Care Provider Encounter Details Date Type Department Care Team (Latest Contact Info) Description 07/16/2013 Abstract [facility] Praful Gutierrez MD [address] [phone] Social History Tobacco Use Types Packs/Day Years [...] Name Priority Date/Time Associated Diagnosis Comments XR WRIST RT MIN 3V Routine 07/16/2013 9: 21 AM CDT documented in this encounter Results * XR WRIST RT MIN 3V (07/16/2013 9:21 AM CDT) Anatomical Region Laterality Modality Wrist Radiographic Nadege ging 07/16/2013 9:21 AM CDT 07/16/2013 9:21 AM CDT Narrative 07/16/2013 9:57 PM CDT FREDERICK MCDONALD ORDERING MD: PRAFUL GUTIERRZE MD ?? ACCT: [id number] ?? : 1990 PT TYPE: DEP SDC ?? SEX: M ORD SITE: [facility] ? STUDY DATE REPORT # PROCEDURE CODE PROCEDURE ?? 07/16/13 [id number] WRST3+VR XR WRIST 3+ VIEW RT ? EXTORDERID ? [id number] ? ACCESSION NUMBER ?? [id number] ?CHART DOCUMENT ? IMPRESSION: ? SURGICAL FIXATION OF SCAPHOID FRACTURE. ? HISTORY: ??RIGHT SCAPHOID FRACTURE. ??POSTOP SURGICAL FIXATION. ? FLUORO TIME 35 SECONDS. ? INTRAOPERATIVE RIGHT WRIST 07/16/13 ? COMPARISON: ??01/09/13, 11/25/12, AND 10/19/12. ? FINDINGS: ??FOUR SPOT FLUOROSCOPIC IMAGES ARE PROVIDED OF THE RIGHT WRIST ?? AFTER INTERNAL SURGICAL FIXATION OF SCAPHOID FRACTURE. ??A THREADED SCREW ?? HAS BEEN PLACED INTO THE SCAPHOID BONE FROM PROXIMAL TO DISTAL, BRIDGING ?? THE SCAPHOID WAIST FRACTURE DEFECT. ? ELECTRONICALLY SIGNED BY: ?? KELLIE PITTMAN M.D. 07/16/2013 21:56 ?? KELLIE PITTMAN M.D. ? D: ??07/16/2013 10:27 A ??#[id number] ?? T: ??07/16/2013 11:20 A/MA ? CC: ?RAHUL HICKMAN M.D. ?PRAFUL GUTIERREZ M.D. ? Radiology image is available. Click on Image Link above. Procedure Note Libby Bush MD - 08/08/2018 FREDERICK MCDONALD MD: PRAFUL GUTIERREZ MD ACCT: [id number] : 1990 PT TYPE: DEP SDC SEX: M ORD SITE: [facility] STUDY DATE REPORT # PROCEDURE CODE PROCEDURE 07/16/13 [id number] WRST3+VR XR WRIST 3+ VIEW RT EXTORDERID [id number] ACCESSION NUMBER [id number] CHART DOCUMENT IMPRESSION: SURGICAL FIXATION OF SCAPHOID FRACTURE. HISTORY: RIGHT SCAPHOID FRACTURE. POSTOP SURGICAL FIXATION. FLUORO TIME 35 SECONDS. INTRAOPERATIVE RIGHT WRIST 07/16/13 COMPARISON: 01/09/13, 11/25/12, AND 10/19/12. FINDINGS: FOUR SPOT FLUOROSCOPIC IMAGES ARE PROVIDED OF THE RIGHT WRIST AFTER INTERNAL SURGICAL FIXATION OF SCAPHOID FRACTURE. A THREADED SCREW HAS BEEN PLACED INTO THE SCAPHOID BONE FROM PROXIMAL TO DISTAL, BRIDGING THE SCAPHOID WAIST FRACTURE DEFECT. ELECTRONICALLY SIGNED BY: KELLIE PITTMAN M.D. 07/16/2013 21:56 KELLIE PITTMAN M.D. A #[id number] Thierry/RADHA CC: RAHUL C MARYLOU, M.D. PRAFUL GUTIERREZ, M.D. Radiology image is available. Click on Image Link above. us Praful Gutierrez MD GENERAL IMAGING Final Resu lt documented in this encounter Visit Diagnoses Not on filedocumented in this encounter Care Teams Loft Worker Head Relationship Specialty Start Date End Date Rahul Hickman MD [address] [facility] [address] [place] [address] PCP - General 02/17/15 Rahul Hickman MD [address] [facility] [address] [place] [address] PCP - General 07/06/14 02/16/15 Rahul Hickman MD [address] [address] PCP - General 07/16/13 07/05/14 documented as of this encounter
--- OUTSIDE RECORDS SUMMARY | 2024-10-25 13:04 | XMS_ITS | Encounter Summary ---
Author Organization [facility] Address [facility]. [place], [place] [address] [place] [address] Care Team Providers Care Chaser Apprentice Name Role Phone Rahul Ledesma MD Primary Care Provider Rahul Ledesma MD Primary Care Provider Rahul Ledesma MD Primary Care Provider Rahul Ledesma MD Primary Care Provider Encounter Details Date Type Department Care Team (Latest Contact Info) Description 03/26/2013 Abstract [facility] Social History Tobacco Use [...] on filedocumented in this encounter Care Teams Chaser Apprentice Relationship Specialty Start Date End Date Rahul Ledesma MD [address] [phone] PCP - General 02/17/15 Rahul Ledesma MD [address] [address] PCP - General 07/06/14 02/16/15 Rahul Ledesma MD [address] [address] PCP - General 07/16/13 07/05/14 Rahul Ledesma MD [address] [address] PCP - General 01/09/13 07/15/13 documented as of this encounter
--- OUTSIDE RECORDS SUMMARY | 2024-10-25 13:04 | XMS_ITS | Encounter Summary ---
Author Organization [facility] Address [facility]. [place], [place] [address] [place] [address] Care Team Providers Care Career Development Manager Name Role Phone Rahul Ledesma MD Primary Care Provider [phone] Rahul Ledesma MD Primary Care Provider [phone]- [phone] Encounter Details Date Type Department Care Team (Latest Contact Info) Description 08/03/2014 Abstract [facility] Group Rahul Ledesma MD [address] [phone] Social History Tobacco Use Types Packs/Day Years Used Date Smoking Tobacco: Never Assessed Sex and Gender Information Value Date Recorded Sex Assigned at Not on file Legal Sex Male 9:06 PM CDT Gender Identity Not on file Sexual Orientation Not on file documented as of this encounter Miscellaneous Notes * Letter - Rahul Ledesma MD - 08/03/2014 8:15 AM CDT Message No Show/Cancellation Note: Appointment Status: The patient no showed for his/her appointment. Patient Communication: The patient was called regarding the missed appointment. Result: Patient could not be reached. Message left to return call. Signatures Electronically signed by : [place], ; Aug 03 2014 8:33AM MEAT SMOKER (Author) documented in this encounter Plan of Treatment Not on file documented as of this encounter Visit Diagnoses Not on filedocumented in this encounter Care Teams Career Development Manager Relationship Specialty Start Date End Date Rahul Ledesma MD [address] [facility] [address] [place] [phone] PCP - General 02/17/15 Rahul Ledesma MD [address] [facility] [address] [place] [phone] PCP - General 07/06/14 02/16/15 documented as of this encounter
--- OUTSIDE RECORDS SUMMARY | 2024-10-25 13:05 | XMS_ITS | Encounter Summary ---
Author Organization [facility] Address [address] [place] [address]. [place], [place] [address] [place] [address] Care Team Providers Care Turn Out Worker Name Role Phone Rahul Ledesma MD [...] Details Date Type Department Care Team (Late [facility]) Description 08/20/2006 Abstract [facility] [place] [address] Libby Bush MD Social History Tobacco Use [...] on filedocumented in this encounter Care Teams Turn Out Worker Relationship Specialty Start Date End Date Rahul Ledesma MD [address] [phone] PCP - General 02/17/15 Rahul Ledesma MD [address] [address] PCP - General 07/06/14 02/16/15 Rahul Ledesma MD [address] [address] PCP - General 07/16/13 07/05/14 Rahul Ledesma MD [address] [address] PCP - General 01/09/13 07/15/13 Rahul Ledesma MD [address] [address] PCP - General 11/25/12 01/08/13 Rahul Ledesma MD [address] [address] PCP - General 10/19/12 11/24/12 Rahul Ledesma MD [address] [address] PCP - General 09/10/12 10/18/12 Rahul Ledesma MD [address] [address] PCP - General 08/06/12 09/09/12 Rahul Ledesma MD [address] [address] PCP - General 05/12/12 08/05/12 documented as of this encounter
--- OUTSIDE RECORDS SUMMARY | 2024-10-25 13:05 | XMS_ITS | Encounter Summary ---
Author Organization [facility] Address [address] [place] [address]. [place], [place] [address] [place] [address] Care Team Providers Care Campus Monitor Name Role Phone Rahul Ledesma MD Primary Care Provider Rahul Ledesma MD Primary Care Provider Rahul Ledesma MD Primary Care Provider Rahul Ledesma MD Primary Care Provider Rahul Ledesma MD Primary Care Provider Rahul Ledesma MD Primary Care Provider Rahul Ledesma MD Primary Care Provider Rahul Ledesma MD Primary Care Provider Encounter Details Date Type Department Care Team (Late st Contact Info) Description 08/06/2012 Abstract [facility] [address] [place] [id number] Rahul Ledesma MD [address] [phone] Social History Tobacco Use Types Packs/Day Years Used Date Smoking Tobacco: Never Assessed Sex and Gender Information Value Date Recorded Sex Assigned at Not on file Legal Sex Male 9:06 PM CDT Gender Identity Not on file Sexual Orientation Not on file documented as of this encounter Plan of Treatment Not on file documented as of this encounter Visit Diagnoses Diagnosis Other pneumothorax documented in this encounter Care Teams Campus Monitor Relationship Specialty Start Date End Date Rahul Ledesma MD [address] [phone] PCP - General 02/17/15 Rahul Ledesma MD [address] [address] PCP - General 07/06/14 02/16/15 Rahul Ledesma MD [address] [phone] PCP - General 07/16/13 07/05/14 Rahul Ledesma MD [address] [phone] PCP - General 01/09/13 07/15/13 Rahul Ledesma MD [facility] [address] [phone] PCP - General 11/25/12 01/08/13 Rahul Ledesma MD [facility] [address] [phone] PCP - General 10/19/12 11/24/12 Rahul Ledesma MD [address] [address] PCP - General 09/10/12 10/18/12 Rauhl Ledesma MD [address] [address] PCP - General 08/06/12 09/09/12 documented as of this encounter
--- OUTSIDE RECORDS SUMMARY | 2024-10-25 13:05 | XMS_ITS | Encounter Summary ---
Author Organization [facility] Address [address] [place] [address]. [place], [place] [address] [place] [address] Care Team Providers Care Mallet Cutter Name Role Phone Rahul Ledesma MD Primary [...] Details Date Type Department Care Team (Late [facility]) Description 08/19/2006 Emergency [facility] [place] [address] Libby Bush MD Social History Tobacco Use [...] on filedocumented in this encounter Care Teams Mallet Cutter Relationship Specialty Start Date End Date Rahul Ledesma MD [address] [phone] PCP - General 02/17/15 Rahul Ledesma MD [address] [address] PCP - General 07/06/14 02/16/15 Rahul Ledesma MD [address] [address] PCP - General 07/16/13 07/05/14 Rahul Ledesma MD [address] [address] PCP - General 01/09/13 07/15/13 Rahul Ledesma MD [address] [address] PCP - General 11/25/12 01/08/13 Rahul Ledesma MD [address] [address] PCP - General 10/19/12 11/24/12 Rahul Ledesma MD [address] [address] PCP - General 09/10/12 10/18/12 Rahul Ledesma MD [address] [address] PCP - General 08/06/12 09/09/12 Rahul Ledesma MD [address] [address] PCP - General 05/12/12 08/05/12 documented as of this encounter
--- OUTSIDE RECORDS SUMMARY | 2024-10-25 13:05 | XMS_ITS | Encounter Summary ---
Author Organization [facility] Address [address] [place] [address]. [place], [place] [address] [place] [address] Care Team Providers Care City Tax Auditor Name Role Phone Rahul Ledesma MD Primary [...] Care Team (Late st Contact Info) Description 05/23/2007 Emergency [facility] Emergency Room [place], [place] [id number] Tabatha Jesus MD [address] [place], [place] [address] Social History Tobacco Use Types Packs/Day Years [...] on filedocumented in this encounter Care Teams City Tax Auditor Relationship Specialty Start Date End Date Rahul Ledesma MD [address] [phone] PCP - General 02/17/15 Rahul Ledesma MD [address] [place] [phone] PCP - General 07/06/14 02/16/15 Rahul Ledesma MD [address] [place] [address] PCP - General 07/16/13 07/05/14 Rahul Ledesma MD [address] [place] [address] PCP - General 01/09/13 07/15/13 Rahul Ledesma MD [address] [place] [phone] PCP - General 11/25/12 01/08/13 Rahul Ledesma MD [address] [place] [phone] PCP - General 10/19/12 11/24/12 Rahul Ledesma MD [address] [place] [phone] PCP - General 09/10/12 10/18/12 Rahul Ledesma MD [address] [facility] [address] [place] [address] PCP - General 08/06/12 09/09/12 Rahul Ledesma MD [address] [facility] [address] [place] [phone] PCP - General 05/12/12 08/05/12 documented as of this encounter
--- OUTSIDE RECORDS SUMMARY | 2024-10-25 13:05 | XMS_ITS | Encounter Summary ---
Author Organization [facility] Address [address] [place] [address]. [place], [place] [address] [place] [address] Care Team Providers Care Supply Chain Coordinator Name Role Phone Rahul Ledesma MD [...] Care Team (Late st Contact Info) Description 05/12/[address] [facility] [address] [place] [address] Jorge Pettit NP [address] [address] Social History Tobacco Use Types Packs/Day Years Used Date Smoking Tobacco: Never Assessed Sex and Gender Information Value Date Recorded Sex Assigned at Not on file Legal Sex Male 9:06 PM CDT Gender Identity Not on file Sexual Orientation Not on file documented as of this encounter Plan of Treatment Not on file documented as of this encounter Visit Diagnoses Diagnosis Open wound of nose Open wound of nose, unspecified site, without mention of complication documented in this encounter Care Teams Supply Chain Coordinator Relationship Specialty Start Date End Date Rahul Ledesma MD [address] [address] PCP - General 02/17/15 Rahul Ledesma MD [address] [address] PCP - General 07/06/14 02/16/15 Rahul Ledesma MD [address] [address] PCP - General 07/16/13 07/05/14 Rahul Ledesma MD [address] [address] PCP - General 01/09/13 07/15/13 Rahul Ledesma MD [address] [address] PCP - General 11/25/12 01/08/13 Rahul Ledesma MD [address] [address] PCP - General 10/19/12 11/24/12 Rahul Ledesma MD [address] [address] PCP - General 09/10/12 10/18/12 Rahul Ledesma MD [address] [facility] [address] [place] [address] PCP - General 08/06/12 09/09/12 Rahul Ledesma MD [address] [facility] [address] [place] [phone] PCP - General 05/12/12 08/05/12 documented as of this encounter
--- OUTSIDE RECORDS SUMMARY | 2024-10-25 13:05 | XMS_ITS | Encounter Summary ---
Author Organization [facility] Address [address] [place] [address]. [place], [place] [address] [place] [address] Care Team Providers Care Wool Hat Forming Machine Tender Name Role Phone Rahul Ledesma MD [...] Care Team (Late st Contact Info) Description 05/27/2012 Abstract [facility] - [address] [place] [phone] Praful Gutierrez MD [address] [place] [address] [address] [place] [address] Social History Tobacco Use Types [...] on filedocumented in this encounter Care Teams Wool Hat Forming Machine Tender Relationship Specialty Start Date End Date Rahul Ledesma MD [address] [address] PCP - General 02/17/15 Rahul Ledesma MD [address] [address] PCP - General 07/06/14 02/16/15 Rahul Ledesma MD [address] [phone] PCP - General 07/16/13 07/05/14 Rahul Ledesma MD [address] [address] PCP - General 01/09/13 07/15/13 Rahul Ledesma MD [address] [phone] PCP - General 11/25/12 01/08/13 Rahul Ledesma MD [address] [address] PCP - General 10/19/12 11/24/12 Rahul Ledesma MD [address] [address] PCP - General 09/10/12 10/18/12 Rahul Ledesma MD [address] [phone] PCP - General 08/06/12 09/09/12 Rahul Ledesma MD [address] [address] PCP - General 05/12/12 08/05/12 documented as of this encounter
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
--- OUTSIDE RECORDS SUMMARY | 2024-10-25 13:13 | XMS_ITS | Continuity of Care Document ---
Author Organization [facility] Address [address] [place] [address] [address] [place] [address] Phone Care Team Providers Care Neurology Professor Name Role Phone Tiara Alcocer DPT Unavailable Unavailable Procedures Procedure Date PT Evaluation Low Complexity Therapeutic Exercise Manual Therapy Hot or Cold Pack Electrical Stimulation Advance Directives Directive Yes / No Effective Date File Name No Information Encounters Encounter Description Practice Location Reason(s) For Visit Diagnoses Date Provider Providers Copied on Encounter [facility], [address] [place], [place] [address], [place], [place], [id number], tel:[phone] Casey No Information Leodan Menjivar. [address] [facility], [facility] [address], [place], [address], [place]. tel: [phone] [facility], [address] [place] [address] [address], [place], [place], [id number], tel:[phone] Casey Pain in right ankle and joints of right footStiffness of right ankle, not elsewhere classifiedMuscle weakness (generalized)Dif ficulty in walking, not elsewhere classifiedDisp fx of neck of left talus, subs for fx w routn healNondisp fx of neck of right talus, subs for fx w routn heal 7 Alcocer Tiara. [address] [facility], [address], [place], [address], [place]. tel: [phone] Referring Provider: David Leon, [facility] [address], [address]. tel:[phone] Family History Family Member Type Diagnosis Age At Onset No Information Payers Payer name Insurance type Covered democrat ID Authoriza tion(s) No Information Social History Type Description Quantity Date Captured Comments Sex Male Smoking Status No Information Chief Complaint And Reason For Visit No Information Reason For Referral Reason For Referral No Information History Of Present Illness Encounter Date Complaint History Of Prese nt Illness No Information Functional Status Date Functional Assessmen t No Information Instructions Date Instruction Additional Infor mation No Information Assessments Type Assessment Date No Information Patient Care Teams Name Effective Dates (start - stop) Status Members No Information
--- OUTSIDE RECORDS SUMMARY | 2024-10-25 18:03 | XMS_ITS | Encounter Summary ---
Author Organization [facility] Address [address] [place] [address]. [place], [place] [address] [place] [address] Care Team Providers Care Director Advanced Name Role Phone Rahul Villa MD Primary Care Provider [phone] Julián Matthews MD Unavailable [phone] Reason for Visit * Reason Onset Date Comments Medication Problem 03/23/2023 Encounter Details Date Type Department Care Team (Late st Contact Info) Description 03/23/2023 Telephone [facility] [address] [facility] [address] [place] [address] Rahul Villa MD [address] [facility] [address] [place] [address] Medication Problem Social History Tobacco [...] 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 [facility] (has Adderall 20 mg) documented in this encounter Plan of Treatment Not on file documented as of this encounter Visit Diagnoses Not on filedocumented in this encounter Care Teams Director Advanced Relationship Specialty Start Date End Date Rahul Villa MD [address] [address] PCP - General 02/17/15 Julián Matthews MD [address] [place] [address] Physician NEUROMUSCULOSKELETAL MEDICINE 07/27/21 documented as of this encounter
--- OUTSIDE RECORDS SUMMARY | 2024-10-25 18:03 | XMS_ITS | Encounter Summary ---
Author Organization [facility] Address [address] [place] [address]. [place], [place] [address] [place] [address] Care Team Providers Care Business Systems Architect Name Role Phone Rahul Ledesma MD Primary Care Provider [phone] Julián Matthews MD Unavailable [phone] Reason for Visit * Reason Onset Date Comments Question 01/25/2022 Encounter Details Date Type Department Care Team (Late st Contact Info) Description 01/25/2022 Telephone [facility] Mult[facility]ial[facility] - [facility] [address] [facility], [address] [place] [address] Julián Matthews MD 3 [place], [place] [id number] Question Social History Tobacco Use Types Packs/Day [...] 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 Pt was very happy and verbalized understanding. Call or visit our??Health??Information??Department??at [phone], ext. [phone]. We are open from 8 a.m. to 4:30 p.m., Sunday through Sunday. LKD * Giuliana Alvarez MA - 01/25/2022 9:57 AM CDT ----- Message from Julián Matthews MD sent at 01/25/2022 9:50 AM CDT ----- He can get all the records from medical records ----- Message ----- From: Giuliana Alvarez MA Sent: 01/25/2022 9:33 AM CDT To: Julián Matthews MD documented in this encounter Plan of Treatment Not on file documented as of this encounter Visit Diagnoses Not on filedocumented in this encounter Care Teams Business Systems Architect Relationship Specialty Start Date End Date Rahul Ledesma MD [address] [address] PCP - General 02/17/15 Julián Matthews MD 3 [place] [address] Physician NEUROMUSCULOSKELETAL MEDICINE 07/27/21 documented as of this encounter
--- OUTSIDE RECORDS SUMMARY | 2024-10-25 18:03 | XMS_ITS | Encounter Summary ---
Author Organization [facility] Address [address] [place] [address]. [place] [address] [place] [address] Care Team Providers Care Product Support Sales Representative Name Role Phone Rahul Ledesma MD Primary Care Provider [phone] Julián Matthews MD Unavailable [phone] Reason for Visit * Reason Onset Date Comments FYI 07/19/2023 Adderall Encounter Details Date Type Department Care Team (Late st Contact Info) Description 07/19/2023 Telephone [facility] [address] [facility] [address] [place] [address] Rahul Ledesma MD [address] [facility] [address] [place] [address] FYI (Adderall ) Social History [...] CDT Ok per pt to send to [facility]. * Kellie Cordon - 07/19/2023 11:58 AM CDT Patient called wanting his adderall prescription. [facility] [place] [place] Tried to call pt back twice and vm box ful documented in this encounter Plan of Treatment Not on file documented as of this encounter Visit Diagnoses Not on filedocumented in this encounter Care Teams Product Support Sales Representative Relationship Specialty Start Date End Date Rahul Ledesma MD [address] [address] PCP - General 02/17/15 Julián Matthews MD 3 [place] [address] Physician NEUROMUSCULOSKELETAL MEDICINE 07/27/21 documented as of this encounter
--- OUTSIDE RECORDS SUMMARY | 2024-10-25 18:03 | XMS_ITS | Encounter Summary ---
Author Organization [facility] Address [address] [place] [address]. [place], [place] [address] [place] [address] Care Team Providers Care Chef Manager Name Role Phone aRhul Hickman MD Primary Care Provider [phone] Julián Matthews MD Unavailable [phone] Reason for Visit * Reason Comments Acute Note discuss meds Encounter Details Date Type Department Care Team ([facility] st Contact Info) Description 01/31/2022 4:30 PM CDT Office Visit [facility] [address] [facility] [address] [place] [address] Rahul Hickman MD [address] [facility] [address] [place] [address] Acute Note (discuss meds) Social [...] 

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
--- OUTSIDE RECORDS SUMMARY | 2024-10-25 18:03 | XMS_ITS | Encounter Summary ---
Author Organization [facility] Address [address] [place] [address]. [place], [place] [address] [place] [address] Care Team Providers Care Aerospace Project Engineer Name Role Phone Rahul Hickman MD Primary Care Provider [phone] Julián Matthews MD Unavailable [phone] Reason for Visit * Reason Comments Physical annual Encounter Details Date Type Department Care Team (Late st Contact Info) Description 12/20/2022 3:30 PM CALL CENTER TEAM LEADER Office Visit [facility] [address] [facility] [address] [place] [address] Rahul Hickman MD [address] [facility] [address] [place] [address] Physical (annual) Social History Tobacco [...] 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 Smoking status: Every [...] 5. Need for prophylactic vaccination with combined vjpwdnehqw-nwpskht-ramyjhjog (DTP) vaccine [10657] Tdap, Tetanus, diphtheria toxoids and acellular pertussis vaccine, >7yrs, IM Use 6. ADHD (attention deficit hyperactivity disorder), inattentive type amphetamine-dextroamphetamine (ADDERALL) 30 MG tablet Plan: The primary encounter diagnosis was History of opioid abuse ([facility]). Diagnoses of ADHD, predominantly inattentive type, Anxiety, Seizure disorder ([facility]), Need for prophylactic vaccination with combined qtmjixexps-qwucxjq-jynihbeca (DTP) vaccine, and ADHD (attention deficit hyperactivity disorder), inattentive type were also pertinent to this visit. - Comply with suggestions for healthy lifestyle The primary encounter diagnosis was History of opioid abuse ([facility]). Diagnoses of ADHD, predominantly inattentive type, Anxiety, Seizure disorder ([facility]), Need for prophylactic vaccination with combined utlccjepca-opzphkn-kprurzxia (DTP) vaccine, and ADHD (attention deficit hyperactivity disorder), inattentive type were also pertinent to this visit. - All conditions are stable and compensated (except those noted above) Diagnoses and all orders for this visit: History of opioid abuse ([facility]) ADHD, predominantly inattentive type Anxiety Seizure disorder ([facility]) Need for prophylactic vaccination with combined eatqslzekz-kabdfdm-fivulpxmp (DTP) vaccine - [93001] Tdap, Tetanus, diphtheria toxoids and acellular pertussis [...] ref. provider found PCP: RAHUL HICKMAN MD CENTER TEAM LEADER documented in this encounter Plan of Treatment Not on file documented as of this encounter Visit Diagnoses Diagnosis History of opioid abuse ([facility])- Primary Opioid abuse, in remission ADHD, predominantly inattentive type Attention deficit disorder without mention of hyperactivity Anxiety Anxiety state, unspecified Seizure disorder ([facility]) Unspecified epilepsy without mention of intractable epilepsy Need for prophylactic vaccination with combined rrpmezevbj-nfhzrys-xtjpujxvv (DTP) vaccine ADHD (attention deficit hyperactivity disorder), inattentive type Attention deficit disorder without mention of hyperactivity documented in this encounter Care Teams Aerospace Project Engineer Relationship Specialty Start Date End Date Rahul Hickman MD [address] [address] PCP - General 02/17/15 Julián Matthews MD 3 [place] [address] Physician NEUROMUSCULOSKELETAL MEDICINE 07/27/21 documented as of this encounter
--- OUTSIDE RECORDS SUMMARY | 2024-10-25 18:03 | XMS_ITS | Encounter Summary ---
Author Organization [facility] Address [address] [place] [address]. [place], [place] [address] [place] [address] Care Team Providers Care Suture Winder Hand Name Role Phone Rahul Ledesma MD Primary Care Provider [phone] Julián Matthews MD Unavailable [phone] Reason for Visit * Reason Onset Date Comments Question 03/29/2023 Encounter Details Date Type Department Care Team (Late st Contact Info) Description 03/29/2023 Telephone [facility] [address] [facility] [address] [place] [address] Rahul Ledesma MD [address] [facility] [address] [place] [address] Question Social History Tobacco Use [...] 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 She is asking for you to call her at your convenience regarding this patient. documented in this encounter Plan of Treatment Not on file documented as of this encounter Visit Diagnoses Not on filedocumented in this encounter Care Teams Suture Winder Hand Relationship Specialty Start Date End Date Rahul Ledesma MD [address] [address] PCP - General 02/17/15 Julián Matthews MD 3 [place] [address] Physician NEUROMUSCULOSKELETAL MEDICINE 07/27/21 documented as of this encounter
--- OUTSIDE RECORDS SUMMARY | 2024-10-25 18:03 | XMS_ITS | Encounter Summary ---
Author Organization [facility] Address [address] [place] [address]. [place], [place] [address] [place] [address] Care Team Providers Care Housekeeper/Laundry Assistant Name Role Phone Rahul Hickman MD Primary Care Provider [phone] Julián Matthews MD Unavailable [phone] Reason for Visit * Reason Comments Follow Up 1 month Encounter Details Date Type Department Care Team ([facility] st Contact Info) Description 03/21/2022 4:00 PM CDT Office Visit [facility] [address] [facility] [address] [place] [address] Rahul Hickman MD [address] [facility] [address] [place] [address] Follow Up (1 month) Social [...] 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
--- OUTSIDE RECORDS SUMMARY | 2024-10-25 18:04 | XMS_ITS | Encounter Summary ---
Author Organization [facility] Address [address] [place] [address]. [place] [address] [place] [address] Care Team Providers Care Plate Stacker Name Role Phone Rahul Ledesma MD Primary Care Provider [phone] Julián Matthews MD Unavailable [phone] Reason for Visit * Reason Onset Date Comments Error 09/23/2021 Encounter Details Date Type Department Care Team (Late st Contact Info) Description 09/23/2021 Telephone [facility] [address] [facility] [address] [place] [address] Rahul Ledesma MD [address] [facility] [address] [place] [address] Error Social History Tobacco Use [...] 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 No / Unsure 08/30/2021 7:51 AM E LEARNING MANAGER documented as of this encounter Plan of Treatment Not on file documented as of this encounter Visit Diagnoses Not on filedocumented in this encounter Care Teams Plate Stacker Relationship Specialty Start Date End Date Rahul Ledesma MD [address] [address] PCP - General 02/17/15 Julián Matthews MD 3 [place] [address] Physician NEUROMUSCULOSKELETAL MEDICINE 07/27/21 documented as of this encounter
--- OUTSIDE RECORDS SUMMARY | 2024-10-25 18:04 | XMS_ITS | Encounter Summary ---
Author Organization [facility] Address [address] [place] [address]. [place] [address] [place] [address] Care Team Providers Care Rolled Seat Trimmer Name Role Phone Rahul Ledesma MD Primary Care Provider [phone] Julián Matthews MD Unavailable [phone] Reason for Visit * Reason Onset Date Comments Results 08/19/2021 Encounter Details Date Type Department Care Team (Late st Contact Info) Description 08/19/[address] 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
--- OUTSIDE RECORDS SUMMARY | 2024-10-25 18:04 | XMS_ITS | Encounter Summary ---
Author Organization [facility] Address [address] [place] [address]. 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
--- OUTSIDE RECORDS SUMMARY | 2024-10-25 18:04 | XMS_ITS | Encounter Summary ---
Author Organization [facility] Address [address] [place] [address]. 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
--- OUTSIDE RECORDS SUMMARY | 2024-10-25 18:04 | XMS_ITS | Encounter Summary ---
Author Organization [facility] Address [address] [place] [address]. 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
--- OUTSIDE RECORDS SUMMARY | 2024-10-25 18:04 | XMS_ITS | Encounter Summary ---
Author Organization [facility] Address [address] [place] [address]. [place], [place] [address] [place] [address] Care Team Providers Care Real Estate Attorney Name Role Phone Rahul Ledesma MD Primary Care Provider [phone] Julián Matthews MD Unavailable [phone] Reason for Visit * Reason Onset Date Comments Letter 01/20/2022 Encounter Details Date Type Department Care Team (Late st Contact Info) Description 01/20/2022 Telephone [facility] Multispecialty Care - 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 Call patient to discuss further instructions [phone]. documented in this encounter Plan of Treatment Not on file documented as of this encounter Visit Diagnoses Not on filedocumented in this encounter Care Teams Real Estate Attorney Relationship Specialty Start Date End Date Rahul Ledesma MD [address] [phone] PCP - General 02/17/15 Julián Matthews MD 3 [place] [address] Physician NEUROMUSCULOSKELETAL MEDICINE 07/27/21 documented as of this encounter
--- OUTSIDE RECORDS SUMMARY | 2024-10-25 18:04 | XMS_ITS | Encounter Summary ---
Author Organization [facility] - [facility] Address [address] [place] [address]. [place], [place] [address] [place] [address] Care Team Providers Care Smoke Control Supervisor Name Role Phone Rahul Ledesma MD Primary Care Provider [phone] Julián Matthews MD Unavailable [phone] Reason for Visit * Reason Onset Date Comments Results 10/17/2021 Encounter Details Date Type Department Care Team (Late st Contact Info) Description 10/17/2021 Telephone [facility] Medical Group Multispecialty Care - [facility] [address] 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 Will send a letter IDE SALES EXECUTIVE * Marcie Rice MA - 10/17/2021 4:22 PM CST Tried to call patient again, no answer IDE SALES EXECUTIVE * Marcie Rice MA - 10/17/2021 1:58 PM CST vm is full, will try again later IDE SALES EXECUTIVE * Marcie Rice MA - 10/17/2021 1:57 PM CST ----- Message from Julián Matthews MD sent at 10/17/2021 1:27 PM OUTSIDE SALES EXECUTIVE ----- Plz let him know his ambulatory EEG was normal. Plz ask him to stay on his meds for now. IDE SALES EXECUTIVE documented in this encounter Plan of Treatment Not on file documented as of this encounter Visit Diagnoses Not on filedocumented in this encounter Care Teams Smoke Control Supervisor Relationship Specialty Start Date End Date Rahul Ledesma MD [address] [address] PCP - General 02/17/15 Julián Matthews MD [address] [place] [address] Physician NEUROMUSCULOSKELETAL MEDICINE 07/27/21 documented as of this encounter
--- OUTSIDE RECORDS SUMMARY | 2024-10-25 18:04 | XMS_ITS | Encounter Summary ---
Author Organization [facility] - [facility] Address [address] [place] [address]. [place], [place] [address] [place] [address] Care Team Providers Care Biofuels Production Associate Name Role Phone Rahul Ledesma MD Primary Care Provider [phone] Julián Matthews MD Unavailable [phone] Reason for Visit * Reason Onset Date Comments Appointment Request 08/25/2021 Encounter Details Date Type Department Care Team (Late st Contact Info) Description 08/25/2021 Telephone [facility] Medical Group Multispecialty Care - [facility] [address] [facility], [address] [place] [phone] Julián Matthews MD 3 [place], [place] [phone] Appointment Request Social History Tobacco Use Types [...] 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 No / Unsure 08/19/2021 7:35 AM CDT documented as of this encounter Progress Notes * Pratibha Hurtado Computer Science Teacher - 08/25/2021 3:26 PM CST Spoke with patient to reschedule from 09/30/21 to 08/26/21. Patient verbalized understanding S SALESMAN documented in this encounter Plan of Treatment Not on file documented as of this encounter Visit Diagnoses Not on filedocumented in this encounter Care Teams Biofuels Production Associate Relationship Specialty Start Date End Date Rahul Ledesma MD [address] [address] PCP - General 02/17/15 Julián Matthews MD 3 [place] [address] Physician NEUROMUSCULOSKELETAL MEDICINE 07/27/21 documented as of this encounter
--- OUTSIDE RECORDS SUMMARY | 2024-10-25 18:04 | XMS_ITS | Encounter Summary ---
Author Organization [facility] - [facility] Address [address] [place] [address]. [place] [address] [place] [address] Care Team Providers Care Park Guard Name Role Phone Rahul Ledesma MD Primary Care Provider [phone] Julián Matthews MD Unavailable [phone] Reason for Visit * Reason Onset Date Comments Results 08/22/2021 Encounter Details Date Type Department Care Team (Late st Contact Info) Description 08/22/2021 Telephone [facility] Medical Group Multispecialty Care - [facility] [address] 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 Patient verbalized understanding. ATCH ASSOCIATE * Marcie Ventura RN - 08/22/2021 9:59 AM CST ----- Message from Julián Matthews MD sent at 08/21/2021 3:03 PM DISPATCH ASSOCIATE ----- Plz let him know the MRI and echo was normal. We will discuss more at the clinic visit. ATCH ASSOCIATE documented in this encounter Plan of Treatment Not on file documented as of this encounter Visit Diagnoses Not on filedocumented in this encounter Care Teams Park Guard Relationship Specialty Start Date End Date Rahul Ledesma MD [address] [address] PCP - General 02/17/15 Julián Matthews MD 3 [place] [address] Physician NEUROMUSCULOSKELETAL MEDICINE 07/27/21 documented as of this encounter
--- OUTSIDE RECORDS SUMMARY | 2024-10-25 18:04 | XMS_ITS | Encounter Summary ---
Author Organization [facility] Address [address] [place] [address]. 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
--- OUTSIDE RECORDS SUMMARY | 2024-10-25 18:04 | XMS_ITS | Encounter Summary ---
Author Organization [facility] - [facility] Address [address] [place] [address]. [place], [place] [address] [place] [address] Care Team Providers Care Brazer Resistance Name Role Phone Rahul Ledesma MD Primary Care Provider [phone] Julián Matthews MD Unavailable [phone] Reason for Visit * Reason Onset Date Comments Follow Up Call 11/21/2021 Encounter Details Date Type Department Care Team (Late st Contact Info) Description 11/21/2021 Telephone [facility] Medical Group Multispecialty Care - [address], [address] [place] [address] Julián Matthews MD 3 [place], [place] [phone] Follow Up Call Social History Tobacco Use [...] 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 No / Unsure 10/25/2021 7:41 AM COLOR BUFFER documented as of this encounter Progress Notes * Marcie Rice MA - 11/21/2021 12:11 PM CST Driving letter was scanned into media. I spoke with patient about 3 weeks ago about getting this picked up. Printed for front end developer designer and given to patients . R BUFFER * Meron Diggs - 11/21/2021 10:31 AM CST Pt is asking to speak someone re: some paperwork that he needs He said he left this with us already, needs to pick it up Is It ready R BUFFER documented in this encounter Plan of Treatment Not on file documented as of this encounter Visit Diagnoses Not on filedocumented in this encounter Care Teams Brazer Resistance Relationship Specialty Start Date End Date Rahul Ledesma MD [address] [address] PCP - General 02/17/15 Julián Matthews MD 3 [place] [address] Physician NEUROMUSCULOSKELETAL MEDICINE 07/27/21 documented as of this encounter
--- OUTSIDE RECORDS SUMMARY | 2024-10-25 18:04 | XMS_ITS | Encounter Summary ---
Author Organization [facility] Address [address] [place] [address]. [place], [place] [address] [place] [address] Care Team Providers Care Night Auditor Name Role Phone Rahul Hickman MD Primary Care Provider [phone] Julián Matthews MD Unavailable [phone] Reason for Visit * Reason Comments Physical Annual Encounter Details Date Type Department Care Team (Late st Contact Info) Description 12/05/2021 4:00 PM SUPERVISOR COLOR PASTE MIXING Office Visit [facility] [address] [facility] [address] [place] [address] Rahul Hickman MD [address] [facility] [address] [place] [address] Physical (Annual) Social History Tobacco [...] 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..] Not on file Occupational History ??? 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 Smoking status: Current Every [...] inattentive type 3. History of opioid abuse ([facility]) 4. Routine general medical examination at a health care facility Plan: The primary encounter diagnosis was Seizure disorder ([facility]). Diagnoses of ADHD, predominantly inattentive type, History of opioid abuse ([facility]), and Routine general medical examination at a health care facility were also pertinent to this visit. - Comply with suggestions for healthy lifestyle The primary encounter diagnosis was Seizure disorder ([facility]). Diagnoses of ADHD, predominantly inattentive type, History of opioid abuse ([facility]), and Routine general medical examination at a health care facility were also pertinent to this visit. - All conditions are stable and compensated (except those noted above) Diagnoses and all orders for this visit: Seizure disorder ([facility]) ADHD, predominantly inattentive type History of opioid abuse ([facility]) Routine general medical examination at a health [...] ref. provider found PCP: RAHUL HICKMAN MD [facility] COLOR PASTE MIXING documented in this encounter Plan of Treatment Not on file documented as of this encounter Visit Diagnoses Diagnosis Seizure disorder ([facility])- Primary Unspecified epilepsy without mention of intractable epilepsy ADHD, predominantly inattentive type Attention deficit disorder without mention of hyperactivity History of opioid abuse ([facility]) Opioid abuse, in remission Routine general medical examination at a health care facility documented in this encounter Care Teams Night Auditor Relationship Specialty Start Date End Date Rahul Hickman MD [facility] [address] [phone] PCP - General 02/17/15 Julián Matthews MD [address] [place] [address] Physician NEUROMUSCULOSKELETAL MEDICINE 07/27/21 documented as of this encounter
--- OUTSIDE RECORDS SUMMARY | 2024-10-25 18:04 | XMS_ITS | Encounter Summary ---
Author Organization [facility] Address [address] [place] [address]. 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
--- OUTSIDE RECORDS SUMMARY | 2024-10-25 18:04 | XMS_ITS | Encounter Summary ---
Author Organization [facility] Address [address] [place] [address]. 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 No / Unsure 10/25/2021 7:41 AM MEDICAL EDUCATION COORDINATOR documented as of this encounter Plan of Treatment Not on file documented as of this encounter Visit Diagnoses Not on filedocumented in this encounter Care Teams Yarn Examiner Skeins Relationship Specialty Start Date End Date Rahul Ledesma MD [address] [address] PCP - General 02/17/15 Julián Matthews MD 3 [place] [address] Physician NEUROMUSCULOSKELETAL MEDICINE 07/27/21 documented as of this encounter
--- OUTSIDE RECORDS SUMMARY | 2024-10-25 18:04 | XMS_ITS | Encounter Summary ---
Author Organization [facility] Address [address] [place] [address]. 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 No / Unsure 08/26/2021 9:35 AM SYSTEMS TESTER documented as of this encounter Plan of Treatment Not on file documented as of this encounter Visit Diagnoses Not on filedocumented in this encounter Care Teams Chief Drafter Relationship Specialty Start Date End Date Rahul Ledesma MD [address] [address] PCP - General 5/6/15 Julián Matthews MD 3 [place] [address] Physician NEUROMUSCULOSKELETAL MEDICINE 07/27/21 documented as of this encounter
--- OUTSIDE RECORDS SUMMARY | 2024-10-25 18:04 | XMS_ITS | Encounter Summary ---
Author Organization [facility] - [facility] Address [address] [place] [address]. [place] [address] [place] [address] Care Team Providers Care Technical Staff Engineer Name Role Phone Rahul Ledesma MD Primary Care Provider [phone] Julián Matthews MD Unavailable [phone] Reason for Visit * Reason Onset Date Comments Results 08/29/2021 Encounter Details Date Type Department Care Team (Late st Contact Info) Description 08/29/2021 Telephone [facility] Medical Group Multispecialty Care - [facility] [address] [facility], [address] [place] [phone] Julián Matthews MD 3 [place] [address] Results Social History Tobacco Use Types Packs/Day [...] 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 No / Unsure 08/26/2021 9:35 AM OIL SPREADER OPERATOR documented as of this encounter Progress Notes * Marcie Ventura RN - 08/29/2021 9:10 AM CST Spoke with patient to discuss EEG results. Patient verbalized understanding and will be in for a follow up tomorrow morning and to sign neurotech papers as well. SPREADER OPERATOR * Marcie Ventura RN - 08/29/2021 9:10 AM CST ----- Message from Julián Matthews MD sent at 08/26/2021 7:45 PM OIL SPREADER OPERATOR ----- Plz let him know his eeg was normal, I would like to do a 72 hour ambulatory eeg monitoring SPREADER OPERATOR documented in this encounter Plan of Treatment Not on file documented as of this encounter Visit Diagnoses Not on filedocumented in this encounter Care Teams Technical Staff Engineer Relationship Specialty Start Date End Date Rahul Ledesma MD [address] [address] PCP - General 02/17/15 Julián Matthews MD 3 [place] [address] Physician NEUROMUSCULOSKELETAL MEDICINE 07/27/21 documented as of this encounter
--- OUTSIDE RECORDS SUMMARY | 2024-10-25 18:04 | XMS_ITS | Encounter Summary ---
Author Organization [facility] Address [address] [place] [address]. 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
--- OUTSIDE RECORDS SUMMARY | 2024-10-25 18:04 | XMS_ITS | Encounter Summary ---
Author Organization [facility] Address [address] [place] [address]. [place], [place] [address] [place] [address] Care Team Providers Care Geophysical Laboratory Supervisor Name Role Phone Rahul Ledesma MD Primary Care Provider [phone] Reason for Visit * Reason Onset Date Comments Note From Provider Request 07/06/2021 Encounter Details Date Type Department Care Team (Late st Contact Info) Description 07/06/2021 Telephone [facility] [address] [facility] [address] [place] [address] Rahul Ledesma MD [address] [facility] [address] [place] [address] Note From Provider Request Social [...] 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 He would [...] 6 months per pt. Ncb: pt Will package pick up documented in this encounter Plan of Treatment Not on file documented as of this encounter Visit Diagnoses Not on filedocumented in this encounter Care Teams Geophysical Laboratory Supervisor Relationship Specialty Start Date End Date Rahul Ledesma MD [address] [address] PCP - General 02/17/15 documented as of this encounter
--- OUTSIDE RECORDS SUMMARY | 2024-10-25 18:04 | XMS_ITS | Encounter Summary ---
Author Organization [facility] Address [address] [place] [address]. 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 No / Unsure 08/30/2021 7:51 AM SUPERVISOR INDUSTRIAL ARTS EDUCATION documented as of this encounter Plan of Treatment Not on file documented as of this encounter Visit Diagnoses Not on filedocumented in this encounter Care Teams Room Clerk Relationship Specialty Start Date End Date Rhaul Ledesma MD [address] [address] PCP - General 02/17/15 Julián Matthews MD 3 [place] [address] Physician NEUROMUSCULOSKELETAL MEDICINE 07/27/21 documented as of this encounter
--- OUTSIDE RECORDS SUMMARY | 2024-10-25 18:04 | XMS_ITS | Encounter Summary ---
Author Organization [facility] Address [address] [place] [address]. 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 No / Unsure 10/25/2021 7:41 AM REELER OPERATOR documented as of this encounter Plan of Treatment Not on file documented as of this encounter Visit Diagnoses Not on filedocumented in this encounter Care Teams Entrepreneur Relationship Specialty Start Date End Date Rahul Ledesma MD [address] [address] PCP - General 02/17/15 Julián Matthews MD 3 [place], [place] [id number] Physician NEUROMUSCULOSKELETAL MEDICINE 07/27/21 documented as of this encounter
--- OUTSIDE RECORDS SUMMARY | 2024-10-25 18:04 | XMS_ITS | Encounter Summary ---
Author Organization [facility] Address [address] [place] [address]. [place] [address] [place] [address] Care Team Providers Care Rehabilitation Attendant Name Role Phone Rahul Ledesma MD Primary Care Provider [phone] Julián Matthews MD Unavailable [phone] Reason for Visit * Reason Onset Date Comments Schedule Test 08/01/2021 Encounter Details Date Type Department Care Team (Late st Contact Info) Description 08/01/2021 Telephone [facility] Multispecialty Care - 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 Have Adjunct Sociology Professor call him with date and time. Patient call back number [phone]. documented in this encounter Plan of Treatment Not on file documented as of this encounter Visit Diagnoses Not on filedocumented in this encounter Care Teams Rehabilitation Attendant Relationship Specialty Start Date End Date Rahul Ledesma MD [address] [address] PCP - General 02/17/15 Julián Matthews MD 3 [place] [address] Physician NEUROMUSCULOSKELETAL MEDICINE 07/27/21 documented as of this encounter
--- OUTSIDE RECORDS SUMMARY | 2024-10-25 18:04 | XMS_ITS | Encounter Summary ---
Author Organization [facility] Address [address] [place] [address]. 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
--- OUTSIDE RECORDS SUMMARY | 2024-10-25 18:04 | XMS_ITS | Encounter Summary ---
Author Organization [facility] Address [address] [place] [address]. [place], [place] [address] [place] [address] Care Team Providers Care Poker In Name Role Phone Rahul Ledesma MD Primary Care Provider [phone] Julián Jeffery MD Unavailable [phone] Reason for Referral * Procedure (Routine) - Closed Specialty Diagnoses / Procedures Referred By Contac t Referred To Contact Diagnoses Partial symptomatic epilepsy with complex partial seizures, not intractable, without status epilepticus ([facility]) Procedures Ambulatory EEG Julián Jeffery MD [address] [place] [address] Phone: tel: fax: Julián Jeffery MD [address] [place] [address] Phone: tel: fax: Referral ID Status Reason Start Date Expiration Date Visits Re quested Visits Authorized [id number] Closed 10/07/2021 11/17/2022 100 100 LL ASSEMBLER Reason for Visit * Reason Comments Follow Up Encounter Details Date Type Department Care Team (Late st Contact Info) Description 08/30/2021 7:40 AM SCROLL ASSEMBLER Office Visit [facility] Multispecialty Care - [address], [address] [place] [address] Julián Jeffery MD [address] [place] [address] Follow Up Social History Tobacco Use Types [...] 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 No / Unsure 08/30/2021 7:51 AM SCROLL ASSEMBLER documented as of this encounter Last Filed Vital Signs Vital Sign Reading Time Taken Comments Blood Pressure 131/90 08/30/2021 8:03 AM SCROLL ASSEMBLER Pulse 107 08/30/2021 7:59 AM SCROLL ASSEMBLER Temperature - - Respiratory Rate - - Oxygen Saturation - - Inhaled Oxygen Concentration - - Weight 68.3 kg (150 lb 8 oz) 08/30/2021 7:59 AM SCROLL ASSEMBLER Height 180.3 cm (5' 11 ) 08/30/2021 7:59 AM SCROLL ASSEMBLER Body Mass Index 20.99 08/30/2021 7:59 AM SCROLL ASSEMBLER documented in this encounter Progress Notes * Jluián Jeffery MD - 08/30/2021 7:40 AM CSTAddended by: JULIÁN JEFFERY on: 10/17/2021 01:29 PM Modules accepted: Orders LL ASSEMBLER * Julián Jeffery MD - 08/30/2021 7:40 [...] I will do 48-hour ambulatory EEG through [facility] without video to look for any epileptiform [...] in the medical record. JULIÁN JEFFERY MD LL ASSEMBLER documented in this encounter Plan of Treatment Scheduled Orders Name Type Priority Associated Diagnoses Orde r Schedule Ambulatory EEG Neurology Routine Partial symptomatic epilepsy with complex partial seizures, not intractable, without status epilepticus ([facility]) Expected: 10/17/2021, Expires: 01/15/2022 documented as of this encounter Visit Diagnoses Diagnosis Partial symptomatic epilepsy with complex partial seizures, not intractable, without status epilepticus ([facility])- Primary documented in this encounter Care Teams Poker In Relationship Specialty Start Date End Date Rahul Ledesma MD [address] [phone] PCP - General 02/17/15 Julián Jeffery MD [address] [place] [address] Physician NEUROMUSCULOSKELETAL MEDICINE 07/27/21 documented as of this encounter
--- OUTSIDE RECORDS SUMMARY | 2024-10-25 18:04 | XMS_ITS | Encounter Summary ---
Author Organization [facility] Address [address] [place] [address]. [place], [place] [address] [place] [address] Care Team Providers Care Sales Project Manager Name Role Phone Rahul Ledesma MD Primary Care Provider [phone] Reason for Visit * Reason Onset Date Comments TCM 05/07/2021 Encounter Details Date Type Department Care Team (Late st Contact Info) Description 05/07/[address] 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
--- OUTSIDE RECORDS SUMMARY | 2024-10-25 18:04 | XMS_ITS | Encounter Summary ---
Author Organization [facility] Address [facility]. [place], [place] [address] [place] [address] Care Team Providers Care Electric Spot Welder Name Role Phone Rahul Ledesma MD Primary Care Provider [phone] Julián Matthews MD Unavailable [phone] Reason for Visit * Reason Comments Follow Up * Consultation/Treatment (Routine) - Closed Specialty Diagnoses / Procedures Referred By Contkaur t Referred To Contact NEUROLOGY Diagnoses Seizure disorder ([facility]) Rahul Ledesma MD [address] [address] Phone: tel: fax: [facility] - [address], [address] [place] [address] Phone: tel: Referral ID Status Reason Start Date Expiration Date V isits Requested Visits Authorized [id number] Closed Specialty Services 03/17/2021 04/17/2022 100 100 Encounter Details Date Type Department Care Team (Late st Contact Info) Description 10/25/2021 7:40 AM COMMISSION AGENT LIVESTOCK [facility] - [address], [address] [place] [address] Julián Matthews MD [address] [place] [address] Follow Up Social History Tobacco Use [...] 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 No / Unsure 10/25/2021 7:41 AM COMMISSION AGENT LIVESTOCK documented as of this encounter Last Filed Vital Signs Vital Sign Reading Time Taken Comments Blood Pressure 130/76 10/25/2021 7:48 AM COMMISSION AGENT LIVESTOCK Pulse 87 10/25/2021 7:48 AM COMMISSION AGENT LIVESTOCK Temperature - - Respiratory Rate - - Oxygen Saturation - - Inhaled Oxygen Concentration - - Weight 70.9 kg (156 lb 6.4 oz) 10/25/2021 7:48 A M COMMISSION AGENT LIVESTOCK Height 180.3 cm (5' 11 ) 10/25/2021 7:48 AM COMMISSION AGENT LIVESTOCK Body Mass Index 21.81 10/25/2021 7:48 AM COMMISSION AGENT LIVESTOCK documented in this encounter Progress Notes * [...] summary Mr. Spivey has history of seizures. He is stable [...] in the medical record. 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
--- OUTSIDE RECORDS SUMMARY | 2024-10-25 18:04 | XMS_ITS | Encounter Summary ---
Author Organization [facility] Address [address] [place] [address]. 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 No / Unsure 08/30/2021 7:51 AM VAMP STRAP IRONER documented as of this encounter Plan of Treatment Not on file documented as of this encounter Visit Diagnoses Not on filedocumented in this encounter Care Teams Compass Operator Relationship Specialty Start Date End Date Rahul Ledesma MD [address] [address] PCP - General 02/17/15 Julián Matthews MD 3 [place], [place] [address] Physician NEUROMUSCULOSKELETAL MEDICINE 07/27/21 documented as of this encounter
--- OUTSIDE RECORDS SUMMARY | 2024-10-25 18:04 | XMS_ITS | Encounter Summary ---
Author Organization [facility] Address [address] [place] [address]. [place], [place] [address] [place] [address] Care Team Providers Care Tractor Mechanic Helper Name Role Phone Rahul Ledesma MD Primary Care Provider [phone] Reason for Visit * Reason Onset Date Comments Information 04/11/2021 Encounter Details Date Type Department Care Team (Late st Contact Info) Description 04/11/2021 Telephone [facility] [place] [address] [facility] [address] [place] [address] Rahul Ledesma MD [address] [facility] [address] [place] [address] Information Social History Tobacco Use [...] 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 * Rosana Sinhg RN - 04/11/2021 2:54 PM CDT Pt calling stating a lady in the epilepsy department at [place] called him and said that in order toget his drivers license back he has to have an EEG done. Pt is asking if you will order it? Will come in for appt if necessary ncb pt documented in this encounter Plan of Treatment Not on file documented as of this encounter Visit Diagnoses Not on filedocumented in this encounter Care Teams Tractor Mechanic Helper Relationship Specialty Start Date End Date Rahul Ledesma MD [address] [address] PCP - General 02/17/15 documented as of this encounter
--- OUTSIDE RECORDS SUMMARY | 2024-10-25 18:04 | XMS_ITS | Encounter Summary ---
Author Organization [facility] Address [address] [place] [address]. 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 1. ??Unremarkable MRI of the brain; no potential seizure focus identified, or any other acute or significant intracranial MRI finding. Referred By: JULIÁN MATTHEWS Interpreted By: Vini Graves MD, 08/21/2021 9:02 AM Narrative 08/21/2021 9:12 AM LOCAL BULK DRIVER EXAMINATION: MRI brain with/without contrast. EXAM DATE/TIME: [...] CDT ?Echocardiography Report Pat.Name: ??FREDERICK MCDONALD ?Pat.ID: ?[id number] ? St.Date: ?? 08/19/2021 ? Refer.: ??[id number], JULIÁN MATTHEWS Exam Time: 7:45:00 AM ? [...] 08/19/2021 Echocardiography Report Pat.Name: FREDERICK MCDONALD Pat.ID: [id number] St.Date: 08/19/2021 Refer.MD: [id number], JULIÁN MATTHEWS Exam Time: 7:45:00 AM Study Type:ECHO WITH CARDIAC DOPPLER COMP Height: 71in Weight: 155.68lb BSA: 1.9 m2 Age: 7 1990,31Y Sex: MALE BP: 124/76 HR: 66 bpm Sonogrphr: Kiran Donnelly [facility] Pat. Stat.:Outpatient Reason for Study: Seizure Procedures: [...] Arm documented in this encounter Care Teams Mash Filter Press Operator Relationship Specialty Start Date End Date Rahul Ledesma MD [address] [phone] PCP - General 02/17/15 Julián Matthews MD 3 [place], [place] [address] Physician NEUROMUSCULOSKELETAL MEDICINE 07/27/21 documented as of this encounter
--- OUTSIDE RECORDS SUMMARY | 2024-10-25 18:04 | XMS_ITS | Encounter Summary ---
Author Organization [facility] Address [address] [place] [address]. 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 ([facility]) Procedures EEG AWAKE OR DROWSY ROUTINE EEG Julián Matthews MD [address] [place] [address] Phone: tel:[phone] fax:[phone] Julián Matthews MD [address] [place] [address] Phone: tel:[phone] fax:[phone] Referral ID Status Reason Start Date Expiration Date Visits Re quested Visits Authorized [id number] Closed 09/30/2021 10/01/2022 1 1 Encounter Details Date Type Department Care Team (Late st Contact Info) Description 08/26/2021 10:00 AM MACADAM RAKER Office Visit [facility] Group Multispecialty Care - [address], [address] [place] [address] Julián Matthews MD [address] [place], [place] [id number] Seizures Social History Tobacco Use Types Packs/Day [...] 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 No / Unsure 08/26/2021 9:35 AM MACADAM RAKER documented as of this encounter Progress Notes * Julián Matthews MD - 08/26/2021 10:00 AM CST This is an eeg visit DAM RAKER documented in this encounter Procedure Notes * [...] normal EEG does not rule out seizure/epilepsy. DAM RAKER documented in this encounter Plan of Treatment Not on file documented as of this encounter Procedures Procedure Name Priority Date/Time Associated Diagnosis Comments EEG SLEEP DEPRIVED Routine 08/26/2021 10 :00 AM MACADAM RAKER Localization-relate d focal epilepsy with complex partial seizures (CMS/HCC HHS/HCC) documented in this encounter Results * EEG awake or drowsy routine (08/26/2021 10:00 AM MACADAM RAKER) Narrative [facility] - 08/26/2021 10:00 AM MACADAM RAKER Julián Matthews MD ? 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
--- OUTSIDE RECORDS SUMMARY | 2024-10-25 18:04 | XMS_ITS | Encounter Summary ---
Author Organization [facility] Address [address] [place] [address]. [place] [address] [place] [address] Care Team Providers Care Bill Recapitulation Clerk Name Role Phone Rahul Ledesma MD Primary Care Provider [phone] Julián Matthews MD Unavailable [phone] Reason for Visit * Reason Onset Date Comments Appointment Request 08/26/2021 Encounter Details Date Type Department Care Team (Late st Contact Info) Description 08/26/2021 Telephone [facility] Multispecialty Care - [facility] [address] [facility], [address] [place] [phone] Julián Matthews MD 3 [place], [place] [phone] Appointment Request Social History Tobacco Use Types [...] 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 No / Unsure 08/26/2021 9:35 AM VENDING MACHINE MECHANIC documented as of this encounter Progress Notes * Pratibha Hurtado Security Intern - 08/26/2021 2:40 PM CST Contacting patient about follow up appt for Sep.02. No answer and voicemail full, unable to leave message ING MACHINE MECHANIC documented in this encounter Plan of Treatment Not on file documented as of this encounter Visit Diagnoses Not on filedocumented in this encounter Care Teams Bill Recapitulation Clerk Relationship Specialty Start Date End Date Rahul Ledesma MD [address] [address] PCP - General 02/17/15 Julián Matthews MD 3 [place] [address] Physician NEUROMUSCULOSKELETAL MEDICINE 07/27/21 documented as of this encounter
--- OUTSIDE RECORDS SUMMARY | 2024-10-25 18:04 | XMS_ITS | Encounter Summary ---
Author Organization [facility] Address [address] [place] [address]. 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 HHS/HCC) Procedures MRI BRAIN WWO CON Julián Matthews MD [address] [place] [address] Phone: tel: fax: Referral ID Status Reason Start Date Expiration Date Visits Re quested Visits Authorized [id number] Closed 07/15/2021 08/15/2022 1 1 Reason for Visit * Reason Comments Seizures * Consultation/Treatment (Routine) - Closed Specialty Diagnoses / Procedures Referred By Contac t Referred To Contact NEUROLOGY Diagnoses Seizure disorder ([facility]) Rahul Ledesma MD [address] [address] Phone: tel: fax: [facility] - [address], [address] [place] [address] Phone: tel: Referral ID Status Reason Start Date Expiration Date V isits Requested Visits Authorized [id number] Closed Specialty Services 03/17/2021 04/17/2022 100 100 Encounter Details Date Type Department Care Team (Late st Contact Info) Description 07/15/2021 7:40 AM CDT Office Visit [facility] - [address], [address] [place] [address] Julián Matthews MD [address] [place] [address] Seizures Social History Tobacco Use Types [...] 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 - 08/26/2021 10:00 AM TRIPPER Julián Matthews MD ? 08/26/2021 ??7:42 PM [...] Matthews MD NEUROLOGY ORDERABLES Jaida altman Result [facility] [address] [place] [address], * MRI BRAIN WWO CON (08/19/2021 3:30 PM CDT) Anatomical Region Laterality Modality Head Magnetic Resonan ce 08/21/2021 9:02 AM TRIPPER Impressions 08/21/2021 9:12 AM TRIPPER IMPRESSION:===== ?? 1. ??Unremarkable MRI of the brain; no potential seizure focus identified, or any other acute or significant intracranial MRI finding. Referred By: JULIÁN MATTHWES Interpreted By: Vini Graves MD, 08/21/2021 9:02 AM Narrative 08/21/2021 9:12 AM TRIPPER EXAMINATION: MRI brain with/without contrast. EXAM DATE/TIME: [...] CDT ?Echocardiography Report Pat.Name: ??FREDERICK SPIVEY ?Pat.ID: ?[id number] ? St.Date: ?? 08/19/2021 ? Refer.: ??[id number], JULIÁN MATTHEWS Exam Time: 7:45:00 AM ? [...] 08/19/2021 Echocardiography Report Pat.Name: FREDERICK SPIVEY Pat.ID: [id number] .Date: 08/19/2021 Refer.MD: [id number], JULIÁN MATTHEWS Exam Time: 7:45:00 AM Study [...] epilepsy documented in this encounter Care Teams Sales Contracts Analyst Relationship Specialty Start Date End Date Rahul Ledesma MD [address] [address] PCP - General 02/17/15 documented as of this encounter
--- OUTSIDE RECORDS SUMMARY | 2024-10-25 18:05 | XMS_ITS | Encounter Summary ---
Author Organization [facility] Address [address] [place] [address]. 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
--- OUTSIDE RECORDS SUMMARY | 2024-10-25 18:05 | XMS_ITS | Encounter Summary ---
Author Organization [facility] Address [address] [place] [address]. [place], [place] [address] [place] [address] Care Team Providers Care Air Grinder Name Role Phone Rahul Villa MD Primary Care Provider +10-20 [phone] Encounter Details Date Type Department Care Team (Latest Contact Info) Description 09/19/2018 Abstract [facility] Rahul Villa MD [address] [address] Social History Tobacco Use Types [...] Comments Blood Pressure 122/84 09/19/2018 1:06 PM ICE GRINDER Pulse - - Temperature - - Respiratory Rate - - Oxygen Saturation - - Inhaled Oxygen Concentration - - Weight 75.8 kg (167 lb) 09/19/2018 1:06 PM ICE GRINDER Height 180.3 cm (5' 11 ) 09/19/2018 1:06 PM ICE GRINDER Body Mass Index 23.29 09/19/2018 1:06 PM ICE GRINDER documented in this encounter Progress Notes * Rahul Villa MD - 09/19/2018 1:15 PM CST Reason For Visit Hospital Follow-Up Chief Complaint [facility] follow-up History of Present Illness Interval [...] Tablet; Take 1 tablet twice daily; Therapy: [id number] to (Evaluate:[id number]); Last Rx:02Sep2018 Ordered Allergies 1. No Known [...] Insomnia; Ordered By: Rahul Villa Performed: Due: [id number] Health Maintenance, Insomnia 2. Fluzone Quadrivalent 0.5 [...] Insomnia; ZEKE = N; Verified Transmission to [facility] [id number]; Last Updated By: [employer]; 09/19/2018 1:38:23 PM Discussion/Summary detailed disc about his recent rehab for opiod abuse. he says he will cont counseling Signatures Electronically signed by : Rahul Villa M.D.; Sep 19 2018 8:40PM ICE GRINDER (Author) documented in this encounter Plan of Treatment Not on file documented as of this encounter Visit Diagnoses Not on filedocumented in this encounter Care Teams Air Grinder Relationship Specialty Start Date End Date Rahul Villa MD [address] [address] PCP - General 02/17/15 documented as of this encounter
--- OUTSIDE RECORDS SUMMARY | 2024-10-25 18:05 | XMS_ITS | Encounter Summary ---
Author Organization [facility] Address [address] [place] [address]. [place], [place] [address] [place] [address] Care Team Providers Care Cobbler Apprentice Name Role Phone Vipul Hickman MD Primary Care Provider +10-20 [phone] Reason for Visit * Reason Comments Acute Note SORE THROAT X 4 DAYS Encounter Details Date Type Department Care Team (Late st Contact Info) Description 04/14/2019 2:15 PM CDT Office Visit [facility] [address] [facility] [address] [place] [address] Louis Mireles, HORTICULTURAL MANAGER [address] [place] [address] Acute Note (SORE THROAT X 4 DAYS) [...] file Gets together: Not on file Attends hinduism service: Not on file Active member of [...] A (04/14/2019) RAPID STREP TEST NEGATIVE NEGATIVE [facility] Internal Control: VALID VALID [facility] STRUCTURE OF ANTERIOR PORTION OF NECK / Unknown 04/14/2019 us Louis Mireles HORTICULTURAL MANAGER MICROBIOLOGY - GENERAL ORDERABL ES Final Result [facility] [address] [address] [place] [address], documented in this encounter Visit Diagnoses Diagnosis Acute pharyngitis, unspecified etiology- Primary documented in this encounter Care Teams Cobbler Apprentice Relationship Specialty Start Date End Date Vipul Hickman MD [address] [address] PCP - General 02/17/15 documented as of this encounter
--- OUTSIDE RECORDS SUMMARY | 2024-10-25 18:05 | XMS_ITS | Encounter Summary ---
Author Organization [facility] Address [address] [place] [address]. 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 I told him if we do not have by 04/12 then I would call. Office closed tomorrow * Olya Smalls RN - 04/09/2020 3:12 PM CDT Requesting x ray result, I do not see in chart or on dr chan stack [phone] documented in this encounter Plan of Treatment Not on file documented as of this encounter Visit Diagnoses Not on filedocumented in this encounter Care Teams Tier Over Relationship Specialty Start Date End Date Rahul Ledesma MD [address] [phone] PCP - General 02/17/15 documented as of this encounter
--- OUTSIDE RECORDS SUMMARY | 2024-10-25 18:05 | XMS_ITS | Encounter Summary ---
Author Organization [facility] Address [address] [place] [address]. 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 Opioid abuse ([facility]) Plan: - Comply with suggestions for healthy lifestyle Diagnoses and all orders for this visit: Anxiety - ALPRAZolam 1 MG tablet; Take 1 tablet (1 mg total) by mouth nightly as needed for Sleep. Opioid abuse ([facility]) Reviewed and updated this visit by provider: [...] Anxiety- Primary Anxiety state, unspecified Opioid abuse (CMS/[facility]) Opioid abuse, unspecified documented in this encounter Care Teams Orthopedic Nurse Relationship Specialty Start Date End Date Vipul Hickman MD [address] [address] PCP - General 02/17/15 documented as of this encounter
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
--- OUTSIDE RECORDS SUMMARY | 2024-10-25 18:05 | XMS_ITS | Encounter Summary ---
Author Organization [facility] Address [address] [place] [address]. [place], [place] [address] [place] [address] Care Team Providers Care Sr. 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 Manager Marketing Relationship Specialty Start Date End Date Rahul Ledesma MD [address] [address] PCP - General 02/17/15 documented as of this encounter
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
--- OUTSIDE RECORDS SUMMARY | 2024-10-25 18:05 | XMS_ITS | Encounter Summary ---
Author Organization [facility] Address [address] [place] [address]. 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
--- OUTSIDE RECORDS SUMMARY | 2024-10-25 18:05 | XMS_ITS | Encounter Summary ---
Author Organization [facility] Address [address] [place] [address]. [place], [place] [address] [place] [address] Care Team Providers Care Commercial Banker Name Role Phone Vipul Ledesma MD Primary Care Provider [phone] Reason for Visit * Reason Comments Acute Note multiple issues Encounter Details Date Type Department Care Team ([facility] st Contact Info) Description 01/27/2020 1:00 PM CDT Office Visit [facility] [address] [facility] [address] [place] [address] Vipul Ledesma MD [address] [facility] [address] [place] [address] Acute Note (multiple issues) Social [...] 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 Opioid abuse ([facility]) Plan: - Comply with suggestions for healthy lifestyle Diagnoses and all orders for this visit: Anxiety ADHD, predominantly inattentive type Opioid abuse ([facility]) We had a 30-minute conversation regarding his [...] without mention of hyperactivity Opioid abuse ([facility]) Opioid abuse, unspecified documented in this encounter Care Teams Commercial Banker Relationship Specialty Start Date End Date Vipul Ledesma MD [address] [address] PCP - General 02/17/15 documented as of this encounter
--- OUTSIDE RECORDS SUMMARY | 2024-10-25 18:05 | XMS_ITS | Encounter Summary ---
Author Organization [facility] Address [address] [place] [address]. [place], [place] [address] [place] [address] Care Team Providers Care Board Of Directors Name Role Phone Rahul Ledesma MD Primary Care Provider [phone] Reason for Referral * Consultation/Treatment (Routine) - Closed Specialty Diagnoses / Procedures Referred By Alicja t Referred To Contact NEUROLOGY Diagnoses Seizure disorder ([facility]) Rahul Ledesma MD [address] [facility] [address] [place] [address] Phone: tel: fax: [facility] - [facility] [address] [facility], [address] [place] [address] Phone: tel: Referral ID Status Reason Start Date Expiration Date V isits Requested Visits Authorized [id number] Closed Specialty Services 03/17/2021 04/17/2022 100 100 Reason for Visit * Reason Onset Date Comments Referral 03/17/2021 Encounter Details Date Type Department Care Team ([facility] Contact Info) Description 03/17/2021 Telephone [facility] [address] [facility] [address] [place] [address] Rahul Ledesma MD [address] [facility] [address] [place] [address] Referral Social History Tobacco Use [...] 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 No / Unsure 03/17/2021 10:33 AM CDT documented as of this encounter Progress Notes * Kellie Holland - 03/17/2021 2:40 PM CDT Order in [facility] and faxed * Rahul Ledesma MD - 03/17/2021 2:26 PM CDT Please refer to neurologist at [facility]. Diagnosis seizure disorder. I will defer the decision for the need of an EEG to the neurologist. * Kellie Holland - 03/17/2021 1:09 PM CDT Pt called about a referral to neurology. Pt states that he was here today and was told to call neurology over in [place]. He called [facility]. Pt also stated he needs an EEG. Ok for referral and EEG? FAX:[phone] documented in this encounter Plan of Treatment Scheduled Referrals Name Type Priority Associated Diagnoses Orde r Schedule Ambulatory referral to Neurology Referral Routine Seizure disorder ([facility]) Ordered: 03/17/2021 documented as of this encounter Visit Diagnoses Diagnosis Seizure disorder (CMS/[facility]/HCC)- Primary Unspecified epilepsy without mention of intractable epilepsy documented in this encounter Care Teams Board Of Directors Relationship Specialty Start Date End Date Rahul Ledesma MD [address] [address] PCP - General 02/17/15 documented as of this encounter
--- OUTSIDE RECORDS SUMMARY | 2024-10-25 18:05 | XMS_ITS | Encounter Summary ---
Author Organization [facility] Address [address] [place] [address]. [place], [place] [address] [place] [address] Care Team Providers Care Morgue Keeper Name Role Phone Rahul Ledesma MD Primary Care Provider [phone] [phone] Encounter Details Date Type Department Care Team (Latest Contact Info) Description 08/25/2018 Abstract [facility] Rahul Ledesma MD [address] [phone] Social History Tobacco Use Types Packs/Day Years [...] on filedocumented in this encounter Care Teams Morgue Keeper Relationship Specialty Start Date End Date Rauhl Ledesma MD [address] [phone] PCP - General 02/17/15 documented as of this encounter
--- OUTSIDE RECORDS SUMMARY | 2024-10-25 18:05 | XMS_ITS | Encounter Summary ---
Author Organization [facility] Address [address] [place] [address]. 

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
--- OUTSIDE RECORDS SUMMARY | 2024-10-25 18:05 | XMS_ITS | Encounter Summary ---
Author Organization [facility] Address [address] [place] [address]. [place], [place] [address] [place] [address] Care Team Providers Care Extruder Operator Horizontal Name Role Phone Rahul Ledesma MD Primary Care Provider +10-20 [phone] Reason for Visit * Reason Onset Date Comments Medication 05/17/2020 alprazolam Encounter Details Date Type Department Care Team (Late st Contact Info) Description 05/17/2020 Telephone [facility] [address] 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
--- OUTSIDE RECORDS SUMMARY | 2024-10-25 18:05 | XMS_ITS | Encounter Summary ---
Author Organization [facility] Address [address] [place] [address]. [place], [place] [address] [place] [address] Care Team Providers Care Sugar Presser Name Role Phone Rahul Ledesma MD Primary Care Provider +10-20 [phone] Encounter Details Date Type Department Care Team (Latest Contact Info) Description 10/31/2018 Abstract [facility] Rahul Ledesma MD [address] [phone] Social History Tobacco Use Types Packs/Day Years [...] on filedocumented in this encounter Care Teams Sugar Presser Relationship Specialty Start Date End Date Rahul Ledesma MD [address] [phone] PCP - General 02/17/15 documented as of this encounter
--- OUTSIDE RECORDS SUMMARY | 2024-10-25 18:05 | XMS_ITS | Encounter Summary ---
Author Organization [facility] Address [address] [place] [address]. [place], [place] [address] [place] [address] Care Team Providers Care Contracts Paralegal Name Role Phone Rahul Ledesma MD Primary Care Provider +10-20 [phone] Reason for Visit * Reason Onset Date Comments Refill Request 05/17/2020 Encounter Details Date Type Department Care Team (Late st Contact Info) Description 05/17/2020 Telephone [facility] [address] [facility] [address] [place] [address] Rahul Ledesma MD [address] [facility] [address] [place] [address] Refill Request Social History Tobacco [...] 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
--- OUTSIDE RECORDS SUMMARY | 2024-10-25 18:05 | XMS_ITS | Encounter Summary ---
Author Organization [facility] Address [address] [place] [address]. [place], [place] [address] [place] [address] Care Team Providers Care Relief Pharmacist Name Role Phone Rahul Ledesma MD Primary Care Provider +10-20 [phone] Encounter Details Date Type Department Care Team (Latest Contact Info) Description 01/01/2018 Abstract [facility] Rahul Ledesma MD [address] [address] Social History Tobacco Use Types [...] patient Signatures Electronically signed by : Marixa Pepepr, ; Jan 01 2018 2:20PM BLINDMAKER (Author) documented in this encounter Plan of Treatment Not on file documented as of this encounter Visit Diagnoses Not on filedocumented in this encounter Care Teams Relief Pharmacist Relationship Specialty Start Date End Date Rahul Ledesma MD [address] [address] PCP - General 02/17/15 documented as of this encounter
--- OUTSIDE RECORDS SUMMARY | 2024-10-25 18:05 | XMS_ITS | Encounter Summary ---
Author Organization [facility] Address [address] [place] [address]. [place] [address] [place] [address] Care Team Providers Care Sales Service Manager Name Role Phone Rahul Ledesma MD Primary Care Provider +10-20 [phone] Reason for Visit * Reason Onset Date Comments Refill Request 04/13/2020 Encounter Details Date Type Department Care Team (Late st Contact Info) Description 04/13/[address] 

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
--- OUTSIDE RECORDS SUMMARY | 2024-10-25 18:05 | XMS_ITS | Encounter Summary ---
Author Organization [facility] Address [address] [place] [address]. [place], [place] [address] [place] [address] Care Team Providers Care Hogshead Salvage Name Role Phone Rahul Villa MD Primary Care Provider +10-20 [phone] Encounter Details Date Type Department Care Team (Latest Contact Info) Description 10/21/2018 Abstract [facility] Rahul Villa MD [address] [address] Social History Tobacco Use Types [...] Comments Blood Pressure 124/76 10/21/2018 8:41 AM END STAPLER Pulse - - Temperature - - Respiratory Rate - - Oxygen Saturation - - Inhaled Oxygen Concentration - - Weight 78.5 kg (173 lb) 10/21/2018 8:41 AM END STAPLER Height 180.3 cm (5' 11 ) 10/21/2018 8:41 AM END STAPLER Body Mass Index 24.13 10/21/2018 8:41 AM END STAPLER documented in this encounter Progress Notes * [...] Tablet; Take 1 tablet twice daily; Therapy: [id number] to (Evaluate:03Nov2018); Last Rx:[id number] Ordered 2. Mirtazapine 30 MG Oral Tablet; TAKE 1 TABLET BY MOUTH EVERY NIGHT AT BEDTIME; Therapy: [id number] to (Evaluate:07Feb2019) Requested for: [id number]; Last Rx:[id number] Ordered Allergies 1. No Known Drug Allergies [...] Rahul Villa M.D.; Oct 21 2018 9:51AM END STAPLER (Author) documented in this encounter Plan of Treatment Not on file documented as of this encounter Visit Diagnoses Not on filedocumented in this encounter Care Teams Hogshead Salvage Relationship Specialty Start Date End Date Rahul Villa MD [address] [address] PCP - General 02/17/15 documented as of this encounter
--- OUTSIDE RECORDS SUMMARY | 2024-10-25 18:05 | XMS_ITS | Encounter Summary ---
Author Organization [facility] Address [address] [place] [address]. 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
--- OUTSIDE RECORDS SUMMARY | 2024-10-25 18:05 | XMS_ITS | Encounter Summary ---
Author Organization [facility] Address [address] [place] [address]. [place], [place] [address] [place] [address] Care Team Providers Care Boat Ride Operator Name Role Phone Vipul Ledesma MD Primary Care Provider +10-20 [phone] Reason for Visit * Reason Comments Physical annual Encounter Details Date Type Department Care Team (Late st Contact Info) Description 10/09/2019 2:30 PM SEAT MENDER Office Visit [facility] [address] [facility] [address] [place] [address] Vipul Ledesma MD [address] [facility] [address] [place] [address] Physical (annual) Social History Tobacco [...] Comments Blood Pressure 116/64 10/09/2019 2:43 PM SEAT MENDER Pulse - - Temperature - - Respiratory Rate - - Oxygen Saturation - - Inhaled Oxygen Concentration - - Weight 73.5 kg (162 lb) 10/09/2019 2:43 PM SEAT MENDER Height 180.3 cm (5' 11 ) 10/09/2019 2:43 PM SEAT MENDER Body Mass Index 22.59 10/09/2019 2:43 PM SEAT MENDER documented in this encounter Progress Notes * [...] ref. provider found PCP: VIPUL LEDESMA MD MENDER documented in this encounter Plan of Treatment Not on file documented as of this encounter Visit Diagnoses Diagnosis ADHD, predominantly inattentive type- Primary Attention deficit disorder without mention of hyperactivity Anxiety Anxiety state, unspecified Encounter for preventive health examination Routine general medical examination at a health care facility Insomnia, unspecified type Chronic pain of left ankle documented in this encounter Care Teams Boat Ride Operator Relationship Specialty Start Date End Date Vipul Ledesma MD [address] [address] PCP - General 02/17/15 documented as of this encounter
--- OUTSIDE RECORDS SUMMARY | 2024-10-25 18:05 | XMS_ITS | Encounter Summary ---
Author Organization [facility] Address [address] [place] [address]. [place], [place] [address] [place] [address] Care Team Providers Care Laborer Rags Name Role Phone Rahul Ledesma MD Primary Care Provider +10-20 [phone] Encounter Details Date Type Department Care Team (Late st Contact Info) Description 04/14/2019 Orders Only [facility] [address] [facility] [address] [place] [address] Marixa Pepper, RN Social History [...] on filedocumented in this encounter Care Teams Laborer Rags Relationship Specialty Start Date End Date Rahul Ledesma MD [address] [facility] [address] [place] [address] PCP - General 02/17/15 documented as of this encounter
--- OUTSIDE RECORDS SUMMARY | 2024-10-25 18:05 | XMS_ITS | Encounter Summary ---
Author Organization [facility] Address [address] [place] [address]. [place], [place] [address] [place] [address] Care Team Providers Care Cloth Printing Inspector Name Role Phone Vipul Ledesma MD Primary Care Provider +10-20 [phone] Reason for Visit * Reason Comments Follow Up scripts Encounter Details Date Type Department Care Team ([facility] st Contact Info) Description 07/06/2020 11:15 AM CDT Office Visit [facility] [address] [facility] [address] [place] [address] Vipul Ledesma MD [address] [facility] [address] [place] [address] Follow Up (scripts) Social History [...] 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
--- OUTSIDE RECORDS SUMMARY | 2024-10-25 18:05 | XMS_ITS | Encounter Summary ---
Author Organization [facility] Address [address] [place] [address]. 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
--- OUTSIDE RECORDS SUMMARY | 2024-10-25 18:05 | XMS_ITS | Encounter Summary ---
Author Organization [facility] Address [address] [place] [address]. 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
--- OUTSIDE RECORDS SUMMARY | 2024-10-25 18:05 | XMS_ITS | Encounter Summary ---
Author Organization [facility] Address [address] [place] [address]. 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
--- OUTSIDE RECORDS SUMMARY | 2024-10-25 18:05 | XMS_ITS | Encounter Summary ---
Author Organization [facility] Address [address] [place] [address]. 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
--- OUTSIDE RECORDS SUMMARY | 2024-10-25 18:05 | XMS_ITS | Encounter Summary ---
Author Organization [facility] Address [address] [place] [address]. [place], [place] [address] [place] [address] Care Team Providers Care Skate Shop Attendant Name Role Phone Rahul Ledesma MD Primary Care Provider +[phone] Reason for Visit * Reason Onset Date Comments Refill Request 02/20/2019 Encounter Details Date Type Department Care Team (Late st Contact Info) Description 02/20/2019 Telephone [facility] [address] [facility] [address] [place] [address] Rahul Ledesma MD [address] [facility] [address] [place] [address] Refill Request Social History Tobacco [...] CDT Call pt. When rx is ready [phone] documented in this encounter Plan of Treatment Not on file documented as of this encounter Visit Diagnoses Diagnosis ADHD (attention deficit hyperactivity disorder), inattentive type- Primary Attention deficit disorder without mention of hyperactivity documented in this encounter Care Teams Skate Shop Attendant Relationship Specialty Start Date End Date Rahul Ledesma MD [address] [address] PCP - General 02/17/15 documented as of this encounter
--- OUTSIDE RECORDS SUMMARY | 2024-10-25 18:05 | XMS_ITS | Encounter Summary ---
Author Organization [facility] Address [address] [place] [address]. [place], [place] [address] [place] [address] Care Team Providers Care Sample Prep Technician Name Role Phone Rahul Ledesma MD Primary Care Provider +[phone] Encounter Details Date Type Department Care Team (Latest Contact Info) Description 12/25/2018 Abstract [facility] Rahul Ledesma MD [address] [address] Social History Tobacco Use Types [...] on filedocumented in this encounter Care Teams Sample Prep Technician Relationship Specialty Start Date End Date Rahul Ledesma MD [address] [phone] PCP - General 02/17/15 documented as of this encounter
--- OUTSIDE RECORDS SUMMARY | 2024-10-25 18:05 | XMS_ITS | Encounter Summary ---
Author Organization [facility] Address [address] [place] [address]. 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
--- OUTSIDE RECORDS SUMMARY | 2024-10-25 18:05 | XMS_ITS | Encounter Summary ---
Author Organization [facility] Address [address] [place] [address]. 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
--- OUTSIDE RECORDS SUMMARY | 2024-10-25 18:05 | XMS_ITS | Encounter Summary ---
Author Organization [facility] Address [address] [place] [address]. [place], [place] [address] [place] [address] Care Team Providers Care Musical Instrument Maker Name Role Phone Vipul Hickman MD Primary Care Provider [phone] Reason for Visit * Reason Comments Acute Note release for work pt not acting normal sunday Encounter Details Date Type Department Care Team (Late st Contact Info) Description 01/25/2021 1:30 PM CDT Office Visit [facility] [address] [facility] [address] [place] [address] Vipul Hickman MD [address] [facility] [address] [place] [address] Acute Note (release for work [...] 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 The patient [...] states he has been following up with [facility] and his addiction issue is going quite [...] unspecified documented in this encounter Care Teams Musical Instrument Maker Relationship Specialty Start Date End Date Vipul Hickman MD [address] [address] PCP - General 02/17/15 documented as of this encounter
--- OUTSIDE RECORDS SUMMARY | 2024-10-25 18:05 | XMS_ITS | Encounter Summary ---
Author Organization [facility] Address [address] [place] [address]. [place], [place] [address] [place] [address] Care Team Providers Care Regulator Assembler Name Role Phone Vipul Hickman MD Primary Care Provider [phone] Reason for Visit * Reason Comments [facility] seizure Encounter Details Date Type Department Care Team (Late st Contact Info) Description 03/17/2021 10:30 AM CDT Office Visit [facility] [address] [facility] [address] [place] [address] Vipul Hickman MD [address] [facility] [address] [place] [address] Follow 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)- Primary Unspecified epilepsy without mention of intractable epilepsy documented in this encounter Care Teams Regulator Assembler Relationship Specialty Start Date End Date Vipul Hickman MD [address] [address] PCP - General 02/17/15 documented as of this encounter
--- OUTSIDE RECORDS SUMMARY | 2024-10-25 18:05 | XMS_ITS | Encounter Summary ---
Author Organization [facility] Address [address] [place] [address]. 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
--- OUTSIDE RECORDS SUMMARY | 2024-10-25 18:05 | XMS_ITS | Encounter Summary ---
Author Organization [facility] Address [address] [place] [address]. [place], [place] [address] [place] [address] Care Team Providers Care Traffic Analysis Technician Name Role Phone Rahul Ledesma MD Primary Care Provider [phone] Encounter Details Date Type Department Care Team (Latest Contact Info) Description 10/28/2017 Abstract [facility] Rahul Ledesma MD [address] [phone] Social History Tobacco Use Types Packs/Day Years [...] on filedocumented in this encounter Care Teams Traffic Analysis Technician Relationship Specialty Start Date End Date Rahul Ledesma MD [address] [phone] PCP - General 02/17/15 documented as of this encounter
--- OUTSIDE RECORDS SUMMARY | 2024-10-25 18:05 | XMS_ITS | Encounter Summary ---
Author Organization [facility] Address [address] [place] [address]. [place], [place] [address] [place] [address] Care Team Providers Care Fuel Management Handler Name Role Phone Rahul Villa MD Primary Care Provider [phone] Encounter Details Date Type Department Care Team (Latest Contact Info) Description 11/29/2017 Abstract [facility] Rahul Villa MD [address] [address] Social History Tobacco Use Types [...] Comments Blood Pressure 150/70 11/29/2017 9:[address] SAFETY ENGINEER Pulse - - Temperature - - Respiratory Rate - - Oxygen Saturation - - Inhaled Oxygen Concentration - - Weight 76.2 kg (168 lb) 11/29/2017 9:[address] SAFETY ENGINEER Height 180.3 cm (5' 11 ) 11/29/2017 9:[address] SAFETY ENGINEER Body Mass Index 23.43 11/29/2017 9:[address] SAFETY ENGINEER documented in this encounter Progress Notes [...] 1 tablet twice daily; Therapy: 28Apr2015 to (Evaluate:[id number]); Last Rx:01Nov2017 Ordered 2. ClonazePAM 0.25 MG Oral Tablet Disintegrating; PLACE 1 TABLET ON TONGUE AND ALLOW TO DISSOLVE TWICE DAILY NEEDED; Therapy: 28Oct2017 to Recorded Allergies 1. No Known Drug Allergies Immunizations Influenza --- Series1: -Aug-2014 Tdap --- Series1: 2012 Vitals Recorded: [id number] 09:11AM Systolic 150 Diastolic 70 Height 5 [...] Anxiety; ZEKE = N; Verified Transmission to [employer] 00538; Last Updated By: [employer]; 11/29/2017 9:47:50 AM Leg pain 3. Follow-up visit in 1 month Outpatient Follow-up Status: Hold For - Scheduling Requested for: [id number] Ordered; For: Leg pain; Ordered By: Rahul [...] Rahul Villa M.D.; Nov 29 2017 12:55PM HIGHWAY SAFETY ENGINEER (Author) documented in this encounter Plan of Treatment Not on file documented as of this encounter Visit Diagnoses Not on filedocumented in this encounter Care Teams Fuel Management Handler Relationship Specialty Start Date End Date Rahul Villa MD [address] [address] PCP - General 02/17/15 documented as of this encounter
--- OUTSIDE RECORDS SUMMARY | 2024-10-25 18:05 | XMS_ITS | Encounter Summary ---
Author Organization [facility] Address [address] [place] [address]. [place], [place] [address] [place] [address] Care Team Providers Care Crew Leader Gluing Name Role Phone Rahul Ledesma MD Primary Care Provider [phone] Reason for Visit * Reason Onset Date Comments Note From Provider Request 10/04/2020 Encounter Details Date Type Department Care Team ([facility] st Contact Info) Description 10/04/2020 Telephone [facility] [address] [facility] [address] [place] [address] Rahul Ledesma MD [address] [facility] [address] [place] [address] Note From Provider Request Social [...] 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 Pt states that it showed amphetamines detected. Pt states he needs a note for work to state that he does take adderall. Ok for note? NCB:pt NDANT ARCADE documented in this encounter Plan of Treatment Not on file documented as of this encounter Visit Diagnoses Not on filedocumented in this encounter Care Teams Crew Leader Gluing Relationship Specialty Start Date End Date Rahul Ledesma MD [address] [address] PCP - General 02/17/15 documented as of this encounter
--- OUTSIDE RECORDS SUMMARY | 2024-10-25 18:05 | XMS_ITS | Encounter Summary ---
Author Organization [facility] Address [address] [place] [address]. 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
--- OUTSIDE RECORDS SUMMARY | 2024-10-25 18:05 | XMS_ITS | Encounter Summary ---
Author Organization [facility] Address [address] [place] [address]. [place], [place] [address] [place] [address] Care Team Providers Care Program Management Intern Name Role Phone Rahul Ledesma MD Primary Care Provider [phone] Reason for Visit * Reason Onset Date Comments Medication 02/20/2019 Encounter Details Date Type Department Care Team (Late st Contact Info) Description 02/20/2019 Telephone [facility] [address] [facility] [address] [place] [address] Rahul Ledesma MD [address] [facility] [address] [place] [address] Medication Social History Tobacco Use [...] PM CDT Pt aware rx ready, will turkey picker 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
--- OUTSIDE RECORDS SUMMARY | 2024-10-25 18:05 | XMS_ITS | Encounter Summary ---
Author Organization [facility] Address [address] [place] [address]. [place], [place] [address] [place] [address] Care Team Providers Care Airborne Mission Systems Superintendent Name Role Phone Vipul Hickman MD Primary Care Provider [phone] Reason for Visit * Reason Comments Physical Annual Encounter Details Date Type Department Care Team (Late st Contact Info) Description 11/18/2020 8:15 AM CYCLE DIRECTOR Office Visit [facility] [address] [facility] [address] [place] [address] Vipul Hickman MD [address] [facility] [address] [place] [address] Physical (Annual) Social History Tobacco [...] 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 Financial resource strain: Not [...] file Gets together: Not on file Attends gnosticism service: Not on file Active member of [...] care facility 4. History of opioid abuse ([facility]) Plan: The primary encounter diagnosis was ADHD, predominantly inattentive type. Diagnoses of Anxiety, Routine general medical examination at a health care facility, and History of opioid abuse ([facility]) were also pertinent to this visit. - Comply with suggestions for healthy lifestyle The primary encounter diagnosis was ADHD, predominantly inattentive type. Diagnoses of Anxiety, Routine general medical examination at a health care facility, and History of opioid abuse ([facility]) were also pertinent to this visit. - All conditions are stable and compensated (except those noted above) Diagnoses and all orders for this visit: ADHD, predominantly inattentive type Anxiety Routine general medical examination at a health care facility History of opioid abuse ([facility]) He states he is doing relatively well. He is doing well at [facility] on Suboxone. He complains of insomnia. I declined to give him any medications for that. I believe it is very important for him to discuss that at [facility] and get appropriate medicine through the. He is encouraged to eat properly and exercise. Reviewed and updated this visit by provider: No follow-ups on file. VIPUL HICKMAN MD Referring Provider: No ref. provider found PCP: VIPUL HICKMAN MD E DIRECTOR documented in this encounter Plan of Treatment Not on file documented as of this encounter Visit Diagnoses Diagnosis ADHD, predominantly inattentive type- Primary Attention deficit disorder without mention of hyperactivity Anxiety Anxiety state, unspecified Routine general medical examination at a health care facility History of opioid abuse ([facility]) Opioid abuse, in remission documented in this encounter Care Teams Airborne Mission Systems Superintendent Relationship Specialty Start Date End Date Vipul Hickman MD [address] [address] PCP - General 02/17/15 documented as of this encounter
--- OUTSIDE RECORDS SUMMARY | 2024-10-25 18:05 | XMS_ITS | Encounter Summary ---
Author Organization [facility] Address [address] [place] [address]. 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 No / Unsure 11/18/2020 7:44 AM ACID BLOWER documented as of this encounter Plan of Treatment Not on file documented as of this encounter Visit Diagnoses Not on filedocumented in this encounter Care Teams Senior Production Manager Relationship Specialty Start Date End Date Rahul Ledesma MD [address] [address] PCP - General 02/17/15 documented as of this encounter
--- OUTSIDE RECORDS SUMMARY | 2024-10-25 18:05 | XMS_ITS | Encounter Summary ---
Author Organization [facility] Address [address] [place] [address]. 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 * Epilepsy in Adults ([place]) documented in this encounter Medications at Time [...] family is available to come get him. 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 EMS reports heard a weird noise [...] - 4.9 MG/DL 03/07/2021 12:15 AM CDT [facility] 03/06/2021 11:4 3 PM CDT Jose D Montenegro MD,PHD LABORATORY Final Resu lt [facility] [address] [place] [address], [place] [phone] * MAGNESIUM (03/06/2021 11:43 PM CDT) MAGNESIUM 2.0 1.8 - 2.4 MG/DL 03/07/2021 12:15 AM CDT [facility] 03/06/2021 11:4 3 PM CDT Jose D Montenegro MD,PHD LABORATORY Final Resu lt [facility] [address] [place] [address], [place] [phone] * (ABNORMAL) COMPREHENSIVE METABOLIC PANEL (03/06/2021 11:43 PM CDT) GLUCOSE 108(H) 70 - 99 MG/DL 03/07/2021 12:15 AM CDT [facility] BUN 16 7 - 18 MG/DL 03/07/2021 12:15 AM CDT [facility] CREATININE S/P/B 0.85 0.7 - 1.3 MG/DL 03/07/2021 12:15 AM CDT [facility] SODIUM S/P/B 134(L) 136 - 145 MMOL/L 03/07/2021 12:15 AM CDT [facility] POTASSIUM S/P/B 3.6 3.5 - 5.1 MMOL/L 03/07/2021 12:15 AM CDT [facility] CHLORIDE S/P/B 102 100 - 108 MMOL/L 03/07/2021 12:15 AM CDT [facility] CO2 29.1 21 - 32 MMOL/L 03/07/2021 12:15 AM T [facility] CALCIUM S/P/B 9.6 8.5 - 10.1 MG/DL 03/07/2021 12:15 AM T [facility] BILIRUBIN TOTAL S/P/B 0.6 0.2 - 1.2 MG/DL 03/07/2021 12:15 AM T [facility] Comment: THIS ASSAY IS NOT RECOMMENDED FOR PATIENTS UNDERGOING TREATMENT WITH ELTROMBOPAG DUE TO THE POTENTIAL FOR FALSELY ELEVATED RESULTS. TOTAL PROTEIN S/P/B 8.1 6.4 - 8.2 G/DL 03/07/2021 12:15 AM CDT [facility] ALBUMIN S/P/B 4.1 3.4 - 5.0 G/DL 03/07/2021 12:15 AM T [facility] AST 22 15 - 37 U/L 03/07/2021 12:15 AM CDT [facility] ALT 29 16 - 60 U/L 03/07/2021 12:15 AM CDT [facility] ALKALINE PHOSPHATASE S/P/B 84 50 - 136 U/L 03/07/2021 12:15 AM CDT [facility] ANION GAP 2.9(L) 5 - 15 MMOL/L 03/07/2021 12:15 AM CDT [facility] BUN CREATININE RATIO 18.9 6 - 26 03/07/2021 12:15 AM T [facility] A/G RATIO 1.0 1.0 - 2.0 RATIO 03/07/2021 12:15 AM CDT [facility] EGFR NON-AFR. AMER. >90 >90 ML/MIN/1.7 3 M2 03/07/2021 12:15 AM CDT [facility] EGFR AFR. AMER. >90 >90 ML/MIN/1.7 3 M2 03/07/2021 12:15 AM T [facility] Comment: NOTE: eGFR is not calculated for patients <18 years of age. This is an estimated GFR (CKD EPI) and should not be used for calculating drug doses. 03/06/2021 11:4 3 PM CDT us Jose D Montenegro MD,PHD LABORATORY Final Resu lt [facility] [address] [place] [address], documented in this encounter Visit Diagnoses Diagnosis Recurrent seizures (CMS/HCC [facility]/HCC)- Primary Other forms of epilepsy and recurrent [...] RN) documented in this encounter Care Teams Staff Radiologist Relationship Specialty Start Date End Date Rahul Ledesma MD [address] [phone] PCP - General 02/17/15 documented as of this encounter
--- OUTSIDE RECORDS SUMMARY | 2024-10-25 18:05 | XMS_ITS | Encounter Summary ---
Author Organization [facility] Address [address] [place] [address]. [place], [place] [address] [place] [address] Care Team Providers Care Care Specialist Name Role Phone Rahul Ledesma MD Primary Care Provider +[phone] Julián Matthews MD Unavailable [phone] Encounter Details Date Type Department Care Team (Latest Contact Info) Description 08/20/2018 Abstract [facility] , Libby Kirk MD Social [...] on filedocumented in this encounter Care Teams Care Specialist Relationship Specialty Start Date End Date Rahul Ledesma MD [address] [address] PCP - General 02/17/15 Julián Matthews MD [address] [place] [address] Physician NEUROMUSCULOSKELETAL MEDICINE 07/27/21 documented as of this encounter
--- OUTSIDE RECORDS SUMMARY | 2024-10-25 18:05 | XMS_ITS | Encounter Summary ---
Author Organization [facility] Address [address] [place] [address]. [place], [place] [address] [place] [address] Care Team Providers Care Middle School Math Teacher Name Role Phone Rahul Ledesma MD Primary Care Provider [phone] Encounter Details Date Type Department Care Team (Late st Contact Info) Description 04/14/2019 Orders Only [facility] [address] [facility] [address] [place] [address] Marixa Pepper, RN Social History [...] on filedocumented in this encounter Care Teams Middle School Math Teacher Relationship Specialty Start Date End Date Rahul Ledesma MD [address] [facility] [address] [place] [address] PCP - General 02/17/15 documented as of this encounter
--- OUTSIDE RECORDS SUMMARY | 2024-10-25 18:05 | XMS_ITS | Encounter Summary ---
Author Organization [facility] Address [address] [place] [address]. 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
--- OUTSIDE RECORDS SUMMARY | 2024-10-25 18:05 | XMS_ITS | Encounter Summary ---
Author Organization [facility] Address [address] [place] [address]. [place], [place] [address] [place] [address] Care Team Providers Care Bilingual Research Interviewer Name Role Phone Rahul Ledesma MD Primary Care Provider [phone] Reason for Visit * Reason Onset Date Comments Medication Question 09/06/2020 adderall Encounter Details Date Type Department Care Team ([facility] st Contact Info) Description 09/06/2020 Telephone [facility] [address] [facility] [address] [place] [address] Rahul Ledesma MD [address] [facility] [address] [place] [address] Medication Question (adderall) Social History [...] 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 H PRESS OPERATOR HELPER * Rahul Ledesma MD - 09/06/2020 9:24 AM CST yes H PRESS OPERATOR HELPER * Marcella Santo, RN - 09/06/2020 9:14 AM CST Pt states he had been on Adderall 60mg for years. He recently decided on his own to decrease to 30mg. Now having difficulty concentrating, and is more tired. Asking if he can go back to 60mg? Will be due for refill next week. [facility] H PRESS OPERATOR HELPER documented in this encounter Plan of Treatment Not on file documented as of this encounter Visit Diagnoses Not on filedocumented in this encounter Care Teams Bilingual Research Interviewer Relationship Specialty Start Date End Date Rahul Ledesma MD [address] [phone] PCP - General 02/17/15 documented as of this encounter
--- OUTSIDE RECORDS SUMMARY | 2024-10-25 18:05 | XMS_ITS | Encounter Summary ---
Author Organization [facility] Address [address] [place] [address]. 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
--- OUTSIDE RECORDS SUMMARY | 2024-10-25 18:05 | XMS_ITS | Encounter Summary ---
Author Organization [facility] Address [address] [place] [address]. [place], [place] [address] [place] [address] Care Team Providers Care Press Department Manager Name Role Phone Rahul Villa MD Primary Care Provider [phone] Encounter Details Date Type Department Care Team (Latest Contact Info) Description 06/05/2018 Abstract [facility] Medical Group Rahul Villa MD [address] [address] Social History Tobacco Use Types [...] 8:15 AM CDT Reason For Visit Health Lean Manufacturing Engineer Complaint ANNUAL History of Present Illness HM, [...] Tablet; Take 1 tablet twice daily; Therapy: 36Utm4611 to (Evaluate:87Ivq9147); Last Rx:64Zkr7552 Ordered Rx By: Rahul Villa; Dispense: 30 Days ; #:60 Tablet; Refill: 0; For: ADHD, predominantly inattentive type; ZEKE = N; Print Rx Allergies 1. No Known Drug Allergies Recorded By: Kiara Elizondo; 06/05/2012 12:38:50 PM Immunizations 1 Influenza 07-Sep-2014 Tdap 2012 Vitals Recorded: 64Uqx1108 08:07AM Heart Rate 64 Systolic 104 Diastolic [...] with suggestions for healthy lifestyle; Status:Complete; Done: 69Anw2550 09:44AM Ordered; For:ADHD, predominantly inattentive type, Health Maintenance; Ordered By:Rahul Villa; ?? Follow-up PRN Outpatient Follow-up Status: Complete Done: 61Euh2882 09:44AM Ordered; For: ADHD, predominantly inattentive type, Health Maintenance; Ordered By: Rahul Villa Performed: Due: 15Tgk4870 Signatures Electronically signed by : Rahul Villa M.D.; Jun 05 2018 9:44AM INTEL RECRUITER (Author) documented in this encounter Plan of Treatment Not on file documented as of this encounter Visit Diagnoses Not on filedocumented in this encounter Care Teams Press Department Manager Relationship Specialty Start Date End Date Rahul Villa MD [address] [address] PCP - General 02/17/15 documented as of this encounter
--- OUTSIDE RECORDS SUMMARY | 2024-10-25 18:05 | XMS_ITS | Encounter Summary ---
Author Organization [facility] Address [address] [place] [address]. [place], [place] [address] [place] [address] Care Team Providers Care Isolation Washer Name Role Phone Rahul Ledesma MD Primary Care Provider [phone] Reason for Visit * Reason Onset Date Comments Refill Request 06/21/2019 Encounter Details Date Type Department Care Team (Late st Contact Info) Description 06/21/2019 Telephone [facility] [address] [facility] [address] [place] [address] Rahul Ledesma MD [address] [facility] [address] [place] [address] Refill Request Social History Tobacco [...] hyperactivity documented in this encounter Care Teams Isolation Washer Relationship Specialty Start Date End Date Rahul Ledesma MD [address] [address] PCP - General 02/17/15 documented as of this encounter
--- OUTSIDE RECORDS SUMMARY | 2024-10-25 18:05 | XMS_ITS | Encounter Summary ---
Author Organization [facility] Address [address] [place] [address]. 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
--- OUTSIDE RECORDS SUMMARY | 2024-10-25 18:05 | XMS_ITS | Encounter Summary ---
Author Organization [facility] Address [address] [place] [address]. 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
--- OUTSIDE RECORDS SUMMARY | 2024-10-25 18:05 | XMS_ITS | Encounter Summary ---
Author Organization [facility] Address [address] [place] [address]. 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
--- OUTSIDE RECORDS SUMMARY | 2024-10-25 18:05 | XMS_ITS | Encounter Summary ---
Author Organization [facility] Address [address] [place] [address]. 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
--- OUTSIDE RECORDS SUMMARY | 2024-10-25 18:05 | XMS_ITS | Encounter Summary ---
Author Organization [facility] Address [address] [place] [address]. [place], [place] [address] [place] [address] Care Team Providers Care Retail Supervisor Name Role Phone Rahul Villa MD Primary Care Provider +[phone] Encounter Details Date Type Department Care Team (Latest Contact Info) Description 04/11/2018 Abstract [facility] Medical Group Rahul Villa MD [address] [address] Social History Tobacco Use Types [...] Reason For Visit Hospital Follow-Up Chief Complaint [facility] ER follow up suture removal Review of [...] Tablet; Take 1 tablet twice daily; Therapy: 40Wdi5559 to (Evaluate:14Bdr8568); Last Rx:65Hep3495 Ordered 2. DULoxetine HCl - 30 MG Oral Capsule Delayed Release Particles; TAKE 1 CAPSULE BY MOUTH AT BEDTIME; Therapy: 00Guk1757 to (Evaluate:31Ukf7840) Requested for: 10Poa9285; Last Rx:53Xbi1540 Ordered Allergies 1. No Known Drug Allergies [...] For: Anxiety; ZEKE = N; Sent To: [facility] [address] 2. QUEtiapine Fumarate ER 150 MG Oral [...] finger; Ordered By: Rahul Villa Performed: Due: 96Pju8116 Signatures Electronically signed by : Rahul Villa M.D.; Apr 11 2018 10:17AM RESIDENCE HALL DIRECTOR (Author) documented in this encounter Plan of Treatment Not on file documented as of this encounter Visit Diagnoses Not on filedocumented in this encounter Care Teams Retail Supervisor Relationship Specialty Start Date End Date Rahul Villa MD [address] [address] PCP - General 02/17/15 documented as of this encounter
--- OUTSIDE RECORDS SUMMARY | 2024-10-25 18:06 | XMS_ITS | Encounter Summary ---
Author Organization [facility] Address [address] [place] [address]. [place], [place] [address] [place] [address] Care Team Providers Care Water Taxi Ferry Operator Name Role Phone Vipul Hickman MD Primary Care Provider [phone] Vipul Hickman MD Primary Care Provider [phone] Encounter Details Date Type Department Care Team (Latest Contact Info) Description 07/06/2014 Abstract [facility] Medical Group Vipul Hickman MD [address] [phone] Social History Tobacco Use Types Packs/Day Years [...] (Concerta); TAKE 1 TABLET ONCE DAILY; Therapy: 59Ymd8789 to (Evaluate:26Jul2014); Last Rx:26Jun2014 Ordered Rx By: Faustino Anders; Dispense: 30 Days ; #:30 Tablet Extended Release; Refill: 0; For: Health Maintenance; ZEKE = N; Print Rx Allergies 1. No Known Drug Allergies Recorded By: Kiara Elizondo; 06/05/2012 12:38:50 PM Vitals Vital Signs [Data Includes: Current Encounter] Recorded by : Bryanna Correa at 67Dlp5603 01:22PM Temperature 98 F, Oral Systolic 114, [...] 2. Start: Hydrocodone-Acetaminophen 5-325 MG Oral Tablet (Schneider); TAKE 1 TABLET EVERY 4 TO 6 [...] Vipul Hickman M.D.; Jul 06 2014 2:44PM PITCH FLAKER (Author) documented in this encounter Plan of [...] MCDONALD MD: VIPUL HICKMAN MD ?? ACCT: [id number] ?? ADMIT/SERVICE DATE: 07/06/14 DISCHARGE DATE: ?? : 1990 PT TYPE: REG CLI ?? SEX: M ORD SITE: [facility] ? STUDY DATE REPORT # PROCEDURE CODE PROCEDURE ?? 07/06/14 [id number] [id number] XR LUMBAR SPINE 2 TO 3 VIEWS ? EXTORDERID ? [id number] ? ACCESSION NUMBER ?? [id number] ?CHART DOCUMENT ? IMPRESSION: ? NEGATIVE. ? [...] THOMPSON M.D. ? D: ??07/06/2014 02:13 P ??#[id number] ?? T: ??07/06/2014 02:43 P/MA ? CC: ?VIPUL HICKMAN M.D. ? Procedure Note Libby Bush MD - 08/07/2018 FREDERICK MCDONALD ORDERING MD: VIPUL HICKMAN MD ACCT: [id number] ADMIT/SERVICE DATE: 07/06/14 DISCHARGE DATE: : 1990 PT TYPE: REG CLI SEX: M ORD SITE: [facility] OUTPATIENT IMAGING STUDY DATE REPORT # PROCEDURE CODE PROCEDURE 07/06/14 [id number] [id number] XR LUMBAR SPINE 2 TO 3 VIEWS EXTORDERID [id number] ACCESSION NUMBER [id number] CHART DOCUMENT IMPRESSION: NEGATIVE. HISTORY: LOW BACK PAIN. RADIOGRAPHS LUMBAR SPINE FINDINGS: AP, LATERAL AND CONED-DOWN DETAILED LATERAL RADIOGRAPHS OF THE LUMBAR SPINE WERE OBTAINED AND DEMONSTRATE NORMAL HEIGHT AND ALIGNMENT TO THE VERTEBRAL BODIES. THERE IS NO FRACTURE. THERE IS NO INTERVERTEBRAL DISC SPACE NARROWING. ELECTRONICALLY SIGNED BY: WALDO THOMPSON M.D. 07/06/2014 03:20 P WALDO THOMPSON M.D. P #[id number] P/MA CC: VIPUL HICKMAN M.D. Vipul Hickman MD SCANNING Final Resul t documented in this encounter Visit Diagnoses Not on filedocumented in this encounter Care Teams Water Taxi Ferry Operator Relationship Specialty Start Date End Date Vipul Hickman MD [address] [facility] [address] [place] [address] PCP - General 02/17/15 Vipul Hickman MD [address] [facility] [address] [place] [address] PCP - General 07/06/14 02/16/15 documented as of this encounter
--- OUTSIDE RECORDS SUMMARY | 2024-10-25 18:06 | XMS_ITS | Encounter Summary ---
Author Organization [facility] Address [address] [place] [address]. [place], [place] [address] [place] [address] Care Team Providers Care Boiler House Operator Name Role Phone Rahul Ledesma MD Primary Care Provider [phone] Encounter Details Date Type Department Care Team (Latest Contact Info) Description 08/13/2017 Abstract [facility] Medical Group Rahul Ledesma MD [address] [address] Social History Tobacco Use Types Packs/Day Years [...] on filedocumented in this encounter Care Teams Boiler House Operator Relationship Specialty Start Date End Date Rahul Ledesma MD [address] [phone] PCP - General 02/17/15 documented as of this encounter
--- OUTSIDE RECORDS SUMMARY | 2024-10-25 18:06 | XMS_ITS | Encounter Summary ---
Author Organization [facility] Address [facility] [facility]. [place], [place] [address] [place] [address] Care Team Providers Care Duco Polisher Name Role Phone Rahul Villa MD Primary Care Provider [phone]- [phone] Rahul Villa MD Primary Care Provider Rahul Villa MD Primary Care Provider Encounter Details Date Type Department Care Team (Latest Contact Info) Description 03/19/2014 Abstract [facility] Medical Group Rahul Villa MD [address] [phone] Social History Tobacco Use Types Packs/Day Years [...] Rahul Villa M.D.; Mar 19 2014 5:34PM PLAN REP (Author) documented in this encounter Plan of Treatment Not on file documented as of this encounter Visit Diagnoses Not on filedocumented in this encounter Care Teams Duco Polisher Relationship Specialty Start Date End Date Rahul Villa MD [address] [phone] PCP - General 02/17/15 Rahul Villa MD [address] [address] PCP - General 07/06/14 02/16/15 Rahul Villa MD [address] [address] PCP - General 07/16/13 07/05/14 documented as of this encounter
--- OUTSIDE RECORDS SUMMARY | 2024-10-25 18:06 | XMS_ITS | Encounter Summary ---
Author Organization [facility] Address [address] [place] [address]. [place], [place] [address] [place] [address] Care Team Providers Care Contact And Service Clerks Supervisor Name Role Phone Rahul Ledesma MD Primary Care Provider [phone] Encounter Details Date Type Department Care Team (Latest Contact Info) Description 09/14/2017 Abstract [facility] Medical Group aRhul Ledesma MD [address] [phone] Social History Tobacco Use Types Packs/Day Years [...] on filedocumented in this encounter Care Teams Contact And Service Clerks Supervisor Relationship Specialty Start Date End Date Rahul Ledesma MD [address] [phone] PCP - General 02/17/15 documented as of this encounter
--- OUTSIDE RECORDS SUMMARY | 2024-10-25 18:06 | XMS_ITS | Encounter Summary ---
Author Organization [facility] Address [address] [place] [address]. [place], [place] [address] [place] [address] Care Team Providers Care Gum Scoring Machine Operator Name Role Phone Rahul Ledesma MD Primary Care Provider [phone]- [phone] Rahul Ledesma MD Primary Care Provider [phone]- [phone] Rahul Ledesma MD Primary Care Provider +- [phone] Encounter Details Date Type Department Care Team (Late st Contact [facility]) Description 07/16/2013 Abstract [facility] Medical Group Multispecialty Care - [address], [address] [place] [address] Praful Gutierrez MD [address] [place] [phone] Social History Tobacco Use Types Packs/Day Years Used Date Smoking Tobacco: Never Assessed Sex and Gender Information Value Date Recorded Sex Assigned at Not on file Legal Sex Male 9:06 PM CDT Gender Identity Not on file Sexual Orientation Not on file documented as of this encounter Procedure Notes * Praful Gutierrez MD - 07/16/2013 9:50 AM CDT [facility] [address] [id number] Patient: FREDERICK MCDONALD Med Rec#: [id number] Birthdate: 1990 Admit/Svce Date: Disch Date: CHART DOCUMENT PREOPERATIVE DIAGNOSIS: Nonunion, right scaphoid fracture. POSTOPERATIVE DIAGNOSIS: Nonunion, right scaphoid fracture. SURGERY PERFORMED: Internal fixation of right scaphoid nonunion. DATE: 07/16/2013 SURGEON: PRAFUL GUTIERREZ M.D. MULTIMEDIA EDUCATIONAL SPECIALIST: LORENZO RODRIGUEZ ANESTHESIOLOGIST: ELTON MEDEIROS MD ANESTHETIC: [...] The overall position was good. PROCEDURE: A Whitfield block was placed in the right upper [...] M.D. 07/27/2013 08:40 PRAFUL GUTIERREZ M.D. A #[id number] P/ma cc: Mague CANTRELL M.D. STRY OPERATIONS INVESTIGATOR documented in this encounter Plan of Treatment Not on file documented as of this encounter Visit Diagnoses Not on filedocumented in this encounter Care Teams Gum Scoring Machine Operator Relationship Specialty Start Date End Date Rahul Ledesma MD [address] [address] PCP - General 02/17/15 Rahul Ledesma MD [address] [phone] PCP - General 07/06/14 02/16/15 Rahul Ledesma MD [address] [phone] PCP - General 07/16/13 07/05/14 documented as of this encounter
--- OUTSIDE RECORDS SUMMARY | 2024-10-25 18:06 | XMS_ITS | Encounter Summary ---
Author Organization [facility] Address [address] [place] [address]. [place], [place] [address] [place] [address] Care Team Providers Care Psychic Reader Name Role Phone Rahul Ledesma MD Primary Care Provider Rahul Ledesma MD Primary Care Provider Rahul Ledesma MD Primary Care Provider Encounter Details Date Type Department Care Team (Late st Contact Info) Description 07/16/2013 Abstract [facility] [place] [address] Libby Bush MD Social History Tobacco Use [...] fracture documented in this encounter Care Teams Psychic Reader Relationship Specialty Start Date End Date Rahul Ledesma MD [address] [phone] PCP - General 02/17/15 Rahul Ledesma MD [address] [phone] PCP - General 07/06/14 02/16/15 Rahul Ledesma MD [address] [phone] PCP - General 07/16/13 07/05/14 documented as of this encounter
--- OUTSIDE RECORDS SUMMARY | 2024-10-25 18:06 | XMS_ITS | Encounter Summary ---
Author Organization [facility] Address [address] [place] [address]. [place], [place] [address] [place] [address] Care Team Providers Care Applications Development Consultant Name Role Phone Rahul Ledesma MD Primary Care Provider [phone]- [phone] Rahul Ledesma MD Primary Care Provider +1- [phone] Encounter Details Date Type Department Care Team (Latest Contact Info) Description 07/22/2014 Abstract [facility] Medical Group Social History Tobacco Use [...] on filedocumented in this encounter Care Teams Applications Development Consultant Relationship Specialty Start Date End Date Rahul Ledesma MD [address] [address] PCP - General 02/17/15 Rahul Ledesma MD [address] [phone] PCP - General 07/06/14 02/16/15 documented as of this encounter
--- OUTSIDE RECORDS SUMMARY | 2024-10-25 18:06 | XMS_ITS | Encounter Summary ---
Author Organization [facility] Address [address] [place] [address]. [place], [place] [address] [place] [address] Care Team Providers Care Analytics Associate Name Role Phone Rahul Ledesma MD Primary Care Provider Rahul Ledesma MD Primary Care Provider [phone] Rahul Ledesma MD Primary Care Provider Rahul Ledesma MD Primary Care Provider [phone] Encounter Details Date Type Department Care Team (Late st Contact Info) Description 01/09/2013 Abstract [facility] Medical Group Multispecialty Care - [facility] [address] [facility], [address] [place] [phone] Praful Gutierrez MD [address] [facility] [address] [place] [address] Social History Tobacco Use Types Packs/Day Years [...] in 2-3 weeks for re-exam. KASHIF/YASH/rosalio Job [id number] . Active Problems 1. Closed Fracture Of The Middle Of The Right Scaphoid Bone 814.01 Social History ?? Never A Smoker ?? Never Drank Alcohol Current Meds 1. Hydrocodone-Acetaminophen 5-500 MG Oral Tablet; TAKE 1 TO 2 TABLETS EVERY 4 TO 6 HOURS NEEDED FOR PAIN; Last Rx:66Uqx0404 Allergies 1. No Known Drug Allergies Vitals [...] Gutierrez M.D.; Jan 15 2013 7:21PM (Author) AND PROPERTY MANAGER documented in this encounter Plan of Treatment Not on file documented as of this encounter Visit Diagnoses Not on filedocumented in this encounter Care Teams Analytics Associate Relationship Specialty Start Date End Date Rahul Ledesma MD [address] [phone] PCP - General 02/17/15 Rahul Ledesma MD [facility] [address] [address] PCP - General 07/06/14 02/16/15 Rahul Ledesma MD [address] [address] PCP - General 07/16/13 07/05/14 Rahul Ledesma MD [facility] [address] [phone] PCP - General 01/09/13 07/15/13 documented as of this encounter
--- OUTSIDE RECORDS SUMMARY | 2024-10-25 18:06 | XMS_ITS | Encounter Summary ---
Author Organization [facility] Address [address] [place] [address]. [place], [place] [address] [place] [address] Care Team Providers Care Adult Live In Caregiver Name Role Phone Rahul Villa MD Primary Care Provider [phone] Rahul Villa MD Primary Care Provider [phone] Encounter Details Date Type Department Care Team (Latest Contact Info) Description 09/07/2014 Abstract [facility] Medical Group Rahul Villa MD [address] [phone] Social History Tobacco Use Types Packs/Day Years Used Date Smoking Tobacco: Never Assessed Sex and Gender Information Value Date Recorded Sex Assigned at Not on file Legal Sex Male 9:06 PM CDT Gender Identity Not on file Sexual Orientation Not on file documented as of this encounter Last Filed Vital Signs Vital Sign Reading Time Taken Comments Blood Pressure 116/78 09/07/2014 11:10 AM RN MEDICARE Pulse - - Temperature - - Respiratory Rate - - Oxygen Saturation - - Inhaled Oxygen Concentration - - Weight 77.1 kg (170 lb) 09/07/2014 11:10 AM RN MEDICARE Height - - Body Mass Index 23.38 [...] (Concerta); TAKE 1 TABLET ONCE DAILY; Therapy: 21Iwu8677 to (Evaluate:65Nam2291); Last Rx:24Aug2014 Ordered Allergies 1. No Known [...] Rahul Villa M.D.; Sep 07 2014 11:51AM RN MEDICARE (Author) documented in this encounter Plan of Treatment Not on file documented as of this encounter Visit Diagnoses Not on filedocumented in this encounter Care Teams Adult Live In Caregiver Relationship Specialty Start Date End Date Rahul Villa MD [address] [phone] PCP - General 02/17/15 Rahul Villa MD [address] [address] PCP - General 07/06/14 02/16/15 documented as of this encounter
--- OUTSIDE RECORDS SUMMARY | 2024-10-25 18:06 | XMS_ITS | Encounter Summary ---
Author Organization [facility] Address [address] [place] [address]. [place], [place] [address] [place] [address] Care Team Providers Care Senior Outside Sales Representative Name Role Phone Rahul Villa MD Primary Care Provider [phone] Encounter Details Date Type Department Care Team (Latest Contact Info) Description 06/25/2017 Abstract [facility] Medical Group Rahul Villa MD [address] [phone] Social History Tobacco Use Types Packs/Day Years [...] Tablet; Take 1 tablet twice daily; Therapy: 48Lmd9962 to (Evaluate:37Upe2345); Last Rx:57Awx4139 Ordered 2. Cyclobenzaprine HCl - 10 MG Oral Tablet; 0.5-1 TAB EVERY 8 HOURS PRN; Therapy: 58Zev9711 to Recorded 3. Hydrocodone-Acetaminophen 7.5-325 MG Oral Tablet; TAKE 1 TABLET Every 4 hours PRN; Therapy: 09Pek4478 to Recorded 4. HydrOXYzine HCl - 25 MG Oral Tablet; TAKE 1 TABLET Every 8 hours; Therapy: 01Btm0308 to Recorded 5. HydrOXYzine Pamoate 25 MG Oral Capsule; Therapy: 81Kvu4909 to Recorded 6. Lovenox 40 MG/0.4ML Subcutaneous Solution; 40 MG SQ QD; Therapy: 37Skt4661 to Recorded Allergies 1. No Known Drug [...] improvement or if condition worsens; Status:Complete; Done: 02Bwa7662 03:00PM Ordered; For:Anxiety; Ordered By:Rahul Villa; Discussion/Summary he will call ortho for fu. Signatures Electronically signed by : Rahul Villa M.D.; Jun 25 2017 3:01PM PRECINCT CAPTAIN (Author) documented in this encounter Plan of Treatment Not on file documented as of this encounter Visit Diagnoses Not on filedocumented in this encounter Care Teams Senior Outside Sales Representative Relationship Specialty Start Date End Date Rahul Villa MD [address] [phone] PCP - General 02/17/15 documented as of this encounter
--- OUTSIDE RECORDS SUMMARY | 2024-10-25 18:06 | XMS_ITS | Encounter Summary ---
Author Organization [facility] Address [address] [place] [address]. [place], [place] [address] [place] [address] Care Team Providers Care Mercantile Reporter Name Role Phone Rahul Ledesma MD Primary [...] (Late st Contact Info) Description 05/27/2012 Abstract [facility] Medical Group Multispecialty Care - [address] [place] [phone] Praful Gutierrez MD [address] [place] [address] [address] [place] [address] Social History Tobacco Use Types [...] on filedocumented in this encounter Care Teams Mercantile Reporter Relationship Specialty Start Date End Date Rahul Ledesma MD [address] [address] PCP - General 02/17/15 Rahul Ledesma MD [address] [address] PCP - General 07/06/14 02/16/15 Rahul Ledesma MD [address] [phone] PCP - General 07/16/13 07/05/14 Rahul Ledesma MD [address] [address] PCP - General 01/09/13 07/15/13 Rahul Ledesma MD [address] [address] PCP - General 11/25/12 01/08/13 Rahul Ledesma MD [address] [address] PCP - General 10/19/12 11/24/12 Rahul Ledesma MD [address] [address] PCP - General 09/10/12 10/18/12 Rahul Ledesma MD [address] [address] PCP - General 08/06/12 09/09/12 Rahul Ledesma MD [address] [address] PCP - General 05/12/12 08/05/12 documented as of this encounter
--- OUTSIDE RECORDS SUMMARY | 2024-10-25 18:06 | XMS_ITS | Encounter Summary ---
Author Organization [facility] Address [facility]. [place], [place] [address] [place] [address] Care Team Providers Care Cardiac Catheterization Technician Name Role Phone Rahul Ledesma MD Primary Care Provider Rahul Ledesma MD Primary Care Provider [phone] Rahul Ledesma MD Primary Care Provider Encounter Details Date Type Department Care Team (Latest Contact Info) Description 03/03/2014 Abstract [facility] Medical Group Rahul Ledesma MD [address] [phone] Social History Tobacco Use Types Packs/Day Years [...] Shanti Gay, ; Mar 03 2014 2:31PM HAND SEWER SHOES (Author) documented in this encounter Plan of Treatment Not on file documented as of this encounter Visit Diagnoses Not on filedocumented in this encounter Care Teams Cardiac Catheterization Technician Relationship Specialty Start Date End Date Rahul Ledesma MD [address] [phone] PCP - General 02/17/15 Rahul Ledesma MD [address] [phone] PCP - General 07/06/14 02/16/15 Rahul Ledesma MD [address] [address] PCP - General 07/16/13 07/05/14 documented as of this encounter
--- OUTSIDE RECORDS SUMMARY | 2024-10-25 18:06 | XMS_ITS | Encounter Summary ---
Author Organization [facility] Address [address] [place] [address]. [place], [place] [address] [place] [address] Care Team Providers Care Paint Spraying Machine Operator Helper Name Role Phone Rahul Villa MD Primary Care Provider [phone] Encounter Details Date Type Department Care Team (Latest Contact Info) Description 04/28/2015 Abstract [facility] Medical Group Rahul Villa MD [address] [address] Social History Tobacco Use Types [...] Progress Notes * Rahul Villa MD - 04/28/2015 8:00 AM CDT [...] Extended Release; TAKE 1 TABLET DAILY; Therapy: 36Hmk4294 to (Evaluate:24Apr2015); Last Rx:25Mar2015 Ordered Allergies 1. No Known Drug Allergies Immunizations Influenza --- Series1: 07Sep2014 Tdap --- Series1: 2012 Vitals Recorded: 21Vaj0797 07:55AM Systolic 122 Diastolic 70 Weight 175 [...] Status: Hold For - Scheduling Requested for: 04Sgg3154 Ordered; For: ADHD, predominantly inattentive type; Ordered By: Rahul Villa Performed: Due: 08Ndo4209 Signatures Electronically signed by : Rahul Villa M.D.; Apr 28 2015 8:19AM RESEARCH TEST ENGINE OPERATOR (Author) documented in this encounter Plan of Treatment Not on file documented as of this encounter Visit Diagnoses Not on filedocumented in this encounter Care Teams Paint Spraying Machine Operator Helper Relationship Specialty Start Date End Date aRhul Villa MD [address] [address] PCP - General 02/17/15 documented as of this encounter
--- OUTSIDE RECORDS SUMMARY | 2024-10-25 18:06 | XMS_ITS | Encounter Summary ---
Author Organization [facility] Address [address] [place] [address]. [place], [place] [address] [place] [address] Care Team Providers Care Websphere Administrator Name Role Phone Rahul Hickman MD Primary Care Provider [phone] Rahul Hickman MD Primary Care Provider Rahul Hickman MD Primary Care Provider Encounter Details Date Type Department Care Team (Latest Contact Info) Description 07/16/2013 Abstract [facility] Praful Gutierrez MD [address] [phone] Social History Tobacco Use Types Packs/Day Years [...] PM CDT FREDERICK MCDONALD ORDERING MD: PRAFUL GUTIERREZ MD ?? ACCT: [id number] ?? : 1990 PT TYPE: DEP SDC ?? SEX: M ORD SITE: [facility] ? STUDY DATE REPORT # PROCEDURE CODE PROCEDURE ?? 07/16/13 [id number] WRST3+VR XR WRIST 3+ VIEW RT ? EXTORDERID ? [id number] ? ACCESSION NUMBER ?? [id number] ?CHART DOCUMENT ? IMPRESSION: ? SURGICAL FIXATION [...] PITTMAN M.D. ? D: ??07/16/2013 10:27 A ??#[id number] ?? T: ??07/16/2013 11:20 A/MA ? CC: ?RAHUL HICKMAN M.D. ?PRAFUL GUTIERREZ M.D. ? Radiology image is available. Click on Image Link above. Procedure Note Libby Bush MD - 08/08/2018 FREDERICK MCDONALD MD: PRAFUL GUTIERREZ MD ACCT: [id number] : 1990 PT TYPE: DEP SDC SEX: M ORD SITE: [facility] STUDY DATE REPORT # PROCEDURE CODE PROCEDURE 07/16/13 [id number] WRST3+VR XR WRIST 3+ VIEW RT EXTORDERID [id number] ACCESSION NUMBER [id number] CHART DOCUMENT IMPRESSION: SURGICAL FIXATION OF SCAPHOID [...] M.D. 07/16/2013 21:56 KELLIE PITTMAN M.D. A #[id number] Thierry/RADHA CC: RAHUL C MARYLOU, M.D. PRAFUL GUTIERREZ, M.D. Radiology image is available. Click on Image Link above. us Praful Gutierrez MD GENERAL IMAGING Final Resu lt documented in this encounter Visit Diagnoses Not on filedocumented in this encounter Care Teams Websphere Administrator Relationship Specialty Start Date End Date Rahul Hickman MD [address] [facility] [address] [place] [address] PCP - General 02/17/15 Rahul Hickman MD [address] [facility] [address] [place] [address] PCP - General 07/06/14 02/16/15 Rahul Hickman MD [address] [address] PCP - General 07/16/13 07/05/14 documented as of this encounter
--- OUTSIDE RECORDS SUMMARY | 2024-10-25 18:06 | XMS_ITS | Encounter Summary ---
Author Organization [facility] Address [address] [place] [address]. [place], [place] [address] [place] [address] Care Team Providers Care Paleology Teacher Name Role Phone Rahul Ledesma MD Primary Care Provider Rahul Ledesma MD Primary Care Provider [phone] Rahul Ledesma MD Primary Care Provider [phone] Rahul Ledesma MD Primary Care Provider [phone] Rahul Ledesma MD Primary Care Provider Encounter Details Date Type Department Care Team (Late st Contact Info) Description 11/25/[address] [facility] Lingohub [employer] [facility] Diagnostic Imaging [address] [address] Rahul Ledesma MD [address] [address] Social History Tobacco Use Types [...] wrist documented in this encounter Care Teams Paleology Teacher Relationship Specialty Start Date End Date Rahul Ledesma MD [address] [facility] [address] [place] [address] PCP - General 02/17/15 Rahul Ledesma MD [address] [address] PCP - General 07/06/14 02/16/15 Rahul Ledesma MD [address] [address] PCP - General 07/16/13 07/05/14 Rahul Ledesma MD [address] [address] PCP - General 01/09/13 07/15/13 Rahul Ledesma MD [facility] [address] [phone] PCP - General 11/25/12 01/08/13 documented as of this encounter
--- OUTSIDE RECORDS SUMMARY | 2024-10-25 18:06 | XMS_ITS | Encounter Summary ---
Author Organization [facility] Address [address] [place] [address]. [place], [place] [address] [place] [address] Care Team Providers Care Forestry Technician Name Role Phone Rahul Hickman MD Primary Care Provider [phone] Rahul Hickman MD Primary Care Provider Rahul Hickman MD Primary Care Provider Rahul Hickman MD Primary Care Provider Encounter Details Date Type Department Care Team (Latest Contact Info) Description 07/15/2013 Abstract [facility] Medical Group Praful Gutierrez MD [address] [place], [place] [address] Social History Tobacco Use Types Packs/Day Years Used Date Smoking Tobacco: Never Assessed Sex and Gender Information Value Date Recorded Sex Assigned at Not on file Legal Sex Male 9:06 PM CDT Gender Identity Not on file Sexual Orientation Not on file documented as of this encounter H&P Notes * Praful Gutierrez MD - 07/15/2013 3:17 PM CDT [place] [address] Patient: FREDERICK MCDONALD Med Rec#: [id number] Birthdate: 1990 Admit/Svce Date: Disch Date: CHART [...] of time for about a month at [facility] last year for that, but that is [...] M.D. 07/16/2013 10:45 PRAFUL GUTIERREZ M.D. P #[id number] P/ma cc: Mague CANTRELL M.D. CAR DRIVER documented in this encounter Plan of Treatment Not on file documented as of this encounter Visit Diagnoses Not on filedocumented in this encounter Care Teams Forestry Technician Relationship Specialty Start Date End Date Rahul Hickman MD [address] [place] [phone] PCP - General 02/17/15 Rahul Hickman MD [address] [place] [phone] PCP - General 07/06/14 02/16/15 Rahul Hickman MD [address] [place] [phone] PCP - General 07/16/13 07/05/14 Rahul Hickman MD [address] [place] [phone] PCP - General 01/09/13 07/15/13 documented as of this encounter
--- OUTSIDE RECORDS SUMMARY | 2024-10-25 18:06 | XMS_ITS | Encounter Summary ---
Author Organization [facility] Address [facility]. [place], [place] [address] [place] [address] Care Team Providers Care Titrator Name Role Phone Rahul Villa MD Primary Care Provider [phone] Encounter Details Date Type Department Care Team (Latest Contact Info) Description 06/05/2016 Abstract [facility] Medical Group Rahul Villa MD [address] [phone] Social History Tobacco Use Types Packs/Day Years [...] Tablet; Take 1 tablet twice daily; Therapy: 57Yae1079 to (Evaluate:50Tax2908); Last Rx:40Ejl2083 Ordered 2. Fluticasone Propionate 50 MCG/ACT Nasal Suspension; USE 1 TO 2 SPRAYS IN EACH NOSTRIL ONCE DAILY; Therapy: 96Iub1292 to (Last Rx:34Hib8755) Requested for: 09Pzy9760 Ordered 3. Meloxicam 15 MG Oral Tablet; TAKE 1 TABLET DAILY NEEDED; Therapy: 63Nxm1148 to (Evaluate:09Llb3810) Requested for: 87Ojb9915; Last Rx:31Ner9761 Ordered 4. Oxycodone-Acetaminophen 5-325 MG Oral Tablet; TAKE 1 TO 2 TABLETS EVERY 4 HOURS NEEDED FOR PAIN; Therapy: 92Zgu6959 to (Evaluate:74Zvw9424); Last Rx:86Kyr2981 Ordered Allergies 1. No Known Drug Allergies Immunizations Influenza --- Series1: 07Sep2014 Tdap --- Series1: 2012 Vitals Recorded: 49Juz5776 08:15AM Heart Rate 76 Respiration 16 Systolic [...] and affect: Normal. Results/Data LC-CBC With Differential/Platelet [id number] 52Icr4113 04:25PM Rahul Villa Test Name Result Flag [...] pain; Ordered By: Rahul Villa Performed: Due: 64Kml0667 3. Avoid overuse of area; Status:Complete; Done: 63Lvy8644 08:31AM Ordered; For:Leg pain; Ordered By:Rahul Villa; 4. Comply with exercise; Status:Complete; Done: 70Snt9850 08:31AM Ordered; For:Leg pain; Ordered By:Rahul Villa; Signatures Electronically signed by : Rahul Villa M.D.; Jun 05 2016 8:31AM RECORDING ENGINEER (Author) documented in this encounter Plan of Treatment Not on file documented as of this encounter Visit Diagnoses Not on filedocumented in this encounter Care Teams Titrator Relationship Specialty Start Date End Date Rahul Villa MD [address] [address] PCP - General 02/17/15 documented as of this encounter
--- OUTSIDE RECORDS SUMMARY | 2024-10-25 18:06 | XMS_ITS | Encounter Summary ---
Author Organization [facility] Address [address] [place] [address]. [place], [place] [address] [place] [address] Care Team Providers Care Manager Behavior Name Role Phone Rahul Ledesma MD Primary Care Provider Rahul Ledesma MD Primary Care Provider Rahul Ledesma MD Primary Care Provider Rahul Ledesma MD Primary Care Provider Rahul Ledesma MD Primary Care Provider Encounter Details Date Type Department Care Team (Late st Contact Info) Description 11/28/2012 Abstract [facility] Medical Group Multispecialty Care - [address], [address] [place] [address] Praful Gutierrez MD [address] [facility] 100 [place] [address] Social History Tobacco Use Types Packs/Day Years Used Date Smoking Tobacco: Never Assessed Sex and Gender Information Value Date Recorded Sex Assigned at Not on file Legal Sex Male 9:06 PM CDT Gender Identity Not on file Sexual Orientation Not on file documented as of this encounter Last Filed Vital Signs Vital Sign Reading Time Taken Comments Blood Pressure 112/68 11/28/2012 8:10 AM EXPORT COORDINATOR Pulse 68 11/28/2012 8:10 AM EXPORT COORDINATOR Temperature - - Respiratory Rate - - Oxygen Saturation - - Inhaled Oxygen Concentration - - Weight 74.8 kg (165 lb) 11/28/2012 8:10 AM EXPORT COORDINATOR Height 182.9 cm (6') 11/28/2012 8:10 AM EXPORT COORDINATOR Body Mass Index 22.38 11/28/2012 8:10 AM EXPORT COORDINATOR documented in this encounter Progress Notes [...] of the right wrist multiple views from [facility] on October 19, 2012 appear normal. Repeat [...] Meds 1. Vicodin 5-500 MG TABS; Therapy: (Recorded:79Iak3755) to Allergies 1. No Known Drug Allergies Vitals 00Xgi2182 08:10AM Heart Rate 68 Respiration 16 Systolic 112 Diastolic 68 BMI Calculated 22.35 BSA Calculated 1.96 Height 6 ft Weight 165 lb Assessment 1. Closed Fracture Of The Middle Of The Right Scaphoid Bone 814.01 Plan 1. Follow-up visit in 6 weeks Outpatient Follow-up Requested for: 00Ank4514 Signatures Electronically signed by : Praful Gutierrez M.D.; Nov 28 2012 9:27AM (Author) RT COORDINATOR documented in this encounter Plan of Treatment Not on file documented as of this encounter Visit Diagnoses Not on filedocumented in this encounter Care Teams Manager Behavior Relationship Specialty Start Date End Date Rahul Ledesma MD [address] [phone] PCP - General 02/17/15 Rahul Ledesma MD [address] [phone] PCP - General 07/06/14 02/16/15 Rahul Ledesma MD [address] [address] PCP - General 07/16/13 07/05/14 Rahul Ledesma MD [address] [address] PCP - General 01/09/13 07/15/13 Rahul Ledesma MD [address] [address] PCP - General 11/25/12 01/08/13 documented as of this encounter
--- OUTSIDE RECORDS SUMMARY | 2024-10-25 18:06 | XMS_ITS | Encounter Summary ---
Author Organization [facility] Address [address] [place] [address]. [place], [place] [address] [place] [address] Care Team Providers Care Novelty Maker Name Role Phone Rahul Ledesma MD Primary Care Provider [phone] Encounter Details Date Type Department Care Team (Latest Contact Info) Description 06/20/2017 Abstract [facility] Medical Group Rahul Ledesma MD [address] [phone] Social History Tobacco Use Types Packs/Day Years [...] on filedocumented in this encounter Care Teams Novelty Maker Relationship Specialty Start Date End Date Rahul Ledesma MD [address] [phone] PCP - General 02/17/15 documented as of this encounter
--- OUTSIDE RECORDS SUMMARY | 2024-10-25 18:06 | XMS_ITS | Encounter Summary ---
Author Organization [facility] Address [address] [place] [address]. [place], [place] [address] [place] [address] Care Team Providers Care Geotechnical Field Technician Name Role Phone Rahul Ledesma MD Primary Care Provider [phone] Rahul Ledesma MD Primary Care Provider [phone]- [phone] Encounter Details Date Type Department Care Team (Latest Contact Info) Description 07/27/2014 Abstract [facility] Medical Group Social History Tobacco Use [...] on filedocumented in this encounter Care Teams Geotechnical Field Technician Relationship Specialty Start Date End Date Rahul Ledesma MD [address] [address] PCP - General 02/17/15 Rahul Ledesma MD [address] [phone] PCP - General 07/06/14 02/16/15 documented as of this encounter
--- OUTSIDE RECORDS SUMMARY | 2024-10-25 18:06 | XMS_ITS | Encounter Summary ---
Author Organization [facility] Address [facility]. [place], [place] [address] [place] [address] Care Team Providers Care Agency Operator Name Role Phone Rahul Villa MD Primary Care Provider [phone] Rahul Villa MD Primary Care Provider [phone] Encounter Details Date Type Department Care Team (Latest Contact Info) Description 07/20/2014 Abstract [facility] Medical Group Rahul Villa MD [address] [phone] Social History Tobacco Use Types Packs/Day Years [...] TAKE 1 TABLET 3 TIMES DAILY; Therapy: 64Noj4579 to (Evaluate:01Juv2997); Last Rx:02Nbg3710 Ordered Rx By: Rahul Villa; Dispense: 7 Days ; #:20 Tablet; Refill: 0; For: Back pain; ZEKE = N; Record 2. Hydrocodone-Acetaminophen 5-325 MG Oral Tablet (Fowler); TAKE 1 TABLET EVERY 4 TO 6 HOURS NEEDED; Therapy: 43Opa5819 to (Evaluate:91Olc1350); Last Rx:13Cel3023 Ordered Rx By: Rahul Villa; Dispense: 5 Days ; #:30 Tablet; Refill: 0; For: Back pain; ZEKE = N; Record 3. Methylphenidate HCl ER 54 MG Oral Tablet Extended Release (Concerta); TAKE 1 TABLET ONCE DAILY; Therapy: 41Krf7056 to (Evaluate:26Jul2014); Last Rx:21Wqq4869 Ordered Rx By: Faustino Anders; Dispense: 30 [...] pain; ZEKE = N; Verified Transmission to [facility]; Last Updated By: Josephine Knight; 07/20/2014 2:19:25 [...] Rahul Villa M.D.; Jul 20 2014 3:10PM SOAP MAKER (Author) documented in this encounter Plan of Treatment Not on file documented as of this encounter Visit Diagnoses Not on filedocumented in this encounter Care Teams Agency Operator Relationship Specialty Start Date End Date Rahul Villa MD [address] [address] PCP - General 02/17/15 Rahul Villa MD [address] [address] PCP - General 07/06/14 02/16/15 documented as of this encounter
--- OUTSIDE RECORDS SUMMARY | 2024-10-25 18:06 | XMS_ITS | Encounter Summary ---
Author Organization [facility] Address [address] [place] [address]. [place], [place] [address] [place] [address] Care Team Providers Care Research Management Associate Name Role Phone Rahul Ledesma MD Primary Care Provider Rahul Ledesma MD Primary Care Provider Rahul Ledesma MD Primary Care Provider Rahul Ledesma MD Primary Care Provider Rahul Ledesma MD Primary Care Provider Rahul Ledesma MD Primary Care Provider Rahul Ledesma MD Primary Care Provider Encounter Details Date Type Department Care Team (Late st Contact Info) Description 09/10/2012 Abstract [facility] Bl Diagnostic Imaging [address] [place] [address] Rahul Ledesma MD [address] [address] Social History Tobacco Use Types [...] unspecified documented in this encounter Care Teams Research Management Associate Relationship Specialty Start Date End Date Rahul Ledesma MD [address] [address] PCP - General 02/17/15 Rahul Ledesma MD [address] [address] PCP - General 07/06/14 02/16/15 Rahul Ledesma MD [address] [address] PCP - General 07/16/13 07/05/14 Rahul Ledesma MD [address] [address] PCP - General 01/09/13 07/15/13 Rahul Ledesma MD [address] [address] PCP - General 11/25/12 01/08/13 Rahul Ledesma MD [address] [address] PCP - General 10/19/12 11/24/12 Rahul Ledesma MD [address] [address] PCP - General 09/10/12 10/18/12 documented as of this encounter
--- OUTSIDE RECORDS SUMMARY | 2024-10-25 18:06 | XMS_ITS | Encounter Summary ---
Author Organization [facility] Address [facility]. [place], [place] [address] [place] [address] Care Team Providers Care Newspaper Editor Managing Name Role Phone Rahul Ledesma MD Primary Care Provider Rahul Ledesma MD Primary Care Provider Rahul Ledesma MD Primary Care Provider Rahul Ledesma MD Primary Care Provider Encounter Details Date Type Department Care Team (Latest Contact Info) Description 03/26/2013 Abstract [facility] Medical Group Social History Tobacco [...] on filedocumented in this encounter Care Teams Newspaper Editor Managing Relationship Specialty Start Date End Date Rahul Ledesma MD [address] [phone] PCP - General 02/17/15 Rahul Ledesma MD [address] [phone] PCP - General 07/06/14 02/16/15 Rahul Ledesma MD [address] [address] PCP - General 07/16/13 07/05/14 Rahul Ledesma MD [address] [phone] PCP - General 01/09/13 07/15/13 documented as of this encounter
--- OUTSIDE RECORDS SUMMARY | 2024-10-25 18:06 | XMS_ITS | Encounter Summary ---
Author Organization [facility] Address [address] [place] [address]. [place], [place] [address] [place] [address] Care Team Providers Care Transfer And Line Up Worker Name Role Phone Rahul Ledesma MD Primary Care Provider Rahul Ledesma MD Primary Care Provider Rahul Ledesma MD Primary Care Provider Rahul Ledesma MD Primary Care Provider Encounter Details Date Type Department Care Team (Latest Contact Info) Description 06/18/[address] [facility] Medical Group Rahul Ledesma MD [address] [address] Social History Tobacco Use Types [...] on filedocumented in this encounter Care Teams Transfer And Line Up Worker Relationship Specialty Start Date End Date Rahul Ledesma MD [address] [phone] PCP - General 02/17/15 Rahul Ledesma MD [address] [phone] PCP - General 07/06/14 02/16/15 Rahul Ledesma MD [address] [address] PCP - General 07/16/13 07/05/14 Rahul Ledesma MD [address] [address] PCP - General 01/09/13 07/15/13 documented as of this encounter
--- OUTSIDE RECORDS SUMMARY | 2024-10-25 18:06 | XMS_ITS | Encounter Summary ---
Author Organization [facility] Address [address] [place] [address]. [place], [place] [address] [place] [address] Care Team Providers Care Header Up Name Role Phone Rahul Ledesma MD Primary [...] (Late st Contact Info) Description 08/06/2012 Abstract [facility] Bl Diagnostic Imaging [address] [place] [id number] Rahul Ledesma MD [address] [phone] Social History Tobacco Use Types Packs/Day Years [...] pneumothorax documented in this encounter Care Teams Header Up Relationship Specialty Start Date End Date Rahul Ledesma MD [address] [phone] PCP - General 02/17/15 Rahul Ledesma MD [address] [address] PCP - General 07/06/14 02/16/15 Rahul Ledesma MD [address] [address] PCP - General 07/16/13 07/05/14 Rahul Ledesma MD [address] [phone] PCP - General 01/09/13 07/15/13 Rahul Ledesma MD [facility] [address] [phone] PCP - General 11/25/12 01/08/13 Rahul Ledesma MD [facility] [address] [phone] PCP - General 10/19/12 11/24/12 Rahul Ledesma MD [address] [address] PCP - General 09/10/12 10/18/12 Rahul Ledesma MD [address] [address] PCP - General 08/06/12 09/09/12 documented as of this encounter
--- OUTSIDE RECORDS SUMMARY | 2024-10-25 18:06 | XMS_ITS | Encounter Summary ---
Author Organization [facility] Address [facility]. [place], [place] [address] [place] [address] Care Team Providers Care Back Joiner Name Role Phone Rahul Ledesma MD Primary Care Provider [phone] Rahul Ledesma MD Primary Care Provider [phone] Rahul Ledesma MD Primary Care Provider Rahul Ledesma MD Primary Care Provider Encounter Details Date Type Department Care Team (Late st Contact Info) Description 07/11/2013 Abstract [facility] Medical Group Multispecialty Care - [facility] 3 [facility], [address] [place] [address] Praful Gutierrez MD [address] [facility] 100 [place] [address] Social History Tobacco Use Types Packs/Day Years [...] July 21, for postoperative visit. ELFEGO/YASH/belkis Job [id number] . Surgical Risk Assessment: Past Medical History 1. History of Concussion V15.52 x 2-3 Surgical History 1. History of Treatment Of Wrist Fracture ORIF, left Family History 1. Paternal history of Recovering Alcoholic Social History ?? Never A Smoker ?? Never Drank Alcohol Allergies 1. No Known Drug Allergies Current Meds 1. Meloxicam 15 MG Oral Tablet; TAKE 1 TABLET DAILY NEEDED; Therapy: 68Uwx9667 to (Evaluate:24Oct2013) Requested for: 93Wne0046; Last Rx:[id number] 2. Methylphenidate HCl ER 54 MG Oral Tablet Extended Release; TAKE 1 TABLET ONCE DAILY; Therapy: 24Xxw1883 to (Evaluate:26Jul2013); Last Rx:[id number] Signatures Electronically signed by : Praful Gutierrez M.D.; Jul 24 2013 8:19PM (Author) S MANAGER documented in this encounter Plan of Treatment Not on file documented as of this encounter Visit Diagnoses Not on filedocumented in this encounter Care Teams Back Joiner Relationship Specialty Start Date End Date Rahul Ledesma MD [address] [phone] PCP - General 02/17/15 Rahul Ledesma MD [address] [phone] PCP - General 07/06/14 02/16/15 Rahul Ledesma MD [address] [phone] PCP - General 07/16/13 07/05/14 Rahul Ledesma MD [address] [phone] PCP - General 01/09/13 07/15/13 documented as of this encounter
--- OUTSIDE RECORDS SUMMARY | 2024-10-25 18:06 | XMS_ITS | Encounter Summary ---
Author Organization [facility] Address [address] [place] [address]. [place], [place] [address] [place] [address] Care Team Providers Care Rubber Worker Name Role Phone Rahul Ledesma MD Primary Care Provider [phone] Encounter Details Date Type Department Care Team (Latest Contact Info) Description 02/24/2015 Abstract [facility] Medical Group Rahul Ledesma MD [address] [address] Social History Tobacco Use Types [...] Bryanna Correa, ; Feb 24 2015 9:48AM RN SCHOOL (Author) documented in this encounter Plan of Treatment Not on file documented as of this encounter Visit Diagnoses Not on filedocumented in this encounter Care Teams Rubber Worker Relationship Specialty Start Date End Date Rahul Ledesma MD [address] [address] PCP - General 02/17/15 documented as of this encounter
--- OUTSIDE RECORDS SUMMARY | 2024-10-25 18:06 | XMS_ITS | Encounter Summary ---
Author Organization [facility] Address [address] [place] [address]. [place], [place] [address] [place] [address] Care Team Providers Care Order Packer Name Role Phone Rahul Villa MD Primary Care Provider [phone] Encounter Details Date Type Department Care Team (Latest Contact Info) Description 02/18/2015 Abstract [facility] Medical Group Social History Tobacco Use [...] next week Verified Results LC-CBC With Differential/Platelet [id number] 10:11AM Rahul Villa Test Name Result Flag [...] Comments: LC-Comp. Metabolic Panel ( CMP ) [id number] [id number] 10:11AM Rahul Villa Test Name Result Flag [...] on filedocumented in this encounter Care Teams Order Packer Relationship Specialty Start Date End Date Rahul Villa MD [address] [address] PCP - General 02/17/15 documented as of this encounter
--- OUTSIDE RECORDS SUMMARY | 2024-10-25 18:06 | XMS_ITS | Encounter Summary ---
Author Organization [facility] Address [facility]6 [facility]. [place], [place] [address] [place] [address] Care Team Providers Care Order Filler Name Role Phone Rahul Villa MD Primary Care Provider [phone] Encounter Details Date Type Department Care Team (Latest Contact Info) Description 10/13/2015 Abstract [facility] Medical Group Rahul Villa MD [address] [phone] Social History Tobacco Use Types Packs/Day Years Used Date Smoking Tobacco: Never Assessed Sex and Gender Information Value Date Recorded Sex Assigned at Not on file Legal Sex Male 9:06 PM CDT Gender Identity Not on file Sexual Orientation Not on file documented as of this encounter Last Filed Vital Signs Vital Sign Reading Time Taken Comments Blood Pressure 128/82 10/13/2015 11:18 AM DOOR TO DOOR FUNDRAISING COLLECTOR Pulse - - Temperature - - Respiratory Rate - - Oxygen Saturation - - Inhaled Oxygen Concentration - - Weight 76.7 kg (169 lb) 10/13/2015 11:18 AM DOOR TO DOOR FUNDRAISING COLLECTOR Height - - Body Mass Index 23.24 [...] Never Drank Alcohol Immunizations Influenza --- Series1: 59Kqh0382 Tdap --- Series1: 2013 Current Meds 1. Amphetamine-Dextroamphetamine 30 MG Oral Tablet; Take 1 tablet twice daily; Therapy: 24Vjl8230 to (Evaluate:73Cui4978); Last Rx:[id number] Ordered Rx By: Rahul Villa; Dispense: 30 Days ; #:60 Tablet; Refill: 0; For: ADHD, predominantly inattentive type; ZEKE = N; Print Rx Allergies 1. No Known Drug Allergies Recorded By: Kiara Elizondo; 06/05/2012 12:38:50 PM Vitals Recorded: 70Kml1175 11:18AM Temperature 98 F Systolic 128 Diastolic [...] Results/Data *BFMA - Rapid Strep In Office 63Qzq9206 11:47AM Rahul Villa Test Name Result Flag [...] Acute pharyngitis; ZEKE = N; Sent To: [facility] 2. Comply with suggestions for healthy lifestyle; Status:Complete; Done: 91Boz9296 11:54AM Ordered; For:Acute pharyngitis; Ordered By:Rahul Villa; 3. Over the Counter Symptomatic Relief Medications; Status:Complete; Done: 47Suv1922 11:54AM Ordered; For:Acute pharyngitis; Ordered By:Rahul Villa; 4. Follow-up visit in 1 month Outpatient Follow-up Status: Hold For - Scheduling Requested for: 58Tnr0853 Ordered; For: Acute pharyngitis; Ordered By: Rahul Villa Performed: Due: 27Oct2015 5. *BFMA - Rapid Strep In Office; Status:Resulted - Requires Verification; Done: 61Uhn4928 11:47AM Performed:In Office; Due:12Nov2015; Last Updated By:Marixa Pepper; 10/13/2015 11:47:46 AM;Ordered; For:Acute pharyngitis; Ordered By:Rahul Villa; Signatures Electronically signed by : Rahul Villa M.D.; Oct 13 2015 11:54AM DOOR TO DOOR FUNDRAISING COLLECTOR (Author) documented in this encounter Plan of Treatment Not on file documented as of this encounter Procedures Procedure Name Priority Date/Time Associated Diagnosis Comments STREP A RAPID Routine 10/13/2015 11:47 AM DOOR TO DOOR FUNDRAISING COLLECTOR documented in this encounter Results * STREP A RAPID (10/13/2015 11:47 AM DOOR TO DOOR FUNDRAISING COLLECTOR) RAPID STREP TEST Negative [facility] TO EPIC CONVERSION 10/13/2015 11:4 7 AM DOOR TO DOOR FUNDRAISING COLLECTOR 10/13/2015 11:47 AM DOOR TO DOOR FUNDRAISING COLLECTOR Narrative [facility] TO EPIC CONVERSION - 10/13/2015 11:47 AM DOOR TO DOOR FUNDRAISING COLLECTOR Result Communication: No patient communication needed at this time us Rahul Villa MD MICROBIOLOGY - GENERAL RONAN EM Final Result [facility] TO EPIC CONVERSION documented in this encounter Visit Diagnoses Not on filedocumented in this encounter Care Teams Order Filler Relationship Specialty Start Date End Date Rahul Villa MD [address] [facility] 300 [place] [address] PCP - General 02/17/15 documented as of this encounter
--- OUTSIDE RECORDS SUMMARY | 2024-10-25 18:06 | XMS_ITS | Encounter Summary ---
Author Organization [facility] Address [address] [place] [address]. [place], [place] [address] [place] [address] Care Team Providers Care Qa Tech Name Role Phone Rahul Villa MD Primary Care Provider [phone] Encounter Details Date Type Department Care Team (Latest Contact Info) Description 05/31/2017 Abstract [facility] Medical Group Rahul Villa MD [address] [address] Social History Tobacco Use Types [...] 4:15 PM CDT Reason For Visit Health Assistant To The Ceo Complaint annual exam History of Present Illness [...] Tablet; Take 1 tablet twice daily; Therapy: 15Nxs2690 to (Evaluate:19Wpz6473); Last Rx:[id number] Ordered Rx By: Rahul Villa; Dispense: 30 [...] 1 tablet twice daily Rx By: Rahul Vlila; Dispense: 30 Days ; #:60 Tablet; Refill: [...] Maintenance; Ordered By: Rahul Villa Performed: Due: [id number] Signatures Electronically signed by : Rahul Villa M.D.; May 31 2017 4:18PM HEALTH INFORMATION MANAGER (Author) documented in this encounter Plan of Treatment Not on file documented as of this encounter Visit Diagnoses Not on filedocumented in this encounter Care Teams Qa Tech Relationship Specialty Start Date End Date Rahul Villa MD [address] [address] PCP - General 02/17/15 documented as of this encounter
--- OUTSIDE RECORDS SUMMARY | 2024-10-25 18:06 | XMS_ITS | Encounter Summary ---
Author Organization [facility] Address [address] [place] [address]. [place], [place] [address] [place] [address] Care Team Providers Care District Sales Leader Name Role Phone Rahul Villa MD Primary Care Provider Rahul Villa MD Primary Care Provider Rahul Villa MD Primary Care Provider Rahul Villa MD Primary Care Provider Encounter Details Date Type Department Care Team (Latest Contact Info) Description 06/11/2013 Abstract [facility] Medical Group Rahul Villa MD [address] [address] Social History Tobacco Use Types [...] Oral Tablet; TAKE 1 TABLET DAILY; Therapy: 96Bri1228 to (Evaluate:40Owq5466) Requested for: 23Gpk9351; Last Rx:[id number] Ordered; For: Closed Fracture Of The Middle Of The Right Scaphoid Bone (814.01); Rx By: Rahul Villa; Dispense: 30 Days ; #:30 Tablet; Refill: 0; Verified Transmission to [facility] 2. Methylphenidate HCl ER 54 MG Oral Tablet Extended Release; TAKE 1 TABLET ONCE DAILY; Therapy: 98Nhb2448 to (Evaluate:50Igw8949); Last Rx:23Xjt5400 Ordered; For: Health Maintenance (V70.0); Rx By: Rahul Villa; Dispense: 30 Days ; #:30 Tablet Extended Release; Refill: 0; Print Rx Allergies 1. No Known Drug Allergies No Known Drug Allergies Vitals Vital Signs [Data Includes: Current Encounter] 02Ine8411 02:52PM Systolic 118 Diastolic 60 BMI Calculated [...] 1. MRI Wrist W/O Rt Requested for: [id number] Ordered; For: Closed Fracture Of The Middle Of The Right Scaphoid Bone (814.01); Ordered By: Rahul Villa Perform: Other Radiology Due: 49Ztr2329 Signatures Electronically signed by : Rahul Villa M.D.; Jun 11 2013 3:12PM (Author) LOGIST documented in this encounter Plan of Treatment Not on file documented as of this encounter Visit Diagnoses Not on filedocumented in this encounter Care Teams District Sales Leader Relationship Specialty Start Date End Date Rahul Villa MD [address] [place] [phone] PCP - General 02/17/15 Rahul Villa MD [address] [place] [address] PCP - General 07/06/14 02/16/15 Rahul Villa MD [facility] [address] [address] PCP - General 07/16/13 07/05/14 Rahul Villa MD [facility] [address] [address] PCP - General 01/09/13 07/15/13 documented as of this encounter
--- OUTSIDE RECORDS SUMMARY | 2024-10-25 18:06 | XMS_ITS | Encounter Summary ---
Author Organization [facility] Address [address] [place] [address]. [place], [place] [address] [place] [address] Care Team Providers Care Geological E Logger Name Role Phone Rahul Ledesma MD Primary Care Provider [phone] Encounter Details Date Type Department Care Team (Late st Contact Info) Description 02/17/2015 Abstract [facility] Bl Diagnostic Imaging [address] [place] [address] Rahul Ledesma MD [address] [phone] Social History Tobacco Use Types Packs/Day Years [...] unspecified documented in this encounter Care Teams Geological E Logger Relationship Specialty Start Date End Date Rahul Ledesma MD [address] [phone] PCP - General 02/17/15 documented as of this encounter
--- OUTSIDE RECORDS SUMMARY | 2024-10-25 18:06 | XMS_ITS | Encounter Summary ---
Author Organization [facility] Address [address] [place] [address]. [place], [place] [address] [place] [address] Care Team Providers Care Automotive Quality Manager Name Role Phone Rahul Villa MD Primary Care Provider [phone] Encounter Details Date Type Department Care Team (Latest Contact Info) Description 08/10/2015 Abstract [facility] Medical Group Faith MirelesREFUGIOP [address] [place] [address] Social History Tobacco Use Types Packs/Day Years [...] Tablet; Take 1 tablet twice daily; Therapy: 71Wyt1037 to (Evaluate:21Aug2015); Last Rx:24Jul2015; Status: ACTIVE - [...] : KIERAN Sutton; Aug 10 2015 3:44PM SAWMILL HAND (Author) Electronically signed by : Rahul Villa M.D.; Aug 10 2015 9:32PM SAWMILL HAND documented in this encounter Plan of Treatment Not on file documented as of this encounter Visit Diagnoses Not on filedocumented in this encounter Care Teams Automotive Quality Manager Relationship Specialty Start Date End Date Rahul Villa MD [address] [address] PCP - General 02/17/15 documented as of this encounter
--- OUTSIDE RECORDS SUMMARY | 2024-10-25 18:06 | XMS_ITS | Encounter Summary ---
Author Organization [facility] Address [facility]6 [facility]. [place], [place] [address] [place] [address] Care Team Providers Care Clinic Receptionist Name Role Phone Rahul Vilal MD Primary Care Provider [phone] Rahul Villa MD Primary Care Provider [phone] Encounter Details Date Type Department Care Team (Latest Contact Info) Description 07/13/2014 Abstract [facility] Medical Group Social History Tobacco Use Types [...] Task Name: Call Back Assigned To: [facility] Team Regarding Patient: Dta Spivey, Status: Complete Comment: Catrina Beltran - [...] know if he can have refill on [place] until OV he would like a stronger [...] Divya Goodwin, ; Jul 13 2014 3:16PM TRANSIT PLANNER (Author) documented in this encounter Plan of Treatment Not on file documented as of this encounter Visit Diagnoses Not on filedocumented in this encounter Care Teams Clinic Receptionist Relationship Specialty Start Date End Date Rahul Villa MD [address] [phone] PCP - General 02/17/15 Rahul Villa MD [address] [address] PCP - General 07/06/14 02/16/15 documented as of this encounter
--- OUTSIDE RECORDS SUMMARY | 2024-10-25 18:06 | XMS_ITS | Encounter Summary ---
Author Organization [facility] Address [address] [place] [address]. [place], [place] [address] [place] [address] Care Team Providers Care Wet Finisher Wool Name Role Phone Rahul Ledesma MD Primary Care Provider [phone] Rahul Ledesma MD Primary Care Provider [phone] Rahul Ledesma MD Primary Care Provider [phone] Rahul Ledesma MD Primary Care Provider [phone] Encounter Details Date Type Department Care Team (Late st Contact Info) Description 01/30/2013 Abstract [facility] Medical Group Multispecialty Care - [facility] 3 [facility], [address] [place] [phone] Praful Gutierrez MD [address] [facility] 100 [place] [address] Social History Tobacco Use Types Packs/Day Years [...] outstretched arms due to right wrist pain. Campus Ambassador strength is probably about 50% of normal. He was prescribed Mobic 15 mg daily #20 for further motion, will see if the symptoms calm down. Return 3 weeks. ELFEGO/YASH/belkis Job [id number] . Active Problems 1. Closed Fracture Of The Middle Of The Right Scaphoid Bone 814.01 Social History ?? Never A Smoker ?? Never Drank Alcohol Current Meds 1. Hydrocodone-Acetaminophen 5-500 MG Oral Tablet; TAKE 1 TO 2 TABLETS EVERY 4 TO 6 HOURS NEEDED FOR PAIN; Last Rx:[id number] Allergies 1. No Known Drug Allergies Vitals 30Jan2013 08:17AM Heart Rate 72 Respiration 20 Systolic 112 Diastolic 64 BMI Calculated 22.35 BSA Calculated 1.96 Height 6 ft Weight 165 lb Assessment 1. Closed Fracture Of The Middle Of The Right Scaphoid Bone 814.01 Plan 1. Meloxicam 15 MG Oral Tablet; TAKE 1 TABLET DAILY; Therapy: 79Pwh0451 to (Evaluate:72Ije8178) Requested for: 30Jan2013; Last Rx:30Jan2013; Edited 2. Follow-up visit in 3 weeks Outpatient Follow-up Requested for: 30Jan2013 Signatures Electronically signed by : Praful Gutierrez M.D.; Jan 30 2013 8:33PM (Author) Electronically signed by : Praful Gutierrez M.D.; Feb 04 2013 11:06PM (Author) ALIZER documented in this encounter Plan of Treatment Not on file documented as of this encounter Visit Diagnoses Not on filedocumented in this encounter Care Teams Wet Finisher Wool Relationship Specialty Start Date End Date Rahul Ledesma MD [address] [phone] PCP - General 02/17/15 Rahul Ledesma MD [address] [address] PCP - General 07/06/14 02/16/15 Rahul Ledesma MD [address] [phone] PCP - General 07/16/13 07/05/14 Rahul Ledesma MD [address] [phone] PCP - General 01/09/13 07/15/13 documented as of this encounter
--- OUTSIDE RECORDS SUMMARY | 2024-10-25 18:06 | XMS_ITS | Encounter Summary ---
Author Organization [facility] Address [address] [place] [address]. [place], [place] [address] [place] [address] Care Team Providers Care Overseer Kosher Kitchen Name Role Phone Rahul Ledesma MD Primary [...] Details Date Type Department Care Team (Late [facility]) Description 08/20/2006 Abstract [facility] [place] [address] Libby Bush MD Social History Tobacco Use [...] on filedocumented in this encounter Care Teams Overseer Kosher Kitchen Relationship Specialty Start Date End Date Rahul Ledesma MD [address] [address] PCP - General 02/17/15 Rahul Ledesma MD [address] [address] PCP - General 07/06/14 02/16/15 Rahul Ledesma MD [address] [address] PCP - General 07/16/13 07/05/14 Rahul Ledesma MD [address] [address] PCP - General 01/09/13 07/15/13 Rahul Ledesma MD [address] [address] PCP - General 11/25/12 01/08/13 Rahul Ledesma MD [address] [address] PCP - General 10/19/12 11/24/12 Rahul Ledesma MD [address] [address] PCP - General 09/10/12 10/18/12 Rahul Ledesma MD [address] [address] PCP - General 08/06/12 09/09/12 Rahul Ledesma MD [address] [address] PCP - General 05/12/12 08/05/12 documented as of this encounter
--- OUTSIDE RECORDS SUMMARY | 2024-10-25 18:06 | XMS_ITS | Encounter Summary ---
Author Organization [facility] - [facility] Address [address] [place] [address]. [place], [place] [address] [place] [address] Care Team Providers Care Harness Cleaner Name Role Phone Rahul Ledesma MD Primary Care Provider [phone] Encounter Details Date Type Department Care Team (Latest Contact Info) Description 05/28/2017 Abstract [facility] Medical Group Rahul Ledesma MD [address] [address] Social History Tobacco Use Types [...] Claudia Huff, ; May 28 2017 11:15AM CLINICAL ALLERGIST (Author) documented in this encounter Plan of Treatment Not on file documented as of this encounter Visit Diagnoses Not on filedocumented in this encounter Care Teams Harness Cleaner Relationship Specialty Start Date End Date Rahul Ledesma MD [address] [facility] [address] [place] [address] PCP - General 02/17/15 documented as of this encounter
--- OUTSIDE RECORDS SUMMARY | 2024-10-25 18:06 | XMS_ITS | Encounter Summary ---
Author Organization [facility] Address [address] [place] [address]. [place], [place] [address] [place] [address] Care Team Providers Care Box Repairer Name Role Phone Rahul Villa MD Primary Care Provider [phone] Encounter Details Date Type Department Care Team (Latest Contact Info) Description 06/01/2016 Abstract [facility] Medical Group Rahul Villa MD [address] [phone] Social History Tobacco Use Types Packs/Day Years [...] Never Drank Alcohol Immunizations Influenza --- Series1: [id number] Tdap --- Series1: 2013 Current Meds 1. Amphetamine-Dextroamphetamine 30 MG Oral Tablet; Take 1 tablet twice daily; Therapy: 58Xub6815 to (Evaluate:15Rda4325); Last Rx:86Ete2557 Ordered Rx By: Rahul Villa; Dispense: 30 Days ; #:60 Tablet; Refill: 0; For: ADHD, predominantly inattentive type; ZEKE = N; Print Rx 2. Fluticasone Propionate 50 MCG/ACT Nasal Suspension; USE 1 TO 2 SPRAYS IN EACH NOSTRIL ONCE DAILY; Therapy: 00Tgb0892 to (Last Rx:88Xad6107) Requested for: 95Erj6332 Ordered Rx By: Rahul Villa; Dispense: 0 Days ; #:1 X 16 GM Bottle; Refill: 6; For: Acute pharyngitis; ZEKE = N; Verified Transmission to [facility]; Last Updated By: Josephine Knight; 10/13/2015 11:55:35 AM 3. Meloxicam 15 MG Oral Tablet; TAKE 1 TABLET DAILY NEEDED; Therapy: 20Jan2016 to (Evaluate:69Wnd8158) Requested for: 20Jan2016; Last Rx:20Jan2016 Ordered Rx By: Rahul Villa; Dispense: 30 Days ; #:30 Tablet; Refill: 3; For: Back pain; ZEKE = N; Verified Transmission to [facility]; Last Updated By: Josephine Knight; 01/20/2016 2:22:25 [...] 3. Avoid overuse of area; Status:Complete; Done: 53Apk6979 04:53PM Ordered; For:Leg pain; Ordered By:Rahul Villa; 4. Keep your leg elevated whenever you can to decrease swelling and increase circulation.; Status:Complete; Done: 94Iru3589 04:53PM Ordered; For:Leg pain; Ordered By:Rahul Villa; 5. LC-CBC With Differential/Platelet [id number]; Status:In Progress - Specimen/Data Collected; Done: 04Rnz3768 Perform:[facility] Brandon Ronald; Due:83Cwx8596; Last Updated By:Gretta Samson; 06/01/2016 4:25:12 PM;Ordered; For:Leg pain; Ordered By:Rahul Villa; Discussion/Summary disc poss of dvt, doubt cont bleeding, check baseline cbc. Signatures Electronically signed by : Rahul Villa M.D.; Jun 01 2016 4:57PM PERCHER (Author) documented in this encounter Plan of [...] on filedocumented in this encounter Care Teams Box Repairer Relationship Specialty Start Date End Date Rahul Villa MD [address] [address] PCP - General 02/17/15 documented as of this encounter
--- OUTSIDE RECORDS SUMMARY | 2024-10-25 18:06 | XMS_ITS | Encounter Summary ---
Author Organization [facility] Address [facility]. [place], [place] [address] [place] [address] Care Team Providers Care Manager Linux Name Role Phone Vipul Hickman MD Primary Care Provider [phone] Encounter Details Date Type Department Care Team (Latest Contact Info) Description 02/17/2015 Abstract [facility] Medical Group Vipul Hickman MD [address] [phone] Social History Tobacco Use Types Packs/Day Years [...] Extended Release; TAKE 1 TABLET DAILY; Therapy: 87Cxf2688 to (Evaluate:13Feb2015); Last Rx:14Jan2015 Ordered Rx By: [...] MCDONALD ORDERING MD: VIPUL HICKMAN MD ACCT: [id number] ADMIT/SERVICE DATE: 02/17/15 DISCHARGE DATE: : 1990 PT TYPE: REG CLI SEX: M ORD SITE: [facility] OUTPATIENT IMAGING STUDY DATE REPORT # PROCEDURE CODE PROCEDURE 02/17/15 [id number] LSPN2-3V XR LUMBAR SPINE 2 TO 3 VIEWS EXTORDERID [id number] IMPRESSION: THERE IS NO FRACTURE. THERE IS [...] THOMPSON02/17/2015 9:14 AM XR PELVIS 1-2 VIEW 60Qhk2244 09:12AM Vipul Hickman Test Name Result Flag Reference XR PELVIS 1-2 VIEW (Report) FREDERICK MCDONALD ORDERING MD: VIPUL HICKMAN MD ACCT: [id number] ADMIT/SERVICE DATE: 02/17/15 DISCHARGE DATE: : 1990 PT TYPE: REG CLI SEX: M ORD SITE: [facility] OUTPATIENT IMAGING STUDY DATE REPORT # PROCEDURE CODE PROCEDURE 02/17/15 [id number] PLV1-2V XR PELVIS 1 OR 2 VIEW EXTORDERID [id number] IMPRESSION: NO DISPLACED FRACTURE IS SEEN EXAMINATION: [...] pain; Ordered By:Vipul Hickman; LC-CBC With Differential/Platelet [id number]; Status:Hold For - Manual Activation; Requested for:17Feb2015; Perform:[facility] Cli Bill; Due:19Mar2015;Ordered; For:Back pain, Pelvic pain; Ordered By:Vipul Hickman; LC-Comp. Metabolic Panel ( CMP ) [id number]; Status:Hold For - Manual Activation; Requested for:17Feb2015; [...] Vipul Hickman M.D.; Feb 17 2015 1:55PM DIRECTOR OF SAFETY (Author) documented in this encounter Plan of [...] METABOLIC PANEL (02/17/2015 10:11 AM CDT) Pathologist [facility] GLUCOSE 93 65 - 99 mg/dL [facility] [...] ORDERING MD: VIPUL HICKMAN MD ?? ACCT: [id number] ?? ADMIT/SERVICE DATE: 02/17/15 DISCHARGE DATE: ?? : 1990 PT TYPE: REG CLI ?? SEX: M ORD SITE: [facility] ? STUDY DATE REPORT # PROCEDURE CODE PROCEDURE ?? 02/17/15 [id number] PLV1-2V XR PELVIS 1 OR 2 VIEW ? EXTORDERID ? [id number] ? IMPRESSION: ?? NO DISPLACED FRACTURE IS [...] MCDONALD ORDERING MD: VIPUL HICKMAN MD ACCT: [id number] ADMIT/SERVICE DATE: 02/17/15 DISCHARGE DATE: : 1990 PT TYPE: REG CLI SEX: M ORD SITE: [facility] STUDY DATE REPORT # PROCEDURE CODE PROCEDURE 02/17/15 [id number] PLV1-2V XR PELVIS 1 OR 2 VIEW EXTORDERID [id number] IMPRESSION: NO DISPLACED FRACTURE IS SEEN EXAMINATION: [...] ORDERING MD: VIPUL HICKMAN MD ?? ACCT: [id number] ?? ADMIT/SERVICE DATE: 02/17/15 DISCHARGE DATE: ?? : 1990 PT TYPE: REG CLI ?? SEX: M ORD SITE: [facility] OUTPATIENT IMAGING ? STUDY DATE REPORT # PROCEDURE CODE PROCEDURE ?? 02/17/15 [id number] LSPN2-3V XR LUMBAR SPINE 2 TO 3 VIEWS ? EXTORDERID ? [id number] ? IMPRESSION: ?? THERE IS NO ??FRACTURE. [...] MCDONALD ORDERING MD: VIPUL HICKMAN MD ACCT: [id number] ADMIT/SERVICE DATE: 02/17/15 DISCHARGE DATE: : 1990 PT TYPE: REG CLI SEX: M ORD SITE: [facility] OUTPATIENT IMAGING STUDY DATE REPORT # PROCEDURE CODE PROCEDURE 02/17/15 [id number] LSPN2-3V XR LUMBAR SPINE 2 TO 3 VIEWS EXTORDERID [id number] IMPRESSION: THERE IS NO FRACTURE. THERE IS [...] filedocumented in this encounter Care Teams Manager Linux Relationship Specialty Start Date End Date Vipul Hickman MD [address] [address] PCP - General 02/17/15 documented as of this encounter
--- OUTSIDE RECORDS SUMMARY | 2024-10-25 18:06 | XMS_ITS | Encounter Summary ---
Author Organization [facility] Address [address] [place] [address]. [place], [place] [address] [place] [address] Care Team Providers Care Petal Cutter Name Role Phone Rahul Ledesma MD [...] 05/12/[address] [facility] [address] [place] [address] Jorge Pettit NP [address] [address] Social History Tobacco Use Types [...] complication documented in this encounter Care Teams Petal Cutter Relationship Specialty Start Date End Date Rahul Ledesma MD [address] [address] PCP - General 02/17/15 Rahul Ledesma MD [address] [address] PCP - General 07/06/14 02/16/15 Rahul Ledesma MD [address] [address] PCP - General 07/16/13 07/05/14 Rahul Ledesma MD [address] [address] PCP - General 01/09/13 07/15/13 Rahul Ledesma MD [address] [address] PCP - General 11/25/12 01/08/13 Rahul Ledesma MD [address] [address] PCP - General 10/19/12 11/24/12 Rahul Ledesma MD [address] [address] PCP - General 09/10/12 10/18/12 Rahul Ledesma MD [address] [facility] 300 [place] [address] PCP - General 08/06/12 09/09/12 Rahul Ledesma MD [address] [facility] 300 [place] [address] PCP - General 05/12/12 08/05/12 documented as of this encounter
--- OUTSIDE RECORDS SUMMARY | 2024-10-25 18:06 | XMS_ITS | Encounter Summary ---
Author Organization [facility] Address [address] [place] [address]. [place], [place] [address] [place] [address] Care Team Providers Care Electronics Technician Name Role Phone Rahul Ledesma MD [...] Details Date Type Department Care Team (Late [facility]) Description 08/19/[address] [facility] [place] [address] Libby Bush MD Social History Tobacco Use [...] on filedocumented in this encounter Care Teams Electronics Technician Relationship Specialty Start Date End Date Rahul Ledesma MD [address] [address] PCP - General 02/17/15 Rahul Ledesma MD [address] [address] PCP - General 07/06/14 02/16/15 Rahul Ledesma MD [address] [address] PCP - General 07/16/13 07/05/14 Rahul Ledesma MD [address] [address] PCP - General 01/09/13 07/15/13 Rahul Ledesma MD [address] [address] PCP - General 11/25/12 01/08/13 Rahul Ledesma MD [address] [address] PCP - General 10/19/12 11/24/12 Rahul Ledesma MD [address] [address] PCP - General 09/10/12 10/18/12 Rahul Ledesma MD [address] [address] PCP - General 08/06/12 09/09/12 Rahul Ledesma MD [address] [address] PCP - General 05/12/12 08/05/12 documented as of this encounter
--- OUTSIDE RECORDS SUMMARY | 2024-10-25 18:06 | XMS_ITS | Encounter Summary ---
Author Organization [facility] Address [address] [place] [address]. [place], [place] [address] [place] [address] Care Team Providers Care Crop Pest Control Specialist Name Role Phone Rahul Ledesma MD Primary Care Provider [phone] Rahul Ledesma MD Primary Care Provider [phone] Rahul Ledesma MD Primary Care Provider +1- [phone] Encounter Details Date Type Department Care Team (Latest Contact Info) Description 07/23/2013 Abstract [facility] Medical Group Social History Tobacco Use Types [...] on filedocumented in this encounter Care Teams Crop Pest Control Specialist Relationship Specialty Start Date End Date Rahul Ledesma MD [address] [address] PCP - General 02/17/15 Rahul Ledesma MD [address] [address] PCP - General 07/06/14 02/16/15 Rahul Ledesma MD [address] [address] PCP - General 07/16/13 07/05/14 documented as of this encounter
--- OUTSIDE RECORDS SUMMARY | 2024-10-25 18:06 | XMS_ITS | Encounter Summary ---
Author Organization [facility] Address [address] [place] [address]. [place], [place] [address] [place] [address] Care Team Providers Care System Development Manager Name Role Phone Rahul Villa MD Primary Care Provider [phone] Encounter Details Date Type Department Care Team (Latest Contact Info) Description 01/20/2016 Abstract [facility] Medical Group Rahul Villa MD [address] [address] Social History Tobacco Use Types [...] Tablet; Take 1 tablet twice daily; Therapy: 30Iii8968 to (Evaluate:45Vzq6877); Last Rx:79Wfs1043 Ordered 2. Fluticasone Propionate 50 MCG/ACT Nasal Suspension; USE 1 TO 2 SPRAYS IN EACH NOSTRIL ONCE DAILY; Therapy: 11Toc9463 to (Last Rx:28Aaj6650) Requested for: 65Txz0346 Ordered Allergies 1. No Known Drug Allergies [...] 1. Avoid overuse of area; Status:Complete; Done: 53Ljm3556 02:58PM Ordered; For:ADHD, predominantly inattentive type; Ordered By:Rahul Villa; 2. Comply with suggestions for healthy lifestyle; Status:Complete; Done: 35Ktr1261 02:58PM Ordered; For:ADHD, predominantly inattentive type; Ordered By:Rahul Villa; 3. Follow-up if no improvement or if condition worsens; Status:Complete; Done: 36Mke2539 02:58PM Ordered; For:ADHD, predominantly inattentive type; Ordered By:Rahul Villa; Back pain 4. Meloxicam 15 MG Oral Tablet; TAKE 1 TABLET DAILY NEEDED Rx By: Rahul Villa; Dispense: 30 Days ; #:30 Tablet; Refill: 3; For: Back pain; ZEKE = N; Verified Transmission to [facility]; Last Updated By: Josephine Knight; 01/20/2016 2:22:25 PM Signatures Electronically signed by : Rahul Villa M.D.; Jan 20 2016 2:58PM TRANSMITTER CHIEF (Author) documented in this encounter Plan of Treatment Not on file documented as of this encounter Visit Diagnoses Not on filedocumented in this encounter Care Teams System Development Manager Relationship Specialty Start Date End Date Rahul Villa MD [address] [address] PCP - General 02/17/15 documented as of this encounter
--- OUTSIDE RECORDS SUMMARY | 2024-10-25 18:06 | XMS_ITS | Encounter Summary ---
Author Organization [facility] Address [address] [place] [address]. [place], [place] [address] [place] [address] Care Team Providers Care Mattress Stuffer Name Role Phone Rahul Villa MD Primary Care Provider [phone] Encounter Details Date Type Department Care Team (Latest Contact Info) Description 05/25/2015 Abstract [facility] Medical Group Rahul Villa MD [address] [address] Social History Tobacco Use Types [...] Tablet; TAKE 1 TABLET TWICE DAILY; Therapy: 88Dns4132 to (Evaluate:61Eyj0864); Last Rx:22Jas0038 Ordered Allergies 1. No Known Drug Allergies [...] type; Ordered By: Rahul Villa Performed: Due: 57Vso7330 Signatures Electronically signed by : Rahul Villa M.D.; May 25 2015 10:33AM TERMINATION CLERK (Author) documented in this encounter Plan of Treatment Not on file documented as of this encounter Visit Diagnoses Not on filedocumented in this encounter Care Teams Mattress Stuffer Relationship Specialty Start Date End Date Rahul Villa MD [address] [address] PCP - General 02/17/15 documented as of this encounter
--- OUTSIDE RECORDS SUMMARY | 2024-10-25 18:06 | XMS_ITS | Encounter Summary ---
Author Organization [facility] - [facility] Address [address] [place] [address]. [place], [place] [address] [place] [address] Care Team Providers Care Pile Fabric Knitter Name Role Phone Rahul Ledesma MD Primary Care Provider Rahul Ledesma MD Primary Care Provider Rahul Ledesma MD Primary Care Provider Rahul Ledesma MD Primary Care Provider Encounter Details Date Type Department Care Team (Late st Contact Info) Description 06/20/2013 Abstract [facility] Medical Group Multispecialty Care - [facility] [address] [facility], [address] [place] [address] Praful Gutierrez MD [address] [facility] [address] [place] [address] Social History Tobacco Use Types Packs/Day Years [...] MRI scan of the right wrist from [facility] done on June 18, [...] a period of prolonged casting. ELFEGO/YASH/belkis Job [id number] Active Problems Closed Fracture Of The Middle [...] Oral Tablet; TAKE 1 TABLET DAILY; Therapy: 17Ofq0795 to (Evaluate:44Umn2492) Requested for: 25Ebi8749; Last Rx:69Dlq4799 2. Methylphenidate HCl ER 54 MG Oral Tablet Extended Release; TAKE 1 TABLET ONCE DAILY; Therapy: 66Zzl9211 to (Evaluate:03Rvg9831); Last Rx:25Rhm2062 3. PredniSONE 20 MG Oral Tablet; TAKE 2 TABLETS DAILY; Therapy: 47Xhv4620 to (Evaluate:17Jun2013) Requested for: 79Rar7870; Last Rx:61Bee2939 Allergies 1. No Known Drug Allergies Vitals [...] Gutierrez M.D.; Jun 26 2013 11:24PM (Author) SE CONSULTANT documented in this encounter Plan of Treatment Not on file documented as of this encounter Visit Diagnoses Not on filedocumented in this encounter Care Teams Pile Fabric Knitter Relationship Specialty Start Date End Date Rahul Ledesma MD [address] [phone] PCP - General 02/17/15 Rahul Ledesma MD [address] [phone] PCP - General 07/06/14 02/16/15 Rahul Ledesma MD [address] [address] PCP - General 07/16/13 07/05/14 Rahul Ledesma MD [address] [phone] PCP - General 01/09/13 07/15/13 documented as of this encounter
--- OUTSIDE RECORDS SUMMARY | 2024-10-25 18:06 | XMS_ITS | Encounter Summary ---
Author Organization [facility] Address [address] [place] [address]. [place], [place] [address] [place] [address] Care Team Providers Care Law Office Assistant Name Role Phone Rahul Ledesma MD Primary Care Provider Rahul Ledesma MD Primary Care Provider Rahul Ledesma MD Primary Care Provider Rahul Ledesma MD Primary Care Provider Rahul Ledesma MD Primary Care Provider Rahul Ledesma MD Primary Care Provider Rahul Ledesma MD Primary Care Provider Rahul Ledesma MD Primary Care Provider Rahul Ledesam MD Primary Care Provider Encounter Details Date Type Department Care Team (Late st Contact Info) Description 05/23/2007 Emergency [facility] Emergency Room [place], [place] [id number] Tabatha Jesus MD [address] [place], [place] [address] Social History Tobacco Use Types Packs/Day Years [...] on filedocumented in this encounter Care Teams Law Office Assistant Relationship Specialty Start Date End Date Rahul Ledesma MD [address] [address] PCP - General 02/17/15 Rahul Ledesma MD [address] [place] [phone] PCP - General 07/06/14 02/16/15 Rahul Ledesma MD [address] [place] [address] PCP - General 07/16/13 07/05/14 Rahul Ledesma MD [address] [place] [address] PCP - General 01/09/13 07/15/13 Rahul Ledesma MD [address] [place] [address] PCP - General 11/25/12 01/08/13 Rahul Ledesma MD [address] [place] [phone] PCP - General 10/19/12 11/24/12 Rahul Ledesma MD [address] [place] [address] PCP - General 09/10/12 10/18/12 Rahul Ledesma MD [address] [facility] [address] [place] [address] PCP - General 08/06/12 09/09/12 Rahul Ledesma MD [address] [facility] [address] [place] [phone] PCP - General 05/12/12 08/05/12 documented as of this encounter
--- OUTSIDE RECORDS SUMMARY | 2024-10-25 18:06 | XMS_ITS | Encounter Summary ---
Author Organization [facility] Address [facility]. [place], [place] [address] [place] [address] Care Team Providers Care Wood Type Cutter Name Role Phone Rahul Ledesma MD Primary Care Provider +1- [phone] Rahul Ledesma MD Primary Care Provider +1- [phone] Encounter Details Date Type Department Care Team (Latest Contact Info) Description 08/03/2014 Abstract [facility] Medical Group Rahul Ledesma MD [address] [phone] Social History Tobacco Use Types Packs/Day Years [...] [place], ; Aug 03 2014 8:33AM OPERATER (Author) documented in this encounter Plan of Treatment Not on file documented as of this encounter Visit Diagnoses Not on filedocumented in this encounter Care Teams Wood Type Cutter Relationship Specialty Start Date End Date Rahul Ledesma MD [address] [facility] [address] [place] [address] PCP - General 02/17/15 Rahul Ledesma MD [address] [facility] [address] [place] [address] PCP - General 07/06/14 02/16/15 documented as of this encounter
--- OUTSIDE RECORDS SUMMARY | 2024-10-25 18:06 | XMS_ITS | Encounter Summary ---
Author Organization [facility] Address [address] [place] [address]. [place], [place] [address] [place] [address] Care Team Providers Care Radio Dispatcher Name Role Phone Rahul Ledesma MD Primary Care Provider [phone]- [phone] Rahul Ledesma MD Primary Care Provider Rahul Ledesma MD Primary Care Provider Encounter Details Date Type Department Care Team (Late st Contact Info) Description 07/22/2013 Abstract [facility] Medical Group Multispecialty Care - [facility] [address] [facility] [address] [place] [phone] Praful Gutierrez MD [address] [facility] 100 [place] [address] Social History Tobacco Use Types [...] reexam and probable cast change. ELFEGO/YASH/belkis Job [id number] Active Problems 1. Closed Fracture Of The [...] Tablet; TAKE 1 TABLET DAILY NEEDED; Therapy: 75Pck6431 to (Evaluate:24Oct2013) Requested for: 08Tlc6774; Last Rx:07Hey2251 2. Methylphenidate HCl ER 54 MG Oral Tablet Extended Release; TAKE 1 TABLET ONCE DAILY; Therapy: 40Qua2538 to (Evaluate:17Aug2013); Last Rx:19Jul2013 Allergies 1. No [...] for: 22Jul2013 Signatures Electronically signed by : Praful Gutierrez M.D.; Jul 22 2013 4:05PM (Author) Electronically signed by : Praful Gutierrez M.D.; Jul 27 2013 10:56PM (Author) EDGE STITCHER HAND documented in this encounter Plan of Treatment Not on file documented as of this encounter Visit Diagnoses Not on filedocumented in this encounter Care Teams Radio Dispatcher Relationship Specialty Start Date End Date Rahul Ledesma MD [address] [address] PCP - General 02/17/15 Rahul Ledesma MD [address] [address] PCP - General 07/06/14 02/16/15 Rahul Ledesma MD [address] [address] PCP - General 07/16/13 07/05/14 documented as of this encounter
--- OUTSIDE RECORDS SUMMARY | 2024-10-25 18:06 | XMS_ITS | Encounter Summary ---
Author Organization [facility] Address [address] [place] [address]. [place], [place] [address] [place] [address] Care Team Providers Care Table Keeper Name Role Phone Rahul Villa MD Primary Care Provider [phone] Rahul Villa MD Primary Care Provider Rahul Villa MD Primary Care Provider Encounter Details Date Type Department Care Team (Latest Contact Info) Description 06/08/2014 Abstract [facility] , Generic ConversionMD Social [...] Rivera Task Name: Results Inquiry Assigned [facility]: [facility] Regarding Patient: Dat Spivey, [...] Gretta Samson, ; Jun 08 2014 2:35PM DATA WAREHOUSING ENGINEER (Author) documented in this encounter Plan of Treatment Not on file documented as of this encounter Visit Diagnoses Not on filedocumented in this encounter Care Teams Table Keeper Relationship Specialty Start Date End Date Rahul Villa MD [address] [phone] PCP - General 02/17/15 Rahul Villa MD [address] [phone] PCP - General 07/06/14 02/16/15 Rahul [place] MD [address] [phone] PCP - General 07/16/13 07/05/14 documented as of this encounter
--- OUTSIDE RECORDS SUMMARY | 2024-10-25 18:06 | XMS_ITS | Encounter Summary ---
Author Organization [facility] Address [address] [place] [address]. [place], [place] [address] [place] [address] Care Team Providers Care Ornamental Plaster Sticker Name Role Phone Rahul Ledesma MD Primary Care Provider Rahul Ledesma MD Primary Care Provider Rahul Ledesma MD Primary Care Provider Rahul Ledesma MD Primary Care Provider Rahul Ledesma MD Primary Care Provider Rahul Ledesma MD Primary Care Provider Encounter Details Date Type Department Care Team (Late st Contact Info) Description 10/19/[address] [facility] [address] [place] [address] Tamara Grady, GRAIN OPERATIONS MANAGER [address] [facility] [address] [place] [address] Social History Tobacco Use Types [...] site documented in this encounter Care Teams Ornamental Plaster Sticker Relationship Specialty Start Date End Date Rahul Ledesma MD [address] [phone] PCP - General 02/17/15 Rahul Ledesma MD [address] [phone] PCP - General 07/06/14 02/16/15 Rahul Ledesma MD [address] [phone] PCP - General 07/16/13 07/05/14 Rahul Ledesma MD [address] [phone] PCP - General 01/09/13 07/15/13 Rahul Ledesma MD [address] [phone] PCP - General 11/25/12 01/08/13 Rahul Ledesma MD [address] [phone] PCP - General 10/19/12 11/24/12 documented as of this encounter
--- OUTSIDE RECORDS SUMMARY | 2024-10-25 18:06 | XMS_ITS | Encounter Summary ---
Author Organization [facility] Address [address] [place] [address]. [place], [place] [address] [place] [address] Care Team Providers Care Emergency Care Attendant Name Role Phone Rahul Ledesma MD Primary Care Provider Rahul Ledesma MD Primary Care Provider [phone] Rahul Ledesma MD Primary Care Provider Rahul Ledesma MD Primary Care Provider Encounter Details Date Type Department Care Team (Late st Contact Info) Description 01/09/2013 Abstract [facility] Diagnostic Imaging [address] [address] Libby Bush MD Social History [...] aftercare documented in this encounter Care Teams Emergency Care Attendant Relationship Specialty Start Date End Date Rahul Ledesma MD [address] [phone] PCP - General 02/17/15 Rahul Ledesma MD [address] [phone] PCP - General 07/06/14 02/16/15 Rahul Ledesma MD [address] [phone] PCP - General 07/16/13 07/05/14 Rahul Ledesma MD [address] [address] PCP - General 01/09/13 07/15/13 documented as of this encounter
--- OUTSIDE RECORDS SUMMARY | 2024-10-25 18:06 | XMS_ITS | Encounter Summary ---
Author Organization [facility] Address [address] [place] [address]. [place], [place] [address] [place] [address] Care Team Providers Care Photograph Tinter Name Role Phone Rahul Villa MD Primary Care Provider [phone] Encounter Details Date Type Department Care Team (Latest Contact Info) Description 03/25/2015 Abstract [facility] Rahul Villa MD [address] [phone] Social History Tobacco Use Types Packs/Day Years [...] Extended Release; TAKE 1 TABLET DAILY; Therapy: [id number] to (Evaluate:19Mar2015); Last Rx:17Feb2015 Ordered Rx By: [...] Rahul Villa M.D.; Mar 25 2015 2:51PM MANAGER TRADE (Author) documented in this encounter Plan of Treatment Not on file documented as of this encounter Visit Diagnoses Not on filedocumented in this encounter Care Teams Photograph Tinter Relationship Specialty Start Date End Date Rahul Villa MD [address] [phone] PCP - General 02/17/15 documented as of this encounter
--- OUTSIDE RECORDS SUMMARY | 2024-10-25 18:06 | XMS_ITS | Encounter Summary ---
Author Organization [facility] Address [address] [place] [address]. [place], [place] [address] [place] [address] Care Team Providers Care Military Technology Manager Name Role Phone Rahul Ledesma MD Primary Care Provider [phone] Rahul Ledesma MD Primary Care Provider [phone] Encounter Details Date Type Department Care Team (Late st Contact Info) Description 07/06/2014 Abstract [facility] Diagnostic Imaging [address] [place] [address] Rahul Ledesma MD [address] [phone] Social History Tobacco Use Types [...] unspecified documented in this encounter Care Teams Military Technology Manager Relationship Specialty Start Date End Date Rahul Ledesma MD [address] [phone] PCP - General 02/17/15 Rahul Ledesma MD [address] [phone] PCP - General 07/06/14 02/16/15 documented as of this encounter
--- OUTSIDE RECORDS SUMMARY | 2024-10-25 18:14 | XMS_ITS | Continuity of Care Document ---
Author Organization [facility] Address [email or web address] [facility] [place] [address] Phone Care Team Providers Care Occupational Therapy Specialist Name Role Phone Hai Edwards MD Unavailable Unavailable Allergies, Adverse Reactions, Alerts Substance Reaction Status Criticality No Known Allergies Active No Inform ation Medications Medication Instructions Dosage Effective Dates (start - stop) Status Comments Adderall 30 mg tablet take 1 tablet by oral route 2 times every day 30 MG - Active Suboxone 4 mg-[address] 1 film by sublingual route every day allow to dissolve slowly in mouth without chewing or swallowing 1.00 film - Active Xanax 0.5 mg tablet take 1 tablet by ora l route 2 times every day 0.5 MG - Active Paxil 10 mg tablet take 1 tablet by ora l route every day 10 MG - Active Procedures Procedure Date OFFICE/OUTPATIENT VISIT, [...] Copied on Encounter OFFICE/OUTPA TIENT VISIT, EST [facility] [place], [address], [place] tel:[phone] [facility] ADD (chief complaint) Attention deficit [address], [address], [place], [address]. tel:[phone] OFFICE/OUTPA TIENT VISIT, [facility], [address], [place], [address], [place] tel:[phone] [facility] ADD (chief complaint) neck pain1 (chief complaint) Attention deficitCervicalgia [address], [address], [place], [address]. tel:[phone] OFFICE/OUTPA TIENT VISIT, [facility], [address], [place], [address], [place] tel:[phone] [facility] ADD (chief complaint) GI (chief complaint) Attention deficitGastroenteri tis [address], [address], [place], [address]. tel:[phone] OFFICE/OUTPA TIENT VISIT, [facility], [address], [place], [address], [place] tel:[phone] [facility] ADD (chief complaint) seizure1 (chief complaint) Attention deficitEpilepsy [address], [address], [place], [address]. tel:[phone] OFFICE/OUTPA TIENT VISIT, [facility], [address], [place], [address], [place] tel:[phone] [facility] anemia1 (chief complaint) ADD (chief complaint) seizure1 (chief complaint) Attention deficitAnemiaEpilep sy [address], [address], [place], [address]. tel:[phone] OFFICE/OUTPA TIENT VISIT, [facility], [address], [place], [address], [place] tel:[phone] [facility] ADD (chief complaint) Attention deficit February- 4 Jerry Valles. [address], [address], [place], [address]. tel:[phone] OFFICE/OUTPA TIENT VISIT, [facility], [address], [place], [address], [place] tel:[phone] [facility] ADD (chief complaint) Attention deficit Apr-3 4 Jerry [address], [address], [place], [address]. tel:[phone] OFFICE/OUTPA TIENT VISIT, [facility], [address], [place], [address], [place] tel:[phone] [facility] ADD (chief complaint) anxiety1 (chief complaint) Attention deficitGeneralized Anxiety Disorder Apr-0 4 [address], [address], [place], [address]. tel:[phone] PREV VISIT, NEW, AGE 18-39 [facility], [address], [place], [address], [place] tel:[phone] [facility] physical (chief complaint) Encounter for general adult medical exam w abnormal findingsChronic pain syndromeGeneralized Anxiety DisorderAttention deficit 4 Jerry Valles. [address], [place], [address]. tel:[phone] Family History Family Member Type Diagnosis Age At Onset Father Problem Alive and well Brother Problem Alive and well Mother Problem Alive and well Payers Payer name Insurance type Covered libertarian ID Authoriza tion(s) No Information Social History [...] of diarrhea with bright red blood last soy after eating some left overs. Pt denies [...] denies any drug use or alcohol abuse anemia1 Pt has mild anem ia Pt [...] homicidal thought Pt denies any crying spells physical Pt needs annual physical pt has [...] Mental Status Date Cognitive Assessment Orientation - [place] ed to time, place, person, situation.
--- OUTSIDE RECORDS SUMMARY | 2024-10-25 18:14 | XMS_ITS | Continuity of Care Document ---
Author Organization [facility] Address [address] [place] [address] [address] [place] [address] Phone Care Team Providers Care Cut Order Hand Name Role Phone Tiara Alcocer DPT Unavailable Unavailable Procedures Procedure Date PT Evaluation Low Complexity Therapeutic Exercise Manual Therapy Hot or Cold Pack Electrical Stimulation Advance Directives Directive Yes / No Effective Date File Name No Information Encounters Encounter Description Practice Location Reason(s) For Visit Diagnoses Date Provider Providers Copied on Encounter [facility], [address] [place], [place] [address], [place], [place], [id number], tel:[phone] Casey No Information Leodan Menjivar. [address] [facility], [facility] [address], [address], [place]. tel: [phone] [facility], [address] [place] [address], [place], [place], [id number], tel:[phone] Casey Pain in right ankle and joints of right footStiffness of right ankle, not elsewhere classifiedMuscle weakness (generalized)Dif ficulty in walking, not elsewhere classifiedDisp fx of neck of left talus, subs for fx w routn healNondisp fx of neck of right talus, subs for fx w routn heal 7 Alcocer Ti[place]. [address] [facility], [address], [place], [address], [place]. tel: [phone] Referring Provider: David Leon, [facility] [address], [address]. tel:[phone] Family History Family Member Type Diagnosis Age At Onset No Information Payers Payer name Insurance type Covered libertarian [...]
== END 2024-10-18 14:03 | disposition home or self-care (01) ==
PROVIDERS: Emergency Provider Student in an Organized Health Care Education/Training Program; PCP Emergency Medicine
DX: T15.02XA Foreign body in cornea, left eye, initial encounter (principal); G40.909 Epilepsy, unspecified, not intractable, without status epilepticus; Z23 Encounter for immunization; W44.8XXA Other foreign body entering into or through a natural orifice, initial encounter
CPT/HCPCS: 26705; 65220; 65222; 90471; 90715; 99283; A9270